=== PATIENT | male | born 2000 | race Caucasian/White ===

== ENCOUNTER 2021-07-29 21:45 | Emergency (ER) | payer OTHER, SELFPAY ==
[2021-07-29 21:47] VITALS: BP 158/79; PULSE 99; RESP 16; TEMP 36.4; O2SAT 100
--- NOTE | 2021-07-29 22:19 | ED.HEATRA ---
HPI - Head Injury General Chief complaint: Head Injury Stated complaint: head injury Time Seen by Provider: 07/29/21 21:58 Source: patient and RN notes reviewed Mode of arrival: ambulatory Limitations: no limitations History of Present Illness HPI Narrative: This is a 21 year old male who presents for evaluation of a closed head injury. Patient reports he saw a spider and he jumped up hitting his head on ceiling. He denies LOC, nausea, vomiting. He had brief episode of dizziness and his right eye felt weird . His dizziness has resolved and he denies blurred vision currently.. He reports mild headache. He denies neck pain or focal weakness. He does not take blood thinners Related Data Allergies Allergy/AdvReac Type Severity Reaction Status Date / Time No Known Allergies Allergy Verified 03/23/19 04:07 Review of Systems Review of Systems: All systems reviewed & are unremarkable except as noted in HPI and below PMFSH Past Medical History Medical History (Updated 07/30/21 @ 00:00 by Marcelo Pederson) Asthma Surgical History Surgical History (Updated 07/29/21 @ 22:27 by Angela Wallace MD) No pertinent past surgical history Social History Social History (Updated 07/29/21 @ 22:27 by Angela Wallace MD) Smoking status: Never smoker Exam Const: General: alert Orientation/consciousness: patient oriented x3 HENMT: Head: normocephalic and atraumatic Face and sinus: normal facial exam and face symmetric Mouth: Yes Normal oral and palatal mucosa present, Yes lip normal, Yes tongue normal, Yes oropharynx normal and Yes moist mucous membranes Eyes: Pupils: Equal, round and reactive pupils present EOM: EOMs intact bilaterally Neck: Neck: normal visual inspection Chest: Chest palpation & inspection: normal inspection of the chest Resp: Effort & Inspection: normal respiratory effort and no retractions Auscultation: clear to auscultation bilaterally Cardio: Rate: regular rate Rhythm: regular rhythm Heart sounds: no murmurs Back/Spine/Pelvis: Back: no CVA tenderness Skin: General skin exam: normal color Rashes: no rashes Neuro: General: patient oriented x3 and moves all extremities Cranial nerves: Yes CN's II-XII intact bilaterally Psych: Mental Status: mental status grossly normal Affect: normal affect Course Reevaluation(s) Reevaluation #1: I Discussed with patient he seems to have concussion. his symptoms have resolved. I offered CT brain. He wants to hold off. He was given return precautions. Date: 08/31/21 Time: 22:30 Vital Signs Vital signs: Vital Signs Temperature 97.6 F 07/29/21 21:47 Pulse Rate 99 07/29/21 21:47 Respiratory Rate 16 07/29/21 21:47 Blood Pressure 158/79 H 07/29/21 21:47 Pulse Oximetry 100 07/29/21 21:47 Temperature 97.6 F 07/29/21 21:47 Pulse Rate 99 07/29/21 21:47 Respiratory Rate 16 07/29/21 21:47 Blood Pressure 158/79 H 07/29/21 21:47 Pulse Oximetry 100 07/29/21 21:47 Discharge Plan Discharge Clinical Impression: Closed head injury, Concussion without loss of consciousness Patient Disposition: Home, Self-Care Condition: Stable Instructions: Concussion (ED), Head Injury (ED) Additional Instructions: Take tylenol for your headache. STay hydrated. IF you develop worsening headache, vomiting or worsening symptoms return to ER. Follow-up/Referrals: KATE,KEYONNA ROBLEDO [Primary Care Provider] - Stand Alone Forms: Work/School Release IP
== END 2021-07-29 22:39 | disposition home or self-care (01) ==
PROVIDERS: Emergency Provider General Practice; PCP Nurse Practitioner Family
DX: S06.0X0A Concussion without loss of consciousness, initial encounter (principal); J45.909 Unspecified asthma, uncomplicated; W22.8XXA Striking against or struck by other objects, initial encounter
CPT/HCPCS: 99282

== ENCOUNTER 2025-02-26 17:22 | Emergency (ER) | payer BC, SELFPAY ==
[2025-02-26 17:18] VITALS: BP 131/91; PULSE 86; RESP 15; TEMP 36.7; O2SAT 99
[2025-02-26 17:29] VITALS: PULSE 85; RESP 16; O2SAT 99
--- NOTE | 2025-02-26 17:29 | ECG_ITS ---
Test Date: 2025-02-26 17:32:16 Measurements Intervals [place] Rate: 78 P: 57 CT: 149 QRS: 66 QRSD: 105 T: 49 QT: 353 QTc: 403 Interpretive Statements SINUS RHYTHM NORMAL ECG No previous ECG available for comparison Electronically Signed On 02-26-2025 19:16:41 CDT by Elier Quevedo D.O.
--- NOTE | 2025-02-26 17:41 | ED_ITS ---
HPI - General Adult General Chief complaint: Unspecified Stated complaint: Allergic reaction Time Seen by Provider: 02/26/25 17:22 History of Present Illness HPI narrative: Patient is a 25 year old male who presents to the ER with concerns of an allergic reaction. He reports 15-30 minutes prior to arrival he took Dupixent for the 1st time. Patient reports his tonsils feel swollen and I feel like I'm having difficulty swallowing. He reports he has a history of EOE and last had a dilatation 3-4 weeks ago. Patient denies any wheezing, stridor, or sore throat. He does not feel as though he has food stuck in his throat. Pt denies any other pertinent medical history. 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 Related Data Allergies Allergy/AdvReac Type Severity Reaction Status Date / Time No Known Allergies Allergy Verified 02/26/25 17:35 Review of Systems Review of Systems: All systems reviewed & are unremarkable except as noted in HPI and below PMFSH Past Medical History Medical History Asthma Surgical History Surgical History No pertinent past surgical history Social History Social History Smoking status: Never smoker Exam Narrative: GENERAL: Well appearing, well-nourished, non-toxic, in no acute distress. HEAD: Normocephalic, atraumatic. NECK: Supple. No adenopathy, no masses. RESPIRATORY: Airway patent, respirations nonlabored. Clear to auscultation bilaterally, no rales, rhonchi, wheezing. No stridor CARDIOVASCULAR: Regular rate and rhythm without murmurs, rubs, or gallops. Peripheral pulses 2+ and equal bilaterally. ABDOMINAL: Soft, nontender, nondistended, no hepatosplenomegaly. Normoactive BS. MUSCULOSKELETAL: Moves all extremities. Strength/ROM intact without gross deformities. SKIN: Warm, dry, normal color. No rashes. NEURO: A&O X3. Speech clear. Cranial nerves II-XII intact. No ataxic movements. PSYCHIATRIC: Appropriate mood and affect. Normal interaction. Course Vital Signs Vital signs: Vital Signs Temperature 36.7 C 02/26/25 17:18 Pulse Rate 86 02/26/25 17:18 Respiratory Rate 15 02/26/25 17:18 Blood Pressure 131/91 H 02/26/25 17:18 Pulse Oximetry 99 02/26/25 17:18 Oxygen Delivery Room Air 02/26/25 17:18 Temperature 36.7 C 02/26/25 17:18 Pulse Rate 85 02/26/25 17:29 Respiratory Rate 16 02/26/25 17:29 Blood Pressure 131/91 H 02/26/25 17:18 Pulse Oximetry 99 02/26/25 17:29 Oxygen Delivery Room Air 02/26/25 17:18 Medical Decision Making MDM Narrative Medical decision making narrative: Patient is a 25 year old male who presents to the ER with concerns of an allergic reaction. He reports 15-30 minutes prior to arrival he took Dupixent for the 1st time. Patient reports his tonsils feel swollen and I feel like I'm having difficulty swallowing. He reports he has a history of EOE and last had a dilatation 3-4 weeks ago. Patient denies any wheezing, stridor, or sore throat. He does not feel as though he has food stuck in his throat. Pt denies any other pertinent medical history. 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 Labs Ordered: None necessary Imaging Ordered: None necessary Medications Ordered: Decadron 10 mg IV, Benadryl 25 mg IV, Pepcid 20 mg IV, 1 L normal saline IV bolus Diagnosis: possible allergic reaction Patient Education/Shared MDM: Pt endorses significant improvement of symptoms following medication administration. He was given a glass of ice water and was able to drink the entire glass. Patient strongly advised to maintain hydration status upon discharge and follow-up with his PCP and GI specialist as soon as possible. Patient reports he is unable to take oral medications because of his EOE, so he will not be discharged home with any new oral prescriptions. Patient WILL be prescribed an epinephrine pen IN CASE his airway begins to close off once he gets home. A large amount of education was provided to patient regarding when to use an EpiPen and when to refrain from use. Pt's Dupixent dose is dosed weekly, so if this is an allergic reaction then there is a possibility his symptoms may return. It was explained to pt that if he needs to use the EpiPen, then he needs to return to the ER immediately afterwards. He was advised to not take the Dupixent again until he speaks with his GI specialist. Strict return precautions provided. Patient verbalized understanding and is in agreement with plan. Vital signs stable at time of discharge. All questions answered. Vital Signs Vital Signs: Vital Signs Temperature 36.7 C 02/26/25 17:18 Pulse Rate 86 02/26/25 17:18 Respiratory Rate 15 02/26/25 17:18 Blood Pressure 131/91 H 02/26/25 17:18 Pulse Oximetry 99 02/26/25 17:18 Oxygen Delivery Room Air 02/26/25 17:18 Temperature 36.7 C 02/26/25 17:18 Pulse Rate 85 02/26/25 17:29 Respiratory Rate 16 02/26/25 17:29 Blood Pressure 131/91 H 02/26/25 17:18 Pulse Oximetry 99 02/26/25 17:29 Oxygen Delivery Room Air 02/26/25 17:18 Discharge Plan Discharge Clinical Impression: Allergic reaction caused by a drug, History of esophageal disorder, Eosinophilic esophagitis Patient Disposition: Home Condition: Stable Instructions: Antibiotic Form, General Allergic Reaction (ED) Additional Instructions: Please return to the ER with any worsening symptoms. Follow-up with primary care provider and your GI specialist as soon as possible. If you develop severe shortness of breath or difficulty breathing, you may use your EpiPen and then call 911. Patient Language: [place] Prescriptions: New epinephrine [EpiPen 2-Eliud] 0.3 mg/0.3 mL auto-injector 0.3 mg IM Q5-15M PRN (Reason: anaphylaxis) Qty: 2 0RF Rx Instructions: do not exceed 3 doses per episode Follow-up/Referrals: KATE,KEYONNA ROBLEDO [Primary Care Provider] - Stand Alone Forms: Work/School Release IP Time of Disposition: 19:11
[2025-02-26] MEDS: SODIUM CHLORIDE 0.9% IV 1,000 ML 999 ML IV CONT (17:42)
[2025-02-26] MEDS: diphenhydrAMINE HCl INJ 50 MG/ML VIAL 25 MG IV PUSH (17:44)
[2025-02-26] MEDS: FAMOTIDINE 20 MG/2 ML VIAL IV PUSH (17:46)
[2025-02-26] MEDS: dexAMETHasone SOD PHOS INJ 10 MG/ML 1 ML VIAL IV PUSH (17:48)
--- OUTSIDE RECORDS SUMMARY | 2025-02-26 18:10 | XMS_ITS | Referral Summary ---
Author Organization [facility] Address [address] [place] [address] Care Team Providers Care Supervisor Mold Yard Name Role Phone Karen Sequeira NP Primary Care Provider Encounters Date Type Department Care Team Description 02/18/20 Documentation [facility] [address] [facility] [address] [place] [address] Dawn Stanley [facility] 02/14/20 11:00 AM CDT Office Visit [facility] Gastroenterology at [address] [place] [phone] Petar Monteiro NP Eosinophilic esophagitis (Primary Dx) 01/28/20 Results Follow-Up [facility] Medical [facility] Gastroenterology at [address] [phone] Maged Arellano MD Surgical pathology 01/27/20 12:29 PM CDT Anesthesia Event [facility] Endoscopy [address] [place] [address] Dominic Vitale MD FlemmingAure Sanchez CRNA 01/27/20 25 11:45 AM CDT - 01/27/20 25 12:15 PM CDT Surgery [facility] Endoscopy [address] [place] [address] Maged Arellano MD ESOPHAGOGASTRODUODENOSCOPY BIOPSY 01/27/20 11:15 AM CDT - 01/27/20 1:59 PM CDT Hospital Encounter [facility] Endoscopy [address] [place] [address] Maged Arellano MD Eosinophilic esophagitis; Gastroesophageal reflux disease with esophagitis without hemorrhage Discharge Disposition: Discharge to home or self care from Last 3 Months Allergies No known active allergies Medications famotidine-Ca carb-mag hydrox (Pepcid Complete) 10-800-165 mg chewable tablet Take 1 tablet by mouth 2 (two) times a day as needed 4 Active lansoprazole (PREVACID SOLUTAB) 30 mg disintegrating tabletIndications:G ERD vs EoE Take 1 tablet (30 mg total) by mouth daily 90 tablet 1 5 04/26/20 25 Active dupilumab (DUPIXENT) 300 mg/2 mL pen injectorIndications :Eosinophilic Esophagitis Inject 2 mL (300 mg total) under the skin every 7 days 8 mL 12 5 02/14/20 26 Active Active Problems Problem Noted Date Diagnosed Date Gastroesophageal reflux disease 10/28/2024 Food bolus obstruction of intestine 09/07/2024 Eosinophilic esophagitis 09/07/2024 Assessment & Plan (02/13/2025 11:54 AM CDT): EGD 01/26/25 confirms diagnosis of EoE beyond any reasonable doubt. 36 cm esophageal biopsies showed reactive changes and increased intraepithelial eosionphils with up to 30 per HPF. Distal biopsies showed 16 per HPF and mid esophageal biopsies showed up to 35 per HPF. This is even after being on PPI. We discussed the nature of EoE as well as several different possible treatment methodologies including 2-4-6 empiric elimination diet, swallowed topical corticosteroids, and Dupixent. Of these options, we have chosen to start Dupixent 300 mg weekly indefinitely. Will see him back in the office in 3-4 months to recheck symptoms. In about 6 months will send for repeat EGD to prove histologic remission and resolution of esophageal eosinophilia. Assessment & Plan (10/28/2024 4:50 PM STAFF ANALYST): The endoscopic and biopsy findings are highly suggestive of EoE. When he presented with suspected food bolus in August 2024 he had endoscopic appearance highly suggestive of EoE, moreso than GERD. EREFS score was Edema - 1, Rings 2, Exudate 0 (although some exudate appears to be seen on the photos), Furrows 0 and stricture 0/Absent. Interestingly, the distal and mid-esophageal biopsies showed mild chronic esophagitis with rare eosinophils. Distal esophagus biopsy show squamous epithelium and mucosa with basal hyperplasia, slight intercellular edema, and occasional eosinophils (0-7 eosinophils per high-power field). Eosinophilic microabscesses are not seen nor is surface epithelial damage by eosinophils. Midesophagus biopsy show a strip of squamous mucosa with elongation of the vascular papillae, basal hyperplasia, and scattered eosinophils (0-10 per high-power field). Surface epithelial damage by eosinophils is not seen nor are eosinophilic microabscesses. There is no intercellular edema. In totality, these features along with the endoscopic findings are quite suggestive of EoE as opposed to GERD. However, it is curious that there were only 0-7 eosinophils per HPF in the distal esophagus and 0-10 eosinophils per HPF in the mid esophagus. During an acute episode of dysphagia, I would have expected these to be higher. I do not have his biopsy results from 2019, but he did have endoscopic appearance highly suggestive of EoE in 2019. Either way, I discussed the updated guidelines (Sep 2024) with the patient today as well as the diagnostic and treatment approach to EoE. Will start him back on lansoprazole 30 mg solutab (cannot swallow pills) once daily in the morning for three months and then repeat EGD to evaluate for healing/resolution. If features of EoE still present will consider additional treatment modalities including dietary restriction, swallowed topical steroids, Dupixent etc. Will see him back in the office 1-2 weeks after EGD for discussion of next steps. Social History Tobacco Use Types Packs/Day Years Used Date Smoking Tobacco: Never Tobacco Cessation:Counseling Given: Not Answered AUDIT-C Answer Date Recorded Q1: How often do you have a drink containing alcohol? Never 01/26/2025 Q2: How many drinks containi ng alcohol do you have on a typical day when you are drinking? Patient does not drink Q3: How often do you have si x or more drinks on one occasion? Never 01/26/2025 Personal Safety Answer Date Recorded Have you ever been in or are you currently in a harmful physical or emotional relationship or is someone making you feel afraid or unsafe? 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 Gender Identity Not on file Sexual Orientation Not on file Last Filed Vital Signs Vital Sign Reading Time Taken Comments Blood Pressure 140/88 02/13/2025 10:48 AM CDT Pulse 68 01/26/2025 1:20 PM CDT Temperature 35.9 C (96.7 F) 01/26/2025 1:23 PM CDT Respiratory Rate 15 01/26/2025 1:20 PM CDT Oxygen Saturation 99% 01/26/2025 1:20 PM CDT Inhaled Oxygen Concentration - - Weight 75.1 kg (165 lb 8 oz) 02/13/2025 10:48 AM CDT Height 182.9 cm (6' 0.01) 02/13/2025 10:48 AM C DT Body Mass Index 22.44 02/13/2025 10:48 AM CDT Plan of Treatment Not on file Procedures Procedure Name Priority Date/Time Associated Diagnosis Comments SURGICAL PATHOLOGY Routine 01/26/2025 12:53 PM CDT Eosinophilic esophagitis Gastroesophageal reflux disease with esophagitis without hemorrhage ESOPHAGOGASTRODUODENOSCOPY BIOPSY 01/26/2025 12:30 PM CDT Eosinophilic esophagitis Gastroesophageal reflux disease with esophagitis without hemorrhage EGD 01/26/2025 11:51 AM CDT from Last 3 Months Results * Surgical pathology (01/26/2025 12:53 PM CDT) Tissue (Esophageal biopsy) 01/26/2025 12:53 PM CDT Tissue specimen (specimen) (Esophageal biopsy) 01/26/2025 12:54 PM CDT Tissue specimen (specimen) (Esophageal biopsy) 01/26/2025 12:55 PM CDT Tissue specimen (specimen) (Esophageal biopsy) 01/26/2025 12:58 PM CDT Tissue specimen (specimen) (Esophageal biopsy) 01/26/2025 12:59 PM CDT Narrative PATHOLOGY [facility] - 01/27/2025 2:30 PM CDT [address] [address] Tele: Claudette Ramsey MD - Ocean Forwarder Note to Patients: This report may contain a detailed description of human tissue sent by a health care provider to the laboratory for pathologic evaluation. The content of this report is essential for diagnosis and may provide important critical findings. This information may be unfamiliar to patients to review without a medical professional present. It is advised that the patient review this report in the presence of a health care provider who can answer questions and explain the details. SURGICAL PATHOLOGY REPORT Patient Name: TREVOR LEUGN Address: [address] [place] [address] Gender: M : 2000 (Age: 25) Service: Surgery Location: [facility], [facility] #: [id number] Patient Type: BSP Observation Taken: 01/26/2025 Received 01/26/2025 Reported: 01/27/2025 Physician(s): MD Karen Klein FNP DIAGNOSIS: Submitted as suspected Payan's at 40 cm, biopsy: - Gastric mucosa with no significant histopathologic abnormality Submitted as suspected Payan's at 38 cm, biopsy: - Gastric mucosa with no significant histopathologic abnormality Submitted as suspected Payan's at 36 cm, biopsy: - Gastric mucosa with no significant histopathologic abnormality - Squamous mucosa with reactive changes and increased intraepithelial eosinophils (up to 30 per high-power field) Esophagus, distal, biopsy: - Squamocolumnar mucosa with reactive changes and increased intraepithelial eosinophils (up to 16 per high-power field) Esophagus, mid, biopsy: - Squamous mucosa with reactive changes and increased intraepithelial eosinophils (up to 35 per high-power field) rera/01/27/2025 14:30 Examining Pathologist: Tania Stinson M.D. Report Reviewed and Electronically Signed By Tania Stinson M.D. SPECIMEN TYPE: A: SUSPECTED BARRETTS AT 40CM B: SUSPECTED BARRETTS AT 38 CM C: SUSPECTED BARRETTS AT 36 CM D: DISTAL ESOPHAGUS BIOPSY E: MID ESOPHAGUS BIOPSY CLINICAL IMPRESSION AND HISTORY: Dysphagia, suspected eosinophilic esophagitis. On endoscopy, there salmon-colored mucosa present and mucosal changes include ringed esophagus and longitudinal furrows in the middle third and lower third of the esophagus. GROSS DESCRIPTION: The tissue is received in five containers of formalin all labeled with the patient's name TREVOR LEUNG. A. The first container is additionally labeled suspected Payan's at 40 cm and contains multiple tissue fragments measuring 0.7 x 0.1 x 0.1 cm in aggregate. Due to the color and size of the specimen, eosin is used. The specimen is filtered and submitted entirely in cassette A1. B. The second container is additionally labeled suspected Payan's at 38 cm and contains multiple tissue fragments measuring 0.8 x 0.1 x 0.1 cm in aggregate. Due to the color and size of the specimen, eosin is used. The specimen is filtered and submitted entirely in cassette B1. C. The third container is additionally labeled suspected Payan's at 36 cm and contains multiple tissue fragments measuring 0.8 x 0.1 x 0.1 cm in aggregate. Due to the color and size of the specimen, eosin is used. The specimen is filtered and submitted entirely in cassette C1. D. The fourth container is additionally labeled distal esophagus biopsy and contains two tissue fragments measuring 0.5 x 0.1 x 0.1 cm in aggregate. Due to the color and size of the specimen, eosin is used. The specimen is filtered and submitted entirely in cassette D1. E. The fifth container is additionally labeled mid esophagus biopsy and contains multiple tissue fragments measuring 0.7 x 0.2 x 0.1 cm in aggregate. Due to the color and size of the specimen, eosin is used. The specimen is filtered and submitted entirely in cassette E1. [facility]/01/26/2025 17:37 [place],[facility] MICROSCOPIC DESCRIPTION: Microscopic evaluation of parts A and B show fragments of gastric mucosa with no significant histopathologic abnormality. Negative for intestinal metaplasia and dysplasia. Microscopic evaluation of part C shows fragments of gastric mucosa with no significant histopathologic abnormality and fragments of squamous mucosa with reactive changes and increased intraepithelial eosinophils (up to 30 per high- power field). Some of the squamous fragments also show intraepithelial neutrophils. Negative for dysplasia. Microscopic evaluation of part D shows fragments of squamocolumnar mucosa with reactive changes and increased intraepithelial eosinophils (up to 16 per high- power field). Negative for dysplasia. Microscopic evaluation of part E shows fragments squamous mucosa with reactive changes and increased intraepithelial eosinophils (up to 35 per high-power field). Negative for dysplasia. Clerical Data Follows A; 22601 B; 21271 C; 54146 D; 31630 E; 98233 REPORT IMAGES AND/OR SCANNED DOCUMENTS ONLY VIEWABLE IN PDF FORMAT The immunohistochemical test(s) cited in this report, if any, was developed and its performance characteristics determined by [facility] Pathology Department. It has not been cleared or approved by the U.S. Food and Drug Administration. The FDA has determined that such clearance or approval is not necessary. This test is used for clinical purposes. It should not be regarded as investigational or for research. [facility] is certified under the Clinical Laboratory Improvement Amendments of 1988 (CLIA) as qualified to perform high complexity testing. Immunostains were performed on formalin-fixed paraffin embedded tissue using a polymer diaminobenzidine chromogen detection system. Antibodies used may include clone SP1 (rabbit monoclonal, estrogen receptor), clone 1E2 (rabbit monoclonal progesterone receptor), Ki-67 (rabbit monoclonal, 30-9), CD117 (rabbit polyclonal, c-kit), and anti-Her-2/genesis (4B5) (rabbit monoclonal primary antibody). In the event that immunohistochemistry or special stains have been performed, attending physician has confirmed appropriateness of controls. Frozen section, operating room consultation, gross examination and dissection, and case sign out may have been performed in part or completely in the following laboratories: [facility], [address] [place] [address], [address] [place] [id number]. us Maged Arellano MD LAB PATHOLOGY ORDERABLES Final Result PATHOLOGY [facility] Laboratory Receiving [address] [place] [address] * EGD (01/26/2025 11:51 AM CDT) Anatomical Region Laterality Modality Other Narrative Procedure Note Maged Arellano MD - 01/26/2025 11:51 AM CDT [facility] Endoscopy Lab Patient Name: Trevor Leung Procedure Date: 01/26/2025 11:51 AM Date of : 2000 Admit Type: Outpatient Age: 25 Gender: Male Attending MD: Maged Arellano M.D. Procedure: Upper GI endoscopy Indications: Dysphagia, Suspected eosinophilic esophagitis (EGD done on lansoprazole 30 mg daily, patient denies signficant dysphagia) Providers: Maged Arellano M.D. Referring MD: Geeta Mccormack Medicines: Monitored Anesthesia Care Complications: No immediate complications. Procedure: Pre-Anesthesia Assessment: - Prior to the procedure, a History and Physicalwas performed, and patient medications and allergieswere reviewed. The patient is competent. The risks and benefits of the procedure and the sedation optionsand risks were discussed with the patient. Allquestions were answered and informed consent was obtained. Patient identification and proposed procedure were verified by the physician, the nurse, the anesthesiologist, the compensator worker and thetechnician in the pre-procedure area in the procedure room inthe endoscopy suite. Mental Status Examination: normal. ASA Grade Assessment: per anesthesia. Afterreviewing the risks and benefits, the patient was deemed in satisfactory condition to undergo the procedure.The anesthesia plan was to use monitored anesthesiacare (MAC). Immediately prior to administration of medications, the patient was re-assessed foradequacy to receive sedatives. The heart rate, respiratory rate, oxygen saturations, blood pressure, adequacyof pulmonary ventilation, and response to care were monitored throughout the procedure. The physical status of the patient was re-assessed after the procedure. The benefits, risks, and alternatives to theprocedure and sedation were discussed and informed consentwas obtained. The scope was passed under direct vision. The Endoscope was introduced through the mouth, and advanced to the second part of duodenum. The upperGI endoscopy was accomplished without difficulty. The patient tolerated the procedure well. Findings: A small hiatal hernia was present. Antrim-colored mucosa was present. Mucosa was biopsied with a cold forceps for histology in 4 quadrants at intervals of 2 cm. A total of3 specimen bottles were sent to pathology. Mucosal changes including ringed esophagus and longitudinal furrowswere found in the middle third of the esophagus and in the lower third ofthe esophagus. Biopsies were obtained from the proximal and distalesophagus with cold forceps for histology of suspected eosinophilicesophagitis. The entire examined stomach was normal. The examined duodenum was normal. Impression: - Small hiatal hernia. - Antrim-colored mucosa suspicious for long-segment Payan's esophagus and classified as Payan'sstage C4-M4 per [place] criteria. Biopsied. - Esophageal mucosal changes suggestive of eosinophilic esophagitis. Biopsied. - Normal stomach. - Normal examined duodenum. Recommendation: - Resume previous diet. - Continue present medications. - Await pathology results. - Return to referring physician. Maged Arellano M.D. 01/26/2025 1:08:11 PM This report has been signed electronically. Number of Addenda: 0 Note Initiated On: 01/26/2025 11:51 AM Estimated Blood Loss: Estimated blood loss: none. Maged Arellano MD ENDOSCOPY PROCEDURES Edited Re sult - Final from Last 3 Months Insurance ANTHEM ACCESS CHOICE ANTHEM ACCESS CHOICE Advance Directives For more information, please contact: [phone] * Full Code (Latest Code Status on File) Date Activated Date Inactivated Comments 01/26/2025 11:42 AM 01/26/2025 6:06 PM Care Teams Supervisor [employer] Relationship Specialty Start Date End Date Karen Sequeira NP [address] [place] [phone] PCP - General Nurse Practitioner 09/07/24
--- OUTSIDE RECORDS SUMMARY | 2025-02-26 18:10 | XMS_ITS | Encounter Summary ---
Author Organization [facility] Healthcare Address [address] [place] [address] Care Team Providers Care Carpenter Ship Name Role Phone Karen Sequeira NP Primary Care Provider Encounter Details Date Type Department Care Team (Late st Contact Info) Description 01/27/2025 Results Follow-Up [facility] Medical Group Gastroenterology at [place] [address] [facility] [address] [place] [phone] Maged Arellano MD [address] [facility] [address] [place] [address] Surgical pathology Social History Tobacco Use Types Packs/Day Years Used Date Smoking Tobacco: Never AUDIT-C Answer Date Recorded Q1: How often [...] on file 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
--- OUTSIDE RECORDS SUMMARY | 2025-02-26 18:10 | XMS_ITS | Clinical Summary ---
Author Organization [facility] Address [address] [place] [address] Care Team Providers Care Nailhead Operator Name Role Phone Karen Sequeira NP Primary Care Provider + [phone] Allergies No known active allergies Medications famotidine-Ca [...] eosinophilia. Assessment & Plan (10/28/2024 4:50 PM TUBE DRAW HELPER): The endoscopic and biopsy findings are highly [...] after EGD for discussion of next steps. Encounters Date Type Department Care Team Description 02/18/20 Documentation [facility] [address] [facility] [address] [place] [address] Jaden Dawn Doan [facility] 02/14/20 11:00 AM CDT Office Visit [facility] Gastroenterology at [address] [place] [address] Petar Monteiro NP Eosinophilic esophagitis (Primary Dx) 01/28/20 Results Follow-Up [facility] Gastroenterology at [address] [address] Maged Arellano MD Surgical pathology 01/27/20 12:29 PM CDT Anesthesia Event [facility] [address] [place] [address] Dominic Vitale MD Flemming-Ko ttman, Sandra K., CRNA 01/27/20 11:45 AM CDT - 01/27/20 12:15 PM CDT Surgery [facility] [address] [place] [address] Maged Arellano MD ESOPHAGOGASTRODUODENOSCOPY BIOPSY 01/27/20 11:15 AM CDT - 01/27/20 1:59 PM CDT Hospital Encounter [facility] [address] [place] [address] Maged Arellano MD Eosinophilic esophagitis; Gastroesophageal reflux disease with esophagitis without hemorrhage Discharge Disposition: Discharge to home or self care from Last 3 Months Surgical History Surgery Date Site/Laterality Comments ESOPHAGOGASTRODUODENOSCOPY Medical History Medical History Date Comments GERD (gastroesophageal reflux disease) Anxiety Social History Tobacco Use Types Packs/Day Years [...] on file Legal Sex Male 1:28 AM TUBE DRAW HELPER Gender Identity Not on file Sexual Orientation Not on file Obstetrics History Last Filed Vital Signs Vital Sign Reading [...] 02/13/2025 10:48 AM CDT Plan of Treatment Health Maintenance Due Date Last Done Comments Depression Screening 2000 Hepatitis C Screening 2000 Varicella Vaccines (1 of 2 - 13+ 2-dose series) 01/17/2013 HPV Vaccines (1 - Male 3-dos e series) 01/17/2015 Hepatitis B Screening 01/17/2018 Regular Well Visit/Exam 18-64 01/17/2018 Covid-19 Vaccine ( - 2023-2 5 season) 2024 10/10/2021, 11/30/2020, 10/28/2020 Influenza Vaccine (Season Ended) 2025 DTaP/Tdap/Td Vaccine (2 - Td or Tdap) 03/07/2029 03/07/2019 Pneumococcal vaccine <65 Aged Out No longer eligible based on patient's age to complete this topic Procedures Procedure Name Priority Date/Time Associated Diagnosis [...] biopsy) 01/26/2025 12:59 PM CDT Narrative PATHOLOGY [facility] - 01/27/2025 2:30 PM CDT [address] [address] Tele: Claudette Ramsey MD - Hoe Runner Note to Patients: This report may contain [...] details. SURGICAL PATHOLOGY REPORT Patient Name: TREVOR LEUNG Address: [address] [place] [address] Gender: M : 2000 (Age: 25) Service: Surgery Location: [facility], [facility] #: [id number] Patient Type: BSP Observation Taken: 01/26/2025 Received [...] filtered and submitted entirely in cassette E1. [facility]/01/26/2025 17:37 AKIKO,MILO MICROSCOPIC DESCRIPTION: Microscopic evaluation of parts A [...] Negative for dysplasia. Clerical Data Follows A; 06597 B; 31018 C; 74600 D; 83809 E; 00406 REPORT IMAGES AND/OR SCANNED DOCUMENTS ONLY VIEWABLE IN PDF FORMAT The immunohistochemical test(s) cited in this report, if any, was developed and its performance characteristics determined by [facility] Pathology Department. It has not been cleared or approved by the U.S. Food and Drug Administration. The FDA has determined that such clearance or approval is not necessary. This test is used for clinical purposes. It should not be regarded as investigational or for research. [facility] Laboratory is certified under the Clinical Laboratory [...] part or completely in the following laboratories: [facility], [address] [facility], [place], [place] [address] [place] [address], [address], [place] [address]. Maged Arellano MD LAB PATHOLOGY ORDERABLES Final Result PATHOLOGY [facility] Laboratory Receiving [facility][note 2] [place] [address] * EGD (01/26/2025 11:51 AM CDT) Anatomical Region Laterality Modality Other Narrative Procedure Note Maged Arellaon MD - 01/26/2025 11:51 AM CDT [facility] Patient Name: Trevor Leung Procedure [...] the physician, the nurse, the anesthesiologist, the faculty head and thetechnician in the pre-procedure area in [...] Findings: A small hiatal hernia was present. [place]-colored mucosa was present. Mucosa was biopsied with [...] normal. Impression: - Small hiatal hernia. - [place]-colored mucosa suspicious for long-segment Payan's esophagus and classified as Payan'sstage C4-M4 per [place] criteria. Biopsied. - Esophageal mucosal changes suggestive [...] - Final from Last 3 Months Insurance [employer] CHO[employer] Member Subscriber Plan / Payer ( fective 2022-Present) Name:Trevor Leung Member ID:[id number] Relation to Subscriber:Self Name:Trevor Leung Subscriber ID:[id number] Payer ID:[id number] (NAIC) Type:BC ALLIANCE Address: [facility] [id number] [place] [id number] Advance Directives For more information, please contact: [phone] * Full Code (Latest Code Status on File) Date Activated Date Inactivated Comments 01/26/2025 11:42 AM 01/26/2025 6:06 PM Care Teams Nailhead Operator Relationship Specialty Start Date End Date Karen Sequeira NP [address] [place] [address] PCP - General Nurse Practitioner 09/07/24
[2025-02-26 19:19] VITALS: BP 121/94; PULSE 97; RESP 18; O2SAT 100
== END 2025-02-26 19:21 | disposition home or self-care (01) ==
PROVIDERS: Emergency Provider Registered Nurse; PCP Nurse Practitioner Family
DX: K20.0 Eosinophilic esophagitis (principal); J45.909 Unspecified asthma, uncomplicated; T45.1X5A Adverse effect of antineoplastic and immunosuppressive drugs, initial encounter
CPT/HCPCS: 93005; 96361; 96374; 96375; 99284; J1100; J1200; J7030

== ENCOUNTER 2025-02-26 23:55 | Emergency (ER) | payer BC, SELFPAY ==
[2025-02-27] VITALS (7 sets, daily range): BP systolic 137–151; BP diastolic 82–86; PULSE 70–101; RESP 16–19; TEMP 36.8; O2SAT 98–100
--- OUTSIDE RECORDS SUMMARY | 2025-02-27 00:24 | XMS_ITS | Clinical Summary ---
Author Organization [facility] Address [address] [place] [address] Care Team Providers Care Motor Adjuster Name Role Phone Karen Sequeira NP Primary Care Provider + [phone] Allergies No known active allergies Medications famotidine-Ca [...] eosinophilia. 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): The endoscopic and biopsy findings are highly [...] Department Care Team Description 02/18/20 Documentation [facility] [address] [facility] [address] [place] [address] Jaden Dawn Doan [facility] 02/14/20 11:00 AM CDT Office Visit [facility] Gastroenterology at [address] [place] [address] Petar Monteiro NP Eosinophilic esophagitis (Primary Dx) 01/28/20 Results Follow-Up [facility] Gastroenterology at [address] [address] Maged Arellano MD Surgical pathology 01/27/20 12:29 PM CDT Anesthesia Event [facility] [address] [place] [address] Dominic Vitale MD Flemming-Ko ttman, Sandra K., CRNA 01/27/20 11:45 AM CDT - 01/27/20 12:15 PM CDT Surgery [facility] [address] [place] [address] Maged Arellano MD ESOPHAGOGASTRODUODENOSCOPY BIOPSY 01/27/20 11:15 AM CDT - 01/27/20 1:59 PM CDT Hospital Encounter [facility] [address] [place] [address] Maged Arellano MD Eosinophilic esophagitis; Gastroesophageal reflux [...] on file 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, [facility] #: [id number] Patient Type: BSP Observation Taken: 01/26/2025 Received [...] filtered and submitted entirely in cassette E1. [facility]/01/26/2025 17:37 AKIKO,MILO MICROSCOPIC DESCRIPTION: Microscopic evaluation of [...] Negative for dysplasia. Clerical Data Follows A; 49798 B; 84105 C; 54554 D; 98908 E; 78806 REPORT IMAGES AND/OR SCANNED DOCUMENTS ONLY VIEWABLE IN PDF FORMAT The immunohistochemical test(s) cited in this report, if any, was developed and its performance characteristics determined by [facility] Pathology Department. It has not been cleared or approved by the U.S. Food and Drug Administration. The FDA has determined that such clearance or approval is not necessary. This test is used for clinical purposes. It should not be regarded as investigational or for research. [facility] Laboratory is certified under the Clinical Laboratory [...] part or completely in the following laboratories: [facility], [address] [facility], [place], [place] [address] [place] [address], [address], [place] [address]. Maged Arellano MD LAB PATHOLOGY ORDERABLES Final Result PATHOLOGY [facility] Laboratory Receiving [facility] [place] [address] * EGD (01/26/2025 11:51 AM CDT) Anatomical Region Laterality Modality Other Narrative Procedure Note Maged Arellano MD - 01/26/2025 11:51 AM CDT [facility] Lab Patient Name: Trevor Leung Procedure [...] the physician, the nurse, the anesthesiologist, the van driver helper and thetechnician in the pre-procedure area in [...] Findings: A small hiatal hernia was present. [place]-colored mucosa was present. Mucosa was biopsied with [...] normal. Impression: - Small hiatal hernia. - [place]-colored mucosa suspicious for long-segment Payan's esophagus and classified as Payan'sstage C4-M4 per [place] criteria. Biopsied. - Esophageal mucosal changes suggestive [...] - Final from Last 3 Months Insurance [employer] Member Subscriber Plan / Payer ( fective 2022-Present) Name:Trevor Leung Member ID:[id number] Relation to Subscriber:Self Name:Trevor Leung Subscriber ID:[id number] Payer ID:[id number] ([facility]) Type:[facility] Address: [facility] [id number] [place] [address] [email or web address] CHOICE Member Subscriber Plan / Payer ( fective 2022-Present) Name:Trevor Leung Member ID:[id number] Relation to Subscriber:Self Name:Trevor Leung Subscriber ID:[id number] Payer ID:[id number] (NAIC) Type:[employer] ALLIANCE Address: [facility] [address] [place] [id number] Advance Directives For more information, please contact: [phone] * Full Code (Latest Code Status on File) Date Activated Date Inactivated Comments 01/26/2025 11:42 AM 01/26/2025 6:06 PM Care Teams Motor Adjuster Relationship Specialty Start Date End Date Karen Sequeira NP [address] [place] [address] PCP - General Nurse Practitioner 09/07/24
--- OUTSIDE RECORDS SUMMARY | 2025-02-27 00:24 | XMS_ITS | Referral Summary ---
Author Organization [facility] Address [address] [place] [address] Care Team Providers Care Bath Mixer Name Role Phone Karen Sequeira NP Primary Care Provider [phone] Encounters Date Type Department Care Team Description 02/18/20 Documentation [facility] [address] [facility] [address] [place] [address] Dawn [facility] 02/14/20 11:00 AM CDT Office Visit [facility] Gastroenterology at [address] [place] [phone] Petar Monteiro NP Eosinophilic esophagitis (Primary Dx) 01/28/20 Results Follow-Up [facility] Medical [facility] Gastroenterology at [address] [phone] Maged Arellano MD Surgical pathology 01/27/20 12:29 PM CDT Anesthesia Event [facility] [address] [place] [address] Dominic Vitale MD FlemmingAure Sanchez CRNA 01/27/20 25 11:45 AM CDT - 01/27/20 25 12:15 PM CDT Surgery [facility] [address] [place] [address] Maged Arellano MD ESOPHAGOGASTRODUODENOSCOPY BIOPSY 01/27/20 11:15 AM CDT - 01/27/20 1:59 PM CDT Hospital Encounter [facility] [address] [place] [address] Maged Arellano MD Eosinophilic esophagitis; Gastroesophageal reflux [...] eosinophilia. 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 Gender Identity Not on file Sexual Orientation [...] biopsy) 01/26/2025 12:59 PM CDT Narrative PATHOLOGY [facility] - 01/27/2025 2:30 PM CDT [address] [address] Tele: Claudette Ramsey MD - Technology Applications Engineer Note to Patients: This report may contain [...] PATHOLOGY REPORT Patient Name: TREVOR LEUNG Address: [address] [place] [address] Gender: M : 2000 (Age: 25) Service: Surgery Location: [facility], [facility] #: [id number] Patient Type: BSP Observation Taken: 01/26/2025 Received [...] filtered and submitted entirely in cassette E1. [facility]/01/26/2025 17:37 Marisol,[facility] MICROSCOPIC DESCRIPTION: Microscopic evaluation of parts A [...] Negative for dysplasia. Clerical Data Follows A; 30394 B; 59831 C; 55548 D; 67377 E; 02252 REPORT IMAGES AND/OR SCANNED DOCUMENTS ONLY VIEWABLE IN PDF FORMAT The immunohistochemical test(s) cited in this report, if any, was developed and its performance characteristics determined by [facility] Pathology Department. It has not been cleared or approved by the U.S. Food and Drug Administration. The FDA has determined that such clearance or approval is not necessary. This test is used for clinical purposes. It should not be regarded as investigational or for research. [facility] Laboratory is certified under the Clinical [...] part or completely in the following laboratories: [facility], [address] [place] [address], [address] [place] [address]. [place] Maged Arellano MD LAB PATHOLOGY ORDERABLES Final Result PATHOLOGY [facility] Laboratory Receiving [address] [place] [address] * EGD (01/26/2025 11:51 AM CDT) Anatomical Region Laterality Modality Other Narrative Procedure Note Maged Arellano MD - 01/26/2025 11:51 AM CDT [facility] Patient Name: Trevor Leung [...] the physician, the nurse, the anesthesiologist, the sausage meat trimmer and thetechnician in the pre-procedure area in [...] Findings: A small hiatal hernia was present. [place]-colored mucosa was present. Mucosa was biopsied with [...] normal. Impression: - Small hiatal hernia. - [place]-colored mucosa suspicious for long-segment Payan's esophagus and classified as Payan'sstage C4-M4 per [place] criteria. Biopsied. - Esophageal mucosal changes suggestive [...] Advance Directives For more information, please contact: [phone] * Full Code (Latest Code Status on File) Date Activated Date Inactivated Comments 01/26/2025 11:42 AM 01/26/2025 6:06 PM Care Teams Bath Mixer Relationship Specialty Start Date End Date Karen Sequeira NP [address] [place] [address] PCP - General Nurse Practitioner 09/07/24
--- OUTSIDE RECORDS SUMMARY | 2025-02-27 00:24 | XMS_ITS | Encounter Summary ---
Author Organization [facility] Healthcare Address [address] [place] [address] Care Team Providers Care Wastewater Treatment Plant Attendant Name Role Phone Karen Sequeira NP Primary Care Provider [phone] Encounter Details Date Type Department Care Team (Late st Contact Info) Description 01/27/2025 Results Follow-Up 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
[2025-02-27] MEDS: prednisoLONE ORAL SOLN 30 MG/10 ML SOLUTION 60 MG PO (01:41)
--- NOTE | 2025-02-27 01:55 | ED.ALLEREA ---
HPI - Allergic Reaction General Chief complaint: Allergic Reaction Stated complaint: allergic reaction Time Seen by Provider: 02/27/25 00:09 History of Present Illness HPI narrative: 25-year-old male presenting to the emergency department for concerns of an allergic reaction. Patient had his 1st dose of a new immunosuppressant medication Dupixent earlier today and was seen in the emergency department around 5:00 p.m. for potential lytic reaction where he felt like he is tonsils were swollen he was having some trouble breathing. 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 Patient was treated for suspected allergic reaction with Decadron, Benadryl, Pepcid and fluids. He was observed in the emergency department and discharged home with an epinephrine autoinjector but he had no anaphylaxis during his visit or initial encounter. Patient presents as he is still having some throat swelling sensations but no difficulty in breathing, fever, chills, hives, diarrhea, abdominal pain. He did not use his epinephrine and took children's Benadryl home. Patient is also anxious and his grandmother at bedside states that she feels like this is all anxiety mediated rather than allergic reaction or any other acute process. Related Data Allergies Allergy/AdvReac Type Severity Reaction Status Date / Time dupilumab (From Dupixent Pen) Allergy Severe Difficulty Verified 02/26/25 23:57 Swallowing Review of Systems Review of Systems: As reviewed above in HPI PMFSH Past Medical History Medical History Asthma Surgical History Surgical History No pertinent past surgical history Social History Social History Smoking status: Never smoker Exam Narrative: GENERAL: [Well-appearing, well-nourished, and in no acute distress.] HEAD: [Normocephalic, atraumatic.] EYES: [PERRLA and EOMI.] ENT: Nares clear, no rhinorrhea or epistaxis. Mucous membranes moist. Tonsils are not enlarged, no posterior pharyngeal erythema or edema. No uvular edema. No base of tongue swelling. NECK: Supple. No stridor, no bruits on auscultation CHEST: [Clear to auscultation. No respiratory distress.] HEART: [Regular rate and rhythm]. No murmur heard. [Normal peripheral pulses.] ABDOMEN: [Soft, nondistended], [nontender], [No rigidity or guarding] EXTREMITIES: Normal range of motion. [No edema.] SKIN: Warm, dry, no rash. NEURO: [No focal deficits]. Alert and oriented [x3.] PSYCH: [Normal mood and affect.] Course Vital Signs Vital signs: Vital Signs Pulse Rate 101 H 02/27/25 00:02 Respiratory Rate 16 02/27/25 00:02 Blood Pressure 151/83 H 02/27/25 00:02 Pulse Oximetry 99 02/27/25 00:02 Temperature 36.8 C 02/27/25 00:03 Pulse Rate 76 02/27/25 04:33 Respiratory Rate 19 02/27/25 04:33 Blood Pressure 138/82 02/27/25 04:33 Pulse Oximetry 100 02/27/25 04:33 Oxygen Delivery Room Air 02/27/25 00:08 MDM - Allergic Reaction MDM Narrative Medical decision making narrative: 25-year-old male presenting to the emergency department for potential allergic reaction. Patient was treated earlier this afternoon with Decadron, Benadryl, Pepcid for potential allergic reaction to a new medication that he had injected for his eosinophilic esophagitis. Patient was exposed to Dupixent which is now on his allergy list from previous encounter. He states that he went home feeling better but still had some sensation that he was having throat swelling. On examination he is not any acute distress, conversing in full sentences without any dyspnea or stridor. No phonation changes. No evidence of anaphylaxis on examination or by history. He has normal vital signs he with any tachycardia, fever, hypoxia blood pressure concerns. His airway is patent, discussed with him that he does not have any signs of anaphylaxis and did not use an epinephrine autoinjector to mask were treat any of his symptoms which is reassuring. Discussed that he might still have some prolonged side effects from the allergic response with the medication that he was given previously. Plan of care at this time will be to observe from the emergency department for developing signs of symptoms of any severe allergic reaction and provide him oral steroids. He was given oral prednisone liquid as he cannot tolerate feels secondary to his esophagitis. Patient will be observed and discharged home on a short course of steroids and follow-up with his specialists and PCP. Patient observed in the emergency department for over 4 hours without any signs or symptoms of anaphylaxis or significant allergic reaction. He is ambulatory in the emergency department and walking without difficulty or dyspnea. He is conversing without difficulty and was re-evaluated. His posterior oropharynx is still without any inflammation or uvular edema. He has no drooling or trismus, no phonation changes. Normal external examination. Normal vital signs and reassessment. I discussed with him that the chances of him developing any severe allergic reaction or anaphylaxis is rare especially with his reassuring exam and historical features and lack of any reexposure to the offending agent. Patient does have an epinephrine autoinjector with him and can take this in case he does develop any severe symptoms. Will be prescribing him oral prednisolone for next few days and encouraged to follow-up with his regular doctors. Patient's questions were answered and he was discharged. Medical Records Attestation: I reviewed the patient's medical records. Discharge Plan Discharge Clinical Impression: Adverse reaction to drug, Allergic reaction Patient Disposition: Home Condition: Stable Instructions: Antibiotic Form, Anaphylaxis (ED) Additional Instructions: Return to the emergency department if you experience significant swelling or throat closing sensation to the point where you cannot breathe, lose your voice, developed diffuse body rashes, or any other emergent concerns. Use your epinephrine pen if you feel like you are having a significant allergic reaction and proceed to the nearest ER/call 911. Follow-up with your doctor. We will send you home with steroids for the next several days as well as symptom control medications. Patient Language: Comoran Prescriptions: New prednisolone 15 mg/5 mL solution 60 mg PO QAM 4 Days Qty: 80 0RF diphenhydramine HCl [Allergy Relief(diphenhydramin)] 12.5 mg/5 mL liquid 25 mg PO Q6H PRN (Reason: allergic reaction) Qty: 473 0RF Pepcid Complete 10-800-165 mg tablet,chewable 1 tablet PO BID PRN (Reason: allergic symptoms) Qty: 20 0RF No Action epinephrine [EpiPen 2-Eliud] 0.3 mg/0.3 mL auto-injector 0.3 mg IM Q5-15M PRN (Reason: anaphylaxis) Qty: 2 0RF Rx Instructions: do not exceed 3 doses per episode Follow-up/Referrals: KATE,KEYONNA ROBLEDO [Primary Care Provider] - Time of Disposition: 04:21
== END 2025-02-27 04:35 | disposition home or self-care (01) ==
PROVIDERS: Emergency Provider Student in an Organized Health Care Education/Training Program; PCP Nurse Practitioner Family
DX: R22.1 Localized swelling, mass and lump, neck (principal); K20.0 Eosinophilic esophagitis; J45.909 Unspecified asthma, uncomplicated; T45.1X5A Adverse effect of antineoplastic and immunosuppressive drugs, initial encounter
CPT/HCPCS: 99283; A9270

== ENCOUNTER 2025-02-28 23:02 | Emergency (ER) | payer BC, SELFPAY ==
--- OUTSIDE RECORDS SUMMARY | 2025-02-28 23:05 | XMS_ITS | Encounter Summary ---
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 He voiced understanding. * Telephone Encounter - Anahi Hewitt - 02/27/2025 11:00 AM CDT Patient was seen at [facility], I advised patient to have records sent for johnson's review, provided our fax number, pt voiced understanding. * Telephone Encounter - Anahi Hewitt - 02/27/2025 10:45 AM CDT Pt called stating he took 1st dose of dupixent and went into anaphylactic shock. He would like to speak with johnson about further recommendations. documented in this encounter Plan of Treatment Not on file documented as of this encounter Visit Diagnoses Not on filedocumented in this encounter Care Teams Show Jumping Instructor Relationship Specialty Start Date End Date Karen Sequeira NP [address] [place] [address] PCP - General Nurse Practitioner 09/07/24 documented as of this encounter
--- OUTSIDE RECORDS SUMMARY | 2025-02-28 23:05 | XMS_ITS | Encounter Summary ---
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
--- OUTSIDE RECORDS SUMMARY | 2025-02-28 23:05 | XMS_ITS | Referral Summary ---
Author Organization [facility] Address [address] [place] [address] Care Team Providers Care Propellant Charge Loader Name Role Phone Karen Sequeira NP Primary Care Provider Encounters Date Type Department Care Team Description 02/28/20 25 Telephone [facility] Gastroenterology at [address] [place] [phone] Anahi Hewitt 02/18/20 25 Documentation [facility] [address] [facility] [address] [place] [address] Dawn Stanley natasha 02/14/20 25 11:00 AM CDT Office Visit [facility] Gastroenterology at [address] [phone] Petar Monteiro NP Eosinophilic esophagitis (Primary Dx) 01/28/20 25 Results Follow-Up [facility] Medical [facility] Gastroenterology at [address] [address] Maged Arellano MD Surgical pathology 01/27/20 25 12:29 PM CDT Anesthesia Event [facility] Endoscopy [address] [place] [address] Dominic Vitale MD Flemming-Ko ttman, Sandra K., CRNA 01/27/20 25 11:45 AM CDT - 01/27/20 25 12:15 PM CDT Surgery [facility] Endoscopy [address] [place] [address] Maged Arellano MD ESOPHAGOGASTRODUODENOSCOPY BIOPSY 01/27/20 11:15 AM CDT - 01/27/20 1:59 PM CDT Hospital Encounter [facility] Endoscopy [address] [place] [address] Maged Arellano MD Eosinophilic esophagitis; Gastroesophageal reflux [...] eosinophilia. 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 Gender Identity Not on file Sexual Orientation [...] biopsy) 01/26/2025 12:59 PM CDT Narrative PATHOLOGY [facility] - 01/27/2025 2:[address] PM [address]T [address] [address] Tele: Claudette Ramsey MD - Aerial Hurricane Hunter Note to Patients: This report may contain [...] REPORT Patient Name: TREVOR LEUNG Address: [address] [place] [address] Gender: M : 2000 (Age: 25) Service: Surgery Location: [facility], [facility] #: [id number] Patient Type: BSP Observation Taken: 01/26/2025 Received [...] filtered and submitted entirely in cassette E1. [facility]/01/26/2025 17:37 [facility] MICROSCOPIC DESCRIPTION: Microscopic evaluation of [...] Negative for dysplasia. Clerical Data Follows A; 56292 B; 10456 C; 13111 D; 59257 E; 83825 REPORT IMAGES AND/OR SCANNED DOCUMENTS ONLY VIEWABLE IN PDF FORMAT The immunohistochemical test(s) cited in this report, if any, was developed and its performance characteristics determined by [facility] Pathology Department. It has not been cleared or approved by the U.S. Food and Drug Administration. The FDA has determined that such clearance or approval is not necessary. This test is used for clinical purposes. It should not be regarded as investigational or for research. [facility] Laboratory is certified under the Clinical Laboratory [...] part or completely in the following laboratories: [facility], [address] [place] [address], [address] [facility], [place] [address]. Maged Arellano MD LAB PATHOLOGY ORDERABLES Final Result PATHOLOGY [facility] Laboratory Receiving [address] [place] [address] * EGD (01/26/2025 11:51 AM CDT) Anatomical Region Laterality Modality Other Narrative Procedure Note Maged Arellano MD - 01/26/2025 11:51 AM CDT [facility] Endoscopy Lab Patient Name: Trevor Leung Procedure [...] the physician, the nurse, the anesthesiologist, the copy writer and thetechnician in the pre-procedure area in [...] Findings: A small hiatal hernia was present. [place]-colored mucosa was present. Mucosa was biopsied with [...] normal. Impression: - Small hiatal hernia. - [place]-colored mucosa suspicious for long-segment Payan's esophagus and classified as Payan'sstage C4-M4 per [place] criteria. Biopsied. - Esophageal mucosal changes suggestive [...] - Final from Last 3 Months Insurance [employer] ACCESS CHOICE [employer] ACCESS CHOICE Advance Directives For more information, please contact: [phone] * Full Code (Latest Code Status on File) Date Activated Date Inactivated Comments 01/26/2025 11:42 AM 01/26/2025 6:06 PM Care Teams Propellant Charge Loader Relationship Specialty Start Date End Date Karen Sequeira NP [address] [place] [address] PCP - General Nurse Practitioner 09/07/24
--- OUTSIDE RECORDS SUMMARY | 2025-02-28 23:05 | XMS_ITS | Clinical Summary ---
Author Organization [facility] Address [address] [place] [address] Care Team Providers Care Collet Making Machine Operator Name Role Phone Karen Sequeira NP Primary Care Provider + [phone] Allergies No known active allergies Medications famotidine-Ca [...] eosinophilia. Assessment & Plan (10/28/2024 4:50 PM RN LAB): The endoscopic and biopsy findings are highly [...] Date Type Department Care Team Description 02/28/20 Telephone [facility] Group Gastroenterology at [address] [place] [phone] Anahi HewittFlex 02/18/20 Documentation [facility] [address] [facility] [address] [place] [phone] Dawn Stanley [facility], located [facility] 02/14/20 11:00 AM CDT Office Visit [facility] Medical Group Gastroenterology at [address] [place] [phone] Petar Monteiro NP Eosinophilic esophagitis (Primary Dx) 01/28/20 Results Follow-Up [facility] Medical [facility] Gastroenterology at [address] [place] [phone] Maged Arellano MD Surgical pathology 01/27/20 12:29 PM CDT Anesthesia Event [facility] Endoscopy [address] [place] [address] Dominic Vitale MD Flemming-Ko ttman, Sandra K., CAR GROOMER 01/27/20 11:45 AM CDT - 01/27/20 12:15 PM CDT Surgery [facility] Endoscopy [address] [place] [address] Maged Arellano MD ESOPHAGOGASTRODUODENOSCOPY BIOPSY 01/27/20 11:15 AM CDT - 01/27/20 1:59 PM CDT Hospital Encounter [facility] Endoscopy [address] [place] [address] Maged Arellano MD Eosinophilic esophagitis; Gastroesophageal reflux [...] on file Legal Sex Male 1:28 AM RN LAB Gender Identity Not on file Sexual Orientation [...] Regular Well Visit/Exam 18-64 01/17/2018 Covid-19 Vaccine (4 - 2023-2 5 season) 2024 10/10/2021, 11/30/2020, [...] biopsy) 01/26/2025 12:59 PM CDT Narrative PATHOLOGY [facility] - 01/27/2025 2:30 PM [address]T [address] [address] Tele: Claudette Ramsey MD - Professional Volleyball Player Note to Patients: This report may contain [...] PATHOLOGY REPORT Patient Name: TREVOR LEUNG Address: [address] [place] [address] Gender: M : 2000 (Age: 25) Service: Surgery Location: [facility], [facility] #: [id number] Patient Type: BSP Observation Taken: 01/26/2025 Received [...] filtered and submitted entirely in cassette E1. [facility]/01/26/2025 17:37 [facility] MICROSCOPIC DESCRIPTION: Microscopic evaluation of parts A [...] Negative for dysplasia. Clerical Data Follows A; 51151 B; 38379 C; 72054 D; 39050 E; 41377 REPORT IMAGES AND/OR SCANNED DOCUMENTS ONLY VIEWABLE IN PDF FORMAT The immunohistochemical test(s) cited in this report, if any, was developed and its performance characteristics determined by [facility] Pathology Department. It has not been cleared or approved by the U.S. Food and Drug Administration. The FDA has determined that such clearance or approval is not necessary. This test is used for clinical purposes. It should not be regarded as investigational or for research. [facility] Laboratory is certified under the Clinical Laboratory [...] part or completely in the following laboratories: [facility], [address] [place] [address], [address] [place] [address]. [place] Maged Arellano MD LAB PATHOLOGY ORDERABLES Final Result PATHOLOGY [facility] Laboratory Receiving [address] [place] [address] * EGD (01/26/2025 11:51 AM CDT) Anatomical Region Laterality Modality Other Narrative Procedure Note Maged Arellano MD - 01/26/2025 11:51 AM CDT [facility] Endoscopy Lab Patient Name: [...] the physician, the nurse, the anesthesiologist, the wax pumper and thetechnician in the pre-procedure area in [...] Findings: A small hiatal hernia was present. [place]-colored mucosa was present. Mucosa was biopsied with [...] normal. Impression: - Small hiatal hernia. - [place]-colored mucosa suspicious for long-segment Payan's esophagus and classified as Payan'sstage C4-M4 per [place] criteria. Biopsied. - Esophageal mucosal changes suggestive [...] - Final from Last 3 Months Insurance [employer] ACCESS CHOICE [employer] ACCESS CHOICE Advance Directives For more information, please contact: [phone] * Full Code (Latest Code Status on File) Date Activated Date Inactivated Comments 01/26/2025 11:42 AM 01/26/2025 6:06 PM Care Teams Collet Making Machine Operator Relationship Specialty Start Date End Date Karen Sequeira NP [address] [place] [address] PCP - General Nurse Practitioner 09/07/24
[2025-02-28 23:08] VITALS: BP 157/87; PULSE 75; RESP 18; TEMP 36.7; O2SAT 99
[2025-02-28 23:09] VITALS: BP 157/87; PULSE 88; RESP 21; TEMP 36.6; O2SAT 100
--- NOTE | 2025-02-28 23:33 | PC.NURSE ---
Pt sitting on stretcher, respirations even and unlabored. Pt on cont. oxygen monitor with oxygen saturation at 97% RA.
--- OUTSIDE RECORDS SUMMARY | 2025-03-01 00:06 | XMS_ITS | Encounter Summary ---
Author Organization [facility] Healthcare Address [address] [place] [address] Care Team Providers Care Pipe Coremaker Name Role Phone Karen Sequeira NP Primary Care Provider Encounter Details Date Type Department Care Team (Late st Contact Info) Description 01/27/2025 Results Follow-Up [facility] Medical Group Gastroenterology at [place] [address] [facility] [address] [place] [address] Maged Arellano MD [address] [facility] [address], [address] [place] [address] Surgical pathology Social History Tobacco [...] on file Legal Sex Male 1:28 AM AUTOMATIC DRILL OPERATOR Gender Identity Not on file Sexual Orientation Not on file documented as of this encounter Plan of Treatment Not on file documented as of this encounter Visit Diagnoses Not on filedocumented in this encounter Care Teams Pipe Coremaker Relationship Specialty Start Date End Date Karen Sequeira NP [address] [place] [address] PCP - General Nurse Practitioner 09/07/24 documented as of this encounter
--- OUTSIDE RECORDS SUMMARY | 2025-03-01 00:06 | XMS_ITS | Referral Summary ---
Author Organization [facility] Address [address] [place] [address] Care Team Providers Care Change Management Director Name Role Phone Karen Sequeira NP Primary Care Provider Encounters Date Type Department Care Team Description 02/28/20 25 Telephone [facility] Gastroenterology at [address] [place] [phone] Anahi Hewitt 02/18/20 25 Documentation [facility] [address] [facility] [address] [place] [phone] Dawn Stanley natasha 02/14/20 25 11:00 AM CDT Office Visit [facility] Gastroenterology at [address] [phone] Petar Monteiro NP Eosinophilic esophagitis (Primary Dx) 01/28/20 25 Results Follow-Up [facility] Medical [facility] Gastroenterology at [address] [address] Maged Arellano MD Surgical pathology 01/27/20 25 12:29 PM CDT Anesthesia Event [facility] Endoscopy [address] [place] [address] Dominic Vitale MD Flemming-Ko ttman, Sandra K., CRNA 01/27/20 25 11:45 AM CDT - 01/27/20 25 12:15 PM CDT Surgery [facility] Endoscopy [address] [place] [address] Maged Arellano MD ESOPHAGOGASTRODUODENOSCOPY BIOPSY 01/27/20 11:15 AM CDT - 01/27/20 1:59 PM CDT Hospital Encounter [facility] Endoscopy [address] [place] [address] Maged Arellano MD Eosinophilic esophagitis; Gastroesophageal reflux [...] eosinophilia. Assessment & Plan (10/28/2024 4:50 PM CARBIDE TOOL DIE MAKER): The endoscopic and biopsy findings are highly [...] on file Legal Sex Male 1:28 AM CARBIDE TOOL DIE MAKER Gender Identity Not on file Sexual Orientation [...] biopsy) 01/26/2025 12:59 PM CDT Narrative PATHOLOGY [facility] - 01/27/2025 2:30 PM [address]T [address] [address] Tele: Claudette Ramsey MD - Field Services Director Note to Patients: This report may contain [...] PATHOLOGY REPORT Patient Name: TREVOR LEUNG Address: [address] [place] [address] Gender: M : 2000 (Age: 25) Service: Surgery Location: [facility], [facility] #: [id number] Patient Type: BSP Observation Taken: 01/26/2025 Received [...] filtered and submitted entirely in cassette E1. [facility]/01/26/2025 17:37 [facility] MICROSCOPIC DESCRIPTION: Microscopic evaluation of parts A [...] Negative for dysplasia. Clerical Data Follows A; 09178 B; 90400 C; 80519 D; 32852 E; 38135 REPORT IMAGES AND/OR SCANNED DOCUMENTS ONLY VIEWABLE IN PDF FORMAT The immunohistochemical test(s) cited in this report, if any, was developed and its performance characteristics determined by [facility] Pathology Department. It has not been cleared or approved by the U.S. Food and Drug Administration. The FDA has determined that such clearance or approval is not necessary. This test is used for clinical purposes. It should not be regarded as investigational or for research. [facility] Laboratory is certified under the Clinical [...] part or completely in the following laboratories: [facility], [address] [place] [address], [address] [facility], [place] [address]. Maged Arellano MD LAB PATHOLOGY ORDERABLES Final Result PATHOLOGY [facility] Laboratory Receiving [address] [place] [address] * EGD (01/26/2025 11:51 AM CDT) Anatomical Region Laterality Modality Other Narrative Procedure Note Maged Arellano MD - 01/26/2025 11:51 AM CDT [facility] Endoscopy Lab Patient Name: [...] the physician, the nurse, the anesthesiologist, the retail banker and thetechnician in the pre-procedure area in [...] Findings: A small hiatal hernia was present. [place]-colored mucosa was present. Mucosa was biopsied with [...] normal. Impression: - Small hiatal hernia. - [place]-colored mucosa suspicious for long-segment Payan's esophagus and classified as Payan'sstage C4-M4 per [place] criteria. Biopsied. - Esophageal mucosal changes suggestive [...] - Final from Last 3 Months Insurance [employer] ACCESS CHOICE [employer] ACCESS CHOICE Advance Directives For more information, please contact: [phone] * Full Code (Latest Code Status on File) Date Activated Date Inactivated Comments 01/26/2025 11:42 AM 01/26/2025 6:06 PM Care Teams Change Management Director Relationship Specialty Start Date End Date Karen Sequeira NP [address] [place] [address] PCP - General Nurse Practitioner 09/07/24
--- OUTSIDE RECORDS SUMMARY | 2025-03-01 00:06 | XMS_ITS | Clinical Summary ---
Author Organization [facility] Address [address] [place] [address] Care Team Providers Care Wallet Assembler Name Role Phone Karen Sequeira NP Primary Care Provider + [phone] Allergies No known active allergies Medications famotidine-Ca [...] eosinophilia. Assessment & Plan (10/28/2024 4:50 PM NAPPER FIXER): The endoscopic and biopsy findings are highly [...] Type Department Care Team Description 02/28/20 Telephone [facility] Gastroenterology at [address] [place] [phone] Anahi HewittFlex 02/18/20 Documentation [facility] [address] [facility] [address] [place] [phone] Dawn Stanley [facility] 02/14/20 11:00 AM CDT Office Visit [facility] Gastroenterology at [address] [place] [phone] Petar Monteiro NP Eosinophilic esophagitis (Primary Dx) 01/28/20 Results Follow-Up [facility] Medical [facility] Gastroenterology at [address] [place] [phone] Maged Arellano MD Surgical pathology 01/27/20 12:29 PM CDT Anesthesia Event [facility] Endoscopy [address] [place] [address] Dominic Vitale MD Flemming-Ko ttman, Sandra K., TIP TESTER 01/27/20 11:45 AM CDT - 01/27/20 12:15 PM CDT Surgery [facility] Endoscopy [address] [place] [address] Maged Arellano MD ESOPHAGOGASTRODUODENOSCOPY BIOPSY 01/27/20 11:15 AM CDT - 01/27/20 1:59 PM CDT Hospital Encounter [facility] Endoscopy [address] [place] [address] Maged Arellano MD Eosinophilic esophagitis; Gastroesophageal reflux [...] on file Legal Sex Male 1:28 AM NAPPER FIXER Gender Identity Not on file Sexual Orientation [...] biopsy) 01/26/2025 12:59 PM CDT Narrative PATHOLOGY [facility] - 01/27/2025 2:30 PM [address]T [address] [address] Tele: Claudette Ramsey MD - Contract Serviceman Note to Patients: This report may contain [...] PATHOLOGY REPORT Patient Name: TREVOR LEUNG Address: [address] [place] [address] Gender: M : 2000 (Age: 25) Service: Surgery Location: [facility], [facility] #: [id number] Patient Type: BSP Observation Taken: 01/26/2025 Received [...] and submitted entirely in cassette E1. [facility]/01/26/2025 17:37 [facility] MICROSCOPIC DESCRIPTION: Microscopic evaluation of parts A [...] Negative for dysplasia. Clerical Data Follows A; 05175 B; 38267 C; 51278 D; 83467 E; 38352 REPORT IMAGES AND/OR SCANNED DOCUMENTS ONLY VIEWABLE IN PDF FORMAT The immunohistochemical test(s) cited in this report, if any, was developed and its performance characteristics determined by [facility] Pathology Department. It has not been cleared or approved by the U.S. Food and Drug Administration. The FDA has determined that such clearance or approval is not necessary. This test is used for clinical purposes. It should not be regarded as investigational or for research. [facility] Laboratory is certified under the Clinical Laboratory [...] part or completely in the following laboratories: [facility], [address] [place] [address], [address] [place] [address]. [place] Maged Arellano MD LAB PATHOLOGY ORDERABLES Final Result PATHOLOGY [facility] Laboratory Receiving [address] [place] [address] * EGD (01/26/2025 11:51 AM CDT) Anatomical Region Laterality Modality Other Narrative Procedure Note Maged Arellano MD - 01/26/2025 11:51 AM CDT [facility] Endoscopy Lab Patient Name: Trevor [...] the physician, the nurse, the anesthesiologist, the sleep lab technologist and thetechnician in the pre-procedure area in [...] Findings: A small hiatal hernia was present. [place]-colored mucosa was present. Mucosa was biopsied with [...] normal. Impression: - Small hiatal hernia. - [place]-colored mucosa suspicious for long-segment Payan's esophagus and classified as Payan'sstage C4-M4 per [place] criteria. Biopsied. - Esophageal mucosal changes suggestive [...] - Final from Last 3 Months Insurance [employer] ACCESS CHOICE [employer] ACCESS CHOICE Advance Directives For more information, please contact: [phone] * Full Code (Latest Code Status on File) Date Activated Date Inactivated Comments 01/26/2025 11:42 AM 01/26/2025 6:06 PM Care Teams Wallet Assembler Relationship Specialty Start Date End Date Karen Sequeira NP [address] [place] [address] PCP - General Nurse Practitioner 09/07/24
[2025-03-01] MEDS: LORazepam INJ (*CRX) 2 MG/ML VIAL 0.5 MG IM (00:13)
--- NOTE | 2025-03-01 00:59 | ED.ALLEREA ---
HPI - Allergic Reaction General Chief complaint: Allergic Reaction <SANDRA Perez Last Filed: 03/01/25 17:52> Stated complaint: allergic reaction, difficulty breath <SANDRA Perez Last Filed: 03/01/25 17:52> Time Seen by Provider: 02/28/25 23:39 <Makenzie Dubose PA-C - Last Filed: 03/01/25 17:52> History of Present Illness HPI narrative: 25-year-old male with history of asthma and EOE presents to the emergency department with concerns for an allergic reaction. Patient was seen on 02/26/2025 after he injected himself Dupixent for the 1st time and developed the sensation of his throat swelling. He received Decadron, Benadryl, Pepcid and normal saline in the ED was monitored for several hours and discharged home with an EpiPen. He had no evidence of anaphylaxis during his ED observation. He presented a few hours later with the same presentation. His exam is reassuring at that time. He was started on prednisolone and monitored in the ED again for a few hours without evidence of anaphylaxis and discharged home. The patient states tonight around 10:15 p.m. he began having the sensation that his throat was closing up. He denies any reexposure to Dupixent. He did not use his EpiPen. States he did take his prednisolone, Benadryl and famotidine prior to arrival. He presented to the ED for evaluation. He denies rashes, lip or tongue edema, difficulty breathing or swallowing, vomiting. Patient states he has a history of severe anxiety is concerned his anxiety may be a component. <SANDRA Perez Last Filed: 03/01/25 17:52> Related Data Allergies/adverse reactions: Allergies Allergy/AdvReac Type Severity Reaction Status Date / Time dupilumab (From Dupixent Pen) Allergy Severe Difficulty Verified 02/26/25 23:57 Swallowing <SANDRA Perez Last Filed: 03/01/25 17:52> Review of Systems Review of Systems: All systems reviewed & are unremarkable except as noted in HPI and below <SANDRA Perez Last Filed: 03/01/25 17:52> [facility] Past Medical History Medical History: Medical History Asthma <Makenzie Dubose PA-C - Last Filed: 03/01/25 17:52> Surgical History Surgical History: Surgical History No pertinent past surgical history <Makenzie Dubose PA-C - Last Filed: 03/01/25 17:52> Social History Social History: Social History Smoking status: Never smoker <Makenzie Dubose PA-C - Last Filed: 03/01/25 17:52> Exam Narrative: GENERAL: Anxious appearing, well-nourished, and in no acute distress. HEAD: Normocephalic, atraumatic. EYES: EOMI. ENT: Nares clear, no rhinorrhea or epistaxis. Mucous membranes moist. Posterior pharynx without erythema or edema, no tonsillar hypertrophy, no uvular hydrops, no exudates, no posterior pharynx edema. Patient tolerating secretions. No lip or tongue swelling. He is speaking in full sentences and drinking water on exam without difficulty NECK: Supple. CHEST: Clear to auscultation. No respiratory distress. No wheezing, rales or rhonchi. No stridor HEART: Regular rate and rhythm. No murmur heard. Normal peripheral pulses. ABDOMEN: Soft, nontender, nondistended, normal active bowel sounds. No rebound, guarding or rigidity, no CVA tenderness EXTREMITIES: Normal range of motion. No edema. SKIN: Warm, dry, no rash. NEURO: No focal deficits. Alert and oriented x3 <Makenzie Dubose PA-C - Last Filed: 03/01/25 17:52> Course FEEDER LOADER/PA Physician Supervision This visit was performed by both a physician and an APC. I performed all aspects of the MDM as documented. <Daniel Hagan MD - Last Filed: 03/01/25 07:13> Vital Signs Vital signs: Vital Signs Temperature 98.1 F 02/28/25 23:08 Pulse Rate 75 02/28/25 23:08 Respiratory Rate 18 02/28/25 23:08 Blood Pressure 157/87 H 02/28/25 23:08 Pulse Oximetry 99 02/28/25 23:08 Oxygen Delivery Room Air 02/28/25 23:08 Temperature 98 F 02/28/25 23:09 Pulse Rate 78 03/01/25 02:45 Respiratory Rate 16 03/01/25 02:45 Blood Pressure 135/80 03/01/25 02:45 Pulse Oximetry 98 03/01/25 02:45 Oxygen Delivery Room Air 02/28/25 23:08 <Makenzie Dubose PA-C - Last Filed: 03/01/25 17:52> Vital Signs Temperature 98.1 F 02/28/25 23:08 Pulse Rate 75 02/28/25 23:08 Respiratory Rate 18 02/28/25 23:08 Blood Pressure 157/87 H 02/28/25 23:08 Pulse Oximetry 99 02/28/25 23:08 Oxygen Delivery Room Air 02/28/25 23:08 Temperature 98 F 02/28/25 23:09 Pulse Rate 78 03/01/25 02:45 Respiratory Rate 16 03/01/25 02:45 Blood Pressure 135/80 03/01/25 02:45 Pulse Oximetry 98 03/01/25 02:45 Oxygen Delivery Room Air 02/28/25 23:08 <Daniel Hagan MD - Last Filed: 03/01/25 07:13> MDM - Allergic Reaction MDM Narrative Medical decision making narrative: 25-year-old male with reported severe anxiety presents to emergency department for concerns for an allergic reaction. Patient was evaluated on 02/26/2025 with concerns for allergic reaction after injecting himself with his 1st dose of Dupixent. He was given Decadron, Benadryl and famotidine in the ED monitor for several hours and discharged home with an EpiPen. He reported back to the emergency department few hours later after developing a sensation that his throat was closing again. He was started on prednisolone monitored in the ED for several hours with no evidence of anaphylaxis. The patient presents tonight for the same complaint. He has had no reexposure to Dupixent. Vitals are stable. Patient is very anxious appearing on exam, otherwise exam is unremarkable. He has no evidence of anaphylaxis. Posterior pharynx is unremarkable no airway compromise. No wheezing or stridor. No lip or tongue swelling. He is speaking in full sentences and satting 99% on room air in no distress. Patient is concerned that his anxiety may be playing a role in his symptoms. Will provide Ativan and monitor. Patient re-evaluated after observed in the ED for an hour. He reports improvement after the Ativan, however still has mild sensation of throat swelling. His exam remains reassuring. I had a long discussion with the patient that his symptoms are most likely due to anxiety at this time. I discussed that he is on appropriate treatment with prednisolone to help prevent rebound anaphylaxis and has an EpiPen at home to use as needed if he develops signs or symptoms of anaphylaxis. The patient states he understands this, however is requesting to be monitored in the ED for a longer period of time. Patient monitored in the ED for total of 3-1/2 hours. On repeat evaluation his exam remains reassuring. He is requesting a prescription for anxiety, hydroxyzine provided. Discussed follow-up with PCP and strict ED return precautions, appropriate use of his epinephrine into immediately call 911 if he needs to use it. He is agreeable with the plan verbalized understanding. Discharged in stable condition. <SANDRA Perez Last Filed: 03/01/25 17:52> Discharge Plan Discharge Clinical Impression: Anxiety about health <SANDRA Perez Last Filed: 03/01/25 17:52> Patient Disposition: Home <SANDRA Perez Last Filed: 03/01/25 17:52> Condition: Stable <SANDRA Perez Last Filed: 03/01/25 17:52> Instructions: Antibiotic Form, Anxiety (ED) <SANDRA Perez Last Filed: 03/01/25 17:52> Additional Instructions: Please continue taking the prednisone. Do not re-expose yourself to Dupixent. Use the EpiPen that was provided if you develop any signs of anaphylaxis such as a diffuse rash, difficulty breathing or swallowing, lip or tongue swelling, or other concerning symptoms. Immediately call 911 if you use your EpiPen. Follow-up with your primary care doctor and GI specialist. Return to the emergency department if you develop any new or worsening symptoms. <Makenzie Dubose PA-C - Last Filed: 03/01/25 17:52> Patient Language: Turkmen <Makenzie Dubose PA-C - Last Filed: 03/01/25 17:52> Prescriptions: New hydroxyzine pamoate 50 mg capsule 50 mg PO TID PRN (Reason: anxiety) Qty: 20 0RF No Action epinephrine [EpiPen 2-Eliud] 0.3 mg/0.3 mL auto-injector 0.3 mg IM Q5-15M PRN (Reason: anaphylaxis) Qty: 2 0RF Rx Instructions: do not exceed 3 doses per episode prednisolone 15 mg/5 mL solution 60 mg PO QAM 4 Days Qty: 80 0RF diphenhydramine HCl [Allergy Relief(diphenhydramin)] 12.5 mg/5 mL liquid 25 mg PO Q6H PRN (Reason: allergic reaction) Qty: 473 0RF Pepcid Complete 10-800-165 mg tablet,chewable 1 tablet PO BID PRN (Reason: allergic symptoms) Qty: 20 0RF <Makenzie Dubose PA-C - Last Filed: 03/01/25 17:52> Follow-up/Referrals: KATE,KEYONNA ROBLEDO [Primary Care Provider] - <Makenzie Dubose PA-C - Last Filed: 03/01/25 17:52>
--- NOTE | 2025-03-01 01:06 | PC.NURSE ---
Pt provided with water, able to tolerate well.
[2025-03-01 02:45] VITALS: BP 135/80; PULSE 78; RESP 16; O2SAT 98
== END 2025-03-01 02:48 | disposition home or self-care (01) ==
PROVIDERS: Emergency Provider Physician Assistant; PCP Nurse Practitioner Family
DX: F41.9 Anxiety disorder, unspecified (principal)
CPT/HCPCS: 96372; 99283; J2060

== ENCOUNTER 2025-03-28 06:41 | Emergency (ER) | payer BC, SELFPAY ==
--- NOTE | ~2025-03-28 | XR_ITS ---
CHEST RADIOGRAPH, PA AND LATERAL CLINICAL HISTORY: sob . COMPARISON: None available TECHNIQUE: PA and lateral views of the chest. FINDINGS The cardiomediastinal silhouette is unremarkable. The lungs are clear. IMPRESSION: No focal infiltrate or effusion. Reviewed, dictated and finalized at location A.
--- OUTSIDE RECORDS SUMMARY | 2025-03-28 06:43 | XMS_ITS | Clinical Summary ---
Author Organization [facility] Address [address] [place] [address] Care Team Providers Care Bacon De Rinder Name Role Phone Karen Sequeira GLEN Primary Care Provider [phone] Allergies No known active allergies Medications famotidine-calci um carbonate-magnes ium hydroxide (PEPCID COMPLETE) 10-800-165 MG Chew TabIndications:G astroesophageal reflux disease, unspecified whether esophagitis present,Sensatio n, choking Chew 1 tablet by mouth 2 (two) times daily as needed. 60 tablet 1 07/26/2024 Active busPIRone (BUSPAR) 5 MG tabletIndication s:Generalized anxiety disorder with panic attacks Take 1 tablet (5 mg total) by mouth 3 (three) times daily as needed (anxiety). 90 tablet 1 07/26/2024 Active lansoprazole (PREVACID) 3 MG/MLIndications :Eosinophilic esophagitis,Narinder roesophageal reflux disease, unspecified whether esophagitis present Take 10 mLs (30 mg total) by mouth 2 (two) times a day. 600 mL 1 09/09/2024 Active Active Problems Problem Noted Date Diagnosed Date Gastroesophageal reflux dise ase, unspecified whether esophagitis present 07/26/2024 Generalized anxiety disorder with panic attacks 07/26/2024 Sensation, choking 07/26/2024 Encounters Date Type Department Care Team Description 02/28/2025 Scan [facility] Scanned, [facility] 02/26/2025 Scan [facility] Scanned, Doc [facility] 01/26/2025 Scan [facility] Scanned, Doc [facility] Endoscopy (SCAN) from Last 3 Months Immunizations Immunization Administration Dates Next Due Tdap (Boostrix) 03/07/2019 Family History Medical History Relation Comments Heart Disease Father Relation Status Comments Father Social History Tobacco Use Types Packs/Day Years Used Date Smoking Tobacco: Never Smokeless Tobacco: Never Tobacco Cessation:Counseling Given: Not Answered Alcohol Use Standard Drinks/Week Comments No 0 (1 standard drink = 0.6 oz pur e alcohol) AUDIT-C Answer Date Recorded Frequency of Alcohol Consumption Never 10/08/2018 Average Number of Drinks Not on file 019 Frequency of Binge Drinking Not on file 09/24 PHQ-2 Answer Date Recorded Patient Health Questionnaire-2 Score 0 08/26/2024 Education Answer Date Recorded What is the highest level of school you have completed or the highest degree you have received? High school graduate 10/08/2018 Sex and Gender Information Value Date Recorded Sex Assigned at Not on file Legal Sex Male 1:28 PM PSYCHIATRIC NURSING AIDE Gender Identity Not on file Sexual Orientation Straight 10/08/2018 6: 21 PM PSYCHIATRIC NURSING AIDE Last Filed Vital Signs Vital Sign Reading Time Taken Comments Blood Pressure 118/68 08/26/2024 9:54 AM PSYCHIATRIC NURSING AIDE Pulse 83 08/26/2024 9:54 AM PSYCHIATRIC NURSING AIDE Temperature 36.8 C (98.2 F) 08/26/2024 9:54 AM PSYCHIATRIC NURSING AIDE Respiratory Rate 14 08/26/2024 9:54 AM PSYCHIATRIC NURSING AIDE Oxygen Saturation 99% 08/26/2024 9:54 AM PSYCHIATRIC NURSING AIDE Inhaled Oxygen Concentration - - Weight 81.4 kg (179 lb 8 oz) 08/26/2024 9:54 AM PSYCHIATRIC NURSING AIDE Height 181.6 cm (5' 11.5) 08/26/2024 9:54 AM CS T Body Mass Index 24.69 08/26/2024 9:54 AM PSYCHIATRIC NURSING AIDE Plan of Treatment Health Maintenance Due Date Last Done Comments Annual Physical 01/17/2003 HPV Vaccines (1 - Male 3-dos e series) 01/17/2015 Hepatitis C 01/17/2018 Hepatitis B Vaccines (1 of 3 - 19+ 3-dose series) 01/17/2019 PHQ-2 (Physician [place]) 09/24/2024 08/26/2024 COVID-19 Vaccine (4 - 2023-2 5 season) 2025 10/10/2021, 11/30/2020, 10/28/2020 Postponed from 05/25/2024 (Future Appointment) DTaP, Tdap and Td Vaccines ( 2 - Td or Tdap) 03/07/2029 03/07/2019 Meningococcal B Vaccine Aged Out No l onger eligible based on patient's age to complete this topic Meningococcal Vaccine Aged Out No glenda ene eligible based on patient's age to complete this topic Pneumococcal Vaccine: Pediatrics (0 to 5 Years) and At-Risk Patients (6 to 49 Years) Aged Out No longer eligible b ased on patient's age to complete this topic RSV Immunizations Under 20 Months Aged Out No longer eligible b ased on patient's age to complete this topic Procedures Procedure Name Priority Date/Time Associated Diagnosis Comments ENDOSCOPY (SCAN ORDER) 01/26/2025 from Last 3 Months Results * ENDOSCOPY (SCAN ORDER) (01/26/2025) 01/26/2025 [facility] Scanned SCANNING Final Resu lt from Last 3 Months Insurance Care Teams Bacon De Rinder Relationship Specialty Start Date End Date Karen Sequeira FNP [address] [place] [id number] PCP - General Nurse Practitioner Family 10/08/18
--- OUTSIDE RECORDS SUMMARY | 2025-03-28 06:43 | XMS_ITS | Referral Summary ---
Author Organization [facility] Address [address] [place] [address] Care Team Providers Care Operator Command Support Systems Name Role Phone Karen Sequeira NP Primary Care Provider [phone] Encounters Date Type Department Care Team Description 03/09/20 1:30 PM CDT Office Visit [facility] Gastroenterology at [address] [phone] Petar Monteiro NP Eosinophilic esophagitis (Primary Dx); Adverse effect of drug, initial encounter; Gastroesophageal reflux disease with esophagitis without hemorrhage 02/28/20 25 Telephone [facility] Gastroenterology at [address] [phone] Anahi Hewitt 02/18/20 25 Documentation [facility] [address] [facility] [address] [place] [phone] Dawn Stanley [facility] 02/14/20 25 11:00 AM CDT Office Visit [facility] Gastroenterology at [address] [phone] Petar Monteiro NP Eosinophilic esophagitis (Primary Dx) 01/28/20 25 Results Follow-Up [facility] Gastroenterology at [address] [phone] Maged Arellano MD Surgical pathology 01/27/20 25 12:29 PM CDT Anesthesia Event [facility] Endoscopy [address] [place] [address] Dominic Vitale MD Flemming-Ko ttman, Sandra K., CRNA 01/27/20 11:45 AM CDT - 01/27/20 12:15 PM CDT Surgery [facility] Endoscopy [address] [place] [address] Maged Arellano MD ESOPHAGOGASTRODUODENOSCOPY BIOPSY 01/27/20 11:15 AM CDT - 01/27/20 1:59 PM CDT Hospital Encounter [facility] Endoscopy [address] [place] [address] Maged Arellano MD Eosinophilic esophagitis; Gastroesophageal reflux disease with esophagitis without hemorrhage Discharge Disposition: Discharge to home or self care from Last 3 Months Allergies Active Allergy Reactions Criticality Noted Date Comments Dupilumab Other (See comments) Medium 03/09/2025 Swollen tonsils Difficulty swallowing following first administration. Medications famotidine-Ca carb-mag hydrox (Pepcid Complete) 10-800-165 mg chewable tablet Take 1 tablet by mouth 2 (two) times a day as needed 07/26/20 24 Active EPINEPHrine 0.3 mg/0.3 mL auto-injection syringe 0.3 mL (0.3 mg total) 02/27/20 25 Active lansoprazole (PREVACID SOLUTAB) 30 mg disintegrating tabletIndications: GERD vs EoE Take 1 tablet (30 mg total) by mouth daily 90 tablet 1 03/09/20 25 025 Active budesonide (Eohilia) 2 mg/10 mL suspension in packetIndications: Eosinophilic Esophagitis Take 2 mg by mouth 2 (two) times a day 168 packet 03/09/20 25 025 Active lansoprazole (PREVACID SOLUTAB) 30 mg disintegrating tabletIndications: GERD vs EoE Take 1 tablet (30 mg total) by mouth daily 90 tablet 1 10/28/19 25 025 Discontinued(Re order) dupilumab (DUPIXENT) 300 mg/2 mL pen injectorIndication s:Eosinophilic Esophagitis Inject 2 mL (300 mg total) under the skin every 7 days 8 mL 12 02/14/20 25 025 Discontinued Active Problems Problem Noted Date Diagnosed Date Drug reaction 03/09/2025 Assessment & Plan (03/09/2025 2:12 PM CDT): He experienced a suspected allergic reaction to Dupixent following the first dose, characterized by throat swelling and dysphagia within 3-4 minutes post- injection. There was no anaphylaxis or severe symptoms.The reaction may be due to preservatives in the injection rather than Dupixent itself. Anxiety may have contributed to the symptoms. Dupixent will be avoided until wood repatcher evaluation, as it is highly effective for eosinophilic esophagitis, making it important to determine true allergy status for long-term management. The possibility of using a vial and needle injection was discussed, but it contains similar preservatives. Refer to an wood repatcher at [facility] for evaluation of the suspected allergic reaction to Dupixent. Avoid Dupixent until wood repatcher evaluation is complete. Gastroesophageal reflux disease 10/28/2024 Assessment & Plan (03/09/2025 2:12 PM CDT): Restart lansoprazole 30 mg disintegrating tablet once daily, will need indefinite use and after he finishes Eohilia, it is likely he may need to go back on BID lansoprazole pending allergy workup and response to Eohilia. Food bolus obstruction of intestine 09/07/2024 Eosinophilic esophagitis 09/07/2024 Assessment & Plan (03/09/2025 2:12 PM CDT): He has persistent eosinophilic esophagitis despite proton pump inhibitor therapy, with eosinophil counts of 30 and 16 per high-power field indicating ongoing inflammation. Topical corticosteroids are considered as an alternative to Dupixent due to a suspected allergic reaction to Dupixent. Eohelia, was discussed as a treatment option. It is FDA approved for 12-week courses to induce remission, with potential systemic side effects like elevated blood pressure and blood sugars, though systemic absorption is significantly less than oral steroids. Possible dietary triggers, specifically wheat and dairy, were discussed, along with the potential benefit of a two, four, six elimination diet. Eohelia aims to maintain remission and is given periodically. Prescribe Eohelia twice daily for 12 weeks. Restart Lansoprazole (Prevacid solutab) once daily. Discuss a two, four, six elimination diet focusing on wheat and dairy. Refer to a registered dietitian for dietary consultation. Will refer to an wood repatcher. If possible, I would like to know if he is truly allergic to dupilumab or to one of the preservatives or inert ingredients in the dupilumab. Given it was his very first time injecting dupilumab - I clinically doubt he is truly allergic to the medication. Nonetheless, in the short term whether he is allergic to dupilumab or some other ingredient in the Dupixent pen, we cannot continue Dupixent at this time. I would also like to know if he is allergic to any common medication/injection preservatives as well as any common foods that would be likely to trigger EoE (question of prior wheat allergy). Orders: Ambulatory referral to Allergy; Future Assessment & Plan (02/13/2025 11:54 AM CDT): [...] eosinophilia. Assessment & Plan (10/28/2024 4:50 PM CAGE TENDER): The endoscopic and biopsy findings are highly [...] on file Legal Sex Male 1:28 AM CAGE TENDER Gender Identity Not on file Sexual Orientation Not on file Last Filed Vital Signs Vital Sign Reading Time Taken Comments Blood Pressure 120/70 03/09/2025 1:20 PM CDT Pulse 76 03/09/2025 1:20 PM CDT Temperature 35.9 C (96.7 F) 01/26/2025 1:23 PM CDT Respiratory Rate 15 01/26/2025 1:20 PM CDT Oxygen Saturation 98% 03/09/2025 1:20 PM CDT Inhaled Oxygen Concentration - - Weight 72.6 kg (160 lb) 03/09/2025 1:20 PM CDT Height 182.9 cm (6') 03/09/2025 1:20 PM CDT Body Mass Index 21.7 03/09/2025 1:20 PM CDT Plan of Treatment Not on file [...] biopsy) 01/26/2025 12:59 PM CDT Narrative PATHOLOGY [facility] - 01/27/2025 2:30 PM CDT [address] [address] Tele: Claudette Ramsey MD - Head Boys Golf Coach Note to Patients: This report may contain [...] the details. SURGICAL PATHOLOGY REPORT Patient Name: GAYATRI LEUNG Address: [address] [place] [address] Gender: M : 2000 (Age: 25) Service: Surgery Location: [facility], Hospital #: [id number] Patient Type: BSP Observation Taken: 01/26/2025 Received [...] formalin all labeled with the patient's name GAYATRI LEUNG. A. The first container is additionally [...] in cassette E1. [facility]/01/26/2025 17:37 [facility] MI[facility]: Microscopic evaluation of parts [...] Negative for dysplasia. Clerical Data Follows A; 70541 B; 40692 C; 41542 D; 23697 E; 33870 REPORT IMAGES AND/OR SCANNED DOCUMENTS ONLY VIEWABLE IN PDF FORMAT The immunohistochemical test(s) cited in this report, if any, was developed and its performance characteristics determined by [facility] Pathology Department. It has not been cleared or approved by the U.S. Food and Drug Administration. The FDA has determined that such clearance or approval is not necessary. This test is used for clinical purposes. It should not be regarded as investigational or for research. [facility] is certified under the Clinical [...] part or completely in the following laboratories: [facility], [address] [place] [address], [address] [place] [address]. Maged Arellano MD LAB PATHOLOGY ORDERABLES Final Result PATHOLOGY [facility] Laboratory Receiving [address] [place] [address] * EGD (01/26/2025 11:51 AM CDT) Anatomical Region Laterality Modality Other Narrative Procedure Note Maged Arellano MD - 01/26/2025 11:51 AM CDT [facility] Endoscopy Lab Patient Name: Gayatri Leung Procedure Date: 01/26/2025 11:51 AM Date [...] the physician, the nurse, the anesthesiologist, the corporate claims examiner and thetechnician in the pre-procedure area in [...] Findings: A small hiatal hernia was present. [place]-colored mucosa was present. Mucosa was biopsied with [...] normal. Impression: - Small hiatal hernia. - [place]-colored mucosa suspicious for long-segment Payan's esophagus and classified as Payan'sstage C4-M4 per [place] criteria. Biopsied. - Esophageal mucosal changes suggestive [...] - Final from Last 3 Months Insurance [facility] ACCESS CHOICE ANTH ACCESS CHOICE Advance Directives For more information, please contact: [phone] * Full Code (Latest Code Status on File) Date Activated Date Inactivated Comments 01/26/2025 11:42 AM 01/26/2025 6:06 PM Care Teams Operator Command Support Systems Relationship Specialty Start Date End Date Karen Sequeira NP [address] [place] [id number] PCP - General Nurse Practitioner 09/07/24
--- OUTSIDE RECORDS SUMMARY | 2025-03-28 06:43 | XMS_ITS | Encounter Summary ---
Author Organization [facility] Healthcare Address [address] [place] [address] Care Team Providers Care Field Radio Technician Name Role Phone Karen Sequeira NP Primary Care Provider Encounter Details Date Type Department Care Team (Late st Contact Info) Description 01/27/2025 Results Follow-Up [facility] Medical Group Gastroenterology at [place] [address] [facility] [address] [place] [address] Maged Arellano MD [address] [facility] [address] [place] [address] Surgical pathology Social History Tobacco [...] on file Legal Sex Male 1:28 AM COW TESTER Gender Identity Not on file Sexual Orientation Not on file documented as of this encounter Plan of Treatment Not on file documented as of this encounter Visit Diagnoses Not on filedocumented in this encounter Care Teams Field Radio Technician Relationship Specialty Start Date End Date Karen Sequeira NP [address] [place] [address] PCP - General Nurse Practitioner 09/07/24 documented as of this encounter
--- OUTSIDE RECORDS SUMMARY | 2025-03-28 06:43 | XMS_ITS | Encounter Summary ---
Author Organization [facility] Address [address] [place] [address] Care Team Providers Care Charting Clerk Name Role Phone Karen Sequeira Primary Care Provider [phone] Encounter Details Date Type Department Care Team (Late st Contact Info) Description 10/11/2018 RX Orders Only [facility] Medical Group Family & Internal Medicine [place] [id number] [place] [phone] Karen Sequeira FNP [address] [place] [address] Social History Tobacco Use Types Packs/Day Years Used Date Smoking Tobacco: Never Smokeless Tobacco: Never Alcohol Use Standard Drinks/Week Comments No 0 (1 standard drink = 0.6 oz pur e alcohol) AUDIT-C Answer Date Recorded Frequency of Alcohol Consumption Never 10/08/2018 Average Number of Drinks Not on file 019 Frequency of Binge Drinking Not on file 09/24 Education Answer Date Recorded What is the highest level of school you have completed or the highest degree you have received? High school graduate 10/08/2018 Sex and Gender Information Value Date Recorded Sex Assigned at Not on file Legal Sex Male 1:28 PM STAFF THERAPIST Gender Identity Not on file Sexual Orientation Straight 10/08/2018 6: 21 PM STAFF THERAPIST documented as of this encounter Plan of Treatment Not on file documented as of this encounter Visit Diagnoses Not on filedocumented in this encounter Additional Health Concerns Infection Onset Date Last Indicated Resolved Time COVID-19 Rule Out 12/27/2021 12/27/2021 12/28/2021 1:24 PM CDT documented as of this encounter Care Teams Charting Clerk Relationship Specialty Start Date End Date Karen Sequeira FNP [address] [place] [address] PCP - General Nurse Practitioner Family 10/08/18 documented as of this encounter
--- OUTSIDE RECORDS SUMMARY | 2025-03-28 06:43 | XMS_ITS | Clinical Summary ---
Author Organization [facility] Address [address] [place] [address] Care Team Providers Care Online Tutor Name Role Phone Karen Sequeira NP Primary Care Provider [phone] Allergies Active Allergy Reactions Criticality Noted Date [...] the symptoms. Dupixent will be avoided until project management advisor evaluation, as it is highly effective for eosinophilic esophagitis, making it important to determine true allergy status for long-term management. The possibility of using a vial and needle injection was discussed, but it contains similar preservatives. Refer to an project management advisor at [facility] for evaluation of the suspected allergic reaction to Dupixent. Avoid Dupixent until project management advisor evaluation is complete. Gastroesophageal reflux disease 10/28/2024 [...] for dietary consultation. Will refer to an project management advisor. If possible, I would like to know [...] eosinophilia. Assessment & Plan (10/28/2024 4:50 PM GRILL ATTENDANT): The endoscopic and biopsy findings are highly [...] Description 03/09/20 1:30 PM CDT Office Visit [facility] Medical Group Gastroenterology at [address] [place] [phone] Petar Monteiro NP Eosinophilic esophagitis (Primary Dx); Adverse effect of drug, initial encounter; Gastroesophageal reflux disease with esophagitis without hemorrhage 02/28/20 Telephone [facility] Medical Group Gastroenterology at [address] [place] [phone] Anahi Hewitt 02/18/20 Documentation [facility] [address] [facility] [address] [place] [phone] Dawn Stanley, [facility] 02/14/20 11:00 AM CDT Office Visit [facility] Medical Group Gastroenterology at [address] [place] [phone] Petar Monteiro NP Eosinophilic esophagitis (Primary Dx) 01/28/20 Results Follow-Up [facility] Gastroenterology at [address] [place] [phone] Maged Arellano MD Surgical pathology 01/27/20 12:29 PM CDT Anesthesia Event [facility] Endoscopy [address] [place] [address] Dominic Vitale MD Flemming-Ko ttman, Sandra K., CRNA 01/27/20 11:45 AM CDT - 01/27/20 12:15 PM CDT Surgery [facility] [address] [place] [address] Maged Arellano MD ESOPHAGOGASTRODUODENOSCOPY BIOPSY 01/27/20 11:15 AM CDT - 01/27/20 1:59 PM CDT Hospital Encounter [facility] [address] [place] [address] Maged Arellano MD Eosinophilic esophagitis; Gastroesophageal reflux [...] on file Legal Sex Male 1:28 AM GRILL ATTENDANT Gender Identity Not on file Sexual Orientation [...] 03/09/2025 1:20 PM CDT Plan of Treatment Health Maintenance Due [...] biopsy) 01/26/2025 12:59 PM CDT Narrative PATHOLOGY [facility] - 01/27/2025 2:30 PM CDT [address] [address] Tele: Claudette Ramsey MD - Records Management Manager Note to Patients: This report may contain [...] PATHOLOGY REPORT Patient Name: TREVOR LEUNG Address: [address] [place] [address] Gender: M : 2000 (Age: 25) Service: Surgery Location: [facility] #: [id number] Patient Type: BSP Observation Taken: 01/26/2025 Received [...] filtered and submitted entirely in cassette E1. [facility]/01/26/2025 17:37 AKIKO,[facility] MICROSCOPIC DESCRIPTION: Microscopic [...] Negative for dysplasia. Clerical Data Follows A; 52633 B; 27058 C; 06181 D; 06118 E; 52945 REPORT IMAGES AND/OR SCANNED DOCUMENTS ONLY VIEWABLE IN PDF FORMAT The immunohistochemical test(s) cited in this report, if any, was developed and its performance characteristics determined by [facility] Pathology Department. It has not been cleared or approved by the U.S. Food and Drug Administration. The FDA has determined that such clearance or approval is not necessary. This test is used for clinical purposes. It should not be regarded as investigational or for research. [facility] Laboratory is certified under the [...] part or completely in the following laboratories: [facility], [facility], [place] [address] [address]. [place] Maged Arellano MD LAB PATHOLOGY ORDERABLES Final Result PATHOLOGY [facility] Laboratory Receiving [address] [place] [address] * EGD (01/26/2025 11:51 AM CDT) Anatomical Region Laterality Modality Other Narrative Procedure Note Maged Arellano MD - 01/26/2025 11:51 AM CDT [facility] Endoscopy Lab Patient Name: Trevor [...] the physician, the nurse, the anesthesiologist, the varying exceptionalities teacher and thetechnician in the pre-procedure area in [...] Findings: A small hiatal hernia was present. Waterloo-colored mucosa was present. Mucosa was biopsied with [...] normal. Impression: - Small hiatal hernia. - [place]loo-colored mucosa suspicious for long-segment Payan's esophagus and classified as Payan'sstage C4-M4 per [place] criteria. Biopsied. - Esophageal mucosal changes suggestive [...] - Final from Last 3 Months Insurance [employer] Advance Directives For more information, please contact: [phone] * Full Code (Latest Code Status on File) Date Activated Date Inactivated Comments 01/26/2025 11:42 AM 01/26/2025 6:06 PM Care Teams Online Tutor Relationship Specialty Start Date End Date Karen Sequeira NP [address] [place] [address] PCP - General Nurse Practitioner 09/07/24
[2025-03-28 06:45] VITALS: BP 149/97; PULSE 65; RESP 16; TEMP 37; O2SAT 100
[2025-03-28 06:48] VITALS: PULSE 68
--- NOTE | 2025-03-28 06:48 | ECG_ITS ---
Test Date: 2025-03-28 06:52:15 Measurements Intervals [place] Rate: 64 P: 50 AR: 135 QRS: 47 QRSD: 110 T: 34 QT: 411 QTc: 424 Interpretive Statements SINUS RHYTHM Compared to ECG 02/26/2025 17:32:16 No significant changes Electronically Signed On 03-28-2025 14:07:44 CDT by Alden Gagnon M.D.
[2025-03-28 06:57] LABS: Hematocrit 38.2 % (42.0-52.0); Hemoglobin 13.4 g/dL (14.0-18.0); Immature Granulocyte Percent A 0.0 % (0-0.5); Lymphocytes Absolute Auto 3.04 K/mm3 (0.9-3.2); Mean Corpuscular HGB Conc 35.1 g/dl (32-36); Mean Corpuscular Hemoglobin 29.0 pg (26-34); Mean Corpuscular Volume 82.7 fl (80-100); Nucleated Red Blood Cells Absolute Auto 0.000 K/mm3 (0.0-0.012); Nucleated Red Blood Cells Perc 0.0 % (0.0-0.2); Platelet Count Result 226 k/mm3 (150-375); Red Blood Count 4.62 M/mm3 (4.6-6.20); White Blood Count 6.2 K/mm3 (4.5-10.0)
[2025-03-28 07:09] LABS: Alanine Aminotransferase 15 U/L (6-50); Albumin Level 4.4 g/dL (3.5-5.1); Alkaline Phosphatase 52 U/L (38-126); Anion Gap 14 mmol/L (4-12); Aspartate Amino Transferase 23 U/L (17-59); Bilirubin,Total 0.9 mg/dL (0.2-1.3); Calcium 8.9 mg/dL (8.4-10.2); Carbon Dioxide 21 mmol/L (22-30); Chloride 96 mmol/L (98-107); Estimated CRCL calculation 138 ml/min; Estimated Glomerular Filt Rate > 60; Glucose 105 mg/dL (65-110); Potassium 2.5 mmol/L (3.4-5.0); Sodium 131 mmol/L (137-145); Total Protein 7.4 g/dL (6.3-8.2)
[2025-03-28 07:24] LABS: Blood Urea Nitrogen < 2 mg/dL (9-20)
[2025-03-28] MEDS: SODIUM CHLORIDE 0.9% IV 1,000 ML 999 ML IV CONT (07:27)
[2025-03-28 07:28] LABS: Magnesium 1.5 mg/dL (1.6-2.3)
[2025-03-28] MEDS: POTASSIUM CHLORIDE 20 MEQ PACKET (FOR LIQUID) 40 MEQ PO (07:28)
--- OUTSIDE RECORDS SUMMARY | 2025-03-28 07:29 | XMS_ITS | Referral Summary ---
Author Organization [facility] Address [address] [place] [address] Care Team Providers Care Architectural Engineering Teacher Name Role Phone Karen Sequeira NP Primary Care Provider Encounters Date Type Department Care Team Description 03/09/20 1:30 PM CDT Office Visit [facility] Medical Group Gastroenterology at [address] [phone] Petar Monteiro NP Eosinophilic esophagitis (Primary Dx); Adverse effect of drug, initial encounter; Gastroesophageal reflux disease with esophagitis without hemorrhage 02/28/20 25 Telephone [facility] Medical [facility] Gastroenterology at [address] [phone] Anahi Hewitt 02/18/20 25 Documentation [facility] [address] [facility] [address] [place] [address] Dawn Stanley [facility] 02/14/20 25 11:00 AM CDT Office Visit [facility] Medical [facility] Gastroenterology at [address] [phone] Petar Monteiro NP Eosinophilic esophagitis (Primary Dx) 01/28/20 25 Results Follow-Up [facility] Medical [facility] Gastroenterology at [address] [phone] Maged Arellano MD Surgical pathology 01/27/20 25 12:29 PM CDT Anesthesia Event [facility] Endoscopy [address] [place] [address] Dominic Vitale MD Flemming-Ko ttman, Sandra K., CRNA 01/27/20 11:45 AM CDT - 01/27/20 12:15 PM CDT Surgery [facility] Endoscopy [address] [place] [address] Maged Arellano MD ESOPHAGOGASTRODUODENOSCOPY BIOPSY 01/27/20 11:15 AM CDT - 01/27/20 1:59 PM CDT Hospital Encounter [facility] Endoscopy [address] [place] [address] Maged Arellano MD Eosinophilic esophagitis; Gastroesophageal reflux [...] the symptoms. Dupixent will be avoided until jewelry bench worker evaluation, as it is highly effective for eosinophilic esophagitis, making it important to determine true allergy status for long-term management. The possibility of using a vial and needle injection was discussed, but it contains similar preservatives. Refer to an jewelry bench worker at [facility] for evaluation of the suspected allergic reaction to Dupixent. Avoid Dupixent until jewelry bench worker evaluation is complete. Gastroesophageal reflux disease 10/28/2024 [...] for dietary consultation. Will refer to an jewelry bench worker. If possible, I would like to know [...] eosinophilia. Assessment & Plan (10/28/2024 4:50 PM INVESTMENT REPRESENTATIVE): The endoscopic and biopsy findings are highly [...] on file Legal Sex Male 1:28 AM INVESTMENT REPRESENTATIVE Gender Identity Not on file Sexual Orientation [...] biopsy) 01/26/2025 12:59 PM CDT Narrative PATHOLOGY [facility] - 01/27/2025 2:30 PM CDT [address] [address] Tele: Claudette Ramsey MD - Wine Consultant Note to Patients: This report may contain [...] PATHOLOGY REPORT Patient Name: GAYATRI LEUNG Address: [address] [place] [address] Gender: M : 2000 (Age: 25) Service: Surgery Location: [facility], Hospital #: [id number] Patient Type: BSP Observation Taken: 01/26/2025 Received [...] and submitted entirely in cassette E1. [facility]/01/26/2025 17:37 [facility] MICROSCOPIC DESCRIPTION: Microscopic evaluation of parts [...] Negative for dysplasia. Clerical Data Follows A; 59273 B; 15778 C; 17175 D; 87299 E; 79502 REPORT IMAGES AND/OR SCANNED DOCUMENTS ONLY VIEWABLE IN PDF FORMAT The immunohistochemical test(s) cited in this report, if any, was developed and its performance characteristics determined by [facility] Pathology Department. It has not been cleared or approved by the U.S. Food and Drug Administration. The FDA has determined that such clearance or approval is not necessary. This test is used for clinical purposes. It should not be regarded as investigational or for research. [facility] Laboratory is certified under the Clinical [...] part or completely in the following laboratories: [facility], [address] [place] [address], [address] [place] [address]. Maged Arellano MD LAB PATHOLOGY ORDERABLES Final Result PATHOLOGY [facility] Laboratory Receiving [address] [place] [address] * EGD (01/26/2025 11:51 AM CDT) Anatomical Region Laterality Modality Other Narrative Procedure Note Maged Arellano MD - 01/26/2025 11:51 AM CDT [facility] Lab Patient Name: Gayatri Leung Procedure [...] the physician, the nurse, the anesthesiologist, the brazing furnace operator and thetechnician in the pre-procedure area in [...] Findings: A small hiatal hernia was present. Helix-colored mucosa was present. Mucosa was biopsied with [...] normal. Impression: - Small hiatal hernia. - Helix-colored mucosa suspicious for long-segment Payan's esophagus and classified as Payan'sstage C4-M4 per [place] criteria. Biopsied. - Esophageal mucosal changes suggestive [...] - Final from Last 3 Months Insurance [facility] ANTH ACCESS CHOICE Advance Directives For more information, please contact: [phone] * Full Code (Latest Code Status on File) Date Activated Date Inactivated Comments 01/26/2025 11:42 AM 01/26/2025 6:06 PM Care Teams Architectural Engineering Teacher Relationship Specialty Start Date End Date Karen Sequeira NP [address] [place] [address] PCP - General Nurse Practitioner 09/07/24
--- OUTSIDE RECORDS SUMMARY | 2025-03-28 07:29 | XMS_ITS | Clinical Summary ---
Author Organization [facility] Address [address] [place] [address] Care Team Providers Care Operational Review Sergeant Name Role Phone Karen Sequeira GLEN Primary Care Provider [phone] Allergies No known active allergies Medications famotidine-calci [...] on file Legal Sex Male 1:28 PM CUPOLA OPERATOR Gender Identity Not on file Sexual Orientation Straight 10/08/2018 6: 21 PM CUPOLA OPERATOR Last Filed Vital Signs Vital Sign Reading Time Taken Comments Blood Pressure 118/68 08/26/2024 9:54 AM CUPOLA OPERATOR Pulse 83 08/26/2024 9:54 AM CUPOLA OPERATOR Temperature 36.8 C (98.2 F) 08/26/2024 9:54 AM CUPOLA OPERATOR Respiratory Rate 14 08/26/2024 9:54 AM CUPOLA OPERATOR Oxygen Saturation 99% 08/26/2024 9:54 AM CUPOLA OPERATOR Inhaled Oxygen Concentration - - Weight 81.4 kg (179 lb 8 oz) 08/26/2024 9:54 AM CUPOLA OPERATOR Height 181.6 cm (5' 11.5) 08/26/2024 9:54 AM CS T Body Mass Index 24.69 08/26/2024 9:54 AM CUPOLA OPERATOR Plan of Treatment Health Maintenance Due Date Last Done Comments Annual Physical 01/17/2003 HPV Vaccines (1 - Male 3-dos e series) 01/17/2015 Hepatitis C 01/17/2018 Hepatitis B Vaccines (1 of 3 - 19+ 3-dose series) 01/17/2019 PHQ-2 (Physician [place]) 09/24/2024 08/26/2024 COVID-19 Vaccine (4 - 2023-2 [...] from Last 3 Months Insurance Care Teams Operational Review Sergeant Relationship Specialty Start Date End Date Karen Sequeira FNP [address] [place] [address] PCP - General Nurse Practitioner Family 10/08/18
--- OUTSIDE RECORDS SUMMARY | 2025-03-28 07:29 | XMS_ITS | Encounter Summary ---
Author Organization [facility] Healthcare Address [address] [place] [address] Care Team Providers Care Nursing Program Coordinator Name Role Phone Karen Sequeira NP Primary Care Provider Encounter Details Date Type Department Care Team (Late st Contact Info) Description 01/27/2025 Results Follow-Up [facility] Medical Group Gastroenterology at [place] [address] [facility] [address] [place] [address] Maged Arellano MD [address] [facility] [address] [place] [address] Surgical pathology Social History Tobacco [...] on file Legal Sex Male 1:28 AM ELEMENTARY READING SPECIALIST Gender Identity Not on file Sexual Orientation Not on file documented as of this encounter Plan of Treatment Not on file documented as of this encounter Visit Diagnoses Not on filedocumented in this encounter Care Teams Nursing Program Coordinator Relationship Specialty Start Date End Date Karen Sequeira NP [address] [place] [address] PCP - General Nurse Practitioner 09/07/24 documented as of this encounter
--- OUTSIDE RECORDS SUMMARY | 2025-03-28 07:30 | XMS_ITS | Clinical Summary ---
Author Organization [facility] Address [address] [place] [address] Care Team Providers Care Ramp Flight Attendant Name Role Phone Karen Sequeira NP Primary Care Provider [phone] Allergies Active Allergy Reactions Criticality Noted Date [...] the symptoms. Dupixent will be avoided until utility inspector evaluation, as it is highly effective for eosinophilic esophagitis, making it important to determine true allergy status for long-term management. The possibility of using a vial and needle injection was discussed, but it contains similar preservatives. Refer to an utility inspector at [facility] for evaluation of the suspected allergic reaction to Dupixent. Avoid Dupixent until utility inspector evaluation is complete. Gastroesophageal reflux disease 10/28/2024 [...] for dietary consultation. Will refer to an utility inspector. If possible, I would like to know [...] eosinophilia. Assessment & Plan (10/28/2024 4:50 PM DIRECTOR CHEMISTRY): The endoscopic and biopsy findings are highly [...] Description 03/09/20 1:30 PM CDT Office Visit [facility] Medical Group Gastroenterology at [address] [place] [phone] Petar Monteiro NP Eosinophilic esophagitis (Primary Dx); Adverse effect of drug, initial encounter; Gastroesophageal reflux disease with esophagitis without hemorrhage 02/28/20 Telephone [facility] Group Gastroenterology at [address] [place] [phone] Anahi Hewitt 02/18/20 Documentation [facility] [address] [facility] [address] [place] [phone] Dawn Stanley, [facility] 02/14/20 11:00 AM CDT Office Visit [facility] Medical Group Gastroenterology at [address] [place] [phone] Petar Monteiro NP Eosinophilic esophagitis (Primary Dx) 01/28/20 Results Follow-Up [facility] Gastroenterology at [address] [place] [phone] Maged Arellano MD Surgical pathology 01/27/20 12:29 PM CDT Anesthesia Event [facility] Endoscopy [address] [place] [address] Dominic Vitale MD Flemming-Ko ttman, Sandra K., CRNA 01/27/20 11:45 AM CDT - 01/27/20 12:15 PM CDT Surgery [facility] Endoscopy [address] [place] [address] Maged Arellano MD ESOPHAGOGASTRODUODENOSCOPY BIOPSY 01/27/20 11:15 AM CDT - 01/27/20 1:59 PM CDT Hospital Encounter [facility] Endoscopy [address] [place] [address] Maged Arellano MD Eosinophilic esophagitis; Gastroesophageal reflux [...] on file Legal Sex Male 1:28 AM DIRECTOR CHEMISTRY Gender Identity Not on file Sexual Orientation [...] biopsy) 01/26/2025 12:59 PM CDT Narrative PATHOLOGY [facility] - 01/27/2025 2:30 PM CDT [address] [address] Tele: Claudette Ramsey MD - Fishing Vessel Operator Note to Patients: This report may contain [...] PATHOLOGY REPORT Patient Name: TREVOR LEUNG Address: [address] [place] [address] Gender: M : 2000 (Age: 25) Service: Surgery Location: [facility], [facility] #: [id number] Patient Type: BSP Observation Taken: 01/26/2025 Received [...] and submitted entirely in cassette E1. [facility]/01/26/2025 17:37 AKIKO,[facility] MICROSCOPIC DESCRIPTION: Microscopic evaluation of parts [...] Negative for dysplasia. Clerical Data Follows A; 75192 B; 06165 C; 41089 D; 19456 E; 78769 REPORT IMAGES AND/OR SCANNED DOCUMENTS ONLY VIEWABLE IN PDF FORMAT The immunohistochemical test(s) cited in this report, if any, was developed and its performance characteristics determined by [facility] Pathology Department. It has not been cleared or approved by the U.S. Food and Drug Administration. The FDA has determined that such clearance or approval is not necessary. This test is used for clinical purposes. It should not be regarded as investigational or for research. [facility] Laboratory is certified under the Clinical Laboratory [...] part or completely in the following laboratories: [facility], [facility]5 [facility], [place] [address] [address]. [place] Maged Arellano MD LAB PATHOLOGY ORDERABLES Final Result PATHOLOGY [facility] Laboratory Receiving [address] [place] [address] * EGD (01/26/2025 11:51 AM CDT) Anatomical Region Laterality Modality Other Narrative Procedure Note Maged Arellano MD - 01/26/2025 11:51 AM CDT [facility] Endoscopy Lab Patient Name: Trevor [...] the physician, the nurse, the anesthesiologist, the steamtable attendant railroad and thetechnician in the pre-procedure area in [...] Findings: A small hiatal hernia was present. Vance-colored mucosa was present. Mucosa was biopsied with [...] normal. Impression: - Small hiatal hernia. - Vance-colored mucosa suspicious for long-segment Payan's esophagus and classified as Payan'sstage C4-M4 per [place] criteria. Biopsied. - Esophageal mucosal changes suggestive [...] - Final from Last 3 Months Insurance [employer] Advance Directives For more information, please contact: [phone] * Full Code (Latest Code Status on File) Date Activated Date Inactivated Comments 01/26/2025 11:42 AM 01/26/2025 6:06 PM Care Teams Ramp Flight Attendant Relationship Specialty Start Date End Date Karen Sequeira NP [address] [place] [address] PCP - General Nurse Practitioner 09/07/24
--- OUTSIDE RECORDS SUMMARY | 2025-03-28 07:30 | XMS_ITS | Encounter Summary ---
Author Organization [facility] Address [address] [place] [address] Care Team Providers Care Alliance Director Name Role Phone Karen Sequeira Primary Care Provider [phone] Encounter Details Date Type Department Care Team (Late st Contact Info) Description 10/11/2018 RX Orders Only [facility] Family & Internal Medicine [id number] [place] [phone] Karen Sequeira FNP [address] [place] [address] Social History Tobacco Use Types [...] on file Legal Sex Male 1:28 PM [employer] Gender Identity Not on file Sexual Orientation Straight 10/08/2018 6: 21 PM [employer] documented as of this encounter Plan of Treatment Not on file documented as of this encounter Visit Diagnoses Not on filedocumented in this encounter Additional Health Concerns Infection Onset Date Last Indicated Resolved Time COVID-19 Rule Out 12/27/2021 12/27/2021 12/28/2021 1:24 PM CDT documented as of this encounter Care Teams Alliance Director Relationship Specialty Start Date End Date Karen Sequeira FNP [address] [place] [address] PCP - General Nurse Practitioner Family 10/08/18 documented as of this encounter
[2025-03-28] MEDS: KCL 20 MEQ/SW 100 ML 100 ML 50 MEQ IVPB (07:59)
[2025-03-28] MEDS: MAGNESIUM SULF 2 GM/WATER 50ML 2 GM/50 ML BAG IVPB (08:32)
[2025-03-28 08:48] VITALS: BP 142/93; PULSE 70; RESP 16; O2SAT 100
--- NOTE | 2025-03-28 09:03 | ED_ITS ---
HPI - General Adult General Chief complaint: Unspecified Stated complaint: sob and numbness Time Seen by Provider: 03/28/25 07:11 History of Present Illness HPI narrative: Patient 25-year-old gentleman presents emergency department chief complaint of shortness of breath. Patient reports that he had sudden onset of shortness of breath and as he was having this episode his hands went numb the patient does report that he has had panic attacks before in the past and reports that he had a reaction to medications in the past patient states that he is feeling better now patient reports no active chest pain reports no syncope does report that he has history eosinophilic esophagitis and reports that he does not in that much due to reflux Related Data Allergies Allergy/AdvReac Type Severity Reaction Status Date / Time dupilumab (From [email or web address]) Allergy Severe Difficulty Verified 02/26/25 23:57 Swallowing Review of Systems 2 Review of Systems: A 10 system review of systems was completed on the patient and is negative except for what is stated in the HPI. Nursing and ancillary documentation was reviewed. PMFSH Past Medical History Medical History Asthma Surgical History Surgical History No pertinent past surgical history Social History Social History Smoking status: Never smoker Exam 2 Narrative: GENERAL: Well-appearing, well-nourished, and in no acute distress. HEAD: Normocephalic, atraumatic. EYES: PERRLA and EOMI. ENT: Nares clear, no rhinorrhea or epistaxis. Mucous membranes moist. NECK: Supple. CHEST: Clear to auscultation. No respiratory distress. HEART: Regular rate and rhythm. No murmur heard. Normal peripheral pulses. ABDOMEN: Soft, nontender, nondistended, normal active bowel sounds. EXTREMITIES: Normal range of motion. No edema. SKIN: Warm, dry, no rash. NEURO: No focal deficits. Alert and oriented x3. PSYCH: Normal mood and affect. Course Vital Signs Vital signs: Vital Signs Temperature 37.0 C 03/28/25 06:45 Pulse Rate 65 03/28/25 06:45 Respiratory Rate 16 03/28/25 06:45 Blood Pressure 149/97 H 03/28/25 06:45 Pulse Oximetry 100 03/28/25 06:45 Oxygen Delivery Room Air 03/28/25 06:45 Temperature 37.0 C 03/28/25 06:45 Pulse Rate 70 03/28/25 08:48 Respiratory Rate 16 03/28/25 08:48 Blood Pressure 142/93 H 03/28/25 08:48 Pulse Oximetry 100 03/28/25 08:48 Oxygen Delivery Room Air 03/28/25 06:45 Medical Decision Making MDM Narrative Medical decision making narrative: Viral improves dysrhythmia , palpitations, electrolyte Abnormality, chest x-ray showed no focal infiltrate EKG showed no acute ischemic changes Laboratory studies were obtained showed a potassium was 2.5 magnesium was also low at 1.5 Patient was given IV magnesium and IV potassium as well as p.o. potassium. Vital Signs Vital Signs: Vital Signs Temperature 37.0 C 03/28/25 06:45 Pulse Rate 65 03/28/25 06:45 Respiratory Rate 16 03/28/25 06:45 Blood Pressure 149/97 H 03/28/25 06:45 Pulse Oximetry 100 03/28/25 06:45 Oxygen Delivery Room Air 03/28/25 06:45 Temperature 37.0 C 03/28/25 06:45 Pulse Rate 70 03/28/25 08:48 Respiratory Rate 16 03/28/25 08:48 Blood Pressure 142/93 H 03/28/25 08:48 Pulse Oximetry 100 03/28/25 08:48 Oxygen Delivery Room Air 03/28/25 06:45 Lab Data 03/28/25 06:50 03/28/25 06:50 Labs: Lab Results 03/28/25 Range/Units 06:50 WBC 6.2 (4.5-10.0) K/mm3 RBC 4.62 (4.6-6.20) M/mm3 Hgb 13.4 L (14.0-18.0) g/dL Hct 38.2 L (42.0-52.0) % MCV 82.7 (80-100) fl MCH 29.0 (26-34) pg MCHC 35.1 (32-36) g/dl RDW 11.7 (11.5-14.5) % Plt Count 226 (150-375) k/mm3 MPV 9.8 (7.4-10.4) fl Immature Gran % (Auto) 0.0 (0-0.5) % Neut % (Auto) 34.5 L (45.5-73.1) % Lymph % (Auto) 48.9 H (18.3-44.2) % Bollinger % (Auto) 11.1 H (2.6-8.5) % Eos % (Auto) 4.5 H (0-4.4) % Baso % (Auto) 1.0 (0.2-1.2) % Lymph # (Auto) 3.04 (0.9-3.2) K/mm3 Bollinger # (Auto) 0.7 H (0.1-0.6) K/mm3 Eos # (Auto) 0.3 (0-0.3) K/mm3 Baso # (Auto) 0.1 (0.0-0.1) K/mm3 Abs Immat Gran (auto) 0.00 (0.00-0.031) K/mm3 Absolute Neuts (auto) 2.2 (1.3-6.7) K/mm3 Absolute Nucleated RBC 0.000 (0.0-0.012) K/mm3 Nucleated RBC % 0.0 (0.0-0.2) % Sodium 131 L (137-145) mmol/L Potassium 2.5 L* (3.4-5.0) mmol/L Chloride 96 L (98-107) mmol/L Carbon Dioxide 21 L (22-30) mmol/L Anion Gap 14 H (4-12) mmol/L BUN < 2 L (9-20) mg/dL Creatinine 0.71 (0.7-1.3) mg/dL Estim Creat Clear Calc 138 ml/min Estimated GFR > 60 (59 - ) Glucose 105 (65-110) mg/dL Calcium 8.9 (8.4-10.2) mg/dL Magnesium 1.5 L (1.6-2.3) mg/dL Total Bilirubin 0.9 (0.2-1.3) mg/dL AST 23 (17-59) U/L ALT 15 (6-50) U/L Alkaline Phosphatase 52 (38-126) U/L Total Protein 7.4 (6.3-8.2) g/dL Albumin 4.4 (3.5-5.1) g/dL Discharge Plan Discharge Clinical Impression: Hypomagnesemia, Acute hypokalemia Patient Disposition: Home Condition: Stable Instructions: Antibiotic Form, Hypokalemia (ED), Hypomagnesemia (ED) Patient Language: Wallisian Prescriptions: New magnesium oxide 500 mg capsule 500 mg PO DAILY 7 Days Qty: 7 0RF potassium chloride 20 mEq/15 mL liquid 20 meq PO BID 7 Days Qty: 210 0RF aluminum-magnesium hydroxide 200-200 mg/5 mL suspension 30 ml PO DAILY 10 Days Qty: 300 0RF potassium chloride 20 mEq/15 mL liquid 20 meq PO BID 7 Days Qty: 210 0RF No Action epinephrine [EpiPen 2-Eliud] 0.3 mg/0.3 mL auto-injector 0.3 mg IM Q5-15M PRN (Reason: anaphylaxis) Qty: 2 0RF Rx Instructions: do not exceed 3 doses per episode prednisolone 15 mg/5 mL solution 60 mg PO QAM 4 Days Qty: 80 0RF diphenhydramine HCl [Allergy Relief(diphenhydramin)] 12.5 mg/5 mL liquid 25 mg PO Q6H PRN (Reason: allergic reaction) Qty: 473 0RF Pepcid Complete 10-800-165 mg tablet,chewable 1 tablet PO BID PRN (Reason: allergic symptoms) Qty: 20 0RF hydroxyzine pamoate 50 mg capsule 50 mg PO TID PRN (Reason: anxiety) Qty: 20 0RF Follow-up/Referrals: KATE,KEYONNA ROBLEDO [Primary Care Provider] - Time of Disposition: 09:55
[2025-03-28 11:06] VITALS: BP 133/77; PULSE 59; RESP 16; O2SAT 100
== END 2025-03-28 10:47 | disposition home or self-care (01) ==
PROVIDERS: Student in an Organized Health Care Education/Training Program; Emergency Provider Emergency Medicine; PCP Nurse Practitioner Family
DX: E87.6 Hypokalemia (principal); E83.42 Hypomagnesemia; J45.909 Unspecified asthma, uncomplicated
CPT/HCPCS: 36415; 71046; 80053; 83735; 85025; 93005; 96365; 96368; 99284; A9270; J3475; J3480; J7030

== ENCOUNTER 2025-05-17 05:38 | Emergency (ER) | payer BC, SELFPAY ==
[2025-05-17] VITALS (11 sets, daily range): BP systolic 119–155; BP diastolic 82–95; PULSE 55–82; RESP 11–20; TEMP 36.8; O2SAT 94–100
--- OUTSIDE RECORDS SUMMARY | 2025-05-17 05:41 | XMS_ITS | Encounter Summary ---
Author Organization [facility] Address [address] [place] [address] Care Team Providers Care Labeling Associate Name Role Phone Karen Sequeira Primary Care Provider [phone] Encounter Details Date Type Department Care Team (Late st Contact Info) Description 10/11/2018 RX Orders Only [facility] Family & Internal Medicine [id number] [place] [phone] Karen Sequeira FNP [address] [place] [address] Social History Tobacco Use Types [...] on file Legal Sex Male 1:28 PM [employer]ATE [employer] Gender Identity Not on file Sexual Orientation Straight 10/08/2018 6: 21 PM [employer]PORATE TRAVEL AGENT documented as of this encounter Plan of Treatment Not on file documented as of this encounter Visit Diagnoses Not on filedocumented in this encounter Additional Health Concerns Infection Onset Date Last Indicated Resolved Time COVID-19 Rule Out 12/27/2021 12/27/2021 12/28/2021 1:24 PM CDT documented as of this encounter Care Teams Labeling Associate Relationship Specialty Start Date End Date Karen Sequeira FNP [address] [place] [id number] PCP - General Nurse Practitioner Family 10/08/18 documented as of this encounter
--- OUTSIDE RECORDS SUMMARY | 2025-05-17 05:42 | XMS_ITS | Clinical Summary ---
Author Organization [facility] Address [address] [place] [address] Care Team Providers Care Brand Lead Name Role Phone Karen Sequeira NP Primary Care Provider + [phone] Allergies Active Allergy Reactions Criticality Noted Date [...] day 168 packet 03/09/20 25 025 Active Additional Information Patient not taking.Reported on 04/28/2025 fluticasone propionate (FLONASE) 50 mcg/actuation nasal spray Administer 2 sprays into each nostril daily 16 g 11 04/28/20 25 026 Active azelastine (ASTELIN) 137 mcg (0.1 %) nasal spray Administer 2 sprays into each nostril 2 (two) times a day Use in each nostril as directed 30 mL 11 05/06/20 25 026 Active Active Problems Problem Noted Date Diagnosed Date Drug reaction 03/09/2025 Assessment & Plan (05/08/2025 8:12 AM CDT): Assessment & Plan (03/09/2025 2:12 PM CDT): He experienced a suspected allergic reaction to Dupixent following the first dose, characterized by throat swelling and dysphagia within 3-4 minutes post- injection. There was no anaphylaxis or severe symptoms.The reaction may be due to preservatives in the injection rather than Dupixent itself. Anxiety may have contributed to the symptoms. Dupixent will be avoided until stock clerk evaluation, as it is highly effective for eosinophilic esophagitis, making it important to determine true allergy status for long-term management. The possibility of using a vial and needle injection was discussed, but it contains similar preservatives. Refer to an stock clerk at [facility] for evaluation of the suspected allergic reaction to Dupixent. Avoid Dupixent until stock clerk evaluation is complete. Gastroesophageal reflux disease 10/28/2024 Assessment & Plan (05/08/2025 8:12 AM CDT): Assessment & Plan (03/09/2025 2:12 PM CDT): Restart lansoprazole 30 mg disintegrating tablet once daily, will need indefinite use and after he finishes Eohilia, it is likely he may need to go back on BID lansoprazole pending allergy workup and response to Eohilia. Food bolus obstruction of intestine 09/07/2024 Eosinophilic esophagitis 09/07/2024 Assessment & Plan (05/08/2025 8:12 AM CDT): Assessment & Plan (03/09/2025 2:12 PM CDT): [...] for dietary consultation. Will refer to an stock clerk. If possible, I would like to know [...] eosinophilia. Assessment & Plan (10/28/2024 4:50 PM GROUP CONTROLLER): The endoscopic and biopsy findings are highly [...] Encounters Date Type Department Care Team Description 05/08/2025 8:00 AM CDT Office Visit [facility] at [address] [place] [address] Petar Monteiro NP Eosinophilic esophagitis (Primary Dx); Adverse effect of drug, subsequent encounter; Gastroesophageal reflux disease with esophagitis without hemorrhage 05/06/2025 2:00 PM CDT Lab [facility] [place] [address] [place] [address] Eosinophilic esophagitis; Seasonal allergic rhinitis, unspecified trigger 05/06/2025 1:00 PM CDT Office Visit [facility] [address] [facility] [address] [place] [address] Ann Marie Huber MD Eosinophilic esophagitis (Primary Dx); Adverse effect of drug, subsequent encounter 04/28/2025 8:00 AM CDT Office Visit [facility] [address] [facility] [address] [place] [address] Ann Marie Huber MD Seasonal allergic rhinitis, unspecified trigger (Primary Dx); Eosinophilic esophagitis; Adverse effect of drug, initial encounter 03/09/2025 1:30 PM CDT Office Visit [facility] at [address] [place] [address] Petar Monteiro NP Eosinophilic esophagitis (Primary Dx); Adverse effect of drug, initial encounter; Gastroesophageal reflux disease with esophagitis without hemorrhage 02/27/2025 Telephone [facility] at [address] [place] [address] Anahi Hewitt 02/17/2025 Documentation [facility] [address] [facility] [address] [place] [address] Dawn Stanley [facility] from Last 3 Months Surgical History Surgery Date Site/Laterality Comments ESOPHAGOGASTRODUODENOSCOPY Medical History Medical History Date Comments GERD (gastroesophageal reflux disease) Anxiety Social History Tobacco Use Types Packs/Day Years Used Date Smoking Tobacco: Never Passive Smoke Exposure: Past Smokeless Tobacco: Never AUDIT-C Answer Date Recorded Q1: [...] on file Legal Sex Male 1:28 AM GROUP CONTROLLER Gender Identity Not on file Sexual Orientation Not on file Obstetrics History Last Filed Vital Signs Vital Sign Reading Time Taken Comments Blood Pressure 142/89 04/28/2025 7:51 AM CDT Pulse 96 05/08/2025 8:07 AM CDT Temperature 37 C (98.6 F) 04/28/2025 7:51 AM CDT Respiratory Rate 15 01/26/2025 1:20 PM CDT Oxygen Saturation 98% 05/08/2025 8:07 AM CDT Inhaled Oxygen Concentration - - Weight 70.8 kg (156 lb) 05/08/2025 8:07 AM CDT Height 182.9 cm (6') 05/08/2025 8:07 AM CDT Body Mass Index 21.16 05/08/2025 8:07 AM CDT Plan of Treatment Health Maintenance Due Date Last Done Comments Depression Screening 2000 Hepatitis C Screening 2000 Varicella Vaccines (1 of 2 - 13+ 2-dose series) 01/17/2013 HPV Vaccines (1 - Male 3-dos e series) 01/17/2015 Hepatitis B Screening 01/17/2018 Regular Well Visit/Exam 18-64 01/17/2018 Covid-19 Vaccine ( - 2023-2 5 season) 2024 10/10/2021, 11/30/2020, 10/28/2020 Influenza Vaccine (#1) 2025 DTaP/Tdap/Td Vaccine (2 - Td or Tdap) 03/07/2029 03/07/2019 Pneumococcal vaccine <65 Aged Out No longer eligible based on patient's age to complete this topic Procedures Procedure Name Priority Date/Time Associated Diagnosis Comments DIFFERENTIAL AUTO Routine 05/06/2025 1:3 0 PM CDT Eosinophilic esophagitis Seasonal allergic rhinitis, unspecified trigger ALLERGEN BIRCH COMMON SILVER (TREE) IGE Routine 05/06/2025 1:30 PM CDT Seasonal allergic rhinitis, unspecified trigger ALLERGEN ELM (TREE) IGE Routine 05/06/20 1:30 PM CDT Seasonal allergic rhinitis, unspecified trigger ALLERGEN MAPLE/BOX ELDER (TREE) IGE Routine 05/06/2025 1:30 PM CDT Seasonal allergic rhinitis, unspecified trigger ALLERGEN MOUNTAIN JUNIPER (TREE) IGE Routine 05/06/2025 1:30 PM CDT Seasonal allergic rhinitis, unspecified trigger ALLERGEN MULBERRY (TREE) IGE Routine 05/06/2025 1:30 PM CDT Seasonal allergic rhinitis, unspecified trigger ALLERGEN OAK RED (TREE) IGE Routine 05/06/2025 1:30 PM CDT Seasonal allergic rhinitis, unspecified trigger ALLERGEN SYCAMORE SERBIAN (TREE) IGE Routine 05/06/2025 1:30 PM CDT Seasonal allergic rhinitis, unspecified trigger ALLERGEN WALNUT (TREE) IGE Routine 05/06/2025 1:30 PM CDT Seasonal allergic rhinitis, unspecified trigger ALLERGEN BERMUDA GRASS (GRASS) IGE Routine 05/06/2025 1:30 PM CDT Seasonal allergic rhinitis, unspecified trigger ALLERGEN ROGE GRASS (GRASS) IGE Routine 05/06/2025 1:30 PM CDT Seasonal allergic rhinitis, unspecified trigger ALLERGEN HOMERO GRASS (GRASS) IGE Routine 05/06/2025 1:30 PM CDT Seasonal allergic rhinitis, unspecified trigger ALLERGEN PLANTAIN MALAY (WEED) IGE Routine 05/06/2025 1:30 PM CDT Seasonal allergic rhinitis, unspecified trigger ALLERGEN LINCOLN'S QUARTER (WEED) IGE Routine 05/06/2025 1:30 PM CDT Seasonal allergic rhinitis, unspecified trigger ALLERGEN PIGWEED ROUGH (WEED) IGE Routine 05/06/2025 1:30 PM CDT Seasonal allergic rhinitis, unspecified trigger ALLERGEN RAGWEED SHORT/COMMON (WEED) IGE Routine 05/06/2025 1:30 PM CDT Seasonal allergic rhinitis, unspecified trigger ALLERGEN NETTLE (WEED) IGE Routine 05/06/2025 1:30 PM CDT Seasonal allergic rhinitis, unspecified trigger ALLERGEN ALTERNARIA TENUIS (MOLD) IGE Routine 05/06/2025 1:30 PM CDT Seasonal allergic rhinitis, unspecified trigger ALLERGEN ASPERGILLUS FUMIGATUS (MOLD) IGE Routine 05/06/2025 1:30 PM CDT Seasonal allergic rhinitis, unspecified trigger ALLERGEN CLADOSPORIUM HERBARUM (MOLD) IGE Routine 05/06/2025 1:30 PM CDT Seasonal allergic rhinitis, unspecified trigger ALLERGEN PENICILLIUM CHRYSOGENUM (MOLD) IGE Routine 05/06/2025 1:30 PM CDT Seasonal allergic rhinitis, unspecified trigger ALLERGEN EPITHELIA/DANDER CAT (ANIMAL) IGE Routine 05/06/2025 1:30 PM CDT Seasonal allergic rhinitis, unspecified trigger ALLERGEN COCKROACH SERBIAN (INSECT) IGE Routine 05/06/2025 1:30 PM CDT Seasonal allergic rhinitis, unspecified trigger ALLERGEN DERMATOPHAGOIDES FARINAE (INSECT) IGE Routine 05/06/2025 1:30 PM CDT Seasonal allergic rhinitis, unspecified trigger ALLERGEN DERMATOPHAGOIDES PTERONYSSINUS (INSECT) IGE Routine 05/06/2025 1:30 PM CDT Seasonal allergic rhinitis, unspecified trigger ALLERGEN EPITHELIA/DANDER DOG (ANIMAL) IGE Routine 05/06/2025 1:30 PM CDT Seasonal allergic rhinitis, unspecified trigger ALLERGEN MOUSE MIX (ANIMAL) IGE Routine 05/06/2025 1:30 PM CDT Seasonal allergic rhinitis, unspecified trigger ALLERGEN RAT MIX (ANIMAL) IGE Routine 05/06/2025 1:30 PM CDT Seasonal allergic rhinitis, unspecified trigger IGE Routine 05/06/2025 1:30 PM CDT Seasonal allergic rhinitis, unspecified trigger CBC WITH AUTO DIFFERENTIAL Routine 05/06/2025 1:30 PM CDT Eosinophilic esophagitis Seasonal allergic rhinitis, unspecified trigger ALLERGY SKIN TESTS ALLERGENS, EACH Routine 04/28/2025 7:48 AM CDT Eosinophilic esophagitis Seasonal allergic rhinitis, unspecified trigger from Last 3 Months Results * Allergen Rat mix (animal) IgE (05/06/2025 1:30 PM CDT) Rat mix IgE <0.10 0.00 - 0.34 kUnits/L Blood 05/06/2025 1:30 PM CDT 05/06/2025 4:51 PM CDT us Ann Marie Huber MD LAB BLOOD ORDERABLES Fin al Result Performing Organization Address City/State/[facility] de Phone Number [facility] [place] [address] * Allergen Mouse mix (animal) IgE (05/06/2025 1:30 PM CDT) Mouse mix IgE <0.10 0.00 - 0.34 kUnits/L Blood 05/06/2025 1:30 PM CDT 05/06/2025 4:51 PM CDT Ann Marie Huber MD LAB BLOOD ORDERABLES Fin al Result Performing Organization Address City/State/[facility] Co de Phone Number [facility] [place] [address] * Differential, auto (05/06/2025 1:30 PM CDT) Neutrophil abs 4.46 1.50 - 6.50 K/cumm Imm gran abs 0.01 0.00 - 0.10 K/cumm [facility] Lymphocyte abs 1.71 0.80 - 3.30 K/cumm [facility] Monocyte abs 0.44 0.20 - 0.80 K/cumm [facility] Eosinophil abs 0.18 0.00 - 0.50 K/cumm [facility] Basophil abs 0.06 0.00 - 0.10 K/cumm [facility] Neutrophil pct 65.1 % [facility] Comment: Interpretive Data Percent cell count reference ranges are not reported, since discordance with absolute values may lead to misinterpretation of CBC data. Current Interpretive Data was last revised on 2018. Imm gran pct 0.1 % [facility] Comment: Interpretive Data Percent cell count reference ranges are not reported, since discordance with absolute values may lead to misinterpretation of CBC data. Current Interpretive Data was last revised on 2018. Lymphocyte pct 24.9 % [facility] Comment: Interpretive Data Percent cell count reference ranges are not reported, since discordance with absolute values may lead to misinterpretation of CBC data. Current Interpretive Data was last revised on 2018. Monocyte pct 6.4 % [facility] Comment: Interpretive Data Percent cell count reference ranges are not reported, since discordance with absolute values may lead to misinterpretation of CBC data. Current Interpretive Data was last revised on 2018. Eosinophil pct 2.6 % [facility] Comment: Interpretive Data Percent cell count reference ranges are not reported, since discordance with absolute values may lead to misinterpretation of CBC data. Current Interpretive Data was last revised on 2018. Basophil pct 0.9 % [facility] Comment: Interpretive Data Percent cell count reference ranges are not reported, since discordance with absolute values may lead to misinterpretation of CBC data. Current Interpretive Data was last revised on 2018. Blood 05/06/2025 1:30 PM CDT 05/06/2025 4:51 PM CDT Ann Marie Huber MD LAB BLOOD ORDERABLES Fin al Result Performing Organization Address [facility] de Phone Number [facility] [place] [address] * Allergen Penicillium chrysogenum (mold) IgE (05/06/2025 1:30 PM CDT) Penicillium chrysogenum IgE <0.10 0.00 - 0.34 kUnits/L Blood 05/06/2025 1:30 PM CDT 05/06/2025 4:51 PM CDT Ann Marie Huber MD LAB BLOOD ORDERABLES Fin al Result Performing Organization Address [facility] de Phone Number [facility] [place] [address] * Allergen [place] (tree) IgE (05/06/2025 1:30 PM CDT) [place] IgE <0.10 0.00 - 0.34 kUnits/L Blood 05/06/2025 1:30 PM CDT 05/06/2025 4:51 PM CDT Ann Marie Huber MD LAB BLOOD ORDERABLES Fin al Result Performing Organization Address [facility] de Phone Number [facility] [place] [address] * Allergen Mountain juniper (tree) IgE (05/06/2025 1:30 PM CDT) Mountain juniper IgE <0.10 0.00 - 0.34 kUnits/L Blood 05/06/2025 1:30 PM CDT 05/06/2025 4:51 PM CDT Ann Marie Huber MD LAB BLOOD ORDERABLES Fin al Result Performing Organization Address [facility] Co de Phone Number [facility] [place] [address] * CBC with auto differential (05/06/2025 1:30 PM CDT) Pathologist [facility] WBC 6.86 3.80 - 9.90 K/cumm Hgb 14.0 13.0 - 17.5 g/dL [facility] Hct 42.3 38.9 - 50.3 % [facility] Plt 246 150 - 400 K/cumm [facility] MPV 10.8 9.1 - 12.3 fL [facility] RBC 4.95 4.30 - 5.80 M/cumm [facility] MCV 85.5 81.3 - 96.4 fL [facility] MCH 28.3 27.1 - 33.3 pg [facility] MCHC 33.1 32.3 - 35.7 g/dL [facility] RDW CV 12.0 11.1 - 14.9 % [facility] RDW SD 37.2 35.7 - 48.1 fL [facility] NRBC abs 0.00 0.00 - 0.01 K/cumm [facility] Blood 05/06/2025 1:30 PM CDT 05/06/2025 4:51 PM CDT us Ann Marie Huber MD LAB BLOOD ORDERABLES Fin al Result [facility] [place] [address] * Allergen Berm[place] grass (grass) IgE (05/06/2025 1:30 PM CDT) Pathologist [facility] [place] grass IgE <0.10 0.00 - 0.34 kUnits/L Blood 05/06/2025 1:30 PM CDT 05/06/2025 4:51 PM CDT Ann Marie Huber MD LAB BLOOD ORDERABLES Fin al Result Performing Organization Address [facility] Co de Phone Number [facility] [place] [address] * Allergen Plantain pakistani (weed) IgE (05/06/2025 1:30 PM CDT) Plantain pakistani IgE <0.10 0.00 - 0.34 kUnits/L Blood 05/06/2025 1:30 PM CDT 05/06/2025 4:51 PM CDT Result [facility] Ann Marie Huber MD LAB BLOOD ORDERABLES Fin al Result Performing Organization Address [facility] de Phone Number [facility] [place] [address] * Allergen Elm (tree) IgE (05/06/2025 1:30 PM CDT) Elm IgE <0.10 0.00 - 0.34 kUnits/L Blood 05/06/2025 1:30 PM CDT 05/06/2025 4:51 PM CDT Ann Marie Huber MD LAB BLOOD ORDERABLES Fin al Result Performing Organization Address [facility] [place] [address] * Allergen Cladosporium herbarum (mold) IgE (05/06/2025 1:30 PM CDT) Cladosporium herbarum IgE <0.10 0.00 - 0.34 kUnits/L Blood 05/06/2025 1:30 PM CDT 05/06/2025 4:51 PM CDT Ann Marie Huber MD LAB BLOOD ORDERABLES Fin al Result Performing Organization Address [facility] Co de Phone Number [facility] [place] [address] * Allergen Birch common silver (tree) IgE (05/06/2025 1:30 PM CDT) Birch common silver IgE <0.10 0.00 - 0.34 kUnits/L Blood 05/06/2025 1:30 PM CDT 05/06/2025 4:51 PM CDT Ann Marie Huber MD LAB BLOOD ORDERABLES Fin al Result Performing Organization Address [facility] de Phone Number [facility] [place] [address] * Allergen Alternaria tenuis (mold) IgE (05/06/2025 1:30 PM CDT) Alternaria tenius IgE <0.10 0.00 - 0.34 kUnits/L Blood 05/06/2025 1:30 PM CDT 05/06/2025 4:51 PM CDT Ann Marie Huber MD LAB BLOOD ORDERABLES Fin al Result Performing Organization Address [facility] de Phone Number [facility] [place] [address] * Allergen Aspergillus fumigatus (mold) IgE (05/06/2025 1:30 PM CDT) Aspergillus fumigatus IgE <0.10 0.00 - 0.34 kUnits/L Blood 05/06/2025 1:30 PM CDT 05/06/2025 4:51 PM CDT Ann Marie Huber MD LAB BLOOD ORDERABLES Fin al Result Performing Organization Address [facility] Co de Phone Number [facility] [place] [address] * Allergen Dermatophagoides pteronyssinus (insect) IgE (05/06/2025 1:30 PM CDT) Dermatophyton pteronyssinus IgE <0.10 0.00 - 0.34 kUnits/L Blood 05/06/2025 1:30 PM CDT 05/06/2025 4:51 PM CDT Ann Marie Huber MD LAB BLOOD ORDERABLES Fin al Result Performing Organization Address [facility] de Phone Number [facility] [place] [address] * Allergen Dermatophagoides farniae (insect) IgE (05/06/2025 1:30 PM CDT) Dermatophyton farinae IgE <0.10 0.00 - 0.34 kUnits/L Blood 05/06/2025 1:30 PM CDT 05/06/2025 4:51 PM CDT Ann Marie Huber MD LAB BLOOD ORDERABLES Fin al Result Performing Organization Address [facility] Co de Phone Number [facility] [place] [address] * Allergen Epithelia/dander dog (animal) IgE (05/06/2025 1:30 PM CDT) Dog dander IgE <0.10 0.00 - 0.34 kUnits/L Blood 05/06/2025 1:30 PM CDT 05/06/2025 4:51 PM CDT Ann Marie Huber MD LAB BLOOD ORDERABLES Fin al Result Performing Organization Address [facility] de Phone Number [facility] [place] [address] * Allergen Cockroach slovenian (insect) IgE (05/06/2025 1:30 PM CDT) Cockroach IgE <0.10 0.00 - 0.34 kUnits/L Blood 05/06/2025 1:30 PM CDT 05/06/2025 4:51 PM CDT Ann Marie Huber MD LAB BLOOD ORDERABLES Fin al Result Performing Organization Address [facility] Phone Number [facility] [place] [address] * Allergen Epithelia/dander cat (animal) IgE (05/06/2025 1:30 PM CDT) Cat dander IgE <0.10 0.00 - 0.34 kUnits/L Blood 05/06/2025 1:30 PM CDT 05/06/2025 4:51 PM CDT Ann Marie Huber MD LAB BLOOD ORDERABLES Fin al Result Performing Organization Address [facility] de Phone Number [facility] [place] [address] * Allergen Ragweed short/common (weed) IgE (05/06/2025 1:30 PM CDT) Ragweed common IgE <0.10 0.00 - 0.34 kUnits/L Blood 05/06/2025 1:30 PM CDT 05/06/2025 4:51 PM CDT Ann Marie Huber MD LAB BLOOD ORDERABLES Fin al Result Performing Organization Address [facility] Co de Phone Number [facility] [place] [address] * Allergen Pigweed, rough (weed) IgE (05/06/2025 1:30 PM CDT) Pigweed rough IgE <0.10 0.00 - 0.34 kUnits/L Blood 05/06/2025 1:30 PM CDT 05/06/2025 4:51 PM CDT Ann Marie Huber MD LAB BLOOD ORDERABLES Fin al Result Performing Organization Address [facility] Co de Phone Number [facility] [place] [address] * Allergen Nettle (weed) IgE (05/06/2025 1:30 PM CDT) Nettle IgE <0.10 0.00 - 0.34 kUnits/L Blood 05/06/2025 1:30 PM CDT 05/06/2025 4:51 PM CDT Result [facility] Ann Marie Huber MD LAB BLOOD ORDERABLES Fin al Result Performing Organization Address [facility] Co de Phone Number [facility] Department [place] [address] * Allergen Lincoln's quarter (weed) IgE (05/06/2025 1:30 PM CDT) Lincoln's quarters IgE <0.10 0.00 - 0.34 kUnits/L Blood 05/06/2025 1:30 PM CDT 05/06/2025 4:51 PM CDT Ann Marie Huber MD LAB BLOOD ORDERABLES Fin al Result Performing Organization Address [facility] Co de Phone Number [facility] [place] [address] * Allergen Homero grass (grass) IgE (05/06/2025 1:30 PM CDT) Homero grass IgE <0.10 0.00 - 0.34 kUnits/L Blood 05/06/2025 1:30 PM CDT 05/06/2025 4:51 PM CDT Ann Marie Huber MD LAB BLOOD ORDERABLES Fin al Result Performing Organization Address [facility] de Phone Number [facility] [place] [address] * Allergen Roge grass (grass) IgE (05/06/2025 1:30 PM CDT) Roge grass IgE <0.10 0.00 - 0.34 kUnits/L Blood 05/06/2025 1:30 PM CDT 05/06/2025 4:51 PM CDT Ann Marie Huber MD LAB BLOOD ORDERABLES Fin al Result Performing Organization Address [facility] Co de Phone Number [facility] [place] [address] * Allergen [place] (tree) IgE (05/06/2025 1:30 PM CDT) [place] (tree) IgE <0.10 0.00 - 0.34 kUnits/L Blood 05/06/2025 1:30 PM CDT 05/06/2025 4:51 PM CDT Ann Marie Huber MD LAB BLOOD ORDERABLES Fin al Result Performing Organization Address City/[facility] Co de Phone Number [facility] [place] [address] * Allergen Hugoton slovenian (tree) IgE (05/06/2025 1:30 PM CDT) [place] IgE <0.10 0.00 - 0.34 kUnits/L Blood 05/06/2025 1:30 PM CDT 05/06/2025 4:51 PM CDT Ann Mraie Huber MD LAB BLOOD ORDERABLES Fin al Result Performing Organization Address [facility] Co de Phone Number [facility] [place] [address] * Allergen Maple/Box elder (tree) IgE (05/06/2025 1:30 PM CDT) Maple/box elder IgE <0.10 0.00 - 0.34 kUnits/L Blood 05/06/2025 1:30 PM CDT 05/06/2025 4:51 PM CDT Ann Marie Huber MD LAB BLOOD ORDERABLES Fin al Result Performing Organization Address [facility] Co de Phone Number [facility] [place] [address] * Allergen Gem red (tree) IgE (05/06/2025 1:30 PM CDT) Gem IgE <0.10 0.00 - 0.34 kUnits/L Blood 05/06/2025 1:30 PM CDT 05/06/2025 4:51 PM CDT Ann Marie Huber MD LAB BLOOD ORDERABLES Fin al Result Performing Organization Address [facility] Co de Phone Number [facility] [place] [address] * IgE (05/06/2025 1:30 PM CDT) IgE 36 <=100 IUnits/mL Blood 05/06/2025 1:30 PM CDT 05/06/2025 4:51 PM CDT us Ann Marie Huber MD LAB BLOOD ORDERABLES Fin al Result [facility] [place] [address] * Allergy skin tests allergens, each (04/28/2025 7:48 AM CDT) us Ann Marie Huber MD IN CLINIC/BEDSIDE ORDERA BLES Edited Result - Final from Last 3 Months Insurance [employer] Member Subscriber Plan / Payer (Ef fective 2022-Present) Name:Trevor Pinto Member ID:[id number] Relation to Subscriber:Self Name:Trevor Pinto Subscriber ID:[id number] Payer ID:[id number] ([facility]) Type:[employer] Address: [facility] [id number] [place] [address] Member Subscriber Plan / Payer (Ef fective 2022-Present) Name:Trevor Pinto Member ID:[id number] Relation to Subscriber:Self Name:Trevor Pinto Subscriber ID:[id number] Payer ID:[id number] ([employer]) Type:[employer] Address: [facility] [address] [place] [id number] Advance Directives For more information, please contact: [phone] * Full Code (Latest Code Status on File) Date Activated Date Inactivated Comments 01/26/2025 11:42 AM 01/26/2025 6:06 PM Care Teams Brand Lead Relationship Specialty Start Date End Date Karen Sequeira NP [address] [place] [id number] PCP - General Nurse Practitioner 09/07/24
[2025-05-17] MEDS: FAMOTIDINE 20 MG/2 ML VIAL IV PUSH (05:55)
--- NOTE | 2025-05-17 06:17 | PC.NURSE ---
Patient requesting something for my anxiety, but I can only take chewables, liquid or IV. I can't swallow pills. ERP notified.
[2025-05-17] MEDS: LORazepam (*CRX) 2 MG/ML ORAL CONCENTRATE 1 ML SYRINGE 0.5 MG PO (06:21)
--- NOTE | 2025-05-17 06:23 | ED.GENADULT ---
HPI - General Adult General Chief complaint: Allergic Reaction Stated complaint: feels like my throat is swelling SOB Time Seen by Provider: 05/17/25 05:41 History of Present Illness HPI narrative: Patient is a 25-year-old male who presents to the emergency department this morning complaining of irritation in his esophagitis/dysphagia and concerns for a possible allergic reaction. Patient states that in the past he has developed an allergic reaction to a medication that he was prescribed which is supposed to treat ESR anaphylactic esophagitis which the patient has been struggling with for many years. He sees a GI doctor through [facility]. Patient states that he has not used that medication since and denies any new products or food. Patient states that initially he thought it could be an allergic reaction but now feels as though it is just his anxiety. He denies any difficulty breathing, is managing his secretions and able to swallow and drink fluids without any difficulty. Speaking in full sentences and satting 100% on room air. Related Data Home Medications ?Medication ?Instructions ?Recorded ?Confirmed ?Last Taken ?Type azelastine 137 mcg (0.1 %) nasal intranasal 05/17/25 Unknown History spray Allergies Allergy/AdvReac Type Severity Reaction Status Date / Time dupilumab (From Dupixent Pen) Allergy Severe Difficulty Verified 05/17/25 05:48 Swallowing Review of Systems Review of Systems: All systems are reviewed and are negative unless stated otherwise in the HPI. [facility] Past Medical History Medical History Asthma Surgical History Surgical History No pertinent past surgical history Social History Social History Smoking status: Never smoker Exam Narrative: General: Alert, awake, afebrile, in no acute distress. HEENT: PERRL, no rhinorrhea, no post nasal drip, oropharynx clear. Neck: Trachea midline, no JVD, no lymphadenopathy. Cardiovascular: Regular rate and rhythm, no murmurs, rubs or gallops, no peripheral edema. Respiratory: Clear to auscultation bilaterally, no tachypnea, no wheezing, no rhonchi, no rubs, no respiratory distress. Abdomen: Soft, nontender, nondistended, no rebound, no guarding, no peritoneal signs. Musculoskeletal: No joint swelling or deformity, normal muscle tone. Skin: No rashes or petechia, no signs of infection. Psychiatric: Alert and oriented, normal behavior and judgment for situation. Neurological: Alert and oriented to person, place, and time. Follows all commands. No focal deficits, speech is clear and fluent. Course Vital Signs Vital signs: Vital Signs Temperature 98.2 F 05/17/25 05:42 Pulse Rate 70 05/17/25 05:42 Respiratory Rate 19 05/17/25 05:42 Blood Pressure 155/95 H 05/17/25 05:42 Pulse Oximetry 100 05/17/25 05:42 Oxygen Delivery Room Air 05/17/25 05:42 Temperature 98.2 F 05/17/25 05:42 Pulse Rate 55 L 05/17/25 06:16 Respiratory Rate 11 L 05/17/25 06:16 Blood Pressure 155/95 H 05/17/25 05:47 Pulse Oximetry 100 05/17/25 06:16 Oxygen Delivery Room Air 05/17/25 05:49 Medical Decision Making MDM Narrative Medical decision making narrative: The patient was evaluated by myself in the emergency department. History is obtained from patient who is an independent historian and physical exam was performed. External medical records were reviewed at this time. IV was established and pertinent tests were ordered. Patient was administered 125 mg of IV Solu-Medrol, 50 mg of IV Benadryl and 20 mg of IV Pepcid. Differential diagnosis considerations include EOE, allergic reaction, anxiety/acute stress reaction. Comorbidities impacting this visit include history of EOE. I have evaluated and discussed social determinants of health with the patient that could potentially impact subsequent diagnosis and treatment plans. On repeat assessment of the patient, reevaluation revealed that the patient is doing well and is in no acute distress. Patient symptoms have improved since he arrived to our emergency department. Repeat vital signs were all reviewed and noted to be stable. Differential diagnosis and treatment plan were discussed with the patient at bedside. Patient agrees with discussion and after shared medical decision making agrees with discharge. All questions were answered to the patient's satisfaction. Patient will follow up with his senior it recruiter in 3-5 days. Patient was provided with strict return precautions and instructed to return to the emergency department if any new or worsening symptoms develop. The patient was discharged in stable condition. Vital Signs Vital Signs: Vital Signs Temperature 98.2 F 05/17/25 05:42 Pulse Rate 70 05/17/25 05:42 Respiratory Rate 19 05/17/25 05:42 Blood Pressure 155/95 H 05/17/25 05:42 Pulse Oximetry 100 05/17/25 05:42 Oxygen Delivery Room Air 05/17/25 05:42 Temperature 98.2 F 05/17/25 05:42 Pulse Rate 55 L 05/17/25 06:16 Respiratory Rate 11 L 05/17/25 06:16 Blood Pressure 155/95 H 05/17/25 05:47 Pulse Oximetry 100 05/17/25 06:16 Oxygen Delivery Room Air 05/17/25 05:49 Discharge Plan Discharge Clinical Impression: Anxiety Patient Disposition: Home Condition: Improved Instructions: Antibiotic Form, Anxiety (ED) Additional Instructions: Please follow-up with the family doctor within the next 3-5 days. Return to the emergency department if any new or worsening symptoms develop. Patient Language: British Prescriptions: No Action epinephrine [EpiPen 2-Eliud] 0.3 mg/0.3 mL auto-injector 0.3 mg IM Q5-15M PRN (Reason: anaphylaxis) Qty: 2 0RF Rx Instructions: do not exceed 3 doses per episode prednisolone 15 mg/5 mL solution 60 mg PO QAM 4 Days Qty: 80 0RF diphenhydramine HCl [Allergy Relief(diphenhydramin)] 12.5 mg/5 mL liquid 25 mg PO Q6H PRN (Reason: allergic reaction) Qty: 473 0RF Pepcid Complete 10-800-165 mg tablet,chewable 1 tablet PO BID PRN (Reason: allergic symptoms) Qty: 20 0RF azelastine 137 mcg (0.1 %) spray,non-aerosol INTRANASAL hydroxyzine pamoate 50 mg capsule 50 mg PO TID PRN (Reason: anxiety) Qty: 20 0RF magnesium oxide 500 mg capsule 500 mg PO DAILY 7 Days Qty: 7 0RF potassium chloride 20 mEq/15 mL liquid 20 meq PO BID 7 Days Qty: 210 0RF aluminum-magnesium hydroxide 200-200 mg/5 mL suspension 30 ml PO DAILY 10 Days Qty: 300 0RF potassium chloride 20 mEq/15 mL liquid 20 meq PO BID 7 Days Qty: 210 0RF Follow-up/Referrals: KATE,KEYONNA ROBLEDO [Primary Care Provider] - 3 Days Time of Disposition: 06:23
== END 2025-05-17 07:13 | disposition home or self-care (01) ==
PROVIDERS: Emergency Provider Emergency Medicine; PCP Nurse Practitioner Family
DX: F41.9 Anxiety disorder, unspecified (principal); K20.0 Eosinophilic esophagitis; J45.909 Unspecified asthma, uncomplicated
CPT/HCPCS: 96374; 96375; 99284; A9270; J1200; J2919

== ENCOUNTER 2025-05-19 04:14 | Emergency (ER) | payer BC, SELFPAY ==
--- OUTSIDE RECORDS SUMMARY | 2025-05-19 04:16 | XMS_ITS | Encounter Summary ---
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 Gender Identity Not on file Sexual Orientation Straight 10/08/2018 6: 21 PM BRIDGE INSTRUCTOR documented as of this encounter Plan of Treatment Not on file documented as of this encounter Visit Diagnoses Not on filedocumented in this encounter Additional Health Concerns Infection Onset Date Last Indicated Resolved Time COVID-19 Rule Out 12/27/2021 12/27/2021 12/28/2021 1:24 PM CDT documented as of this encounter Care Teams Foot And Ankle Surgeon Relationship Specialty Start Date End Date Karen Sequeira FNP [address] [place] [id number] PCP - General Nurse Practitioner Family 10/08/18 documented as of this encounter
--- OUTSIDE RECORDS SUMMARY | 2025-05-19 04:16 | XMS_ITS | Clinical Summary ---
Author Organization [facility] Address [address] [place] [address] Care Team Providers Care Reliability Technician Name Role Phone Karen Sequeira NP Primary Care Provider + [phone] Allergies Active Allergy Reactions Criticality Noted Date [...] the symptoms. Dupixent will be avoided until parker evaluation, as it is highly effective for eosinophilic esophagitis, making it important to determine true allergy status for long-term management. The possibility of using a vial and needle injection was discussed, but it contains similar preservatives. Refer to an parker at [facility] for evaluation of the suspected allergic reaction to Dupixent. Avoid Dupixent until parker evaluation is complete. Gastroesophageal reflux disease 10/28/2024 [...] for dietary consultation. Will refer to an parker. If possible, I would like to know [...] eosinophilia. 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): The endoscopic and biopsy findings are highly [...] Description 05/08/2025 8:00 AM CDT Office Visit [facility] at [address] [place] [address] Petar Monteiro NP Eosinophilic esophagitis (Primary Dx); Adverse effect of drug, subsequent encounter; Gastroesophageal reflux disease with esophagitis without hemorrhage 05/06/2025 2:00 PM CDT Lab [facility] [address] [place] [address] Eosinophilic esophagitis; Seasonal allergic rhinitis, unspecified trigger 05/06/2025 1:00 PM CDT Office Visit [facility] [address] [place] [address] Ann Marie Huber MD Eosinophilic esophagitis (Primary Dx); Adverse effect of drug, subsequent encounter 04/28/2025 8:00 AM CDT Office Visit [facility] [address] [place] [address] Ann Marie Huber MD Seasonal allergic rhinitis, unspecified trigger (Primary Dx); Eosinophilic esophagitis; Adverse effect of drug, initial encounter 03/09/2025 1:30 PM CDT Office Visit [facility] G[facility] at [address] [place] [address] Petar Monteiro NP Eosinophilic esophagitis (Primary Dx); Adverse effect of drug, initial encounter; Gastroesophageal reflux disease with esophagitis without hemorrhage 02/27/2025 Telephone [facility] at [address] [place] [address] Anahi Hewitt 02/17/2025 Documentation [facility] [address] [place] [address] [facility], located within 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 Gender Identity Not on file Sexual Orientation [...] Seasonal allergic rhinitis, unspecified trigger ALLERGEN SYCAMORE PALAUAN (TREE) IGE Routine 05/06/2025 1:30 PM CDT [...] Seasonal allergic rhinitis, unspecified trigger ALLERGEN PLANTAIN LITHUANIAN (WEED) IGE Routine 05/06/2025 1:30 PM CDT [...] Seasonal allergic rhinitis, unspecified trigger ALLERGEN COCKROACH PALAUAN (INSECT) IGE Routine 05/06/2025 1:30 PM CDT [...] ORDERABLES Fin al Result Performing Organization Address City/State/[facility] de Phone Number [facility] [place] [address] * Allergen Mouse mix (animal) IgE (05/06/2025 1:30 PM CDT) Mouse mix IgE <0.10 0.00 - 0.34 kUnits/L Blood 05/06/2025 1:30 PM CDT 05/06/2025 4:51 PM CDT AnnM arie Huber MD LAB BLOOD ORDERABLES Fin al Result Performing Organization Address City/State/[facility] Co de Phone Number [facility] D[facility] [place] [address] * Differential, auto (05/06/2025 1:30 PM CDT) Neutrophil abs 4.46 1.50 - 6.50 K/cumm Imm gran abs 0.01 0.00 - 0.10 K/cumm [facility] Lymphocyte abs 1.71 0.80 - 3.30 K/cumm [facility] Monocyte abs 0.44 0.20 - 0.80 K/cumm [facility] Eosinophil abs 0.18 0.00 - 0.50 K/cumm [facility] Basophil abs 0.06 0.00 - 0.10 K/cumm [facility] Neutrophil pct 65.1 % [facility] Comment: Interpretive Data Percent cell count reference ranges are not reported, since discordance with absolute values may lead to misinterpretation of CBC data. Current Interpretive Data was last revised on 2018. Imm gran pct 0.1 % [facility] Comment: Interpretive Data Percent cell count reference ranges are not reported, since discordance with absolute values may lead to misinterpretation of CBC data. Current Interpretive Data was last revised on 2018. Lymphocyte pct 24.9 % [facility] Comment: Interpretive Data Percent cell count reference ranges are not reported, since discordance with absolute values may lead to misinterpretation of CBC data. Current Interpretive Data was last revised on 2018. Monocyte pct 6.4 % [facility] Comment: Interpretive Data Percent cell count reference ranges are not reported, since discordance with absolute values may lead to misinterpretation of CBC data. Current Interpretive Data was last revised on 2018. Eosinophil pct 2.6 % [facility] Comment: Interpretive Data Percent cell count reference ranges are not reported, since discordance with absolute values may lead to misinterpretation of CBC data. Current Interpretive Data was last revised on 2018. Basophil pct 0.9 % [facility] Comment: Interpretive Data Percent cell count reference ranges are not reported, since discordance with absolute values may lead to misinterpretation of CBC data. Current Interpretive Data was last revised on 2018. Blood 05/06/2025 1:30 PM CDT 05/06/2025 4:51 PM CDT Ann Marie Huber MD LAB BLOOD ORDERABLES Fin al Result Performing Organization Address [place]/[facility] [address]/[facility] de Phone Number [facility] [place] [address] * Allergen Penicillium chrysogenum (mold) IgE (05/06/2025 1:30 PM CDT) Penicillium chrysogenum IgE <0.10 0.00 - 0.34 kUnits/L Blood 05/06/2025 1:30 PM CDT 05/06/2025 4:51 PM CDT Ann Marie Huber MD LAB BLOOD ORDERABLES Fin al Result Performing Organization Address [place]/[facility] [address]/[facility] de Phone Number [facility] [place] [address] * Allergen Canones (tree) IgE (05/06/2025 1:30 PM CDT) Canones IgE <0.10 0.00 - 0.34 kUnits/L Blood 05/06/2025 1:30 PM CDT 05/06/2025 4:51 PM CDT Ann Marie Huber MD LAB BLOOD ORDERABLES Fin al Result Performing Organization Address [place]/[facility] [address]/[facility] de Phone Number [facility] [place] [address] * Allergen Mountain juniper (tree) IgE (05/06/2025 1:30 PM CDT) Mountain juniper IgE <0.10 0.00 - 0.34 kUnits/L Blood 05/06/2025 1:30 PM CDT 05/06/2025 4:51 PM CDT Ann Marie Huber MD LAB BLOOD ORDERABLES Fin al Result Performing Organization Address [place]/[facility] [address]/[facility] Co de Phone Number [facility] Department [place] [address] * CBC with auto differential (05/06/2025 1:30 PM CDT) Pathologist [facility] WBC 6.86 3.80 - 9.90 K/cumm Hgb 14.0 13.0 - 17.5 g/dL [facility] Hct 42.3 38.9 - 50.3 % [facility] Plt 246 150 - 400 K/cumm [facility] MPV 10.8 9.1 - 12.3 fL [facility] RBC 4.95 4.30 - 5.80 M/cumm [facility] MCV 85.5 81.3 - 96.4 fL [facility] MCH 28.3 27.1 - 33.3 pg [facility] MCHC 33.1 32.3 - 35.7 g/dL [facility] RDW CV 12.0 11.1 - 14.9 % [facility] RDW SD 37.2 35.7 - 48.1 fL [facility] NRBC abs 0.00 0.00 - 0.01 K/cumm [facility] Blood 05/06/2025 1:30 PM CDT 05/06/2025 4:51 PM CDT us Ann Marie Huber MD LAB BLOOD ORDERABLES Fin al Result [facility] Department [place] [address] * Allergen Bermuda grass (grass) IgE (05/06/2025 1:30 PM CDT) Pathologist [facility] Bermuda grass IgE <0.10 0.00 - 0.34 kUnits/L Blood 05/06/2025 1:30 PM CDT 05/06/2025 4:51 PM CDT Ann Marie Huber MD LAB BLOOD ORDERABLES Fin al Result Performing Organization Address [place]/[facility] [address]/[facility] Co de Phone Number [facility] [place] [address] * Allergen Plantain italian (weed) IgE (05/06/2025 1:30 PM CDT) Plantain italian IgE <0.10 0.00 - 0.34 kUnits/L Blood 05/06/2025 1:30 PM CDT 05/06/2025 4:51 PM CDT Result [facility] Ann Marie Huber MD LAB BLOOD ORDERABLES Fin al Result Performing Organization Address [place]/[facility] [address]/[facility] de Phone Number [facility] [place] [address] * Allergen Elm (tree) IgE (05/06/2025 1:30 PM CDT) Elm IgE <0.10 0.00 - 0.34 kUnits/L Blood 05/06/2025 1:30 PM CDT 05/06/2025 4:51 PM CDT Ann Marie Huber MD LAB BLOOD ORDERABLES Fin al Result Performing Organization Address [place]/[facility] [address]/[facility] [place] [address] * Allergen Cladosporium herbarum (mold) IgE (05/06/2025 1:30 PM CDT) Cladosporium herbarum IgE <0.10 0.00 - 0.34 kUnits/L Blood 05/06/2025 1:30 PM CDT 05/06/2025 4:51 PM CDT Ann Marie Huber MD LAB BLOOD ORDERABLES Fin al Result Performing Organization Address [place]/[facility] [address]/[facility] Co de Phone Number [facility] [place] [address] * Allergen Birch common silver (tree) IgE (05/06/2025 1:30 PM CDT) Birch common silver IgE <0.10 0.00 - 0.34 kUnits/L Blood 05/06/2025 1:30 PM CDT 05/06/2025 4:51 PM CDT Ann Marie Huber MD LAB BLOOD ORDERABLES Fin al Result Performing Organization Address [facility] de Phone Number [facility] Department [place] [address] * Allergen Alternaria tenuis (mold) IgE (05/06/2025 1:30 PM CDT) Alternaria tenius IgE <0.10 0.00 - 0.34 kUnits/L Blood 05/06/2025 1:30 PM CDT 05/06/2025 4:51 PM CDT Ann Marie Huber MD LAB BLOOD ORDERABLES Fin al Result Performing Organization Address [place]/[facility] [address]/[facility] de Phone Number [facility] [place] [address] * Allergen Aspergillus fumigatus (mold) IgE (05/06/2025 1:30 PM CDT) Aspergillus fumigatus IgE <0.10 0.00 - 0.34 kUnits/L Blood 05/06/2025 1:30 PM CDT 05/06/2025 4:51 PM CDT Ann Marie Huber MD LAB BLOOD ORDERABLES Fin al Result Performing Organization Address [place]/[facility] [address]/[facility] Co de Phone Number [facility] [place] [address] * Allergen Dermatophagoides pteronyssinus (insect) IgE (05/06/2025 1:30 PM CDT) Dermatophyton pteronyssinus IgE <0.10 0.00 - 0.34 kUnits/L Blood 05/06/2025 1:30 PM CDT 05/06/2025 4:51 PM CDT Ann Marie Huber MD LAB BLOOD ORDERABLES Fin al Result Performing Organization Address [facility] de Phone Number [facility] [place] [address] * Allergen Dermatophagoides farniae (insect) IgE (05/06/2025 1:30 PM CDT) Dermatophyton farinae IgE <0.10 0.00 - 0.34 kUnits/L Blood 05/06/2025 1:30 PM CDT 05/06/2025 4:51 PM CDT Ann Marie Huber MD LAB BLOOD ORDERABLES Fin al Result Performing Organization Address [place]/[facility] [address]/[facility] Co de Phone Number [facility] [place] [address] * Allergen Epithelia/dander dog (animal) IgE (05/06/2025 1:30 PM CDT) Dog dander IgE <0.10 0.00 - 0.34 kUnits/L Blood 05/06/2025 1:30 PM CDT 05/06/2025 4:51 PM CDT Ann Marie Huber MD LAB BLOOD ORDERABLES Fin al Result Performing Organization Address [place]/[facility] [address]/[facility] de Phone Number [facility] [place] [address] * Allergen Cockroach vatican citizen (insect) IgE (05/06/2025 1:30 PM CDT) Cockroach IgE <0.10 0.00 - 0.34 kUnits/L Blood 05/06/2025 1:30 PM CDT 05/06/2025 4:51 PM CDT Ann Marie Huber MD LAB BLOOD ORDERABLES Fin al Result Performing Organization Address [facility] Phone Number [facility] [place] [address] * Allergen Epithelia/dander cat (animal) IgE (05/06/2025 1:30 PM CDT) Cat dander IgE <0.10 0.00 - 0.34 kUnits/L Blood 05/06/2025 1:30 PM CDT 05/06/2025 4:51 PM CDT Ann Marie Huber MD LAB BLOOD ORDERABLES Fin al Result Performing Organization Address [place]/[facility] [address]/[facility] de Phone Number [facility] [place] [address] * Allergen Ragweed short/common (weed) IgE (05/06/2025 1:30 PM CDT) Ragweed common IgE <0.10 0.00 - 0.34 kUnits/L Blood 05/06/2025 1:30 PM CDT 05/06/2025 4:51 PM CDT Ann Marie Huber MD LAB BLOOD ORDERABLES Fin al Result Performing Organization Address [place]/[facility] [address]/[facility] Co de Phone Number [facility] [place] [address] * Allergen Pigweed, rough (weed) IgE (05/06/2025 1:30 PM CDT) Pigweed rough IgE <0.10 0.00 - 0.34 kUnits/L Blood 05/06/2025 1:30 PM CDT 05/06/2025 4:51 PM CDT Ann Marie Huber MD LAB BLOOD ORDERABLES Fin al Result Performing Organization Address [place]/[facility] [address]/[facility] Co de Phone Number [facility] [place] [address] * Allergen Nettle (weed) IgE (05/06/2025 1:30 PM CDT) Nettle IgE <0.10 0.00 - 0.34 kUnits/L Blood 05/06/2025 1:30 PM CDT 05/06/2025 4:51 PM CDT Result [facility] Ann Marie Huber MD LAB BLOOD ORDERABLES Fin al Result Performing Organization Address [place]/[facility] [address]/[facility] Co de Phone Number [facility] Department [place] [address] * Allergen Lincoln's quarter (weed) IgE (05/06/2025 1:30 PM CDT) Lincoln's quarters IgE <0.10 0.00 - 0.34 kUnits/L Blood 05/06/2025 1:30 PM CDT 05/06/2025 4:51 PM CDT Ann Marie Huber MD LAB BLOOD ORDERABLES Fin al Result Performing Organization Address [place]/[facility] [address]/[facility] Co de Phone Number [facility] [place] [address] * Allergen Homero grass (grass) IgE (05/06/2025 1:30 PM CDT) Homero grass IgE <0.10 0.00 - 0.34 kUnits/L Blood 05/06/2025 1:30 PM CDT 05/06/2025 4:51 PM CDT Ann Marie Hubre MD LAB BLOOD ORDERABLES Fin al Result Performing Organization Address [facility] de Phone Number [facility] [place] [address] * Allergen Roge grass (grass) IgE (05/06/2025 1:30 PM CDT) Roge grass IgE <0.10 0.00 - 0.34 kUnits/L Blood 05/06/2025 1:30 PM CDT 05/06/2025 4:51 PM CDT Ann Marie Huber MD LAB BLOOD ORDERABLES Fin al Result Performing Organization Address [place]/[facility] [address]/[facility] Co de Phone Number [facility] [place] [address] * Allergen Pottersdale (tree) IgE (05/06/2025 1:30 PM CDT) Pottersdale (tree) IgE <0.10 0.00 - 0.34 kUnits/L Blood 05/06/2025 1:30 PM CDT 05/06/2025 4:51 PM CDT Ann Marie Huber MD LAB BLOOD ORDERABLES Fin al Result Performing Organization Address City/[facility] [address]/[facility] Co de Phone Number [facility] [place] [address] * Allergen Fitzgerald vatican citizen (tree) IgE (05/06/2025 1:30 PM CDT) Fitzgerald IgE <0.10 0.00 - 0.34 kUnits/L Blood 05/06/2025 1:30 PM CDT 05/06/2025 4:51 PM CDT Ann Marie Huber MD LAB BLOOD ORDERABLES Fin al Result Performing Organization Address [place]/[facility] [address]/[facility] Co de Phone Number [facility] Department [place] [address] * Allergen Maple/Box elder (tree) IgE (05/06/2025 1:30 PM CDT) Maple/box elder IgE <0.10 0.00 - 0.34 kUnits/L Blood 05/06/2025 1:30 PM CDT 05/06/2025 4:51 PM CDT Ann Marie Huber MD LAB BLOOD ORDERABLES Fin al Result Performing Organization Address [place]/[facility] [address]/[facility] Co de Phone Number [facility] [place] [address] * Allergen Woodgate red (tree) IgE (05/06/2025 1:30 PM CDT) [place] IgE <0.10 0.00 - 0.34 kUnits/L Blood 05/06/2025 1:30 PM CDT 05/06/2025 4:51 PM CDT Ann Marie Huber MD LAB BLOOD ORDERABLES Fin al Result Performing Organization Address [place]/[facility] [address]/[facility] Co de Phone Number [facility] [place] [address] * IgE (05/06/2025 1:30 PM CDT) IgE 36 <=100 IUnits/mL Blood 05/06/2025 1:30 PM CDT 05/06/2025 4:51 PM CDT us Ann Marie Huber MD LAB BLOOD ORDERABLES Fin al Result [facility] [place] [address] * Allergy skin tests allergens, each (04/28/2025 7:48 AM CDT) us Ann Marie Huber MD IN CLINIC/BEDSIDE ORDERA BLES Edited Result - Final from Last 3 Months Insurance [employer] Member Subscriber Plan / Payer (Ef fective 2022-Present) Name:Trevor Pinto Member ID:[id number] Relation to Subscriber:Self Name:Trevor Pinto Subscriber ID:[id number] Payer ID:[id number] ([facility]) Type:SensorCath Address: [facility] [id number] [place] [address] Member Subscriber Plan / Payer (Ef fective 2022-Present) Name:Trevor Pinto Member ID:[id number] Relation to Subscriber:Self Name:Trevor Pinto Subscriber ID:[id number] Payer ID:[id number] ([employer]) Type:BC ALLIANCE Address: [facility] [address] [place] [id number] Advance Directives For more information, please contact: [phone] * Full Code (Latest Code Status on File) Date Activated Date Inactivated Comments 01/26/2025 11:42 AM 01/26/2025 6:06 PM Care Teams Reliability Technician Relationship Specialty Start Date End Date Karen Sequeira NP [address] [place] [id number] PCP - General Nurse Practitioner 09/07/24
[2025-05-19 04:17] VITALS: BP 145/85; PULSE 75; RESP 18; TEMP 36.9; O2SAT 100
--- NOTE | 2025-05-19 04:27 | ED.GENADULT ---
HPI - General Adult General Chief complaint: Unspecified Stated complaint: THROAT FEELS TIGHT, DIFFICULTY SWALLOWING Time Seen by Provider: 05/19/25 04:19 History of Present Illness HPI narrative: Patient is a 25-year-old male who presents to the emergency department this evening complaining of throat irritation and anxiety. He was just seen at our facility within the last 48 hours for similar symptoms. At that time patient was concerned that he may have had an allergic reaction although his symptoms were very classic of anxiety. He was administered Ativan and steroids, Pepcid and Benadryl with improvement of his symptoms. Patient is requesting the same medication regimen as they helped his symptoms last time. Patient does have a history of EOE and follows up with a elementary vocal music teacher and was informed that he needs to follow up with his doctor for further evaluation. Related Data Home Medications ?Medication ?Instructions ?Recorded ?Confirmed ?Last Taken ?Type azelastine 137 mcg (0.1 %) nasal intranasal 05/17/25 Unknown History spray Allergies Allergy/AdvReac Type Severity Reaction Status Date / Time dupilumab (From [employer] Pen) Allergy Severe Difficulty Verified 05/19/25 04:15 Swallowing Review of Systems Review of Systems: All systems are reviewed and are negative unless stated otherwise in the HPI. [facility] Past Medical History Medical History Asthma Surgical History Surgical History No pertinent past surgical history Social History Social History Smoking status: Never smoker Exam Narrative: General: Alert, awake, afebrile, in no acute distress, very anxious. HEENT: PERRL, no rhinorrhea, no post nasal drip, oropharynx clear. Neck: Trachea midline, no JVD, no lymphadenopathy. Cardiovascular: Regular rate and rhythm, no murmurs, rubs or gallops, no peripheral edema. Respiratory: Clear to auscultation bilaterally, no tachypnea, no wheezing, no rhonchi, no rubs, no respiratory distress. Abdomen: Soft, nontender, nondistended, no rebound, no guarding, no peritoneal signs. Musculoskeletal: No joint swelling or deformity, normal muscle tone. Skin: No rashes or petechia, no signs of infection. Psychiatric: Alert and oriented, normal behavior and judgment for situation. Neurological: Alert and oriented to person, place, and time. Follows all commands. No focal deficits, speech is clear and fluent. Course Vital Signs Vital signs: Vital Signs Temperature 98.4 F 05/19/25 04:17 Pulse Rate 75 05/19/25 04:17 Respiratory Rate 18 05/19/25 04:17 Blood Pressure 145/85 H 05/19/25 04:17 Pulse Oximetry 100 05/19/25 04:17 Oxygen Delivery Room Air 05/19/25 04:17 Temperature 98.4 F 05/19/25 04:17 Pulse Rate 75 05/19/25 04:17 Respiratory Rate 18 05/19/25 04:17 Blood Pressure 145/85 H 05/19/25 04:17 Pulse Oximetry 100 05/19/25 04:17 Oxygen Delivery Room Air 05/19/25 04:17 Medical Decision Making MDM Narrative Medical decision making narrative: The patient was evaluated by myself in the emergency department. History is obtained from patient who is an independent historian and physical exam was performed. External medical records were reviewed at this time. IV was established and pertinent tests were ordered. Patient was administered 20 mg of IV Pepcid, 25 mg IV Benadryl, 125 mg of IV Solu-Medrol and 0.5 mg of oral Ativan. Differential diagnosis considerations include EOE, acute stress reaction, anxiety, GERD. Comorbidities impacting this visit include history of anxiety and EOE. I have evaluated and discussed social determinants of health with the patient that could potentially impact subsequent diagnosis and treatment plans. On repeat assessment of the patient, reevaluation revealed that the patient is doing well and is in no acute distress. Patient symptoms have improved since he arrived to our emergency department. Repeat vital signs were all reviewed and noted to be stable. Differential diagnosis and treatment plan were discussed with the patient at bedside. Patient agrees with discussion and after shared medical decision making agrees with discharge. All questions were answered to the patient's satisfaction. Patient will follow up with GI in 3-5 days. Patient was provided with strict return precautions and instructed to return to the emergency department if any new or worsening symptoms develop. The patient was discharged in stable condition. Vital Signs Vital Signs: Vital Signs Temperature 98.4 F 05/19/25 04:17 Pulse Rate 75 05/19/25 04:17 Respiratory Rate 18 05/19/25 04:17 Blood Pressure 145/85 H 05/19/25 04:17 Pulse Oximetry 100 05/19/25 04:17 Oxygen Delivery Room Air 05/19/25 04:17 Temperature 98.4 F 05/19/25 04:17 Pulse Rate 75 05/19/25 04:17 Respiratory Rate 18 05/19/25 04:17 Blood Pressure 145/85 H 05/19/25 04:17 Pulse Oximetry 100 05/19/25 04:17 Oxygen Delivery Room Air 05/19/25 04:17 Discharge Plan Discharge Clinical Impression: Chronic GERD, Anxiety Patient Disposition: Home Condition: Improved Instructions: Antibiotic Form, GERD (Gastroesophageal Reflux Disease) (DC), Anxiety (ED) Additional Instructions: Please follow-up with your elementary vocal music teacher as instructed within the next 3-5 days. Return to ED if any new or worsening symptoms develop. Patient Language: French Prescriptions: No Action epinephrine [EpiPen 2-Eliud] 0.3 mg/0.3 mL auto-injector 0.3 mg IM Q5-15M PRN (Reason: anaphylaxis) Qty: 2 0RF Rx Instructions: do not exceed 3 doses per episode prednisolone 15 mg/5 mL solution 60 mg PO QAM 4 Days Qty: 80 0RF diphenhydramine HCl [Allergy Relief(diphenhydramin)] 12.5 mg/5 mL liquid 25 mg PO Q6H PRN (Reason: allergic reaction) Qty: 473 0RF Pepcid Complete 10-800-165 mg tablet,chewable 1 tablet PO BID PRN (Reason: allergic symptoms) Qty: 20 0RF azelastine 137 mcg (0.1 %) spray,non-aerosol INTRANASAL hydroxyzine pamoate 50 mg capsule 50 mg PO TID PRN (Reason: anxiety) Qty: 20 0RF magnesium oxide 500 mg capsule 500 mg PO DAILY 7 Days Qty: 7 0RF potassium chloride 20 mEq/15 mL liquid 20 meq PO BID 7 Days Qty: 210 0RF aluminum-magnesium hydroxide 200-200 mg/5 mL suspension 30 ml PO DAILY 10 Days Qty: 300 0RF potassium chloride 20 mEq/15 mL liquid 20 meq PO BID 7 Days Qty: 210 0RF Follow-up/Referrals: KATE,KEYONNA ROBLEDO [Primary Care Provider] Time of Disposition: 04:30
[2025-05-19] MEDS: FAMOTIDINE 20 MG/2 ML VIAL IV PUSH (04:35)
--- OUTSIDE RECORDS SUMMARY | 2025-05-19 04:38 | XMS_ITS | Encounter Summary ---
Author Organization [facility] Address [address] [place] [id number] Care Team Providers Care Clinical Data Coordinator Name Role Phone Karen Sequeira Primary Care Provider [phone] Encounter Details Date Type Department Care Team (Late st Contact Info) Description 10/11/2018 RX Orders Only [facility] [id number] [place] [id number] Karen Sequeira FNP [address] [place] [address] Social History Tobacco Use Types [...] on file Legal Sex Male 1:28 PM [employer] Gender Identity Not on file Sexual Orientation Straight 10/08/2018 6: 21 PM M[employer]ENGER OFFICE documented as of this encounter Plan of Treatment Not on file documented as of this encounter Visit Diagnoses Not on filedocumented in this encounter Additional Health Concerns Infection Onset Date Last Indicated Resolved Time COVID-19 Rule Out 12/27/2021 12/27/2021 12/28/2021 1:24 PM CDT documented as of this encounter Care Teams Clinical Data Coordinator Relationship Specialty Start Date End Date Karen Sequeira FNP [address] [place] [id number] PCP - General Nurse Practitioner Family 10/08/18 documented as of this encounter
--- OUTSIDE RECORDS SUMMARY | 2025-05-19 04:38 | XMS_ITS | Clinical Summary ---
Author Organization [facility] Address [address] [place] [address] Care Team Providers Care Mold Finisher Name Role Phone Karen Sequeira NP Primary Care Provider + [phone] Allergies Active Allergy Reactions Criticality Noted Date [...] the symptoms. Dupixent will be avoided until truck driver evaluation, as it is highly effective for eosinophilic esophagitis, making it important to determine true allergy status for long-term management. The possibility of using a vial and needle injection was discussed, but it contains similar preservatives. Refer to an truck driver at [facility] for evaluation of the suspected allergic reaction to Dupixent. Avoid Dupixent until truck driver evaluation is complete. Gastroesophageal reflux disease 10/28/2024 [...] for dietary consultation. Will refer to an truck driver. If possible, I would like to know [...] eosinophilia. 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 [address] [place] [address] Eosinophilic esophagitis; Seasonal allergic rhinitis, unspecified trigger 05/06/2025 1:00 PM CDT Office Visit [facility] [address] [place] [address] Ann Marie Huber MD Eosinophilic esophagitis (Primary Dx); Adverse effect of drug, subsequent encounter 04/28/2025 8:00 AM CDT Office Visit [facility] All[facility] Immunology [address] [facility] [address] [place] [address] Ann Marie Huber MD Seasonal allergic rhinitis, unspecified trigger (Primary Dx); Eosinophilic esophagitis; Adverse effect of drug, initial encounter 03/09/2025 1:30 PM CDT Office Visit [facility] Gastroenterology at [address] [place] [address] Petar Monteiro NP Eosinophilic esophagitis (Primary Dx); Adverse effect of drug, initial encounter; Gastroesophageal reflux disease with esophagitis without hemorrhage 02/27/2025 Telephone [facility] Gastroenterology at [address] [place] [address] Anahi Hewitt 02/17/2025 Documentation [facility] [address] [facility] [address] [place] [address] Dawn Stanley [facility] from Last 3 Months Surgical History Surgery [...] on file Legal Sex Male 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 Gender Identity Not on file Sexual [...] Seasonal allergic rhinitis, unspecified trigger ALLERGEN SYCAMORE IRANIAN (TREE) IGE Routine 05/06/2025 1:30 PM CDT [...] Seasonal allergic rhinitis, unspecified trigger ALLERGEN PLANTAIN OCCITAN (WEED) IGE Routine 05/06/2025 1:30 PM CDT [...] Seasonal allergic rhinitis, unspecified trigger ALLERGEN COCKROACH IRANIAN (INSECT) IGE Routine 05/06/2025 1:30 PM CDT [...] ORDERABLES Fin al Result Performing Organization Address City/State/[facility] de Phone Number [facility] Department [place] [address] * Allergen Mouse mix (animal) IgE (05/06/2025 1:30 PM CDT) Mouse mix IgE <0.10 0.00 - 0.34 kUnits/L Blood 05/06/2025 1:30 PM CDT 05/06/2025 4:51 PM CDT Ann Marie Huber MD LAB BLOOD ORDERABLES Fin al Result Performing Organization Address City/State/[facility] Co de Phone Number [facility] [place] [address] * Differential, auto (05/06/2025 1:30 PM CDT) Neutrophil abs 4.46 1.50 - 6.50 K/cumm Imm gran abs 0.01 0.00 - 0.10 K/cumm [facility] Lymphocyte abs 1.71 0.80 - 3.30 K/cumm [facility] Monocyte abs 0.44 0.20 - 0.80 K/cumm [facility] Eosinophil abs 0.18 0.00 - 0.50 K/cumm [facility] Basophil abs 0.06 0.00 - 0.10 [facility] Neutrophil pct 65.1 % [facility] Comment: Interpretive Data Percent cell count reference ranges are not reported, since discordance with absolute values may lead to misinterpretation of CBC data. Current Interpretive Data was last revised on 2018. Imm gran pct 0.1 % [facility] Comment: Interpretive Data Percent cell count reference ranges are not reported, since discordance with absolute values may lead to misinterpretation of CBC data. Current Interpretive Data was last revised on 2018. Lymphocyte pct 24.9 % [facility] Comment: Interpretive Data Percent cell count reference ranges are not reported, since discordance with absolute values may lead to misinterpretation of CBC data. Current Interpretive Data was last revised on 2018. Monocyte pct 6.4 % [facility] Comment: Interpretive Data Percent cell count reference ranges are not reported, since discordance with absolute values may lead to misinterpretation of CBC data. Current Interpretive Data was last revised on 2018. Eosinophil pct 2.6 % [facility] Comment: Interpretive Data Percent cell count reference ranges are not reported, since discordance with absolute values may lead to misinterpretation of CBC data. Current Interpretive Data was last revised on 2018. Basophil pct 0.9 % [facility] Comment: Interpretive Data Percent cell count reference ranges are not reported, since discordance with absolute values may lead to misinterpretation of CBC data. Current Interpretive Data was last revised on 2018. Blood 05/06/2025 1:30 PM CDT 05/06/2025 4:51 PM CDT Ann Marie Huber MD LAB BLOOD ORDERABLES Fin al Result Performing Organization Address [facility] de Phone Number [facility] [place] [address] * Allergen Penicillium chrysogenum (mold) IgE (05/06/2025 1:30 PM CDT) Penicillium chrysogenum IgE <0.10 0.00 - 0.34 kUnits/L Blood 05/06/2025 1:30 PM CDT 05/06/2025 4:51 PM CDT Ann Marie Huber MD LAB BLOOD ORDERABLES Fin al Result Performing Organization Address [facility] de Phone Number [facility] [place] [address] * Allergen [place] (tree) IgE (05/06/2025 1:30 PM CDT) [place] IgE <0.10 0.00 - 0.34 kUnits/L Blood 05/06/2025 1:30 PM CDT 05/06/2025 4:51 PM CDT Ann Marie Huber MD LAB BLOOD ORDERABLES Fin al Result Performing Organization Address [facility] de Phone Number [facility] [place] [address] * Allergen Mountain juniper (tree) IgE (05/06/2025 1:30 PM CDT) Mountain juniper IgE <0.10 0.00 - 0.34 kUnits/L Blood 05/06/2025 1:30 PM CDT 05/06/2025 4:51 PM CDT Ann Marie Huber MD LAB BLOOD ORDERABLES Fin al Result Performing Organization Address [facility] Co de Phone Number [facility] Department [place] [address] * CBC with auto differential (05/06/2025 1:30 PM CDT) Pathologist [facility] WBC 6.86 3.80 - 9.90 K/cumm Hgb 14.0 13.0 - 17.5 g/dL [facility] Hct 42.3 38.9 - 50.3 % [facility] Plt 246 150 - 400 K/cumm [facility] MPV 10.8 9.1 - 12.3 fL [facility] RBC 4.95 4.30 - 5.80 M/cumm [facility] MCV 85.5 81.3 - 96.4 fL [facility] MCH 28.3 27.1 - 33.3 pg [facility] MCHC 33.1 32.3 - 35.7 g/dL [facility] RDW CV 12.0 11.1 - 14.9 % [facility] RDW SD 37.2 35.7 - 48.1 fL [facility] NRBC abs 0.00 0.00 - 0.01 K/cumm [facility] Blood 05/06/2025 1:30 PM CDT 05/06/2025 4:51 PM CDT us Ann Marie Huber MD LAB BLOOD ORDERABLES Fin al Result [facility] Department [place] [address] * Allergen Bermuda grass (grass) IgE (05/06/2025 1:30 PM CDT) Pathologist [facility] Bermuda grass IgE <0.10 0.00 - 0.34 kUnits/L Blood 05/06/2025 1:30 PM CDT 05/06/2025 4:51 PM CDT Ann Marie Huber MD LAB BLOOD ORDERABLES Fin al Result Performing Organization Address [facility] Co de Phone Number [facility] [place] [address] * Allergen Plantain mosotho (weed) IgE (05/06/2025 1:30 PM CDT) Plantain mosotho IgE <0.10 0.00 - 0.34 kUnits/L Blood 05/06/2025 1:30 PM CDT 05/06/2025 4:51 PM CDT Result [facility] Ann Marie Huber MD LAB BLOOD ORDERABLES Fin al Result Performing Organization Address [facility] de Phone Number [facility] [place] [address] * Allergen Elm (tree) IgE (05/06/2025 1:30 PM CDT) Elm IgE <0.10 0.00 - 0.34 kUnits/L Blood 05/06/2025 1:30 PM CDT 05/06/2025 4:51 PM CDT Ann Marie Huber MD LAB BLOOD ORDERABLES Fin al Result Performing Organization Address [facility] [place] [address] * Allergen Cladosporium herbarum (mold) IgE (05/06/2025 1:30 PM CDT) Cladosporium herbarum IgE <0.10 0.00 - 0.34 kUnits/L Blood 05/06/2025 1:30 PM CDT 05/06/2025 4:51 PM CDT Ann Marie Huber MD LAB BLOOD ORDERABLES Fin al Result Performing Organization Address [facility] Co de Phone Number [facility] [place] [address] * Allergen Birch common silver (tree) IgE (05/06/2025 1:30 PM CDT) Birch common silver IgE <0.10 0.00 - 0.34 kUnits/L Blood 05/06/2025 1:30 PM CDT 05/06/2025 4:51 PM CDT Ann Marie Huber MD LAB BLOOD ORDERABLES Fin al Result Performing Organization Address [facility] de Phone Number [facility] Department [place] [address] * Allergen Alternaria tenuis (mold) IgE (05/06/2025 1:30 PM CDT) Alternaria tenius IgE <0.10 0.00 - 0.34 kUnits/L Blood 05/06/2025 1:30 PM CDT 05/06/2025 4:51 PM CDT Ann Marie Huber MD LAB BLOOD ORDERABLES Fin al Result Performing Organization Address [facility] de Phone Number [facility] [place] [address] * Allergen Aspergillus fumigatus (mold) IgE (05/06/2025 1:30 PM CDT) Aspergillus fumigatus IgE <0.10 0.00 - 0.34 kUnits/L Blood 05/06/2025 1:30 PM CDT 05/06/2025 4:51 PM CDT Ann Marie Huber MD LAB BLOOD ORDERABLES Fin al Result Performing Organization Address [facility] Co de Phone Number [facility] [place] [address] * Allergen Dermatophagoides pteronyssinus (insect) IgE (05/06/2025 1:30 PM CDT) Dermatophyton pteronyssinus IgE <0.10 0.00 - 0.34 kUnits/L Blood 05/06/2025 1:30 PM CDT 05/06/2025 4:51 PM CDT Ann Marie Huber MD LAB BLOOD ORDERABLES Fin al Result Performing Organization Address [facility] de Phone Number [facility] [place] [address] * Allergen Dermatophagoides farniae (insect) IgE (05/06/2025 1:30 PM CDT) Dermatophyton farinae IgE <0.10 0.00 - 0.34 kUnits/L Blood 05/06/2025 1:30 PM CDT 05/06/2025 4:51 PM CDT Ann Marie Huber MD LAB BLOOD ORDERABLES Fin al Result Performing Organization Address [facility] Co de Phone Number [facility] [place] [address] * Allergen Epithelia/dander dog (animal) IgE (05/06/2025 1:30 PM CDT) Dog dander IgE <0.10 0.00 - 0.34 kUnits/L Blood 05/06/2025 1:30 PM CDT 05/06/2025 4:51 PM CDT Ann Marie Huber MD LAB BLOOD ORDERABLES Fin al Result Performing Organization Address [facility] de Phone Number [facility] [place] [address] * Allergen Cockroach equatorial guinean (insect) IgE (05/06/2025 1:30 PM CDT) Cockroach IgE <0.10 0.00 - 0.34 kUnits/L Blood 05/06/2025 1:30 PM CDT 05/06/2025 4:51 PM CDT Ann Marie Huber MD LAB BLOOD ORDERABLES Fin al Result Performing Organization Address [facility] Phone Number [facility] [place] [address] * Allergen Epithelia/dander cat (animal) IgE (05/06/2025 1:30 PM CDT) Cat dander IgE <0.10 0.00 - 0.34 kUnits/L Blood 05/06/2025 1:30 PM CDT 05/06/2025 4:51 PM CDT Ann Marie Huber MD LAB BLOOD ORDERABLES Fin al Result Performing Organization Address [facility] de Phone Number [facility] [place] [address] * Allergen Ragweed short/common (weed) IgE (05/06/2025 1:30 PM CDT) Ragweed common IgE <0.10 0.00 - 0.34 kUnits/L Blood 05/06/2025 1:30 PM CDT 05/06/2025 4:51 PM CDT Ann Marie Huber MD LAB BLOOD ORDERABLES Fin al Result Performing Organization Address [facility] Co de Phone Number [facility] [place] [address] * Allergen Pigweed, rough (weed) IgE (05/06/2025 1:30 PM CDT) Pigweed rough IgE <0.10 0.00 - 0.34 kUnits/L Blood 05/06/2025 1:30 PM CDT 05/06/2025 4:51 PM CDT Ann Marie Huber MD LAB BLOOD ORDERABLES Fin al Result Performing Organization Address [facility] Co de Phone Number [facility] [place] [address] * Allergen Nettle (weed) IgE (05/06/2025 1:30 PM CDT) Nettle IgE <0.10 0.00 - 0.34 kUnits/L Blood 05/06/2025 1:30 PM CDT 05/06/2025 4:51 PM CDT Result [facility] Ann Marie Huber MD LAB BLOOD ORDERABLES Fin al Result Performing Organization Address [facility] Co de Phone Number [facility] Department [place] [address] * Allergen Lincoln's quarter (weed) IgE (05/06/2025 1:30 PM CDT) Lincoln's quarters IgE <0.10 0.00 - 0.34 kUnits/L Blood 05/06/2025 1:30 PM CDT 05/06/2025 4:51 PM CDT Ann Marie Huber MD LAB BLOOD ORDERABLES Fin al Result Performing Organization Address [facility] Co de Phone Number [facility] [place] [address] * Allergen Homero grass (grass) IgE (05/06/2025 1:30 PM CDT) Homero grass IgE <0.10 0.00 - 0.34 kUnits/L Blood 05/06/2025 1:30 PM CDT 05/06/2025 4:51 PM CDT Ann Marie Huber MD LAB BLOOD ORDERABLES Fin al Result Performing Organization Address [facility] de Phone Number [facility] [place] [address] * Allergen Roge grass (grass) IgE (05/06/2025 1:30 PM CDT) Roge grass IgE <0.10 0.00 - 0.34 kUnits/L Blood 05/06/2025 1:30 PM CDT 05/06/2025 4:51 PM CDT Ann Marie Huber MD LAB BLOOD ORDERABLES Fin al Result Performing Organization Address [facility] Co de Phone Number [facility] [place] [address] * Allergen [place] (tree) IgE (05/06/2025 1:30 PM CDT) [place] (tree) IgE <0.10 0.00 - 0.34 kUnits/L Blood 05/06/2025 1:30 PM CDT 05/06/2025 4:51 PM CDT Ann Marie Huber MD LAB BLOOD ORDERABLES Fin al Result Performing Organization Address City/[facility] Co de Phone Number [facility] Department [place] [address] * Allergen Grampian equatorial guinean (tree) IgE (05/06/2025 1:30 PM CDT) Grampian IgE <0.10 0.00 - 0.34 kUnits/L Blood 05/06/2025 1:30 PM CDT 05/06/2025 4:51 PM CDT Ann Marie Huber MD LAB BLOOD ORDERABLES Fin al Result Performing Organization Address [facility] Co de Phone Number [facility] Department [place] [address] * Allergen Maple/Box elder (tree) IgE (05/06/2025 1:30 PM CDT) Maple/box elder IgE <0.10 0.00 - 0.34 kUnits/L Blood 05/06/2025 1:30 PM CDT 05/06/2025 4:51 PM CDT Ann Marie Huber MD LAB BLOOD ORDERABLES Fin al Result Performing Organization Address [facility] Co de Phone Number [facility] Department [place] [address] * Allergen Carnation red (tree) IgE (05/06/2025 1:30 PM CDT) Carnation IgE <0.10 0.00 - 0.34 kUnits/L Blood 05/06/2025 1:30 PM CDT 05/06/2025 4:51 PM CDT Ann Marie Huber MD LAB BLOOD ORDERABLES Fin al Result Performing Organization Address [facility] Co de Phone Number [facility] Department [place] [address] * IgE (05/06/2025 1:30 PM CDT) IgE 36 <=100 IUnits/mL Blood 05/06/2025 1:30 PM CDT 05/06/2025 4:51 PM CDT us Ann Marie Huber MD LAB BLOOD ORDERABLES Fin al Result [facility] Department [place] [address] * Allergy skin tests allergens, each (04/28/2025 7:48 AM CDT) us Ann Marie Huber MD IN CLINIC/BEDSIDE ORDERA BLES Edited Result - Final from Last 3 Months Insurance [employer] app Member Subscriber Plan / Payer (Ef fective 2022-Present) Name:Trevor Pinto Member ID:[id number] Relation to Subscriber:Self Name:Trevor Pinto Subscriber ID:[id number] Payer ID:[id number] (NAIC) Type:BC ALLIANCE Address: [facility] [address] [place] [id number] Advance Directives For more information, please contact: [phone] * Full Code (Latest Code Status on File) Date Activated Date Inactivated Comments 01/26/2025 11:42 AM 01/26/2025 6:06 PM Care Teams Mold Finisher Relationship Specialty Start Date End Date Karen Sequeira NP [address] [place] [id number] PCP - General Nurse Practitioner 09/07/24
[2025-05-19] MEDS: LORazepam (*CRX) 2 MG/ML ORAL CONCENTRATE 1 ML SYRINGE 0.5 MG PO (05:01)
== END 2025-05-19 05:11 | disposition home or self-care (01) ==
LOC: ANHED 04:36
PROVIDERS: Emergency Provider Emergency Medicine; PCP Nurse Practitioner Family
DX: K21.9 Gastro-esophageal reflux disease without esophagitis (principal); F41.9 Anxiety disorder, unspecified; J45.909 Unspecified asthma, uncomplicated
CPT/HCPCS: 96374; 96375; 99284; A9270; J1200; J2919

== ENCOUNTER 2025-05-21 01:22 | Emergency (ER) | payer BC, SELFPAY ==
--- NOTE | ~2025-05-21 | XR_ITS ---
EXAMINATION: XR chest 1V portable 05/21/2025 02:22 INDICATION: Shortness of breath PROCEDURE: AP portable chest COMPARISON: 03/28/2025 FINDINGS: The lungs are clear. The cardiomediastinal silhouette is within normal limits. There are no pleural effusions. There is no pneumothorax suspected. IMPRESSION: 1: NO ACUTE CARDIOPULMONARY DISEASE. Reviewed, dictated and finalized at location O.
--- OUTSIDE RECORDS SUMMARY | 2025-05-21 01:24 | XMS_ITS | Encounter Summary ---
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 Gender Identity Not on file Sexual Orientation Straight 10/08/2018 6: 21 PM EQUIPMENT OPERAT0R documented as of this encounter Plan of Treatment Not on file documented as of this encounter Visit Diagnoses Not on filedocumented in this encounter Additional Health Concerns Infection Onset Date Last Indicated Resolved Time COVID-19 Rule Out 12/27/2021 12/27/2021 12/28/2021 1:24 PM CDT documented as of this encounter Care Teams New Accounts Banking Representative Relationship Specialty Start Date End Date Karen Sequeira FNP [address] [place] [id number] PCP - General Nurse Practitioner Family 10/08/18 documented as of this encounter
--- OUTSIDE RECORDS SUMMARY | 2025-05-21 01:24 | XMS_ITS | Clinical Summary ---
Author Organization [facility] Address [address] [place] [address] Care Team Providers Care Group Managing Director Name Role Phone Karen Sequeira NP Primary Care Provider + [phone] Allergies Active Allergy Reactions Criticality Noted Date Comments Dupilumab Other (See comments) Medium 03/09/2025 Swollen tonsils Difficulty swallowing following first lifetime administration. Without hives, hypotension. Medications famotidine-Ca carb-mag hydrox (Pepcid Complete) [phone] [...] nostril as directed 30 mL 11 05/06/20 Active Active Problems Problem Noted Date Diagnosed [...] the symptoms. Dupixent will be avoided until environmental management specialist evaluation, as it is highly effective for eosinophilic esophagitis, making it important to determine true allergy status for long-term management. The possibility of using a vial and needle injection was discussed, but it contains similar preservatives. Refer to an environmental management specialist at [facility] for evaluation of the suspected allergic reaction to Dupixent. Avoid Dupixent until environmental management specialist evaluation is complete. Gastroesophageal reflux disease 10/28/2024 [...] for dietary consultation. Will refer to an environmental management specialist. If possible, I would like to know [...] eosinophilia. Assessment & Plan (10/28/2024 4:50 PM TECHNICAL SALES REPRESENTATIVES): The endoscopic and biopsy findings are highly [...] Encounters Date Type Department Care Team Description 05/19/2025 Results Follow-Up [facility] [address] [place] [address] Ann Marie Huber MD CBC with auto differential, IgE, Allergen Rat mix (animal) IgE, Additional followed-up results: 27 05/08/2025 8:00 AM CDT Office Visit [facility] Gastroenterology at [address] [phone] Petar Monteiro NP Eosinophilic esophagitis (Primary Dx); Adverse effect of drug, subsequent encounter; Gastroesophageal reflux disease with esophagitis without hemorrhage 05/06/2025 2:00 PM CDT Lab [facility] [address] [place] [phone] Eosinophilic esophagitis; Seasonal allergic rhinitis, unspecified trigger 05/06/2025 1:00 PM CDT Office Visit [facility] [address] [place] [address] Ann Marie Huber MD Eosinophilic esophagitis (Primary Dx); Adverse effect of drug, subsequent encounter 04/28/2025 8:00 AM CDT Office Visit [facility] Medicine Allergy and Immunology [address] [place] [address] Ann Marie Huber MD Seasonal allergic rhinitis, unspecified trigger (Primary Dx); Eosinophilic esophagitis; Adverse effect of drug, initial encounter 03/09/2025 1:30 PM CDT Office Visit [facility] Gastroenterology at [address] [place] [phone] Petar Monteiro NP Eosinophilic esophagitis (Primary Dx); Adverse effect of drug, initial encounter; Gastroesophageal reflux disease with esophagitis without hemorrhage 02/27/2025 Telephone [facility] Gastroenterology at [address] [phone] Anahi Hewitt from Last 3 Months Surgical History Surgery [...] on file Legal Sex Male 1:28 AM TECHNICAL SALES REPRESENTATIVES Gender Identity Not on file Sexual Orientation [...] Seasonal allergic rhinitis, unspecified trigger ALLERGEN SYCAMORE ETHIOPIAN (TREE) IGE Routine 05/06/2025 1:30 PM CDT [...] Seasonal allergic rhinitis, unspecified trigger ALLERGEN PLANTAIN POLISH (WEED) IGE Routine 05/06/2025 1:30 PM CDT [...] Seasonal allergic rhinitis, unspecified trigger ALLERGEN COCKROACH ETHIOPIAN (INSECT) IGE Routine 05/06/2025 1:30 PM CDT [...] Ann Marie Huber MD LAB BLOOD ORDERABLES [facility] al Result [facility] Department of Laboratories [place], [place] [id number] * Allergen Mouse mix (animal) IgE (05/06/2025 1:30 PM CDT) Mouse mix IgE <0.10 0.00 - 0.34 kUnits/L Blood 05/06/2025 1:30 PM CDT 05/06/2025 4:51 PM CDT us Ann Marie Huber MD LAB BLOOD ORDERABLES Fin al Result [facility] Department [place] [address] * Differential, auto (05/06/2025 1:30 PM CDT) Neutrophil abs 4.46 1.50 - 6.50 K/cumm Imm gran abs 0.01 0.00 - 0.10 K/cumm [facility] Lymphocyte abs 1.71 0.80 - 3.30 K/cumm [facility] Monocyte abs 0.44 0.20 - 0.80 K/cumm [facility] Eosinophil abs 0.18 0.00 - 0.50 K/cumm [facility] Basophil abs 0.06 0.00 - 0.10 K/cumm [facility] Neutrophil pct 65.1 % [facility] Comment: Interpretive Data Percent cell count reference ranges are not reported, since discordance with absolute values may lead to misinterpretation of CBC data. Current Interpretive Data was last revised on 2018. Imm gran pct 0.1 % [facility] Comment: Interpretive Data Percent cell count reference ranges are not reported, since discordance with absolute values may lead to misinterpretation of CBC data. Current Interpretive Data was last revised on 2018. Lymphocyte pct 24.9 % [facility] Comment: Interpretive Data Percent cell count reference ranges are not reported, since discordance with absolute values may lead to misinterpretation of CBC data. Current Interpretive Data was last revised on 2018. Monocyte pct 6.4 % [facility] Comment: Interpretive Data Percent cell count reference ranges are not reported, since discordance with absolute values may lead to misinterpretation of CBC data. Current Interpretive Data was last revised on 2018. Eosinophil pct 2.6 % [facility] Comment: Interpretive Data Percent cell count reference ranges are not reported, since discordance with absolute values may lead to misinterpretation of CBC data. Current Interpretive Data was last revised on 2018. Basophil pct 0.9 % [facility] Comment: Interpretive Data Percent cell count reference ranges are not reported, since discordance with absolute values may lead to misinterpretation of CBC data. Current Interpretive Data was last revised on 2018. Blood 05/06/2025 1:30 PM CDT 05/06/2025 4:51 PM CDT Ann Marie Huber MD LAB BLOOD ORDERABLES Fin al Result Performing Organization Address City/[facility] [[email or web address] Co de Phone Number [facility] [place] [address] * Allergen Penicillium chrysogenum (mold) IgE (05/06/2025 1:30 PM CDT) Penicillium chrysogenum IgE <0.10 0.00 - 0.34 kUnits/L Blood 05/06/2025 1:30 PM CDT 05/06/2025 4:51 PM CDT Ann Marie Huber MD LAB BLOOD ORDERABLES Fin al Result Performing Organization Address [facility] [place] [address] * Allergen [place] (tree) IgE (05/06/2025 1:30 PM CDT) [place] IgE <0.10 0.00 - 0.34 kUnits/L Blood 05/06/2025 1:30 PM CDT 05/06/2025 4:51 PM CDT Ann Marie Huber MD LAB BLOOD ORDERABLES Fin al Result Performing Organization Address [facility] [[email or web address]] Co de Phone Number [facility] [place] [address] * Allergen Mountain juniper (tree) IgE (05/06/2025 1:30 PM CDT) Mountain juniper IgE <0.10 0.00 - 0.34 kUnits/L Blood 05/06/2025 1:30 PM CDT 05/06/2025 4:51 PM CDT Ann Marie Huber MD LAB BLOOD ORDERABLES Fin al Result Performing Organization Address City/[facility]/ZIP Co de Phone Number [facility] Department [place] [address] * CBC with auto differential (05/06/2025 1:30 PM CDT) [facility] WBC 6.86 3.80 - 9.90 K/cumm Hgb 14.0 13.0 - 17.5 g/dL [facility] Hct 42.3 38.9 - 50.3 % [facility] Plt 246 150 - 400 K/cumm [facility] MPV 10.8 9.1 - 12.3 fL [facility] RBC 4.95 4.30 - 5.80 M/cumm [facility] MCV 85.5 81.3 - 96.4 fL [facility] MCH 28.3 27.1 - 33.3 pg [facility] MCHC 33.1 32.3 - 35.7 g/dL [facility] RDW CV 12.0 11.1 - 14.9 % [facility] RDW SD 37.2 35.7 - 48.1 fL [facility] NRBC abs 0.00 0.00 - 0.01 K/cumm [facility] Blood 05/06/2025 1:30 PM CDT 05/06/2025 4:51 PM CDT Ann Marie Huber MD LAB BLOOD ORDERABLES Fin al Result Performing Organization Address City/[facility]/ZIP Co de Phone Number [facility] Department [place] [address] * Allergen Bermuda grass (grass) IgE (05/06/2025 1:30 PM CDT) Bermuda grass IgE <0.10 0.00 - 0.34 kUnits/L Blood 05/06/2025 1:30 PM CDT 05/06/2025 4:51 PM CDT Ann Marie Huber MD LAB BLOOD ORDERABLES Fin al Result Performing Organization Address [facility] [[email or web address]] Co de Phone Number [facility] Department [place] [address] * Allergen Plantain ukrainian (weed) IgE (05/06/2025 1:30 PM CDT) Plantain ukrainian IgE <0.10 0.00 - 0.34 kUnits/L Blood 05/06/2025 1:30 PM CDT 05/06/2025 4:51 PM CDT Ann Marie Huber MD LAB BLOOD ORDERABLES Fin al Result Performing Organization Address [facility] de Phone Number [facility] [place] [address] * Allergen Elm (tree) IgE (05/06/2025 1:30 PM CDT) Pathologist [facility] Elm IgE <0.10 0.00 - 0.34 kUnits/L Blood 05/06/2025 1:30 PM CDT 05/06/2025 4:51 PM CDT Ann Marie Huber MD LAB BLOOD ORDERABLES Fin al Result Performing Organization Address [facility] [[email or web address]] Co de Phone Number [facility] [place] [address] * Allergen Cladosporium herbarum (mold) IgE (05/06/2025 1:30 PM CDT) Cladosporium herbarum IgE <0.10 0.00 - 0.34 kUnits/L Blood 05/06/2025 1:30 PM CDT 05/06/2025 4:51 PM CDT Ann Marie Huber MD LAB BLOOD ORDERABLES Fin al Result Performing Organization Address [facility] [[email or web address]] Co de Phone Number [facility] [place] [address] * Allergen Birch common silver (tree) IgE (05/06/2025 1:30 PM CDT) Birch common silver IgE <0.10 0.00 - 0.34 kUnits/L Blood 05/06/2025 1:30 PM CDT 05/06/2025 4:51 PM CDT Ann Marie Huber MD LAB BLOOD ORDERABLES Fin al Result Performing Organization Address [facility] [[email or web address]] Co de Phone Number [facility] [place] [address] * Allergen Alternaria tenuis (mold) IgE (05/06/2025 1:30 PM CDT) Alternaria tenius IgE <0.10 0.00 - 0.34 kUnits/L Blood 05/06/2025 1:30 PM CDT 05/06/2025 4:51 PM CDT Ann Marie Huber MD LAB BLOOD ORDERABLES Fin al Result Performing Organization Address [facility] [[email or web address]] Co de Phone Number [facility] [employer] [place], [place] [phone] * Allergen Aspergillus fumigatus (mold) IgE (05/06/2025 1:30 PM CDT) Aspergillus fumigatus IgE <0.10 0.00 - 0.34 kUnits/L Blood 05/06/2025 1:30 PM CDT 05/06/2025 4:51 PM CDT Ann Marie Huber MD LAB BLOOD ORDERABLES Fin al Result Performing Organization Address [facility] [[email or web address]] Co de Phone Number [facility] [place], [place] [phone] * Allergen Dermatophagoides pteronyssinus (insect) IgE (05/06/2025 1:30 PM CDT) Dermatophyton pteronyssinus IgE <0.10 0.00 - 0.34 kUnits/L Blood 05/06/2025 1:30 PM CDT 05/06/2025 4:51 PM CDT Ann Marie Huber MD LAB BLOOD ORDERABLES Fin al Result Performing Organization Address [facility] [[email or web address]] Co de Phone Number [facility] Department [place] [address] * Allergen Dermatophagoides farniae (insect) IgE (05/06/2025 1:30 PM CDT) Dermatophyton farinae IgE <0.10 0.00 - 0.34 kUnits/L Blood 05/06/2025 1:30 PM CDT 05/06/2025 4:51 PM CDT Ann Marie Huber MD LAB BLOOD ORDERABLES Fin al Result Performing Organization Address [facility] de Phone Number [facility] [place] [address] * Allergen Epithelia/dander dog (animal) IgE (05/06/2025 1:30 PM CDT) Dog dander IgE <0.10 0.00 - 0.34 kUnits/L Blood 05/06/2025 1:30 PM CDT 05/06/2025 4:51 PM CDT Ann Marie Huber MD LAB BLOOD ORDERABLES Fin al Result Performing Organization Address [facility] [[email or web address]] Co de Phone Number [facility] [place] [address] * Allergen Cockroach uzbek (insect) IgE (05/06/2025 1:30 PM CDT) Cockroach IgE <0.10 0.00 - 0.34 kUnits/L Blood 05/06/2025 1:30 PM CDT 05/06/2025 4:51 PM CDT Result [facility] Ann Marie Huber MD LAB BLOOD ORDERABLES Fin al Result Performing Organization Address [facility] [[email or web address]] Co de Phone Number [facility] [place] [address] * Allergen Epithelia/dander cat (animal) IgE (05/06/2025 1:30 PM CDT) Cat dander IgE <0.10 0.00 - 0.34 kUnits/L Blood 05/06/2025 1:30 PM CDT 05/06/2025 4:51 PM CDT Ann Marie Huber MD LAB BLOOD ORDERABLES Fin al Result Performing Organization Address [facility] [[email or web address]] [place] [address] * Allergen Ragweed short/common (weed) IgE (05/06/2025 1:30 PM CDT) Ragweed common IgE <0.10 0.00 - 0.34 kUnits/L Blood 05/06/2025 1:30 PM CDT 05/06/2025 4:51 PM CDT Ann Marie Huber MD LAB BLOOD ORDERABLES Fin al Result Performing Organization Address [facility] [[email or web address]] Co de Phone Number [facility] Department [place] [address] * Allergen Pigweed, rough (weed) IgE (05/06/2025 1:30 PM CDT) Pigweed rough IgE <0.10 0.00 - 0.34 kUnits/L Blood 05/06/2025 1:30 PM CDT 05/06/2025 4:51 PM CDT Ann Marie Huber MD LAB BLOOD ORDERABLES Fin al Result Performing Organization Address [facility] de Phone Number [facility] Department [place] [address] * Allergen Nettle (weed) IgE (05/06/2025 1:30 PM CDT) Nettle IgE <0.10 0.00 - 0.34 kUnits/L Blood 05/06/2025 1:30 PM CDT 05/06/2025 4:51 PM CDT Ann Marie Huber MD LAB BLOOD ORDERABLES Fin al Result Performing Organization Address [facility] [[email or web address]] Co de Phone Number [facility] [place], [place] [phone] * Allergen Lincoln's quarter (weed) IgE (05/06/2025 1:30 PM CDT) Lincoln's quarters IgE <0.10 0.00 - 0.34 kUnits/L Blood 05/06/2025 1:30 PM CDT 05/06/2025 4:51 PM CDT Ann Marie Huber MD LAB BLOOD ORDERABLES Fin al Result Performing Organization Address [facility] de Phone Number [facility] [place] [address] * Allergen Homero grass (grass) IgE (05/06/2025 1:30 PM CDT) Homero grass IgE <0.10 0.00 - 0.34 kUnits/L Blood 05/06/2025 1:30 PM CDT 05/06/2025 4:51 PM CDT Ann Marie Huber MD LAB BLOOD ORDERABLES Fin al Result Performing Organization Address [facility] de Phone Number [facility] [place] [address] * Allergen Roge grass (grass) IgE (05/06/2025 1:30 PM CDT) Roge grass IgE <0.10 0.00 - 0.34 kUnits/L Blood 05/06/2025 1:30 PM CDT 05/06/2025 4:51 PM CDT Ann Marie Huber MD LAB BLOOD ORDERABLES Fin al Result Performing Organization Address [facility] de Phone Number [facility] [place] [address] * Allergen Prospect (tree) IgE (05/06/2025 1:30 PM CDT) Prospect (tree) IgE <0.10 0.00 - 0.34 kUnits/L Blood 05/06/2025 1:30 PM CDT 05/06/2025 4:51 PM CDT Ann Marie Huber MD LAB BLOOD ORDERABLES Fin al Result Performing Organization Address [facility] [[email or web address]] Co de Phone Number [facility] [place] [address] * Allergen [place] uzbek (tree) IgE (05/06/2025 1:30 PM CDT) [place] IgE <0.10 0.00 - 0.34 kUnits/L Blood 05/06/2025 1:30 PM CDT 05/06/2025 4:51 PM CDT Ann Marie Huber MD LAB BLOOD ORDERABLES Fin al Result Performing Organization Address [facility] [[email or web address]] Co de Phone Number [facility] [place] [address] * Allergen Maple/Box elder (tree) IgE (05/06/2025 1:30 PM CDT) Maple/box elder IgE <0.10 0.00 - 0.34 kUnits/L Blood 05/06/2025 1:30 PM CDT 05/06/2025 4:51 PM CDT Ann Marie Huber MD LAB BLOOD ORDERABLES Fin al Result Performing Organization Address [facility] [[email or web address]] Co de Phone Number [facility] [place] [address] * Allergen [place] red (tree) IgE (05/06/2025 1:30 PM CDT) [place] IgE <0.10 0.00 - 0.34 kUnits/L Blood 05/06/2025 1:30 PM CDT 05/06/2025 4:51 PM CDT Ann Marie Huber MD LAB BLOOD ORDERABLES Fin al Result [facility] Department [place] [address] * IgE (05/06/2025 1:30 PM CDT) IgE 36 <=100 IUnits/mL Blood 05/06/2025 1:30 PM CDT 05/06/2025 4:51 PM CDT us Ann Marie Huber MD LAB BLOOD ORDERABLES Fin al Result Performing Organization Address [facility] [[email or web address]] Co de Phone Number [facility] Department [place] [address] * Allergy skin tests allergens, each (04/28/2025 7:48 AM CDT) us Ann Marie Huber MD IN CLINIC/BEDSIDE ORDERDaniela ARANGO Edited Result - Final from Last 3 Months Insurance [employer] ACCESS CHOICE [employer] CHO[employer] Advance Directives For more information, please contact: [phone] * Full Code (Latest Code Status on File) Date Activated Date Inactivated Comments 01/26/2025 11:42 AM 01/26/2025 6:06 PM Care Teams Group Managing Director Relationship Specialty Start Date End Date Karen Sequeira NP [address] [place] [id number] PCP - General Nurse Practitioner 09/07/24
--- OUTSIDE RECORDS SUMMARY | 2025-05-21 01:24 | XMS_ITS | Clinical Summary ---
Author Organization [facility] Address [address] [place] [address] Care Team Providers Care Tire Setter Name Role Phone Karen Sequeira GLEN Primary Care Provider [phone] Allergies No known active allergies Medications famotidine-calci [...] Encounters Date Type Department Care Team Description 03/28/2025 Scan [facility] [employer] INFO SRVCS Scanned, Doc [facility] Lab (SCAN); Image (SCAN) 02/28/2025 Scan [facility] INFO SRVCS Scanned, Doc Med Group 02/27/2025 Scan [facility] INFO SRVCS Scanned, Doc Med Group 02/26/2025 Scan [facility] INFO SRVCS Scanned, Doc Med Group from Last 3 Months Immunizations Immunization Administration [...] on file Legal Sex Male 1:28 PM [facility] Gender Identity Not on file Sexual Orientation Straight 10/08/2018 6: 21 PM [facility] Last Filed Vital Signs Vital Sign Reading Time Taken Comments Blood Pressure 118/68 08/26/2024 9:54 AM [facility] Pulse 83 08/26/2024 9:54 AM [facility] Temperature 36.8 C (98.2 F) 08/26/2024 9:54 AM [facility] Respiratory Rate 14 08/26/2024 9:54 AM [facility] Oxygen Saturation 99% 08/26/2024 9:54 AM [facility] Inhaled Oxygen Concentration - - Weight 81.4 kg (179 lb 8 oz) 08/26/2024 9:54 AM [facility] Height 181.6 cm (5' 11.5) 08/26/2024 9:54 AM CS T Body Mass Index 24.69 08/26/2024 9:54 AM [facility] Plan of Treatment Health Maintenance Due Date Last Done Comments Annual Physical 01/17/2003 HPV Vaccines (1 - Male 3-dos e series) 01/17/2015 Hepatitis C 01/17/2018 Hepatitis B Vaccines (1 of 3 - 19+ 3-dose series) 01/17/2019 PHQ-2 (Physician [place]) 09/24/2024 08/26/2024 COVID-19 Vaccine (2023-2 5 season) 2025 10/10/2021, 11/30/2020, 10/28/2020 Postponed [...] Procedure Name Priority Date/Time Associated Diagnosis Comments OUTSIDE LAB (SCAN ORDER) 03/28/2025 OUTSIDE LAB (SCAN ORDER) 03/28/2025 IMAGE GENERIC 03/28/2025 from Last 3 Months Results * OUTSIDE LAB (SCAN ORDER) (03/28/2025) Only the most recent of2 resultswithin the time period is included. 03/28/2025 [facility] Scanned SCANNING Final Resu lt * IMAGE GENERIC (03/28/2025) Anatomical Region Laterality Modality Other 03/28/2025 [facility] Scanned SCANNING Final Resu lt from Last 3 Months Insurance [facility] Care Teams Tire Setter Relationship Specialty Start Date End Date Karen Sequeira FNP [address] [place], [place] [id number] PCP - General Nurse Practitioner Family 10/08/18
--- OUTSIDE RECORDS SUMMARY | 2025-05-21 01:24 | XMS_ITS | Encounter Summary ---
Author Organization [facility] Address [address] [place] [address] Phone Care Team Providers Care Sanitarian Name Role Phone Karen Sequeira NP Primary Care Provider + [phone] Encounter Details Date Type Department Care Team (Late st Contact Info) Description 05/19/2025 Results Follow-Up [facility] Medicine Allergy and Immunology [address] [place] [address] Ann Marie Huber MD [address] [place] [address] CBC with auto differential, IgE, Allergen Rat mix (animal) IgE, Additional followed-up results: 27 Social History Tobacco Use Types Packs/Day Years [...] on file Legal Sex Male 1:28 AM [employer] Gender Identity Not on file Sexual Orientation Not on file documented as of this encounter Plan of Treatment Not on file documented as of this encounter Visit Diagnoses Not on filedocumented in this encounter Care Teams Sanitarian Relationship Specialty Start Date End Date Karen Sequeira NP [address] [place] [id number] PCP - General Nurse Practitioner 09/07/24 documented as of this encounter
[2025-05-21 01:35] VITALS: BP 132/91; PULSE 69; RESP 12; RESP 18; TEMP 36.7; O2SAT 99
--- NOTE | 2025-05-21 01:45 | ECG_ITS ---
Test Date: 2025-05-21 01:53:47 Measurements Intervals [place] Rate: 77 P: 76 OK: 143 QRS: 65 QRSD: 101 T: 42 QT: 374 QTc: 423 Interpretive Statements SINUS RHYTHM BASELINE ARTIFACT- I, II, AVR, AVL NORMAL ECG Compared to ECG 03/28/2025 06:52:15 No significant changes Electronically Signed On 05-21-2025 06:16:13 CDT by Elier Quevedo D.O.
--- NOTE | 2025-05-21 01:46 | ED_ITS ---
HPI - General Adult General Chief complaint: Unspecified Stated complaint: sob / elevated HR / dizzy Time Seen by Provider: 05/21/25 01:33 History of Present Illness HPI narrative: Patient is a 25-year-old male who presents emergency department this evening complaining of anxiety and palpitations. Patient has been seen at our facility 2 times this past week for anxiety related issues. Patient states that his symptoms today feel slightly different, he states that he feels as though his heart is skipping beats. Otherwise denies any additional symptoms or concerns. Related Data Home Medications ?Medication ?Instructions ?Recorded ?Confirmed ?Last Taken ?Type azelastine 137 mcg (0.1 %) nasal intranasal 05/17/25 Unknown History spray Allergies Allergy/AdvReac Type Severity Reaction Status Date / Time dupilumab (From Fitsistant Pen) Allergy Severe Difficulty Verified 05/21/25 01:23 Swallowing Review of Systems 2 Review of Systems: All systems are reviewed and are negative unless stated otherwise in the HPI. FOR[facility]LY [facility] Past Medical History Medical History Asthma Surgical History Surgical History No pertinent past surgical history Social History Social History Smoking status: Never smoker Exam 2 Narrative: General: Alert, awake, afebrile, in no acute distress, extremely anxious. HEENT: PERRL, no rhinorrhea, no post nasal drip, oropharynx clear. Neck: Trachea midline, no JVD, no lymphadenopathy. Cardiovascular: Regular rate and rhythm, no murmurs, rubs or gallops, no peripheral edema. Respiratory: Clear to auscultation bilaterally, no tachypnea, no wheezing, no rhonchi, no rubs, no respiratory distress. Abdomen: Soft, nontender, nondistended, no rebound, no guarding, no peritoneal signs. Musculoskeletal: No joint swelling or deformity, normal muscle tone. Skin: No rashes or petechia, no signs of infection. Psychiatric: Alert and oriented, normal behavior and judgment for situation. Neurological: Alert and oriented to person, place, and time. Follows all commands. No focal deficits, speech is clear and fluent. Course Vital Signs Vital signs: Vital Signs Temperature 98.0 F 05/21/25 01:35 Pulse Rate 69 05/21/25 01:35 Respiratory Rate 18 05/21/25 01:35 Blood Pressure 132/91 H 05/21/25 01:35 Pulse Oximetry 99 05/21/25 01:35 Oxygen Delivery Room Air 05/21/25 01:35 Temperature 98.0 F 05/21/25 01:35 Pulse Rate 62 05/21/25 02:25 Respiratory Rate 15 05/21/25 02:25 Blood Pressure 132/91 H 05/21/25 01:35 Pulse Oximetry 100 05/21/25 02:25 Oxygen Delivery Room Air 05/21/25 01:35 Medical Decision Making MDM Narrative Medical decision making narrative: The patient was evaluated by myself in the emergency department. History is obtained from patient who is an independent historian and physical exam was performed. External medical records were reviewed at this time. IV was established and pertinent tests were ordered. EKG was obtained which revealed sinus rhythm rate of 94 beats per minute. No ST changes, T wave inversions or evidence of acute ischemia. EKG was independently interpreted by me and is currently pending official cardiology read. Laboratory results obtained revealing a potassium of 2.7 otherwise unremarkable. Magnesium level normal. Per chart review, patient does have a history of hypokalemia secondary to his diet. 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 at this time, patient was administered 80 mg of oral potassium powder as that is only form of potassium patient can tolerate. Imaging studies obtained included CXR which was independently interpreted by me revealing no acute process, which is pending final radiology interpretation. Differential diagnosis considerations include anxiety, electrolyte derangements, arrhythmia, dehydration, acute viral syndrome. Comorbidities impacting this visit include history of anxiety. I have evaluated and discussed social determinants of health with the patient that could potentially impact subsequent diagnosis and treatment plans. On repeat assessment of the patient, reevaluation revealed that the patient is doing well and is in no acute distress. Patient symptoms have improved since he arrived to our emergency department. Repeat vital signs were all reviewed and noted to be stable. Differential diagnosis and treatment plan were discussed with the patient at bedside. Patient agrees with discussion and after shared medical decision making agrees with discharge. All questions were answered to the patient's satisfaction. Patient will follow up with his GI/PCP in 3-5 days. Patient was provided with strict return precautions and instructed to return to the emergency department if any new or worsening symptoms develop. The patient was discharged in stable condition. Vital Signs Vital Signs: Vital Signs Temperature 98.0 F 05/21/25 01:35 Pulse Rate 69 05/21/25 01:35 Respiratory Rate 18 05/21/25 01:35 Blood Pressure 132/91 H 05/21/25 01:35 Pulse Oximetry 99 05/21/25 01:35 Oxygen Delivery Room Air 05/21/25 01:35 Temperature 98.0 F 05/21/25 01:35 Pulse Rate 62 05/21/25 02:25 Respiratory Rate 15 05/21/25 02:25 Blood Pressure 132/91 H 05/21/25 01:35 Pulse Oximetry 100 05/21/25 02:25 Oxygen Delivery Room Air 05/21/25 01:35 Lab Data 05/21/25 02:12 05/21/25 02:12 Labs: Lab Results 05/21/25 Range/Units 02:12 WBC 7.3 (4.5-10.0) K/mm3 RBC 4.39 L (4.6-6.20) M/mm3 Hgb 12.6 L (14.0-18.0) g/dL Hct 36.0 L (42.0-52.0) % MCV 82.0 (80-100) fl MCH 28.7 (26-34) pg MCHC 35.0 (32-36) g/dl RDW 11.7 (11.5-14.5) % Plt Count 214 (150-375) k/mm3 MPV 9.5 (7.4-10.4) fl Immature Gran % (Auto) 0.1 (0-0.5) % Neut % (Auto) 58.4 (45.5-73.1) % Lymph % (Auto) 32.4 (18.3-44.2) % [place] % (Auto) 7.9 (2.6-8.5) % Eos % (Auto) 0.7 (0-4.4) % Baso % (Auto) 0.5 (0.2-1.2) % Lymph # (Auto) 2.38 (0.9-3.2) K/mm3 [place] # (Auto) 0.6 (0.1-0.6) K/mm3 Eos # (Auto) 0.1 (0-0.3) K/mm3 Baso # (Auto) 0.0 (0.0-0.1) K/mm3 Abs Immat Gran (auto) 0.01 (0.00-0.031) K/mm3 Absolute Neuts (auto) 4.3 (1.3-6.7) K/mm3 Absolute Nucleated RBC 0.000 (0.0-0.012) K/mm3 Nucleated RBC % 0.0 (0.0-0.2) % Sodium 132 L (137-145) mmol/L Potassium 2.7 L* (3.4-5.0) mmol/L Chloride 96 L (98-107) mmol/L Carbon Dioxide 25 (22-30) mmol/L Anion Gap 11 (4-12) mmol/L BUN 3 L (9-20) mg/dL Creatinine 0.71 (0.7-1.3) mg/dL Estim Creat Clear Calc 137 ml/min Estimated GFR > 60 (59 - ) Glucose 97 (65-110) mg/dL Calcium 8.5 (8.4-10.2) mg/dL Magnesium 1.7 (1.6-2.3) mg/dL Total Bilirubin 0.6 (0.2-1.3) mg/dL AST 20 (17-59) U/L ALT 12 (6-50) U/L Alkaline Phosphatase 54 (38-126) U/L Total Protein 7.3 (6.3-8.2) g/dL Albumin 4.3 (3.5-5.1) g/dL Discharge Plan Discharge Clinical Impression: Acute hypokalemia Patient Disposition: Home Condition: Improved Instructions: Antibiotic Form, Hypokalemia (ED) Additional Instructions: Please follow-up with your family doctor/inside sales territory manager within the next 3- 5 days. Maintain a well-balanced diet and return to the ED if any new or worsening symptoms develop. Patient Language: Filipino Prescriptions: No Action epinephrine [EpiPen 2-Eliud] 0.3 mg/0.3 mL auto-injector 0.3 mg IM Q5-15M PRN (Reason: anaphylaxis) Qty: 2 0RF Rx Instructions: do not exceed 3 doses per episode prednisolone 15 mg/5 mL solution 60 mg PO QAM 4 Days Qty: 80 0RF diphenhydramine HCl [Allergy Relief(diphenhydramin)] 12.5 mg/5 mL liquid 25 mg PO Q6H PRN (Reason: allergic reaction) Qty: 473 0RF Pepcid Complete 10-800-165 mg tablet,chewable 1 tablet PO BID PRN (Reason: allergic symptoms) Qty: 20 0RF azelastine 137 mcg (0.1 %) spray,non-aerosol INTRANASAL hydroxyzine pamoate 50 mg capsule 50 mg PO TID PRN (Reason: anxiety) Qty: 20 0RF magnesium oxide 500 mg capsule 500 mg PO DAILY 7 Days Qty: 7 0RF potassium chloride 20 mEq/15 mL liquid 20 meq PO BID 7 Days Qty: 210 0RF aluminum-magnesium hydroxide 200-200 mg/5 mL suspension 30 ml PO DAILY 10 Days Qty: 300 0RF potassium chloride 20 mEq/15 mL liquid 20 meq PO BID 7 Days Qty: 210 0RF Follow-up/Referrals: KATE,KEYONNA ROBLEDO [Primary Care Provider] - 3 Days Time of Disposition: 02:49
[2025-05-21 02:18] LABS: Hematocrit 36.0 % (42.0-52.0); Hemoglobin 12.6 g/dL (14.0-18.0); Immature Granulocyte Percent A 0.1 % (0-0.5); Lymphocytes Absolute Auto 2.38 K/mm3 (0.9-3.2); Mean Corpuscular HGB Conc 35.0 g/dl (32-36); Mean Corpuscular Hemoglobin 28.7 pg (26-34); Mean Corpuscular Volume 82.0 fl (80-100); Nucleated Red Blood Cells Absolute Auto 0.000 K/mm3 (0.0-0.012); Nucleated Red Blood Cells Perc 0.0 % (0.0-0.2); Platelet Count Result 214 k/mm3 (150-375); Red Blood Count 4.39 M/mm3 (4.6-6.20); White Blood Count 7.3 K/mm3 (4.5-10.0)
[2025-05-21 02:25] VITALS: BP 131/85; PULSE 62; RESP 15; O2SAT 100
[2025-05-21 02:34] LABS: Alanine Aminotransferase 12 U/L (6-50); Albumin Level 4.3 g/dL (3.5-5.1); Alkaline Phosphatase 54 U/L (38-126); Anion Gap 11 mmol/L (4-12); Aspartate Amino Transferase 20 U/L (17-59); Bilirubin,Total 0.6 mg/dL (0.2-1.3); Blood Urea Nitrogen 3 mg/dL (9-20); Calcium 8.5 mg/dL (8.4-10.2); Carbon Dioxide 25 mmol/L (22-30); Chloride 96 mmol/L (98-107); Estimated CRCL calculation 137 ml/min; Estimated Glomerular Filt Rate > 60; Glucose 97 mg/dL (65-110); Magnesium 1.7 mg/dL (1.6-2.3); Potassium 2.7 mmol/L (3.4-5.0); Sodium 132 mmol/L (137-145); Total Protein 7.3 g/dL (6.3-8.2)
[2025-05-21] MEDS: POTASSIUM CHLORIDE 20 MEQ PACKET (FOR LIQUID) 40 MEQ PO ×2 (03:06)
[2025-05-21 03:36] VITALS: BP 131/85; PULSE 62; RESP 15; O2SAT 100
== END 2025-05-21 03:37 | disposition home or self-care (01) ==
PROVIDERS: Emergency Provider Emergency Medicine; PCP Nurse Practitioner Family
DX: E87.6 Hypokalemia (principal); J45.909 Unspecified asthma, uncomplicated
CPT/HCPCS: 36415; 71045; 80053; 83735; 85025; 93005; 99283; A9270

== ENCOUNTER 2025-05-26 14:35 | Emergency (ER) | payer BC, SELFPAY ==
--- NOTE | ~2025-05-26 | XR_ITS ---
EXAMINATION: XR chest 2V 05/26/2025 16:58 INDICATION: Shortness of breath PROCEDURE: 2 view chest COMPARISON: 04/2025 FINDINGS: The lungs are clear. The lungs are mildly hyperinflated, which can be associated with reactive airway disease. The cardiomediastinal silhouette is within normal limits. There are no pleural effusions. There is no pneumothorax suspected. IMPRESSION: 1: NO ACUTE CARDIOPULMONARY DISEASE. Reviewed, dictated and finalized at location O.
--- OUTSIDE RECORDS SUMMARY | 2025-05-26 11:20 | XMS_ITS | Encounter Summary ---
Author Organization [facility] Address [address] [place] [address] Care Team Providers Care Truck And Transport Mechanic Name Role Phone Karen Sequeira Primary Care Provider [phone] Reason for Visit * Reason Comments ER F/U Navid Anxiety Weight Problem Encounter Details Date Type Department Care Team (Late st Contact Info) Description 05/26/2025 11:20 AM CDT Office Visit [facility] Family & Internal Medicine [address] [address] Karen Sequeira FNP [address] [place] [address] ER F/U (aNvid); Anxiety; Weight Problem Social History Tobacco Use Types Packs/Day Years [...] Information Value Date Recorded Sex Assigned at Male 05/26/2025 10:31 AM CDT Legal Sex Male 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 Gender Identity Male 05/26/2025 10:31 AM CDT Sexual Orientation Straight 10/08/2018 6: 21 PM SENIOR NET WEB DEVELOPER documented as of this encounter Last Filed Vital Signs Vital Sign Reading Time Taken Comments Blood Pressure 120/72 05/26/2025 10:32 AM CDT Pulse 96 05/26/2025 10:32 AM CDT Temperature 37.2 C (98.9 F) 05/26/2025 10:32 AM CDT Respiratory Rate 20 05/26/2025 10:32 AM CDT Oxygen Saturation 99% 05/26/2025 10:32 AM CDT Inhaled Oxygen Concentration - - Weight 68.5 kg (151 lb 1.6 oz) 05/26/2025 10:32 AM CDT Height 181.6 cm (5' 11.5) 05/26/2025 10:32 AM C DT Body Mass Index 20.78 05/26/2025 10:32 AM CDT documented in this encounter Patient Instructions * Patient Instructions* GLEN Barriga - 05/26/2025 11:20 AM CDT Is imperative that you take your medications as prescribed and maintain follow- up with your GI specialist as scheduled We will call you with your lab results once they come back Call for any questions or concerns Decrease your daily intake of GERD producing foods, as we discussed during your office visit Follow-up at least every 6 months or sooner if needed If you do start the medication for your anxiety, follow-up in 1 month * Attachments The following attachments cannot be sent through Care Everywhere. * Acid Reflux and GERD in Adults Discharge Instructions (British) documented in this encounter Progress Notes * GLEN Barriga - 05/26/2025 11:20 AM CDTSummary: Chronic condition follow- up increased anxiety Office Progress Note Reason for Visit: ER F/U (Navid), Anxiety, and Weight Problem History of Present Illness: History of Present Illness The patient presents for eosinophilic esophagitis, anxiety, GERD, and hypokalemia. He has not started oral budesonide due to concerns about side effects. He experienced throat swelling with Dupixent, possibly due to anxiety or an allergic reaction. He is on lansoprazole and Pepcid twice daily, and [facility]'s Allergy medication from [facility]. He has been advised to avoid wheat and dairy but is not strictly adhering. No chest pain or shortness of breath today. Has not had blood tests for food allergens. He has not had a colonoscopy but a biopsy via endoscopy revealed eosinophilia. He did not tolerate inhaled steroids well. He has a 15-year history of anxiety and is considering citalopram but is concerned about drowsiness. He has previously taken clonazepam and Ativan but cannot take this due to his job [place] the [employer].The clonazepam, prn worked well for him. He denies any SI or HI presently. No blood in stool, but experiences diarrhea, possibly due to low solid food intake. Continues to have acid reflux despite lansoprazole and famotidine but is not watching his diet and has been eating more GERD producing foods. Follow-up with GI doctor on 06/09/2025. Potassium level was 2.8 last week, likely due to diet and not eating. Consulting with a dietitian. Magnesium levels are normal. Increasing potassium intake through diet and supplements, including vegan protein vitamin drinks. Occasionally takes a multivitamin. Diet: Advised to avoid wheat and dairy; occasionally consumes foods that induce GERD. Tea: Consumes tea. ROS: Review of Systems Constitutional: Negative for chills, diaphoresis, fever, malaise/fatigue and weight loss. HENT: Negative for congestion, ear discharge, ear pain, hearing loss, nosebleeds, sinus pain, sore throat and tinnitus. Feeling like throat swelling, intermittently. Eyes: Negative for blurred vision, double vision, photophobia, pain, discharge and redness. Respiratory: Negative for cough, hemoptysis, sputum production, shortness of breath, wheezing and stridor. Cardiovascular: Negative for chest pain, palpitations, orthopnea, claudication, leg swelling and PND. Gastrointestinal: Positive for heartburn and nausea. Negative for abdominal pain, blood in stool, constipation, diarrhea, melena and vomiting. Genitourinary: Negative for dysuria, flank pain, frequency, hematuria and urgency. Musculoskeletal: Negative for back pain, falls, joint pain, myalgias and neck pain. Skin: Negative for itching and rash. Neurological: Negative for dizziness, tingling, tremors, sensory change, speech change, focal weakness, seizures, loss of consciousness, weakness and headaches. Endo/Heme/Allergies: Negative for environmental allergies and polydipsia. Does not bruise/bleed easily. Psychiatric/Behavioral: Negative for depression, hallucinations, memory loss, substance abuse and suicidal ideas. The patient is nervous/anxious. The patient does not have insomnia. Medications: Current Outpatient Medications on File Prior to Visit Medication Sig busPIRone (BUSPAR) 5 MG tablet Take 1 tablet (5 mg total) by mouth 3 (three) times daily as needed (anxiety). EPINEPHrine 0.3 MG/0.3ML injection 0.3 mLs (0.3 mg total). famotidine-calcium carbonate-magnesium hydroxide (PEPCID COMPLETE) [phone] MG Chew Tab Chew 1 tablet by mouth 2 (two) times daily as needed. lansoprazole (PREVACID) 3 MG/ML Take 10 mLs (30 mg total) by mouth 2 (two) times a day. citalopram (CELEXA) 10 MG tablet Take 1 tablet (10 mg total) by mouth daily. (Patient not taking: Reported on 05/26/2025) EOHILIA 2 MG/10ML Suspension TAKE 2MG (ONE PACKET [10ML]) BY MOUTH TWICE A DAY (Patient not taking:Reported on 05/26/2025) No current facility-administered medications on file prior to visit. Allergies: Review of patient's allergies indicates: Allergen Reactions Dupilumab Other (see comment) Swollen tonsils Difficulty swallowing following first lifetime administration. Without hives, hypotension. Medical History: Past Medical History[1] Surgical History: Past Surgical History[2] Social History: Social History[3] Family History: Family History[4] PE: Physical Exam Vitals and nursing note reviewed. Constitutional: General: He is not in acute distress. Appearance: Normal appearance. He is well-developed and well-groomed. He is not ill-appearing, toxic-appearing or diaphoretic. HENT: Head: Normocephalic and atraumatic. Right Ear: Hearing and external ear normal. Left Ear: Hearing and external ear normal. Nose: Nose normal. Mouth/Throat: Mouth: Mucous membranes are moist. Pharynx: Oropharynx is clear. Uvula midline. Eyes: General: Lids are normal. Vision grossly intact. Gaze aligned appropriately. Extraocular Movements: Extraocular movements intact. Conjunctiva/sclera: Conjunctivae normal. Pupils: Pupils are equal, round, and reactive to light. Neck: Thyroid: No thyroid mass, thyromegaly or thyroid tenderness. Vascular: Normal carotid pulses. No carotid bruit, hepatojugular reflux or JVD. Trachea: Trachea and phonation normal. No tracheal deviation. Cardiovascular: Rate and Rhythm: Normal rate and regular rhythm. Pulses: Normal pulses. Heart sounds: Normal heart sounds. No murmur heard. No friction rub. No gallop. Pulmonary: Effort: Pulmonary effort is normal. No tachypnea, bradypnea, accessory muscle usage, prolonged expiration, respiratory distress or retractions. Breath sounds: Normal breath sounds and air entry. No stridor, decreased air movement or transmitted upper airway sounds. No decreased breath sounds, wheezing, rhonchi or rales. Abdominal: General: Abdomen is flat. Bowel sounds are normal. There is no distension or abdominal bruit. Thereare no signs of injury. Palpations: Abdomen is soft. There is no mass or pulsatile mass. Tenderness: There is no abdominal tenderness. There is no guarding or rebound. Musculoskeletal: General: No tenderness or deformity. Normal range of motion. Cervical back: Full passive range of motion without pain, normal range of motion and neck supple. No edema, erythema, signs of trauma, rigidity, torticollis or crepitus. No pain with movement, spinous process tenderness or muscular tenderness. Normal range of motion. Right lower leg: No edema. Left lower leg: No edema. Lymphadenopathy: Cervical: No cervical adenopathy. Skin: General: Skin is warm and dry. Capillary Refill: Capillary refill takes less than 2 seconds. Findings: No erythema or rash. Neurological: General: No focal deficit present. Mental Status: He is alert and oriented to person, place, and time. Cranial Nerves: No cranial nerve deficit. Sensory: Sensation is intact. No sensory deficit. Motor: Motor function is intact. Coordination: Coordination is intact. Coordination normal. Gait: Gait is intact. Gait and tandem walk normal. Deep Tendon Reflexes: Reflexes are normal and symmetric. Psychiatric: Attention and Perception: Attention and perception normal. Mood and Affect: Affect normal. Mood is anxious. Speech: Speech normal. Behavior: Behavior normal. Behavior is cooperative. Thought Content: Thought content normal. Cognition and Memory: Cognition and memory normal. Judgment: Judgment normal. Filed Vitals: 05/26/25 1032 BP: 120/72 Pulse: 96 Resp: 20 Temp: 98.9 ??F (37.2 ??C) TempSrc: Skin SpO2: 99% Weight: 68.5 kg (151 lb 1.6 oz) Height: 1.816 m (5' 11.5) Physical Exam Respiratory: Clear to auscultation, no wheezing, rales, or rhonchi. Results Labs - Potassium: 2.8 in the ER - WBC: Normal Diagnoses/Impression: 1. Generalized anxiety disorder with panic attacks Chronic COMPREHENSIVE METABOLIC PANEL THYROID STIM HORMONE TSH THYROXINE, FREE (FT4) COLLECTION VENOUS BLOOD VENIPUNCTURE VITAMIN D 25 OH FOLIC ACID SERUM VITAMIN B-12 MAGNESIUM 2. Sensation, choking Chronic ALLERGENS FOOD 3. Gastroesophageal reflux disease, unspecified whether esophagitis present Chronic ALLERGENS FOOD 4. Eosinophilic esophagitis Chronic ALLERGENS FOOD 5. Adverse effect of drug, sequela Chronic Recommendations and Plan: 1. Generalized anxiety disorder with panic attacks - COMPREHENSIVE METABOLIC PANEL; Future - THYROID STIM HORMONE TSH; Future - THYROXINE, FREE (FT4); Future - COLLECTION VENOUS BLOOD VENIPUNCTURE - VITAMIN D 25 OH; Future - FOLIC ACID SERUM; Future - VITAMIN B-12; Future - MAGNESIUM; Future 2. Sensation, choking - ALLERGENS FOOD; Future 3. Gastroesophageal reflux disease, unspecified whether esophagitis present - ALLERGENS FOOD; Future 4. Eosinophilic esophagitis - ALLERGENS FOOD; Future 5. Adverse effect of drug, sequela Orders Placed This Encounter COLLECTION VENOUS BLOOD VENIPUNCTURE ALLERGENS FOOD COMPREHENSIVE METABOLIC PANEL THYROID STIM HORMONE TSH THYROXINE, FREE (FT4) VITAMIN D 25 OH FOLIC ACID SERUM VITAMIN B-12 MAGNESIUM EPINEPHrine 0.3 MG/0.3ML injection EOHILIA 2 MG/10ML Suspension Cannot display discharge medications since this is not an admission. Assessment & Plan 1. Eosinophilic esophagitis: - Advised to start budesonide as prescribed by his GI doctor - Order comprehensive panel for potassium levels and food allergy test. - Informed about risk of Payan's esophagus and throat cancer if his condition is left untreated. - Advised to avoid GERD-inducing foods; can consume Pedialyte and Gatorade. Declined steroid injection. 2. Anxiety: - Advised to start citalopram, can take at night to avoid drowsiness. Discussed potential side effects. - Reassured symptoms are not indicative of depression. - Check thyroid and vitamin levels. 3. GERD: - Continues acid reflux despite lansoprazole. He will continue this medication and continue famotidine as needed. - Advised to avoid GERD-inducing foods and eat regularly/avoid skipping meals. - Can continue Pedialyte and Gatorade, cautious with other fluids. - Advised to maintain follow-up with GI specialist as scheduled 4. Hypokalemia: - Potassium level 2.8 last week, likely due to diet. - Magnesium levels normal. - Consulting with dietitian, increasing potassium intake through diet and supplements. - Occasionally takes multivitamin. - We will recheck his levels today Follow-up: 06/09/[address] Advised to f/u with me in one month, sooner if needed. This document was created in part by using voice recognition software and was reviewed by the author. If errors are present, please bring them to your provider's attention. I personally spent a total of 55 minutes on the day of the encounter. This includes [id number] and zxi-lkfs-zb-face time I provided on the day of the encounter & excludes time spent performing separately reportable services. PCP: GLEN CARTER 05/26/2025 [1] Past Medical History: Diagnosis Date Anxiety GERD (gastroesophageal reflux disease) [2] Past Surgical History: Procedure Laterality Date APPENDECTOMY 2009 ESOPHAGOSCOPY / EGD 10/07/2018 esophagitis noted [3] Social History Socioeconomic History Marital status: Single Highest education level: High school graduate Tobacco Use Smoking status: Never Smokeless tobacco: Never Substance and Sexual Activity Alcohol use: No Drug use: No Sexual activity: Yes Partners: Female control/protection: Condom [4] Family History Problem Relation Name Age of Onset Heart Disease Father Fabio Pinto Cosigned by Maximiliano Steward MD at 05/26/2025 2:46 PM CDT documented in this encounter Plan of Treatment Upcoming Encounters Date Type Department Care Team (Late st Contact Info) Description 05/29/2025 2:20 PM CDT Allied Health/Nurse Visit [facility] Family & Internal Medicine [address] [address] Karen Sequeira FNP [address] [place] [address] Scheduled Orders Name Type Priority Associated Diagnoses Orde r Schedule ALLERGENS FOOD Lab Routine Sensation, choking Gastroesophageal reflux disease, unspecified whether esophagitis present Eosinophilic esophagitis Expected: 05/26/2025, Expires: 05/26/2026 COMPREHENSIVE METABOLIC PANEL Lab Routine Generalized anxiety disorder with panic attacks Expected: 05/26/2025, Expires: 05/26/2026 THYROID STIM HORMONE TSH Lab Routine Generalized anxiety disorder with panic attacks Expected: 05/26/2025, Expires: 05/26/2026 THYROXINE, FREE (FT4) Lab Routine Generalized anxiety disorder with panic attacks Expected: 05/26/2025, Expires: 05/26/2026 VITAMIN D 25 OH Lab Routine Generalized anxiety disorder with panic attacks Expected: 05/26/2025, Expires: 05/26/2026 FOLIC ACID SERUM Lab Routine Generalized anxiety disorder with panic attacks Expected: 05/26/2025, Expires: 05/26/2026 VITAMIN B-12 Lab Routine Generalized anxiety disorder with panic attacks Expected: 05/26/2025, Expires: 05/26/2026 MAGNESIUM Lab Routine Generalized anxiety disorder with panic attacks Expected: 05/26/2025, Expires: 05/26/2026 documented as of this encounter Procedures Procedure Name Priority Date/Time Associated Diagnosis Comments COLLECTION VENOUS BLOOD VENIPUNCTURE Routine 05/26/2025 11:17 AM CDT Generalized anxiety disorder with panic attacks documented in this encounter Visit Diagnoses Diagnosis Generalized anxiety disorder with panic attacks- Primary Sensation, choking Gastroesophageal reflux disease, unspecified whether esophagitis present Eosinophilic esophagitis Adverse effect of drug, sequela documented in this encounter Care Teams Truck And Transport Mechanic Relationship Specialty Start Date End Date Karen Sequeira FNP [address] [place] [address] PCP - General Nurse Practitioner Family 10/08/18 documented as of this encounter
--- OUTSIDE RECORDS SUMMARY | 2025-05-26 11:20 | XMS_ITS | Encounter Summary ---
Author Organization [facility] Address [address] [place] [address] Care Team Providers Care Restaurant Host/Hostess Name Role Phone Karen Sequeira Primary Care Provider [phone] Reason for Visit * Reason Comments ER F/U Navid Anxiety Weight Problem Encounter Details Date Type Department Care Team (Late st Contact Info) Description 05/26/2025 11:20 AM CDT Office Visit [facility] Family & Internal Medicine [address] [address] Karen Sequeira FNP [address] [place] [address] ER F/U (Navid); Anxiety; Weight Problem Social History Tobacco Use [...] AM CDT Legal Sex 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 He has been advised to avoid [...] the day of the encounter. This includes [id number] and cbr-cudl-nl-face time I provided on the day of [...] 05/29/2025 2:20 PM CDT Allied Health/Nurse Visit [facility] Family & Internal Medicine [address] [address] Karen Sequeira FNP [address] [place] [address] Scheduled Orders Name Type Priority Associated Diagnoses [...] sequela documented in this encounter Care Teams Restaurant Host/Hostess Relationship Specialty Start Date End Date Karen Sequeira FNP [address] [place] [address] PCP - General Nurse Practitioner Family 10/08/18 documented as of this encounter
[2025-05-26 14:37] VITALS: BP 142/88; PULSE 92; RESP 16; TEMP 36.6; O2SAT 100
--- OUTSIDE RECORDS SUMMARY | 2025-05-26 14:46 | XMS_ITS | Encounter Summary ---
Author Organization [facility] Address [address] [place] [address] Phone Care Team Providers Care Linen Room Attendant Name Role Phone Karen Sequeira NP Primary Care Provider [phone] Encounter Details Date Type Department Care Team (Late st Contact Info) Description 05/19/2025 Results Follow-Up [facility] Medicine Allergy and Immunology [address] [facility] [address] [place] [address] Ann Marie Huber MD [address] [place] [address] CBC with auto differential, IgE, Allergen Rat [...] on file 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
--- OUTSIDE RECORDS SUMMARY | 2025-05-26 14:46 | XMS_ITS | Encounter Summary ---
Author Organization 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 Gender Identity Male 05/26/2025 10:31 AM CDT Sexual Orientation Straight 10/08/2018 6: 21 PM TIRE MECHANIC documented as of this encounter Plan of Treatment Upcoming Encounters Date Type Department Care Team (Late st Contact Info) Description 05/29/2025 2:20 PM CDT Allied Health/Nurse Visit [facility] Group Family & Internal Medicine - [address] [place] [address] Karen Sequeira FNP [facility] [place] [address] documented as of this encounter Visit Diagnoses Diagnosis Generalized anxiety disorder with panic attacks- Primary documented in this encounter Care Teams Museum Guide Relationship Specialty Start Date End Date Karen Sequeira FNP [address] [place] [address] PCP - General Nurse Practitioner Family 10/08/18 documented as of this encounter
--- OUTSIDE RECORDS SUMMARY | 2025-05-26 14:46 | XMS_ITS | Encounter Summary ---
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 Gender Identity Male 05/26/2025 10:31 AM CDT Sexual Orientation Straight 10/08/2018 6: 21 PM COW RIDER documented as of this encounter Plan of Treatment Upcoming Encounters Date Type Department Care Team (Late st Contact Info) Description 05/29/2025 2:20 PM CDT Allied Health/Nurse Visit [facility] Medical Group Family & Internal Medicine [address] [address] Karen Sequeira FNP [address] [place] [address] documented as of this encounter Visit Diagnoses Not on filedocumented in this encounter Care Teams Analysis Internship Relationship Specialty Start Date End Date Karen Sequeira FNP [facility] [place], [place] [id number] PCP - General Nurse Practitioner Family 10/08/18 documented as of this encounter
--- OUTSIDE RECORDS SUMMARY | 2025-05-26 14:46 | XMS_ITS | Encounter Summary ---
Author Organization [facility] Address [address] [place] [address] Care Team Providers Care Licensed Loan Officer Name Role Phone Karen Sequeira Primary Care Provider [phone] Encounter Details Date Type Department Care Team (Late st Contact Info) Description 05/23/2025 [facility] [place] [facility] Medical Group Family & Internal Medicine [address] [place] [address] [address] 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 [place] [address] documented as of this encounter Visit Diagnoses Not on filedocumented in this encounter Care Teams Licensed Loan Officer Relationship Specialty Start Date End Date Karen Sequeiar FNP [address] [place] [address] PCP - General Nurse Practitioner Family 10/08/18 documented as of this encounter
--- OUTSIDE RECORDS SUMMARY | 2025-05-26 14:46 | XMS_ITS | Encounter Summary ---
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 Gender Identity Male 05/26/2025 10:31 AM CDT Sexual Orientation Straight 10/08/2018 6: 21 PM BURNISHING MACHINE OPERATOR documented as of this encounter Plan of Treatment Upcoming Encounters Date Type Department Care Team (Late st Contact Info) Description 05/29/2025 2:20 PM CDT Allied Health/Nurse Visit [facility] Family & Internal Medicine [address] [address] Karen Sequeira FNP [address] [place] [address] documented as of this encounter Visit Diagnoses Not on filedocumented in this encounter Care Teams Cleat Maker Relationship Specialty Start Date End Date Karen Sequeira FNP [address] [place] [address] PCP - General Nurse Practitioner Family 10/08/18 documented as of this encounter
--- OUTSIDE RECORDS SUMMARY | 2025-05-26 14:46 | XMS_ITS | Encounter Summary ---
Author Organization [facility] Address [address] [place] [address] Care Team Providers Care Technical Program Manager Name Role Phone Karen Sequeira GLEN Primary Care Provider [phone] Encounter Details Date Type Department Care Team (Latest Contact Info) Description 05/19/2025 Scan HEALTH INFO SRVCS Scanned, Doc Med [...] AM CDT Legal Sex Male 1:28 PM CIRCULATION MAN Gender Identity Male 05/26/2025 10:31 AM CDT Sexual Orientation Straight 10/08/2018 6: 21 PM CIRCULATION MAN documented as of this encounter Plan of Treatment Upcoming Encounters Date Type Department Care Team (Late st Contact Info) Description 05/29/2025 2:20 PM CDT Allied Health/Nurse Visit [facility] Medical [facility] Family & Internal Medicine [address] [address] Karen Sequeira FNP [address] [place] [address] documented as of this encounter Visit Diagnoses Not on filedocumented in this encounter Care Teams Technical Program Manager Relationship Specialty Start Date End Date Karen Sequeira FNP [facility] [place], [place] [id number] PCP - General Nurse Practitioner Family 10/08/18 documented as of this encounter
--- OUTSIDE RECORDS SUMMARY | 2025-05-26 14:46 | XMS_ITS | Clinical Summary ---
Author Organization [facility] Address [address] [place] [address] Care Team Providers Care Planning Consultant Name Role Phone Karen Sequeira NP Primary Care Provider [phone] Allergies Active Allergy Reactions Criticality Noted Date [...] in each nostril as directed 30 mL 05/06/20 Active Active Problems Problem Noted Date Diagnosed Date Drug reaction 03/09/2025 Assessment & Plan (05/26/2025 2:17 AM CDT): He experienced a suspected allergic reaction to Dupixent following the first dose, characterized by throat swelling and dysphagia within 3-4 minutes post- injection. There was no anaphylaxis or severe symptoms.The reaction may be due to preservatives in the injection rather than Dupixent itself. Anxiety may have contributed to the symptoms. Dupixent will be avoided until wheel cutter evaluation, as it is highly effective for eosinophilic esophagitis, making it important to determine true allergy status for long-term management. The possibility of using a vial and needle injection was discussed, but it contains similar preservatives. Refer to an wheel cutter at [facility] for evaluation of the suspected allergic reaction to Dupixent. Avoid Dupixent until wheel cutter evaluation is complete. Assessment & Plan (03/09/2025 2:12 PM CDT): He experienced a suspected allergic reaction to Dupixent following the first dose, characterized by throat swelling and dysphagia within 3-4 minutes post- injection. There was no anaphylaxis or severe symptoms.The reaction may be due to preservatives in the injection rather than Dupixent itself. Anxiety may have contributed to the symptoms. Dupixent will be avoided until wheel cutter evaluation, as it is highly effective for eosinophilic esophagitis, making it important to determine true allergy status for long-term management. The possibility of using a vial and needle injection was discussed, but it contains similar preservatives. Refer to an wheel cutter at [facility] for evaluation of the suspected allergic reaction to Dupixent. Avoid Dupixent until wheel cutter evaluation is complete. Gastroesophageal reflux disease 10/28/2024 Assessment & Plan (05/26/2025 2:17 AM CDT): GERD with esophagitis is contributing to chest pain and decreased oral intake. Symptoms are managed with the current medication regimen. Assessment & Plan (03/09/2025 2:12 PM CDT): Restart lansoprazole 30 mg disintegrating tablet once daily, will need indefinite use and after he finishes Eohilia, it is likely he may need to go back on BID lansoprazole pending allergy workup and response to Eohilia. Food bolus obstruction of intestine 09/07/2024 Eosinophilic esophagitis 09/07/2024 Assessment & Plan (05/26/2025 2:17 AM CDT): Eosinophilic esophagitis is causing esophageal swelling, dysphagia, and discomfort. He is experiencing insurance issues for Budesonide (Eohilia) due to work-related complications, with no evidence of spontaneous resolution. Assist with insurance issues for Budesonide (Eohilia). Continue no wheat, no dairy diet. Complete and submit necessary paperwork for work accommodations. Refer to a seismic prospecting supervisor for dietary management. Assessment & Plan (03/09/2025 2:12 PM CDT): [...] for dietary consultation. Will refer to an wheel cutter. If possible, I would like to know [...] eosinophilia. Assessment & Plan (10/28/2024 4:50 PM TOE FORMER STITCHDOWNS): The endoscopic and biopsy findings are highly [...] Department Care Team Description 05/19/2025 Results Follow-Up [facility] Medicine Allergy and Immunology [address] [facility] [address] [place] [address] Ann Marie Huber MD CBC with auto differential, IgE, Allergen Rat mix (animal) IgE, Additional followed-up results: 27 05/08/2025 8:00 AM CDT Office Visit [facility] Gastroenterology at [address] [place] [address] Petar Monteiro NP Eosinophilic esophagitis (Primary Dx); Adverse effect of drug, subsequent encounter; Gastroesophageal reflux disease with esophagitis without hemorrhage 05/06/2025 2:00 PM CDT Lab [facility] at the [address] [phone] Eosinophilic esophagitis; Seasonal allergic rhinitis, unspecified trigger 05/06/2025 1:00 PM CDT Office Visit [facility] Allergy and Immunology [address] [facility] [address] [place] [address] Ann Marie Huber MD Eosinophilic esophagitis (Primary Dx); Adverse effect of drug, subsequent encounter 04/28/2025 8:00 AM CDT Office Visit [facility] Medicine Allergy and Immunology [address] [facility] [address] [place] [address] Ann Marie Huber MD Seasonal allergic rhinitis, unspecified trigger (Primary Dx); Eosinophilic esophagitis; Adverse effect of drug, initial encounter 03/09/2025 1:30 PM CDT Office Visit [facility] Medical [facility] Gastroenterology at [address] [place] [phone] Petar Monteiro NP Eosinophilic esophagitis (Primary Dx); Adverse effect of drug, initial encounter; Gastroesophageal reflux disease with esophagitis without hemorrhage 02/27/2025 Telephone [facility] Gastroenterology at [address] [place] [phone] Anahi Hewitt from Last 3 Months Surgical [...] on file Legal Sex Male 1:28 AM TOE FORMER STITCHDOWNS Gender Identity Not on file Sexual Orientation [...] Visit/Exam 18-64 01/17/2018 Covid-19 Vaccine (4 - 2024-2 6 season) 2025 10/10/2021, 11/30/2020, 10/28/2020 Influenza Vaccine (#1) 2025 [...] trigger ALLERGEN ELM (TREE) IGE Routine 05/06/20 25 1:30 PM CDT Seasonal allergic rhinitis, unspecified [...] Seasonal allergic rhinitis, unspecified trigger ALLERGEN SYCAMORE ISRAELI (TREE) IGE Routine 05/06/2025 1:30 PM CDT [...] Seasonal allergic rhinitis, unspecified trigger ALLERGEN PLANTAIN FAROESE (WEED) IGE Routine 05/06/2025 1:30 PM CDT [...] Seasonal allergic rhinitis, unspecified trigger ALLERGEN COCKROACH ISRAELI (INSECT) IGE Routine 05/06/2025 1:30 PM CDT [...] mix (animal) IgE (05/06/2025 1:30 PM CDT) [facility] Rat mix IgE <0.10 0.00 - 0.34 kUnits/L Blood 05/06/2025 1:30 PM CDT 05/06/2025 4:51 PM CDT Ann Marie Huber MD LAB BLOOD ORDERABLES Fin al Result Performing Organization Address [facility] Co de Phone Number [facility] Department [place] [address] * Allergen Mouse mix (animal) IgE (05/06/2025 1:30 PM CDT) [facility] Mouse mix IgE <0.10 0.00 - 0.34 kUnits/L Blood 05/06/2025 1:30 PM CDT 05/06/2025 4:51 PM CDT Ann Marie Huber MD LAB BLOOD ORDERABLES Fin al Result Performing Organization Address [facility] de Phone Number [facility] [place] [address] * Differential, auto (05/06/2025 1:30 PM CDT) [facility] Neutrophil abs 4.46 1.50 - 6.50 K/cumm Imm gran abs 0.01 0.00 - 0.10 K/cumm [facility] Lymphocyte abs 1.71 0.80 - 3.30 K/cumm [facility] Monocyte abs 0.44 0.20 - 0.80 K/cumm [facility] Eosinophil abs 0.18 0.00 - 0.50 K/cumm [facility] Basophil abs 0.06 0.00 - 0.10 K/cumm [facility] Neutrophil pct 65.1 % [facility] Comment: Interpretive Data Percent cell count reference ranges are not reported, since discordance with absolute values may lead to misinterpretation of CBC data. Current Interpretive Data was last revised on 2018. Imm gran pct 0.1 % [facility] Comment: Interpretive Data Percent cell count reference ranges are not reported, since discordance with absolute values may lead to misinterpretation of CBC data. Current Interpretive Data was last revised on 2018. Lymphocyte pct 24.9 % [facility] Comment: Interpretive Data Percent cell count reference ranges are not reported, since discordance with absolute values may lead to misinterpretation of CBC data. Current Interpretive Data was last revised on 2018. Monocyte pct 6.4 % [facility] Comment: Interpretive Data Percent cell count reference ranges are not reported, since discordance with absolute values may lead to misinterpretation of CBC data. Current Interpretive Data was last revised on 2018. Eosinophil pct 2.6 % [facility] Comment: Interpretive Data Percent cell count reference ranges are not reported, since discordance with absolute values may lead to misinterpretation of CBC data. Current Interpretive Data was last revised on 2018. Basophil pct 0.9 % [facility] Comment: Interpretive Data Percent cell count reference ranges are not reported, since discordance with absolute values may lead to misinterpretation of CBC data. Current Interpretive Data was last revised on 2018. Blood 05/06/2025 1:30 PM CDT 05/06/2025 4:51 PM CDT Ann Marie Huber MD LAB BLOOD ORDERABLES Fin al Result [facility] Department [place] [address] * Allergen Penicillium chrysogenum (mold) IgE (05/06/2025 1:30 PM CDT) Penicillium chrysogenum IgE <0.10 0.00 - 0.34 kUnits/L Blood 05/06/2025 1:30 PM CDT 05/06/2025 4:51 PM CDT Ann Marie Huber MD LAB BLOOD ORDERABLES Fin al Result Performing Organization Address [facility] de Phone Number [facility] [place] [address] * Allergen Sour Lake (tree) IgE (05/06/2025 1:30 PM CDT) Pathologist [facility] S[place] IgE <0.10 0.00 - 0.34 kUnits/L Blood 05/06/2025 1:30 PM CDT 05/06/2025 4:51 PM CDT Ann Marie Huber MD LAB BLOOD ORDERABLES Fin al Result Performing Organization Address [facility] de Phone Number [facility] [place] [address] * Allergen Mountain juniper (tree) IgE (05/06/2025 1:30 PM CDT) Pathologist [facility] Mountain juniper IgE <0.10 0.00 - 0.34 kUnits/L Blood 05/06/2025 1:30 PM CDT 05/06/2025 4:51 PM CDT Ann Marie Huber MD LAB BLOOD ORDERABLES Fin al Result Performing Organization Address [facility] Co de Phone Number [facility] [place] [address] * CBC with auto differential (05/06/2025 1:30 PM CDT) [facility] WBC 6.86 3.80 - 9.90 K/cumm [...] ORDERABLES Fin al Result Performing Organization Address [facility] de Phone Number [facility] Department [place] [address] * Allergen Bermuda grass (grass) IgE (05/06/2025 1:30 PM CDT) Bermuda grass IgE <0.10 0.00 - 0.34 kUnits/L Blood 05/06/2025 1:30 PM CDT 05/06/2025 4:51 PM CDT Ann Marie Huber MD LAB BLOOD ORDERABLES Fin al Result Performing Organization Address City/[facility]/ZIP Co de Phone Number [facility] Department [place] [address] * Allergen Plantain romanian (weed) IgE (05/06/2025 1:30 PM CDT) Plantain romanian IgE <0.10 0.00 - 0.34 kUnits/L Blood 05/06/2025 1:30 PM CDT 05/06/2025 4:51 PM CDT Ann Marie Huber MD LAB BLOOD ORDERABLES Fin al Result Performing Organization Address [facility] de Phone Number [facility] [place] [address] * Allergen Elm (tree) IgE (05/06/2025 1:30 PM CDT) Elm IgE <0.10 0.00 - 0.34 kUnits/L Blood 05/06/2025 1:30 PM CDT 05/06/2025 4:51 PM CDT Ann Marie Huber MD LAB BLOOD ORDERABLES Fin al Result Performing Organization Address [facility] de Phone Number [facility] Department [place] [address] * Allergen Cladosporium herbarum (mold) IgE (05/06/2025 1:30 PM CDT) Cladosporium herbarum IgE <0.10 0.00 - 0.34 kUnits/L Blood 05/06/2025 1:30 PM CDT 05/06/2025 4:51 PM CDT Ann Marie Huber MD LAB BLOOD ORDERABLES Fin al Result Performing Organization Address [facility] de Phone Number [facility] Department [place] [address] * Allergen Birch common silver (tree) IgE (05/06/2025 1:30 PM CDT) Birch common silver IgE <0.10 0.00 - 0.34 kUnits/L Blood 05/06/2025 1:30 PM CDT 05/06/2025 4:51 PM CDT Ann Marie Huber MD LAB BLOOD ORDERABLES Fin al Result Performing Organization Address [facility] de Phone Number [facility] [place] [address] * Allergen Alternaria tenuis (mold) IgE (05/06/2025 1:30 PM CDT) Alternaria tenius IgE <0.10 0.00 - 0.34 kUnits/L Blood 05/06/2025 1:30 PM CDT 05/06/2025 4:51 PM CDT Ann Marie Huber MD LAB BLOOD ORDERABLES Fin al Result Performing Organization Address [facility] Phone Number [facility] [place] [address] * Allergen Aspergillus fumigatus (mold) IgE (05/06/2025 1:30 PM CDT) Aspergillus fumigatus IgE <0.10 0.00 - 0.34 kUnits/L Blood 05/06/2025 1:30 PM CDT 05/06/2025 4:51 PM CDT Ann Marie Huber MD LAB BLOOD ORDERABLES Fin al Result Performing Organization Address [facility] Phone Number [facility] [place] [address] * Allergen Dermatophagoides pteronyssinus (insect) IgE (05/06/2025 1:30 PM CDT) Dermatophyton pteronyssinus IgE <0.10 0.00 - 0.34 kUnits/L Blood 05/06/2025 1:30 PM CDT 05/06/2025 4:51 PM CDT Ann Marie Huber MD LAB BLOOD ORDERABLES Fin al Result Performing Organization Address [facility]/ZIP Co de Phone Number [facility] [place] [address] * Allergen Dermatophagoides farniae (insect) IgE (05/06/2025 1:30 PM CDT) Dermatophyton farinae IgE <0.10 0.00 - 0.34 kUnits/L Blood 05/06/2025 1:30 PM CDT 05/06/2025 4:51 PM CDT Ann Marie Huber MD LAB BLOOD ORDERABLES Fin al Result Performing Organization Address [facility] de Phone Number [facility] [place] [address] * Allergen Epithelia/dander dog (animal) IgE (05/06/2025 1:30 PM CDT) Dog dander IgE <0.10 0.00 - 0.34 kUnits/L Blood 05/06/2025 1:30 PM CDT 05/06/2025 4:51 PM CDT Ann Marie Huber MD LAB BLOOD ORDERABLES Fin al Result Performing Organization Address [facility] de Phone Number [facility] Department [place] [address] * Allergen Cockroach tristanian (insect) IgE (05/06/2025 1:30 PM CDT) Cockroach IgE <0.10 0.00 - 0.34 kUnits/L Blood 05/06/2025 1:30 PM CDT 05/06/2025 4:51 PM CDT Ann Marie Huber MD LAB BLOOD ORDERABLES Fin al Result Performing Organization Address [facility] Co de Phone Number [facility] Department [place] [address] * Allergen Epithelia/dander cat (animal) IgE (05/06/2025 1:30 PM CDT) Cat dander IgE <0.10 0.00 - 0.34 kUnits/L Blood 05/06/2025 1:30 PM CDT 05/06/2025 4:51 PM CDT Ann Marie Huber MD LAB BLOOD ORDERABLES Fin al Result Performing Organization Address [facility] [place] [address] * Allergen Ragweed short/common (weed) IgE (05/06/2025 1:30 PM CDT) Ragweed common IgE <0.10 0.00 - 0.34 kUnits/L Blood 05/06/2025 1:30 PM CDT 05/06/2025 4:51 PM CDT Ann Marie Huber MD LAB BLOOD ORDERABLES Fin al Result Performing Organization Address [facility] Co de Phone Number [facility] Department [place] [address] * Allergen Pigweed, rough (weed) IgE (05/06/2025 1:30 PM CDT) Pigweed rough IgE <0.10 0.00 - 0.34 kUnits/L Blood 05/06/2025 1:30 PM CDT 05/06/2025 4:51 PM CDT Ann Marie Huber MD LAB BLOOD ORDERABLES Fin al Result Performing Organization Address City/[facility] Co de Phone Number [facility] Department [place] [address] * Allergen Nettle (weed) IgE (05/06/2025 1:30 PM CDT) Nettle IgE <0.10 0.00 - 0.34 kUnits/L Blood 05/06/2025 1:30 PM CDT 05/06/2025 4:51 PM CDT Ann Marie Huber MD LAB BLOOD ORDERABLES Fin al Result Performing Organization Address [facility] [place] [place] [address] * Allergen Lincoln's quarter (weed) IgE (05/06/2025 1:30 PM CDT) Lincoln's quarters IgE <0.10 0.00 - 0.34 kUnits/L Blood 05/06/2025 1:30 PM CDT 05/06/2025 4:51 PM CDT Ann Marie Huber MD LAB BLOOD ORDERABLES Fin al Result Performing Organization Address [facility] Co de Phone Number [facility] [place] [address] * Allergen Homero grass (grass) IgE (05/06/2025 1:30 PM CDT) Homero grass IgE <0.10 0.00 - 0.34 kUnits/L Blood 05/06/2025 1:30 PM CDT 05/06/2025 4:51 PM CDT Ann Marie Huber MD LAB BLOOD ORDERABLES Fin al Result Performing Organization Address [facility] Co de Phone Number [facility] [place] [address] * Allergen Roge grass (grass) IgE (05/06/2025 1:30 PM CDT) Roge grass IgE <0.10 0.00 - 0.34 kUnits/L Blood 05/06/2025 1:30 PM CDT 05/06/2025 4:51 PM CDT Ann Marie Huber MD LAB BLOOD ORDERABLES Fin al Result Performing Organization Address [facility] Co de Phone Number [facility] Department [place] [address] * Allergen [place] (tree) IgE (05/06/2025 1:30 PM CDT) [place] (tree) IgE <0.10 0.00 - 0.34 kUnits/L Blood 05/06/2025 1:30 PM CDT 05/06/2025 4:51 PM CDT Ann Marie Huber MD LAB BLOOD ORDERABLES Fin al Result Performing Organization Address [facility] Co de Phone Number [facility] Department [place] [address] * Allergen [place] tristanian (tree) IgE (05/06/2025 1:30 PM CDT) [place] IgE <0.10 0.00 - 0.34 kUnits/L Blood 05/06/2025 1:30 PM CDT 05/06/2025 4:51 PM CDT Ann Marie Huber MD LAB BLOOD ORDERABLES Fin al Result Performing Organization Address City[facility] Co de Phone Number [facility] Department [place] [address] * Allergen Maple/Box elder (tree) IgE (05/06/2025 1:30 PM CDT) Maple/box elder IgE <0.10 0.00 - 0.34 kUnits/L Blood 05/06/2025 1:30 PM CDT 05/06/2025 4:51 PM CDT Ann Marie Huber MD LAB BLOOD ORDERABLES Fin al Result Performing Organization Address [facility] Co de Phone Number [facility] Department [place] [address] * Allergen Rubicon red (tree) IgE (05/06/2025 1:30 PM CDT) Rubicon IgE <0.10 0.00 - 0.34 kUnits/L Blood 05/06/2025 1:30 PM CDT 05/06/2025 4:51 PM CDT us Ann Marie Huber MD LAB BLOOD ORDERABLES Fin al Result Performing Organization Address [facility] de Phone Number [facility] [place] [address] * IgE (05/06/2025 1:30 PM CDT) IgE 36 <=100 IUnits/mL Blood 05/06/2025 1:30 PM CDT 05/06/2025 4:51 PM CDT Ann Marie Huber MD LAB BLOOD ORDERABLES Fin al Result Performing Organization Address [facility] de Phone Number [facility] [place] [address] * Allergy skin tests allergens, each (04/28/2025 7:48 AM CDT) us Ann Marie Huber MD IN CLINIC/BEDSIDE ZULEIKADaniela DEL ROSARIOCrystal Edited Result - Final from Last 3 Months Insurance ANTHEM ACCESS CHOICE ANTHEM ACCESS CHOICE Member Subscriber Plan / Payer (Ef fective 2022-Present) Name:Trevor Pinto Member ID:[id number] Relation to Subscriber:Self Name:Trevor Pinto Subscriber ID:[id number] Payer ID:[id number] (NAIC) Type:[employer] Address: [place] [address] Advance Directives For more information, please contact: [phone] * Full Code (Latest Code Status on File) Date Activated Date Inactivated Comments 01/26/2025 11:42 AM 01/26/2025 6:06 PM Care Teams Planning Consultant Relationship Specialty Start Date End Date Karen Sequeira NP [address] [place] [id number] PCP - General Nurse Practitioner 09/07/24
--- OUTSIDE RECORDS SUMMARY | 2025-05-26 14:46 | XMS_ITS | Clinical Summary ---
Author Organization [facility] Address [address] [place] [address] Care Team Providers Care Car Shagger Name Role Phone Karen Sequeira GLEN Primary Care Provider [phone] Allergies Active Allergy Reactions Criticality Noted Date Comments Dupilumab Other (see comment) Medium 03/09/2025 Swollen tonsils Difficulty swallowing following first lifetime administration. Without hives, hypotension. Medications famotidine-calci um carbonate-magnes ium hydroxide (PEPCID COMPLETE) [phone] MG Chew TabIndications:G astroesophageal reflux disease, unspecified whether esophagitis present,Sensatio n, choking Chew 1 tablet by mouth 2 (two) times daily as needed. 60 tablet 1 4 Active busPIRone (BUSPAR) 5 MG tabletIndication s:Generalized anxiety disorder with panic attacks Take 1 tablet (5 mg total) by mouth 3 (three) times daily as needed (anxiety). 90 tablet 1 4 Active lansoprazole (PREVACID) 3 MG/MLIndications :Eosinophilic esophagitis,Narinder roesophageal reflux disease, unspecified whether esophagitis present Take 10 mLs (30 mg total) by mouth 2 (two) times a day. 600 mL 1 4 Active citalopram (CELEXA) 10 MG tabletIndication s:Generalized anxiety disorder with panic attacks Take 1 tablet (10 mg total) by mouth daily. 90 tablet 1 5 Active Additional Information Patient not taking.Reason: Other (related to his job), Reported on 05/26/2025 EPINEPHrine 0.3 MG/0.3ML injection 0.3 mLs (0.3 mg total). Active EOHILIA 2 MG/10ML Suspension TAKE 2MG (ONE PACKET [10ML]) BY MOUTH TWICE A DAY Active Active Problems Problem Noted Date Diagnosed Date Adverse reaction to drug 03/09/2025 Eosinophilic esophagitis 09/07/2024 Food bolus obstruction of intestine ([facility]) 09/07/2024 Gastroesophageal reflux dise ase, unspecified whether esophagitis present 07/26/2024 Generalized anxiety disorder with panic attacks 07/26/2024 Sensation, choking 07/26/2024 Encounters Date Type Department Care Team Description 05/26/2025 11:20 AM CDT Office Visit [facility] Family & Internal [address] [address] Karen Sequeira FNP ER F/U (Navid); Anxiety; Weight Problem 05/26/2025 Travel 05/23/2025 Misc Documentation [address] [address] Karen Sequeira FNP 05/22/2025 Misc Documentation [facility] Internal [address] [address] Karen Sequeira FNP 05/19/2025 Scan [facility] Scanned, [facility] 05/17/2025 [facility] Scanned, [facility] 03/28/2025 Scan [facility] Scanned, [facility] Lab [...] AM CDT Legal 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 Gender Identity Male 05/26/2025 10:31 AM CDT Sexual Orientation Straight 10/08/2018 6: 21 PM OFFSET 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 Last Filed Vital Signs Vital Sign Reading [...] Mass Index 20.78 05/26/2025 10:32 AM CDT Plan of Treatment Upcoming Encounters Date Type Department Care Team (Late st Contact Info) Description 05/29/2025 2:20 PM CDT Allied Health/Nurse Visit [facility] Family & Internal Medicine - [address] [address] Karen Sequeira FNP [facility] [place] [address] Health Maintenance Due Date Last Done Comments Annual Physical 01/17/2003 HPV Vaccines (1 - Male 3-dos e series) 01/17/2015 Hepatitis C 01/17/2018 Hepatitis B Vaccines (1 of 3 - 19+ 3-dose series) 01/17/2019 PHQ-2 (Physician [place]) 09/24/2024 08/26/2024 COVID-19 Vaccine (4 - 2024-2 6 season) 2025 10/10/2021, 11/30/2020, 10/28/2020 DTaP, Tdap and Td Vaccines ( 2 [...] CDT Generalized anxiety disorder with panic attacks OUTSIDE LAB (SCAN ORDER) 03/28/2025 OUTSIDE LAB (SCAN ORDER) 03/28/2025 IMAGE GENERIC 03/28/2025 from Last 3 Months Results * OUTSIDE LAB (SCAN ORDER) (03/28/2025) Only the most recent of2 resultswithin the time period is included. 03/28/2025 [facility] Scanned SCANNING Final Resu lt * IMAGE GENERIC (03/28/2025) Anatomical Region Laterality Modality Other 03/28/2025 [employer] [facility] Scanned SCANNING Final Resu lt from Last 3 Months Insurance [facility] Care Teams Car Shagger Relationship Specialty Start Date End Date Karen Sequeira FNP [address] [place] [address] PCP - General Nurse Practitioner Family 10/08/18
--- OUTSIDE RECORDS SUMMARY | 2025-05-26 14:46 | XMS_ITS | Encounter Summary ---
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 Gender Identity Male 05/26/2025 10:31 AM CDT Sexual Orientation Straight 10/08/2018 6: 21 PM WEAVING MACHINE OPERATOR documented as of this encounter Plan of Treatment Upcoming Encounters Date Type Department Care Team (Late st Contact Info) Description 05/29/2025 2:20 PM CDT Allied Health/Nurse Visit [facility] Family & Internal Medicine - [place] [address] [place] [address] Karen Sequeira FNP [address] [place] [address] documented as of this encounter Visit Diagnoses Not on filedocumented in this encounter Additional Health Concerns Infection Onset Date Last Indicated Resolved Time COVID-19 Rule Out 12/27/2021 12/27/2021 12/28/2021 1:24 PM CDT documented as of this encounter Care Teams Forensic Investigator Relationship Specialty Start Date End Date Karen Seuqeira FNP [facility] [place] [address] PCP - General Nurse Practitioner Family 10/08/18 documented as of this encounter
--- NOTE | 2025-05-26 16:39 | ED.GENADULT ---
HPI - General Adult General Chief complaint: Unspecified <Mignon Lee PA-C - Last Filed: 05/26/25 16:46> Stated complaint: multiple complaints <Mignon Lee PA-C - Last Filed: 05/26/25 16:46> Time Seen by Provider: 05/26/25 16:39 <Mignon Lee PA-C - Last Filed: 05/26/25 16:46> Focused HPI: Patient is a 25 y/o male, with PMH of EoE, anxiety, who presents to the ED with multiple complaints. Patient reports having nausea since around 10 am this morning. Reports 2-3 episodes of emesis today. He saw his primary care doctor today as a follow up for his EoE and had outpatient labs performed, but does not have the results of this yet. States he went home after the appointment but then began feeling somewhat short of breath, fatigued, and states his legs feel sluggish. He is concerned his potassium is low. States he has been seen in our facility for low K before. Denies abdominal pain, diarrhea, constipation, fevers, cough. GENERAL: Well-appearing, well-nourished, and in no acute distress. HEAD: Normocephalic, atraumatic. CHEST: Clear to auscultation. ?No respiratory distress. HEART: Regular rate and rhythm.? NEURO: ?Alert and oriented x3. Patient screened in triage and initial orders placed.? ?Additional care and disposition to be based upon?diagnostic testing and treatment. <Mignon Lee PA-C - Last Filed: 05/26/25 16:46> Source: patient <Mignon Lee PA-C - Last Filed: 05/26/25 16:46> Mode of arrival: ambulatory <SANDRA Greene Last Filed: 05/26/25 16:46> Limitations: no limitations <SANDRA Greene Last Filed: 05/26/25 16:46> History of Present Illness HPI narrative: Agree with HPI <Rolf Loredo MD - Last Filed: 05/26/25 19:50> Related Data Home medications: Home Medications ?Medication ?Instructions ?Recorded ?Confirmed ?Last Taken ?Type azelastine 137 mcg (0.1 %) nasal intranasal 05/17/25 Unknown History spray <Mignon Lee PA-C - Last Filed: 05/26/25 16:46> Allergies/adverse reactions: Allergies Allergy/AdvReac Type Severity Reaction Status Date / Time dupilumab (From Dupixent Pen) Allergy Severe Difficulty Verified 05/21/25 01:23 Swallowing <Mignon Lee PA-C - Last Filed: 05/26/25 16:46> Review of Systems Review of Systems: Gen.: Denies fevers or chills Eyes: Denies eye pain or visual change ENT: Denies congestion Respiratory: Denies shortness of breath or cough CV: Denies chest pain or palpitations GI: As per HPI denies burning, urgency, frequency or hematuria Musculoskeletal: Denies back pain or muscle pain Neuro: Denies numbness, tingling, weakness or focal weakness Skin: Denies rash Except as documented, all other systems reviewed and negative <Rolf Loredo MD - Last Filed: 05/26/25 19:50> PMFSH Past Medical History Medical History: Medical History Asthma <Mignon Lee PA-C - Last Filed: 05/26/25 16:46> Surgical History Surgical History: Surgical History No pertinent past surgical history <Mignon Lee PA-C - Last Filed: 05/26/25 16:46> Social History Social History: Social History Smoking status: Never smoker <Mignon Lee PA-C - Last Filed: 05/26/25 16:46> Exam Narrative: APPEARANCE: No acute distress, nontoxic, resting in bed EYES: EOMI HEENT: Normocephalic, atraumatic, OMM RESPIRATORY: No respiratory distress Clear to auscultation bilaterally with no rhonchi wheezing or rales. CARDIOVASCULAR: Regular rate and rhythm without murmurs rubs or gallops. ABDOMINAL: Soft, nontender, nondistended, no rebound or guarding MUSCULOSKELETAl: Moves all extremities. No clubbing, cyanosis or edema. NEURO: Awake and alert. Following commands, speech normal, no focal deficits SKIN:: Warm, dry. No rashes lesions or abrasions PSYCHIATRIC: Normal affect/mood, <Rolf Loredo MD - Last Filed: 05/26/25 19:50> Course Vital Signs Vital signs: Vital Signs Temperature 97.9 F 05/26/25 14:37 Pulse Rate 92 05/26/25 14:37 Respiratory Rate 16 05/26/25 14:37 Blood Pressure 142/88 H 05/26/25 14:37 Pulse Oximetry 100 05/26/25 14:37 Oxygen Delivery Room Air 05/26/25 14:37 Temperature 98.4 F 05/26/25 18:57 Pulse Rate 78 05/26/25 18:57 Respiratory Rate 16 05/26/25 18:57 Blood Pressure 116/72 05/26/25 18:57 Pulse Oximetry 99 05/26/25 18:57 Oxygen Delivery Room Air 05/26/25 14:37 <Mignon Lee PA-C - Last Filed: 05/26/25 16:46> Vital Signs Temperature 97.9 F 05/26/25 14:37 Pulse Rate 92 05/26/25 14:37 Respiratory Rate 16 05/26/25 14:37 Blood Pressure 142/88 H 05/26/25 14:37 Pulse Oximetry 100 05/26/25 14:37 Oxygen Delivery Room Air 05/26/25 14:37 Temperature 98.4 F 05/26/25 18:57 Pulse Rate 78 05/26/25 18:57 Respiratory Rate 16 05/26/25 18:57 Blood Pressure 116/72 05/26/25 18:57 Pulse Oximetry 99 05/26/25 18:57 Oxygen Delivery Room Air 05/26/25 14:37 <Rolf Loredo MD - Last Filed: 05/26/25 19:50> Medical Decision Making MDM Narrative Medical decision making narrative: MSE by JOSÉ in triage. <Mignon Lee PA-C - Last Filed: 05/26/25 16:46> MSE by JOSÉ in triage. 25-year-old male who presented to the ED for fatigue, nausea, vomiting. On initial evaluation, patient is no acute distress to me from Community stable. Patient has large concern was potential hypokalemia which he had been treated for multiple times. Labs were significant for mild hyponatremia and normal potassium. He reported that his nausea was better. He is followed extensively by GI, his PCP, and dietitian for his eosinophilic esophagitis. Patient deeper ear discharges this time. He was advised to continue follow-up with these specialists. Patient and grandmother were agreeable to this plan. Given strict return precautions. <Rolf Loredo MD - Last Filed: 05/26/25 19:50> Differential Diagnosis Differential Diagnosis: eosinophilic esophagitis, electrolyte abnormality, gastritis, anxiety <Rolf Loredo MD - Last Filed: 05/26/25 19:50> Medical Records Medical records reviewed: Yes I reviewed the external patient's medical records. <Rolf Loredo MD - Last Filed: 05/26/25 19:50> Vital Signs Vital Signs: Vital Signs Temperature 97.9 F 05/26/25 14:37 Pulse Rate 92 05/26/25 14:37 Respiratory Rate 16 05/26/25 14:37 Blood Pressure 142/88 H 05/26/25 14:37 Pulse Oximetry 100 05/26/25 14:37 Oxygen Delivery Room Air 05/26/25 14:37 Temperature 98.4 F 05/26/25 18:57 Pulse Rate 78 05/26/25 18:57 Respiratory Rate 16 05/26/25 18:57 Blood Pressure 116/72 05/26/25 18:57 Pulse Oximetry 99 05/26/25 18:57 Oxygen Delivery Room Air 05/26/25 14:37 <Mignon Lee PA-C - Last Filed: 05/26/25 16:46> Vital Signs Temperature 97.9 F 05/26/25 14:37 Pulse Rate 92 05/26/25 14:37 Respiratory Rate 16 05/26/25 14:37 Blood Pressure 142/88 H 05/26/25 14:37 Pulse Oximetry 100 05/26/25 14:37 Oxygen Delivery Room Air 05/26/25 14:37 Temperature 98.4 F 05/26/25 18:57 Pulse Rate 78 05/26/25 18:57 Respiratory Rate 16 05/26/25 18:57 Blood Pressure 116/72 05/26/25 18:57 Pulse Oximetry 99 05/26/25 18:57 Oxygen Delivery Room Air 05/26/25 14:37 <Rolf Loredo MD - Last Filed: 05/26/25 19:50> Lab Data Lab results reviewed: Yes I reviewed the patient's lab results. <Rolf Loredo MD - Last Filed: 05/26/25 19:50> Result diagrams: 05/26/25 18:37 05/26/25 18:37 <Mignon Lee PA-C - Last Filed: 05/26/25 16:46> Labs: Lab Results 05/26/25 Range/Units 18:37 WBC 5.8 (4.5-10.0) K/mm3 RBC 4.73 (4.6-6.20) M/mm3 Hgb 13.5 L (14.0-18.0) g/dL Hct 38.5 L (42.0-52.0) % MCV 81.4 (80-100) fl MCH 28.5 (26-34) pg MCHC 35.1 (32-36) g/dl RDW 11.6 (11.5-14.5) % Plt Count 245 (150-375) k/mm3 MPV 9.3 (7.4-10.4) fl Immature Gran % (Auto) 0.2 (0-0.5) % Neut % (Auto) 59.6 (45.5-73.1) % Lymph % (Auto) 30.3 (18.3-44.2) % Merrick % (Auto) 8.0 (2.6-8.5) % Eos % (Auto) 1.2 (0-4.4) % Baso % (Auto) 0.7 (0.2-1.2) % Lymph # (Auto) 1.75 (0.9-3.2) K/mm3 Merrick # (Auto) 0.5 (0.1-0.6) K/mm3 Eos # (Auto) 0.1 (0-0.3) K/mm3 Baso # (Auto) 0.0 (0.0-0.1) K/mm3 Abs Immat Gran (auto) 0.01 (0.00-0.031) K/mm3 Absolute Neuts (auto) 3.5 (1.3-6.7) K/mm3 Absolute Nucleated RBC 0.000 (0.0-0.012) K/mm3 Nucleated RBC % 0.0 (0.0-0.2) % Sodium 130 L (137-145) mmol/L Potassium 4.0 (3.4-5.0) mmol/L Chloride 94 L (98-107) mmol/L Carbon Dioxide 27 (22-30) mmol/L Anion Gap 9 (4-12) mmol/L BUN 3 L (9-20) mg/dL Creatinine 0.68 L (0.7-1.3) mg/dL Estim Creat Clear Calc Not Reportable Estimated GFR > 60 (59 - ) Glucose 95 (65-110) mg/dL Calcium 9.5 (8.4-10.2) mg/dL Magnesium 1.9 (1.6-2.3) mg/dL Total Bilirubin 0.9 (0.2-1.3) mg/dL AST 21 (17-59) U/L ALT 16 (6-50) U/L Alkaline Phosphatase 50 (38-126) U/L Total Protein 7.8 (6.3-8.2) g/dL Albumin 4.5 (3.5-5.1) g/dL <Mignon Lee PA-C - Last Filed: 05/26/25 16:46> Lab Results 05/26/25 Range/Units 18:37 WBC 5.8 (4.5-10.0) K/mm3 RBC 4.73 (4.6-6.20) M/mm3 Hgb 13.5 L (14.0-18.0) g/dL Hct 38.5 L (42.0-52.0) % MCV 81.4 (80-100) fl MCH 28.5 (26-34) pg MCHC 35.1 (32-36) g/dl RDW 11.6 (11.5-14.5) % Plt Count 245 (150-375) k/mm3 MPV 9.3 (7.4-10.4) fl Immature Gran % (Auto) 0.2 (0-0.5) % Neut % (Auto) 59.6 (45.5-73.1) % Lymph % (Auto) 30.3 (18.3-44.2) % Merrick % (Auto) 8.0 (2.6-8.5) % Eos % (Auto) 1.2 (0-4.4) % Baso % (Auto) 0.7 (0.2-1.2) % Lymph # (Auto) 1.75 (0.9-3.2) K/mm3 Merrick # (Auto) 0.5 (0.1-0.6) K/mm3 Eos # (Auto) 0.1 (0-0.3) K/mm3 Baso # (Auto) 0.0 (0.0-0.1) K/mm3 Abs Immat Gran (auto) 0.01 (0.00-0.031) K/mm3 Absolute Neuts (auto) 3.5 (1.3-6.7) K/mm3 Absolute Nucleated RBC 0.000 (0.0-0.012) K/mm3 Nucleated RBC % 0.0 (0.0-0.2) % Sodium 130 L (137-145) mmol/L Potassium 4.0 (3.4-5.0) mmol/L Chloride 94 L (98-107) mmol/L Carbon Dioxide 27 (22-30) mmol/L Anion Gap 9 (4-12) mmol/L BUN 3 L (9-20) mg/dL Creatinine 0.68 L (0.7-1.3) mg/dL Estim Creat Clear Calc Not Reportable Estimated GFR > 60 (59 - ) Glucose 95 (65-110) mg/dL Calcium 9.5 (8.4-10.2) mg/dL Magnesium 1.9 (1.6-2.3) mg/dL Total Bilirubin 0.9 (0.2-1.3) mg/dL AST 21 (17-59) U/L ALT 16 (6-50) U/L Alkaline Phosphatase 50 (38-126) U/L Total Protein 7.8 (6.3-8.2) g/dL Albumin 4.5 (3.5-5.1) g/dL <Rolf Loredo MD - Last Filed: 05/26/25 19:50> Imaging Data Radiologist's impression: Impressions Chest X-Ray 05/26/25 17:08 IMPRESSION: 1: NO ACUTE CARDIOPULMONARY DISEASE. <Rolf Loredo MD - Last Filed: 05/26/25 19:50> Discharge Plan Discharge Clinical Impression: EE (eosinophilic esophagitis), Acute hyponatremia Gastritis Qualifiers: Gastritis type: other gastritis Chronicity: acute Gastritis bleeding: without bleeding Qualified Code(s): K29.00 - Acute gastritis without bleeding <Mignon Lee PA-C - Last Filed: 05/26/25 16:46> Patient Disposition: Home <SANDRA Greene Last Filed: 05/26/25 16:46> Condition: Stable <SANDRA Greene Last Filed: 05/26/25 16:46> Instructions: Antibiotic Form, Gastritis (ED) <SANDRA Greene Last Filed: 05/26/25 16:46> Additional Instructions: continue to follow with your primary care doctor and your photocopier technician as scheduled. Return to ED for any new or worsening symptoms. <Mignon eLe PA-C - Last Filed: 05/26/25 16:46> Patient Language: Kenyan <SANDRA Greene Last Filed: 05/26/25 16:46> Prescriptions: No Action epinephrine [EpiPen 2-Eliud] 0.3 mg/0.3 mL auto-injector 0.3 mg IM Q5-15M PRN (Reason: anaphylaxis) Qty: 2 0RF Rx Instructions: do not exceed 3 doses per episode prednisolone 15 mg/5 mL solution 60 mg PO QAM 4 Days Qty: 80 0RF diphenhydramine HCl [Allergy Relief(diphenhydramin)] 12.5 mg/5 mL liquid 25 mg PO Q6H PRN (Reason: allergic reaction) Qty: 473 0RF Pepcid Complete 10-800-165 mg tablet,chewable 1 tablet PO BID PRN (Reason: allergic symptoms) Qty: 20 0RF azelastine 137 mcg (0.1 %) spray,non-aerosol INTRANASAL hydroxyzine pamoate 50 mg capsule 50 mg PO TID PRN (Reason: anxiety) Qty: 20 0RF magnesium oxide 500 mg capsule 500 mg PO DAILY 7 Days Qty: 7 0RF potassium chloride 20 mEq/15 mL liquid 20 meq PO BID 7 Days Qty: 210 0RF aluminum-magnesium hydroxide 200-200 mg/5 mL suspension 30 ml PO DAILY 10 Days Qty: 300 0RF potassium chloride 20 mEq/15 mL liquid 20 meq PO BID 7 Days Qty: 210 0RF <Mignon Lee PA-C - Last Filed: 05/26/25 16:46> Follow-up/Referrals: KATE,KEYONNA ROBLEDO [Primary Care Provider] <Mignon Lee PA-C - Last Filed: 05/26/25 16:46>
[2025-05-26 18:42] LABS: Hematocrit 38.5 % (42.0-52.0); Hemoglobin 13.5 g/dL (14.0-18.0); Immature Granulocyte Percent A 0.2 % (0-0.5); Lymphocytes Absolute Auto 1.75 K/mm3 (0.9-3.2); Mean Corpuscular HGB Conc 35.1 g/dl (32-36); Mean Corpuscular Hemoglobin 28.5 pg (26-34); Mean Corpuscular Volume 81.4 fl (80-100); Nucleated Red Blood Cells Absolute Auto 0.000 K/mm3 (0.0-0.012); Nucleated Red Blood Cells Perc 0.0 % (0.0-0.2); Platelet Count Result 245 k/mm3 (150-375); Red Blood Count 4.73 M/mm3 (4.6-6.20); White Blood Count 5.8 K/mm3 (4.5-10.0)
[2025-05-26 18:57] VITALS: BP 116/72; PULSE 78; RESP 16; TEMP 36.9; O2SAT 99
[2025-05-26 19:06] LABS: Alanine Aminotransferase 16 U/L (6-50); Albumin Level 4.5 g/dL (3.5-5.1); Alkaline Phosphatase 50 U/L (38-126); Anion Gap 9 mmol/L (4-12); Aspartate Amino Transferase 21 U/L (17-59); Bilirubin,Total 0.9 mg/dL (0.2-1.3); Blood Urea Nitrogen 3 mg/dL (9-20); Calcium 9.5 mg/dL (8.4-10.2); Carbon Dioxide 27 mmol/L (22-30); Chloride 94 mmol/L (98-107); Estimated Glomerular Filt Rate > 60; Glucose 95 mg/dL (65-110); Magnesium 1.9 mg/dL (1.6-2.3); Potassium 4.0 mmol/L (3.4-5.0); Sodium 130 mmol/L (137-145); Total Protein 7.8 g/dL (6.3-8.2)
--- OUTSIDE RECORDS SUMMARY | 2025-05-26 19:20 | XMS_ITS | Encounter Summary ---
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 Gender Identity Male 05/26/2025 10:31 AM CDT Sexual Orientation Straight 10/08/2018 6: 21 PM CUTTER AND PASTER PRESS CLIPPINGS documented as of this encounter Plan of Treatment Upcoming Encounters Date Type Department Care Team (Late st Contact Info) Description 05/29/2025 2:20 PM CDT Allied Health/Nurse Visit [facility] Family & Internal Medicine [address] [address] Karen Sequeira FNP [address] [place] [address] documented as of this encounter Visit Diagnoses Not on filedocumented in this encounter Care Teams Stock Taker Relationship Specialty Start Date End Date Karen Sequeira FNP [facility] [place], [place] [id number] PCP - General Nurse Practitioner Family 10/08/18 documented as of this encounter
--- OUTSIDE RECORDS SUMMARY | 2025-05-26 19:20 | XMS_ITS | Encounter Summary ---
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 Gender Identity Male 05/26/2025 10:31 AM CDT Sexual Orientation Straight 10/08/2018 6: 21 PM VERTICA ARCHITECT documented as of this encounter Plan of Treatment Upcoming Encounters Date Type Department Care Team (Late st Contact Info) Description 05/29/2025 2:20 PM CDT Allied Health/Nurse Visit [facility] Group Family & Internal Medicine - [phone] [place] [address] Karen Sequeira FNP [facility] [place] [address] documented as of this encounter Visit Diagnoses Diagnosis Generalized anxiety disorder with panic attacks- Primary documented in this encounter Care Teams Vegetable Tester Relationship Specialty Start Date End Date Karen Sequeira FNP [address] [place] [address] PCP - General Nurse Practitioner Family 10/08/18 documented as of this encounter
--- OUTSIDE RECORDS SUMMARY | 2025-05-26 19:20 | XMS_ITS | Clinical Summary ---
Author Organization [facility] Address [address] [place] [address] Care Team Providers Care Processing Associate Name Role Phone Karen Sequeira GLEN Primary Care Provider [phone] Allergies Active Allergy Reactions Criticality Noted Date [...] esophagitis 09/07/2024 Food bolus obstruction of intestine ([facility]) 09/07/2024 Gastroesophageal reflux dise ase, unspecified whether esophagitis present 07/26/2024 Generalized anxiety disorder with panic attacks 07/26/2024 Sensation, choking 07/26/2024 Encounters Date Type Department Care Team Description 05/26/2025 11:20 AM CDT Office Visit [facility] Family & Internal [address] [address] Karen Sequeira FNP ER F/U (Navid); Anxiety; Weight Problem 05/26/2025 Travel 05/23/2025 Misc Documentation [address] [address] Karen Sequeira FNP 05/22/2025 Misc Documentation [facility] Internal [address] [address] Karen Sequeira FNP 05/19/2025 Scan [facility] [...] AM CDT 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 Gender Identity Male 05/26/2025 10:31 AM CDT Sexual Orientation Straight 10/08/2018 6: 21 PM AMUSEMENT RIDE INSPECTOR Last Filed Vital Signs Vital Sign Reading [...] 05/29/2025 2:20 PM CDT Allied Health/Nurse Visit [facility] Family & Internal Medicine - [address] [address] Karen Sequeira FNP [facility] [place] [address] Health Maintenance Due Date Last Done Comments Annual Physical 01/17/2003 HPV Vaccines (1 - Male 3-dos e series) 01/17/2015 Hepatitis C 01/17/2018 Hepatitis B Vaccines (1 of 3 - 19+ 3-dose series) 01/17/2019 PHQ-2 (Physician [place]) 09/24/2024 08/26/2024 COVID-19 Vaccine (4 - 2024-2 [...] resultswithin the time period is included. 03/28/2025 [facility] Scanned SCANNING Final Resu lt * IMAGE GENERIC (03/28/2025) Anatomical Region Laterality Modality Other 03/28/2025 [facility] Scanned SCANNING Final Resu lt from Last 3 Months Insurance [facility] Care Teams Processing Associate Relationship Specialty Start Date End Date Karen Sequeira FNP [address] [place] [address] PCP - General Nurse Practitioner Family 10/08/18
--- OUTSIDE RECORDS SUMMARY | 2025-05-26 19:20 | XMS_ITS | Encounter Summary ---
Author Organization [facility] Address [address] [place] [address] Care Team Providers Care Assistant Clinical Director Name Role Phone Karen Sequeira Primary Care Provider Encounter Details Date Type Department Care Team (Late st Contact Info) Description 05/23/2025 [facility] Documentation [facility] Family & Internal Medicine [address] [place] [address] Karen Sequeira FNP [facility] [place], [place] [id number] Social History Tobacco Use Types Packs/Day Years [...] AM CDT 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 Gender Identity Male 05/26/2025 10:31 AM CDT Sexual Orientation Straight 10/08/2018 6: 21 PM CLAIMS SUPERVISOR documented as of this encounter Plan of Treatment Upcoming Encounters Date Type Department Care Team (Late st Contact Info) Description 05/29/2025 2:20 PM CDT Allied Health/Nurse Visit [facility] Family & Internal Medicine - [place] [address] [place] [address] Karen Sequeira FNP [facility] [place] [address] documented as of this encounter Visit Diagnoses Not on filedocumented in this encounter Care Teams Assistant Clinical Director Relationship Specialty Start Date End Date Karen Sequeira FNP [address] [place] [address] PCP - General Nurse Practitioner Family 10/08/18 documented as of this encounter
--- OUTSIDE RECORDS SUMMARY | 2025-05-26 19:20 | XMS_ITS | Encounter Summary ---
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 Gender Identity Male 05/26/2025 10:31 AM CDT Sexual Orientation Straight 10/08/2018 6: 21 PM FERRIS WHEEL OPERATOR documented as of this encounter Plan of Treatment Upcoming Encounters Date Type Department Care Team (Late st Contact Info) Description 05/29/2025 2:20 PM CDT Allied Health/Nurse Visit [facility] Medical [facility] Family & Internal Medicine - [place] [address] [place] [address] Karen Sequeira FNP [address] [place] [address] documented as of this encounter Visit Diagnoses Not on filedocumented in this encounter Additional Health Concerns Infection Onset Date Last Indicated Resolved Time COVID-19 Rule Out 12/27/2021 12/27/2021 12/28/2021 1:24 PM CDT documented as of this encounter Care Teams Transactional Attorney Relationship Specialty Start Date End Date Karen Sequeira FNP [facility] [place] [address] PCP - General Nurse Practitioner Family 10/08/18 documented as of this encounter
--- OUTSIDE RECORDS SUMMARY | 2025-05-26 19:20 | XMS_ITS | Clinical Summary ---
Author Organization [facility] Address [address] [place] [address] Care Team Providers Care Auto Job Estimator Name Role Phone Karen Sequeira NP Primary Care Provider [phone] Allergies Active Allergy Reactions Criticality Noted Date [...] the symptoms. Dupixent will be avoided until supervisor policy change clerks evaluation, as it is highly effective for eosinophilic esophagitis, making it important to determine true allergy status for long-term management. The possibility of using a vial and needle injection was discussed, but it contains similar preservatives. Refer to an supervisor policy change clerks at [facility] for evaluation of the suspected allergic reaction to Dupixent. Avoid Dupixent until supervisor policy change clerks evaluation is complete. Assessment & Plan (03/09/2025 [...] the symptoms. Dupixent will be avoided until supervisor policy change clerks evaluation, as it is highly effective for eosinophilic esophagitis, making it important to determine true allergy status for long-term management. The possibility of using a vial and needle injection was discussed, but it contains similar preservatives. Refer to an supervisor policy change clerks at [facility] for evaluation of the suspected allergic reaction to Dupixent. Avoid Dupixent until supervisor policy change clerks evaluation is complete. Gastroesophageal reflux disease 10/28/2024 [...] paperwork for work accommodations. Refer to a preformer impregnated fabrics for dietary management. Assessment & Plan (03/09/2025 [...] for dietary consultation. Will refer to an supervisor policy change clerks. If possible, I would like to know [...] eosinophilia. Assessment & Plan (10/28/2024 4:50 PM GENERAL INTERNAL MEDICINE DOCTOR): The endoscopic and biopsy findings are highly [...] Department Care Team Description 05/19/2025 Results Follow-Up [facility] Medicine Allergy and Immunology [address] [facility] [address] [place] [address] Ann Marie Huber MD CBC with auto differential, IgE, Allergen Rat mix (animal) IgE, Additional followed-up results: 27 05/08/2025 8:00 AM CDT Office Visit [facility] Medical Group Gastroenterology at [address] [place] [address] Petar Monteiro NP Eosinophilic esophagitis (Primary Dx); Adverse effect of drug, subsequent encounter; Gastroesophageal reflux disease with esophagitis without hemorrhage 05/06/2025 2:00 PM CDT Lab [facility] at the [address] [phone] Eosinophilic esophagitis; Seasonal allergic rhinitis, unspecified trigger 05/06/2025 1:00 PM CDT Office Visit [facility] Allergy and Immunology [address] [facility] [address] [place] [address] Ann Marie Huber MD Eosinophilic esophagitis (Primary Dx); Adverse effect of drug, subsequent encounter 04/28/2025 8:00 AM CDT Office Visit [facility] Medicine Allergy and Immunology [address] [facility] [address] [place] [address] Ann Marie Huber MD Seasonal allergic rhinitis, unspecified trigger (Primary Dx); Eosinophilic esophagitis; Adverse effect of drug, initial encounter 03/09/2025 1:30 PM CDT Office Visit [facility] Medical Group Gastroenterology at [address] [place] [phone] Petar Monteiro NP Eosinophilic esophagitis (Primary Dx); Adverse effect of drug, initial encounter; Gastroesophageal reflux disease with esophagitis without hemorrhage 02/27/2025 Telephone [facility] Gastroenterology at [address] [place] [phone] Anahi Hewitt from Last 3 Months Surgical [...] on file Legal Sex Male 1:28 AM GENERAL INTERNAL MEDICINE DOCTOR Gender Identity Not on file Sexual Orientation [...] Seasonal allergic rhinitis, unspecified trigger ALLERGEN SYCAMORE MALAYSIAN (TREE) IGE Routine 05/06/2025 1:30 PM CDT [...] Seasonal allergic rhinitis, unspecified trigger ALLERGEN PLANTAIN MOHAWK (WEED) IGE Routine 05/06/2025 1:30 PM CDT [...] Seasonal allergic rhinitis, unspecified trigger ALLERGEN COCKROACH MALAYSIAN (INSECT) IGE Routine 05/06/2025 1:30 PM CDT [...] mix (animal) IgE (05/06/2025 1:30 PM CDT) [facility] Rat mix IgE <0.10 0.00 - 0.34 kUnits/L Blood 05/06/2025 1:30 PM CDT 05/06/2025 4:51 PM CDT Ann Marie Huber MD LAB BLOOD ORDERABLES Fin al Result Performing Organization Address [facility] Co de Phone Number [facility] [place] [address] * Allergen Mouse mix (animal) IgE (05/06/2025 1:30 PM CDT) [facility] Mouse mix IgE <0.10 0.00 - 0.34 kUnits/L Blood 05/06/2025 1:30 PM CDT 05/06/2025 4:51 PM CDT Ann Marie Huber MD LAB BLOOD ORDERABLES Fin al Result Performing Organization Address [facility] de Phone Number [facility] [place] [employer] [place] [address] * Differential, auto (05/06/2025 1:30 PM CDT) [facility] Neutrophil abs 4.46 1.50 - 6.50 K/cumm Imm gran abs 0.01 0.00 - 0.10 K/cumm [facility] Lymphocyte abs 1.71 0.80 - 3.30 K/cumm [facility] Monocyte abs 0.44 0.20 - 0.80 K/cumm [facility] Eosinophil abs 0.18 0.00 - 0.50 K/cumm [facility] Basophil abs 0.06 0.00 - 0.10 K/cumm [facility] Neutrophil pct 65.1 % [facility] Comment: Interpretive Data Percent cell count reference ranges are not reported, since discordance with absolute values may lead to misinterpretation of CBC data. Current Interpretive Data was last revised on 2018. Imm gran pct 0.1 % [facility] Comment: Interpretive Data Percent cell count reference ranges are not reported, since discordance with absolute values may lead to misinterpretation of CBC data. Current Interpretive Data was last revised on 2018. Lymphocyte pct 24.9 % [facility] Comment: Interpretive Data Percent cell count reference ranges are not reported, since discordance with absolute values may lead to misinterpretation of CBC data. Current Interpretive Data was last revised on 2018. Monocyte pct 6.4 % [facility] Comment: Interpretive Data Percent cell count reference ranges are not reported, since discordance with absolute values may lead to misinterpretation of CBC data. Current Interpretive Data was last revised on 2018. Eosinophil pct 2.6 % [facility] Comment: Interpretive Data Percent cell count reference ranges are not reported, since discordance with absolute values may lead to misinterpretation of CBC data. Current Interpretive Data was last revised on 2018. Basophil pct 0.9 % [facility] Comment: Interpretive Data Percent cell count reference ranges are not reported, since discordance with absolute values may lead to misinterpretation of CBC data. Current Interpretive Data was last revised on 2018. Blood 05/06/2025 1:30 PM CDT 05/06/2025 4:51 PM CDT Ann Marie Huber MD LAB BLOOD ORDERABLES Fin al Result [facility] [place] [address] * Allergen Penicillium chrysogenum (mold) IgE (05/06/2025 1:30 PM CDT) Penicillium chrysogenum IgE <0.10 0.00 - 0.34 kUnits/L Blood 05/06/2025 1:30 PM CDT 05/06/2025 4:51 PM CDT Ann Marie Huber MD LAB BLOOD ORDERABLES Fin al Result Performing Organization Address [facility] de Phone Number [facility] [place] [address] * Allergen [place] (tree) IgE (05/06/2025 1:30 PM CDT) Pathologist [facility] [place] IgE <0.10 0.00 - 0.34 kUnits/L Blood 05/06/2025 1:30 PM CDT 05/06/2025 4:51 PM CDT Ann Marie Huber MD LAB BLOOD ORDERABLES Fin al Result Performing Organization Address [facility] de Phone Number [facility] [place] [address] * Allergen Mountain juniper (tree) IgE (05/06/2025 1:30 PM CDT) Pathologist [facility] Mountain juniper IgE <0.10 0.00 - 0.34 kUnits/L Blood 05/06/2025 1:30 PM CDT 05/06/2025 4:51 PM CDT Ann Marie Huber MD LAB BLOOD ORDERABLES Fin al Result Performing Organization Address [facility] Co de Phone Number [facility] [place] [address] * CBC with auto differential (05/06/2025 1:30 PM CDT) [facility] WBC 6.86 3.80 - 9.90 K/cumm Hgb 14.0 13.0 - 17.5 g/dL [facility] Hct 42.3 38.9 - 50.3 % [facility] Plt 246 150 - 400 K/cumm [facility] MPV 10.8 9.1 - 12.3 fL [facility] RBC 4.95 4.30 - 5.80 M/cumm [facility] MCV 85.5 81.3 - 96.4 fL [facility] MCH 28.3 27.1 - 33.3 pg [facility] MCHC 33.1 32.3 - 35.7 g/dL [facility] RDW CV 12.0 11.1 - 14.9 % [facility] RDW SD 37.2 35.7 - 48.1 fL [facility] NRBC abs 0.00 0.00 - 0.01 K/cumm [facility] Blood 05/06/2025 1:30 PM CDT 05/06/2025 4:51 PM CDT Ann Marie Huber MD LAB BLOOD ORDERABLES Fin al Result Performing Organization Address [facility] de Phone Number [facility] Department [place] [address] * Allergen Bermuda grass (grass) IgE (05/06/2025 1:30 PM CDT) Bermuda grass IgE <0.10 0.00 - 0.34 kUnits/L Blood 05/06/2025 1:30 PM CDT 05/06/2025 4:51 PM CDT Ann Marie Huber MD LAB BLOOD ORDERABLES Fin al Result Performing Organization Address [facility]/ZIP Co de Phone Number [facility] Department [place] [employer] [place] [address] * Allergen Plantain hungarian (weed) IgE (05/06/2025 1:30 PM CDT) Plantain hungarian IgE <0.10 0.00 - 0.34 kUnits/L Blood 05/06/2025 1:30 PM CDT 05/06/2025 4:51 PM CDT Ann Marie Huber MD LAB BLOOD ORDERABLES Fin al Result Performing Organization Address [facility] de Phone Number [facility] [place] [address] * Allergen Elm (tree) IgE (05/06/2025 1:30 PM CDT) Elm IgE <0.10 0.00 - 0.34 kUnits/L Blood 05/06/2025 1:30 PM CDT 05/06/2025 4:51 PM CDT Ann Marie Huber MD LAB BLOOD ORDERABLES Fin al Result Performing Organization Address [facility] de Phone Number [facility] Department [place] [address] * Allergen Cladosporium herbarum (mold) IgE (05/06/2025 1:30 PM CDT) Cladosporium herbarum IgE <0.10 0.00 - 0.34 kUnits/L Blood 05/06/2025 1:30 PM CDT 05/06/2025 4:51 PM CDT Ann Marie Huber MD LAB BLOOD ORDERABLES Fin al Result Performing Organization Address [facility] de Phone Number [facility] Department [place] [address] * Allergen Birch common silver (tree) IgE (05/06/2025 1:30 PM CDT) Birch common silver IgE <0.10 0.00 - 0.34 kUnits/L Blood 05/06/2025 1:30 PM CDT 05/06/2025 4:51 PM CDT Ann Marie Huber MD LAB BLOOD ORDERABLES Fin al Result Performing Organization Address [facility] de Phone Number [facility] [place] [address] * Allergen Alternaria tenuis (mold) IgE (05/06/2025 1:30 PM CDT) Alternaria tenius IgE <0.10 0.00 - 0.34 kUnits/L Blood 05/06/2025 1:30 PM CDT 05/06/2025 4:51 PM CDT Ann Marie Huber MD LAB BLOOD ORDERABLES Fin al Result Performing Organization Address [facility] Phone Number [facility] [place] [address] * Allergen Aspergillus fumigatus (mold) IgE (05/06/2025 1:30 PM CDT) Aspergillus fumigatus IgE <0.10 0.00 - 0.34 kUnits/L Blood 05/06/2025 1:30 PM CDT 05/06/2025 4:51 PM CDT Ann Marie Huber MD LAB BLOOD ORDERABLES Fin al Result Performing Organization Address [facility] Phone Number [facility] [place] [address] * Allergen Dermatophagoides pteronyssinus (insect) IgE (05/06/2025 1:30 PM CDT) Dermatophyton pteronyssinus IgE <0.10 0.00 - 0.34 kUnits/L Blood 05/06/2025 1:30 PM CDT 05/06/2025 4:51 PM CDT Ann Marie Huber MD LAB BLOOD ORDERABLES Fin al Result Performing Organization Address [facility]/ZIP Co de Phone Number [facility] [place] [address] * Allergen Dermatophagoides farniae (insect) IgE (05/06/2025 1:30 PM CDT) Dermatophyton farinae IgE <0.10 0.00 - 0.34 kUnits/L Blood 05/06/2025 1:30 PM CDT 05/06/2025 4:51 PM CDT Ann Marie Huber MD LAB BLOOD ORDERABLES Fin al Result Performing Organization Address [facility] de Phone Number [facility] [place] [address] * Allergen Epithelia/dander dog (animal) IgE (05/06/2025 1:30 PM CDT) Dog dander IgE <0.10 0.00 - 0.34 kUnits/L Blood 05/06/2025 1:30 PM CDT 05/06/2025 4:51 PM CDT Ann Marie Huber MD LAB BLOOD ORDERABLES Fin al Result Performing Organization Address [facility] de Phone Number [facility] Department [place] [address] * Allergen Cockroach citizen of the dominican republic (insect) IgE (05/06/2025 1:30 PM CDT) Cockroach IgE <0.10 0.00 - 0.34 kUnits/L Blood 05/06/2025 1:30 PM CDT 05/06/2025 4:51 PM CDT Ann Marie Huber MD LAB BLOOD ORDERABLES Fin al Result Performing Organization Address [facility] Co de Phone Number [facility] Department [place] [address] * Allergen Epithelia/dander cat (animal) IgE (05/06/2025 1:30 PM CDT) Cat dander IgE <0.10 0.00 - 0.34 kUnits/L Blood 05/06/2025 1:30 PM CDT 05/06/2025 4:51 PM CDT Ann Marie Huber MD LAB BLOOD ORDERABLES Fin al Result Performing Organization Address [facility] [place] [address] * Allergen Ragweed short/common (weed) IgE (05/06/2025 1:30 PM CDT) Ragweed common IgE <0.10 0.00 - 0.34 kUnits/L Blood 05/06/2025 1:30 PM CDT 05/06/2025 4:51 PM CDT Ann Marie Huber MD LAB BLOOD ORDERABLES Fin al Result Performing Organization Address [facility] Co de Phone Number [facility] Department [place] [address] * Allergen Pigweed, rough (weed) IgE (05/06/2025 1:30 PM CDT) Pigweed rough IgE <0.10 0.00 - 0.34 kUnits/L Blood 05/06/2025 1:30 PM CDT 05/06/2025 4:51 PM CDT Ann Marie Huber MD LAB BLOOD ORDERABLES Fin al Result Performing Organization Address [facility] Co de Phone Number [facility] Department [place] [address] * Allergen Nettle (weed) IgE (05/06/2025 1:30 PM CDT) Nettle IgE <0.10 0.00 - 0.34 kUnits/L Blood 05/06/2025 1:30 PM CDT 05/06/2025 4:51 PM CDT Ann Marie Huber MD LAB BLOOD ORDERABLES Fin al Result Performing Organization Address [facility] [place] [address] * Allergen Lincoln's quarter (weed) IgE (05/06/2025 1:30 PM CDT) Lincoln's quarters IgE <0.10 0.00 - 0.34 kUnits/L Blood 05/06/2025 1:30 PM CDT 05/06/2025 4:51 PM CDT Ann Marie Huber MD LAB BLOOD ORDERABLES Fin al Result Performing Organization Address [facility] Co de Phone Number [facility] [employer] [place] [address] * Allergen Homero grass (grass) IgE (05/06/2025 1:30 PM CDT) Homero grass IgE <0.10 0.00 - 0.34 kUnits/L Blood 05/06/2025 1:30 PM CDT 05/06/2025 4:51 PM CDT Ann Marie Huber MD LAB BLOOD ORDERABLES Fin al Result Performing Organization Address [facility] Co de Phone Number [facility] [place] [address] * Allergen Roge grass (grass) IgE (05/06/2025 1:30 PM CDT) Roge grass IgE <0.10 0.00 - 0.34 kUnits/L Blood 05/06/2025 1:30 PM CDT 05/06/2025 4:51 PM CDT Ann Marie Huber MD LAB BLOOD ORDERABLES Fin al Result Performing Organization Address [facility] Co de Phone Number [facility] Department [place] [address] * Allergen [place] (tree) IgE (05/06/2025 1:30 PM CDT) [place] (tree) IgE <0.10 0.00 - 0.34 kUnits/L Blood 05/06/2025 1:30 PM CDT 05/06/2025 4:51 PM CDT Ann Marie Huber MD LAB BLOOD ORDERABLES Fin al Result Performing Organization Address [facility] Co de Phone Number [facility] Department [place] [employer] [place] [address] * Allergen [place] citizen of [place] dominican [place] (tree) IgE (05/06/2025 1:30 PM CDT) [place] IgE <0.10 0.00 - 0.34 kUnits/L Blood 05/06/2025 1:30 PM CDT 05/06/2025 4:51 PM CDT Ann Marie Huber MD LAB BLOOD ORDERABLES Fin al Result Performing Organization Address [facility] Co de Phone Number [facility] Department [place] [address] * Allergen Maple/Box elder (tree) IgE (05/06/2025 1:30 PM CDT) Maple/box elder IgE <0.10 0.00 - 0.34 kUnits/L Blood 05/06/2025 1:30 PM CDT 05/06/2025 4:51 PM CDT Ann Marie Huber MD LAB BLOOD ORDERABLES Fin al Result Performing Organization Address [facility] Co de Phone Number [facility] Department [place] [address] * Allergen Mora red (tree) IgE (05/06/2025 1:30 PM CDT) Mora IgE <0.10 0.00 - 0.34 kUnits/L Blood 05/06/2025 1:30 PM CDT 05/06/2025 4:51 PM CDT us Ann Marie Huber MD LAB BLOOD ORDERABLES Fin al Result Performing Organization Address [facility] de Phone Number [facility] [place] [employer] [place] [address] * IgE (05/06/2025 1:30 PM CDT) IgE 36 <=100 IUnits/mL Blood 05/06/2025 1:30 PM CDT 05/06/2025 4:51 PM CDT Ann Marie Huber MD LAB BLOOD ORDERABLES Fin al Result Performing Organization Address [facility] de Phone Number [facility] [employer] [place] [address] * Allergy skin tests allergens, each (04/28/2025 7:48 AM CDT) us Ann Marie Huber MD IN CLINIC/BEDSIDE ZULEIKADaniela DEL ROSARIOCrystal Edited Result - Final from Last 3 Months Insurance ANTHEM ACCESS CHOICE ANTHEM ACCESS CHOICE Advance Directives For more information, please contact: [phone] * Full Code (Latest Code Status on File) Date Activated Date Inactivated Comments 01/26/2025 11:42 AM 01/26/2025 6:06 PM Care Teams Auto Job Estimator Relationship Specialty Start Date End Date Karen Sequeira NP [address] [place] [address] PCP - General Nurse Practitioner 09/07/24
--- OUTSIDE RECORDS SUMMARY | 2025-05-26 19:20 | XMS_ITS | Encounter Summary ---
Author Organization [facility] Address [address] [place] [address] Care Team Providers Care Lawn Service Manager Name Role Phone Karen Sequeira GLEN Primary Care Provider [phone] Encounter Details Date Type Department Care Team [...] AM CDT Legal Sex Male 1:28 PM CLINIC SPECIALIST Gender Identity Male 05/26/2025 10:31 AM CDT Sexual Orientation Straight 10/08/2018 6: 21 PM CLINIC SPECIALIST documented as of this encounter Plan of Treatment Upcoming Encounters Date Type Department Care Team (Late st Contact Info) Description 05/29/2025 2:20 PM CDT Allied Health/Nurse Visit [facility] Medical Group Family & Internal Medicine [address] [address] Karen Sequeira FNP [address] [place] [address] documented as of this encounter Visit Diagnoses Not on filedocumented in this encounter Care Teams Lawn Service Manager Relationship Specialty Start Date End Date Karen Sequeira FNP [facility] [place], [place] [id number] PCP - General Nurse Practitioner Family 10/08/18 documented as of this encounter
--- OUTSIDE RECORDS SUMMARY | 2025-05-26 19:20 | XMS_ITS | Encounter Summary ---
Author Organization [facility] Address [address] [place] [address] Phone Care Team Providers Care Post Tronic Machine Operator Name Role Phone Karen Sequeira NP Primary Care Provider + [phone] Encounter Details Date Type Department Care Team (Late st Contact Info) Description 05/19/2025 Results Follow-Up [facility] Medicine Allergy and Immunology [address] [facility] [address] [place] [address] Ann Marie Huber MD [address] [place] [address] CBC with auto differential, IgE, Allergen Rat [...] on file Legal Sex Male 1:28 AM GEOLOGY SCIENTIST Gender Identity Not on file Sexual Orientation Not on file documented as of this encounter Plan of Treatment Not on file documented as of this encounter Visit Diagnoses Not on filedocumented in this encounter Care Teams Post Tronic Machine Operator Relationship Specialty Start Date End Date Karen Sequeira NP [address] [place] [address] PCP - General Nurse Practitioner 09/07/24 documented as of this encounter
--- OUTSIDE RECORDS SUMMARY | 2025-05-26 19:20 | XMS_ITS | Encounter Summary ---
Author Organization [facility] Address [address] [place] [address] Care Team Providers Care Check Processor Name Role Phone Karen Sequeira Primary Care [...] AM CDT Legal Sex Male 1:28 PM NEWS VIDEOGRAPHER Gender Identity Male 05/26/2025 10:31 AM CDT Sexual Orientation Straight 10/08/2018 6: 21 PM NEWS VIDEOGRAPHER documented as of this encounter Plan of Treatment Upcoming Encounters Date Type Department Care Team (Late st Contact Info) Description 05/29/2025 2:20 PM CDT Allied Health/Nurse Visit [facility] Family & Internal Medicine [address] [address] Karen Sequeira FNP [address] [place] [address] documented as of this encounter Visit Diagnoses Not on filedocumented in this encounter Care Teams Check Processor Relationship Specialty Start Date End Date Karen Sequeira FNP [address] [place] [address] PCP - General Nurse Practitioner Family 10/08/18 documented as of this encounter
== END 2025-05-26 19:53 | disposition home or self-care (01) ==
PROVIDERS: Physician Assistant; Emergency Provider Student in an Organized Health Care Education/Training Program; PCP Nurse Practitioner Family
DX: K20.0 Eosinophilic esophagitis (principal); E87.1 Hypo-osmolality and hyponatremia; K29.00 Acute gastritis without bleeding; J45.909 Unspecified asthma, uncomplicated
CPT/HCPCS: 36415; 71046; 80053; 83735; 85025; 99283

== ENCOUNTER 2025-05-31 08:10 | Emergency (ER) | payer BC, SELFPAY ==
--- OUTSIDE RECORDS SUMMARY | 2025-05-31 08:13 | XMS_ITS | Clinical Summary ---
Author Organization [facility] Address [address] [place] [address] Care Team Providers Care Hook And Eye Attacher Name Role Phone Karen Sequeira NP Primary Care Provider + [phone] Allergies Active Allergy Reactions Criticality Noted Date [...] the symptoms. Dupixent will be avoided until insulation applicator evaluation, as it is highly effective for eosinophilic esophagitis, making it important to determine true allergy status for long-term management. The possibility of using a vial and needle injection was discussed, but it contains similar preservatives. Refer to an insulation applicator at [facility] for evaluation of the suspected allergic reaction to Dupixent. Avoid Dupixent until insulation applicator evaluation is complete. Assessment & Plan (03/09/2025 [...] the symptoms. Dupixent will be avoided until insulation applicator evaluation, as it is highly effective for eosinophilic esophagitis, making it important to determine true allergy status for long-term management. The possibility of using a vial and needle injection was discussed, but it contains similar preservatives. Refer to an insulation applicator at [facility] for evaluation of the suspected allergic reaction to Dupixent. Avoid Dupixent until insulation applicator evaluation is complete. Gastroesophageal reflux disease 10/28/2024 [...] paperwork for work accommodations. Refer to a district director for dietary management. Assessment & Plan (03/09/2025 [...] for dietary consultation. Will refer to an insulation applicator. If possible, I would like to know [...] eosinophilia. Assessment & Plan (10/28/2024 4:50 PM FUEL QUALITY TECH): The endoscopic and biopsy findings are highly [...] Department Care Team Description 05/19/2025 Results Follow-Up [facility] Medicine Allergy and Immunology [address] [facility] [address] [place] [address] Ann Marie Huber MD CBC with auto differential, IgE, Allergen Rat mix (animal) IgE, Additional followed-up results: 27 05/08/2025 8:00 AM CDT Office Visit [facility] Gastroenterology at [address] [place] [address] Petar Monteiro NP Eosinophilic esophagitis (Primary Dx); Adverse effect of drug, subsequent encounter; Gastroesophageal reflux disease with esophagitis without hemorrhage 05/06/2025 2:00 PM CDT Lab [facility] at the [address] [phone] Eosinophilic esophagitis; Seasonal allergic rhinitis, unspecified trigger 05/06/2025 1:00 PM CDT Office Visit [facility] Allergy and Immunology [address] [facility] [address] [place] [address] Ann Marie Huber MD Eosinophilic esophagitis (Primary Dx); Adverse effect of drug, subsequent encounter 04/28/2025 8:00 AM CDT Office Visit [facility] Medicine Allergy and Immunology [address] [facility] [address] [place] [address] Ann Marie Huber MD Seasonal allergic rhinitis, unspecified trigger (Primary Dx); Eosinophilic esophagitis; Adverse effect of drug, initial encounter 03/09/2025 1:30 PM CDT Office Visit [facility] Gastroenterology at [address] [place] [phone] Petar Monteiro NP Eosinophilic esophagitis (Primary Dx); Adverse effect of drug, initial encounter; Gastroesophageal reflux disease with esophagitis without hemorrhage from Last 3 Months Surgical History Surgery [...] on file Legal Sex Male 1:28 AM FUEL QUALITY TECH Gender Identity Not on file Sexual Orientation [...] Seasonal allergic rhinitis, unspecified trigger ALLERGEN SYCAMORE CONGOLESE (TREE) IGE Routine 05/06/2025 1:30 PM CDT [...] Seasonal allergic rhinitis, unspecified trigger ALLERGEN PLANTAIN YAKUT (WEED) IGE Routine 05/06/2025 1:30 PM CDT [...] Seasonal allergic rhinitis, unspecified trigger ALLERGEN COCKROACH CONGOLESE (INSECT) IGE Routine 05/06/2025 1:30 PM CDT [...] ORDERABLES Fin al Result Performing Organization Address [facility] Co de Phone Number [facility] [place] [address] * Allergen Mouse mix (animal) IgE (05/06/2025 1:30 PM CDT) Pathologist [facility] Mouse mix IgE <0.10 0.00 - 0.34 kUnits/L Blood 05/06/2025 1:30 PM CDT 05/06/2025 4:51 PM CDT Result [facility] Ann Marie Huber MD LAB BLOOD ORDERABLES Fin al Result Performing Organization Address [facility] de Phone Number [facility] [place] [address] * Differential, auto (05/06/2025 1:30 PM CDT) Pathologist [facility] Neutrophil abs 4.46 1.50 - 6.50 K/cumm Imm gran abs 0.01 0.00 - 0.10 K/cumm [facility] Lymphocyte abs 1.71 0.80 - 3.30 K/cumm [facility] Monocyte abs 0.44 0.20 - 0.80 K/cumm [facility] Eosinophil abs 0.18 0.00 - 0.50 K/cumm [facility] Basophil abs 0.06 0.00 - 0.10 K/cumm [facility] Neutrophil pct 65.1 % [facility] Comment: Interpretive Data Percent cell count reference ranges are not reported, since discordance with absolute values may lead to misinterpretation of CBC data. Current Interpretive Data was last revised on 2018. Imm gran pct 0.1 % [facility] Comment: Interpretive Data Percent cell count reference ranges are not reported, since discordance with absolute values may lead to misinterpretation of CBC data. Current Interpretive Data was last revised on 2018. Lymphocyte pct 24.9 % [facility] Comment: Interpretive Data Percent cell count reference ranges are not reported, since discordance with absolute values may lead to misinterpretation of CBC data. Current Interpretive Data was last revised on 2018. Monocyte pct 6.4 % [facility] Comment: Interpretive Data Percent cell count reference ranges are not reported, since discordance with absolute values may lead to misinterpretation of CBC data. Current Interpretive Data was last revised on 2018. Eosinophil pct 2.6 % [facility] Comment: Interpretive Data Percent cell count reference ranges are not reported, since discordance with absolute values may lead to misinterpretation of CBC data. Current Interpretive Data was last revised on 2018. Basophil pct 0.9 % [facility] Comment: Interpretive Data Percent cell count reference ranges are not reported, since discordance with absolute values may lead to misinterpretation of CBC data. Current Interpretive Data was last revised on 2018. Blood 05/06/2025 1:30 PM CDT 05/06/2025 4:51 PM CDT Ann Marie Huber MD LAB BLOOD ORDERABLES Fin al Result Performing Organization Address [facility] Co de Phone Number [facility] [place] [address] * Allergen Penicillium chrysogenum (mold) IgE (05/06/2025 1:30 PM CDT) Penicillium chrysogenum IgE <0.10 0.00 - 0.34 kUnits/L Blood 05/06/2025 1:30 PM CDT 05/06/2025 4:51 PM CDT Ann Marie Huber MD LAB BLOOD ORDERABLES Fin al Result Performing Organization Address [facility] Co de Phone Number [facility] [place] [address] * Allergen Pierz (tree) IgE (05/06/2025 1:30 PM CDT) [facility] Pierz IgE <0.10 0.00 - 0.34 kUnits/L Blood 05/06/2025 1:30 PM CDT 05/06/2025 4:51 PM CDT Ann Marie Huber MD LAB BLOOD ORDERABLES Fin al Result [facility] [place] [address] * Allergen Mountain juniper (tree) IgE (05/06/2025 1:30 PM CDT) [facility] Mountain juniper IgE <0.10 0.00 - 0.34 kUnits/L Blood 05/06/2025 1:30 PM CDT 05/06/2025 4:51 PM CDT Ann Marie Huber MD LAB BLOOD ORDERABLES Fin al Result [facility] [place] [address] * CBC with auto differential (05/06/2025 1:30 PM CDT) [facility] WBC 6.86 3.80 - 9.90 K/cumm Hgb 14.0 13.0 - 17.5 g/dL [facility] Hct 42.3 38.9 - 50.3 % [facility] Plt 246 150 - 400 K/cumm [facility] MPV 10.8 9.1 - 12.3 fL [facility] RBC 4.95 4.30 - 5.80 M/cumm [facility] MCV 85.5 81.3 - 96.4 fL [facility] MCH 28.3 27.1 - 33.3 pg [facility] MCHC 33.1 32.3 - 35.7 g/dL [facility] RDW CV 12.0 11.1 - 14.9 % [facility] RDW SD 37.2 35.7 - 48.1 fL [facility] NRBC abs 0.00 0.00 - 0.01 K/cumm [facility] Blood 05/06/2025 1:30 PM CDT 05/06/2025 4:51 PM CDT Ann Marie Huber MD LAB BLOOD ORDERABLES Fin al Result Performing Organization Address [facility] Co de Phone Number [facility] [place] [address] * Allergen Bermuda grass (grass) IgE (05/06/2025 1:30 PM CDT) [place]ermuda grass IgE <0.10 0.00 - 0.34 kUnits/L Blood 05/06/2025 1:30 PM CDT 05/06/2025 4:51 PM CDT Ann Marie Huber MD LAB BLOOD ORDERABLES Fin al Result Performing Organization Address [facility] Co de Phone Number [facility] [place] [address] * Allergen Plantain slovenian (weed) IgE (05/06/2025 1:30 PM CDT) Plantain slovenian IgE <0.10 0.00 - 0.34 kUnits/L Blood 05/06/2025 1:30 PM CDT 05/06/2025 4:51 PM CDT Ann Marie Huber MD LAB BLOOD ORDERABLES Fin al Result Performing Organization Address [facility]/ZIP Co de Phone Number [facility] [place] [address] * Allergen Elm (tree) IgE (05/06/2025 1:30 PM CDT) Elm IgE <0.10 0.00 - 0.34 kUnits/L Blood 05/06/2025 1:30 PM CDT 05/06/2025 4:51 PM CDT Ann Marie Huber MD LAB BLOOD ORDERABLES Fin al Result Performing Organization Address [facility] Co de [place] [address] * Allergen Cladosporium herbarum (mold) IgE (05/06/2025 1:30 PM CDT) Cladosporium herbarum IgE <0.10 0.00 - 0.34 kUnits/L Blood 05/06/2025 1:30 PM CDT 05/06/2025 4:51 PM CDT Ann Marie Huber MD LAB BLOOD ORDERABLES Fin al Result Performing Organization Address [facility] de Phone Number [facility] [place] [address] * Allergen Birch common silver (tree) IgE (05/06/2025 1:30 PM CDT) Birch common silver IgE <0.10 0.00 - 0.34 kUnits/L Blood 05/06/2025 1:30 PM CDT 05/06/2025 4:51 PM CDT Ann Marie Huber MD LAB BLOOD ORDERABLES Fin al Result Performing Organization Address [facility] Co de Phone Number [facility] [place] [address] * Allergen Alternaria tenuis (mold) IgE (05/06/2025 1:30 PM CDT) Alternaria tenius IgE <0.10 0.00 - 0.34 kUnits/L Blood 05/06/2025 1:30 PM CDT 05/06/2025 4:51 PM CDT Ann Marie Huber MD LAB BLOOD ORDERABLES Fin al Result Performing Organization Address [facility] Co de Phone Number [facility] [place] [address] * Allergen Aspergillus fumigatus (mold) IgE (05/06/2025 1:30 PM CDT) Aspergillus fumigatus IgE <0.10 0.00 - 0.34 kUnits/L Blood 05/06/2025 1:30 PM CDT 05/06/2025 4:51 PM CDT Ann Marie Huber MD LAB BLOOD ORDERABLES Fin al Result Performing Organization Address [facility] Co de Phone Number [facility] [place] [address] * Allergen Dermatophagoides pteronyssinus (insect) IgE (05/06/2025 1:30 PM CDT) Dermatophyton pteronyssinus IgE <0.10 0.00 - 0.34 kUnits/L Blood 05/06/2025 1:30 PM CDT 05/06/2025 4:51 PM CDT Ann Marie Huber MD LAB BLOOD ORDERABLES Fin al Result Performing Organization Address [facility] Co de Phone Number [facility] [place] [address] * Allergen Dermatophagoides farniae (insect) IgE (05/06/2025 1:30 PM CDT) Dermatophyton farinae IgE <0.10 0.00 - 0.34 kUnits/L Blood 05/06/2025 1:30 PM CDT 05/06/2025 4:51 PM CDT Ann Marie Huber MD LAB BLOOD ORDERABLES Fin al Result Performing Organization Address [facility] Co de Phone Number [facility] [place] [address] * Allergen Epithelia/dander dog (animal) IgE (05/06/2025 1:30 PM CDT) Dog dander IgE <0.10 0.00 - 0.34 kUnits/L Blood 05/06/2025 1:30 PM CDT 05/06/2025 4:51 PM CDT Ann Marie Huber MD LAB BLOOD ORDERABLES Fin al Result Performing Organization Address [facility] de Phone Number [facility] [place] [address] * Allergen Cockroach greenlandic (insect) IgE (05/06/2025 1:30 PM CDT) Cockroach IgE <0.10 0.00 - 0.34 kUnits/L Blood 05/06/2025 1:30 PM CDT 05/06/2025 4:51 PM CDT Ann Marie Huber MD LAB BLOOD ORDERABLES Fin al Result Performing Organization Address [facility] Co de Phone Number [facility] [place] [address] * Allergen Epithelia/dander cat (animal) IgE (05/06/2025 1:30 PM CDT) Cat dander IgE <0.10 0.00 - 0.34 kUnits/L Blood 05/06/2025 1:30 PM CDT 05/06/2025 4:51 PM CDT Ann Marie Huber MD LAB BLOOD ORDERABLES Fin al Result Performing Organization Address [facility] Co de Phone Number [facility] [place] [address] * Allergen Ragweed short/common (weed) IgE (05/06/2025 1:30 PM CDT) Pathologist [facility] Ragweed common IgE <0.10 0.00 - 0.34 kUnits/L Blood 05/06/2025 1:30 PM CDT 05/06/2025 4:51 PM CDT Result [facility] Ann Marie Huber MD LAB BLOOD ORDERABLES Fin al Result Performing Organization Address [facility] de Phone Number [facility] [place] [address] * Allergen Pigweed, rough (weed) IgE (05/06/2025 1:30 PM CDT) Pigweed rough IgE <0.10 0.00 - 0.34 kUnits/L Blood 05/06/2025 1:30 PM CDT 05/06/2025 4:51 PM CDT Ann Marie Huber MD LAB BLOOD ORDERABLES Fin al Result Performing Organization Address [facility] Co de Phone Number [facility] [place] [address] * Allergen Nettle (weed) IgE (05/06/2025 1:30 PM CDT) Nettle IgE <0.10 0.00 - 0.34 kUnits/L Blood 05/06/2025 1:30 PM CDT 05/06/2025 4:51 PM CDT Ann Marie Huber MD LAB BLOOD ORDERABLES Fin al Result Performing Organization Address [facility] Co de Phone Number [facility] [place] [address] * Allergen Lincoln's quarter (weed) IgE (05/06/2025 1:30 PM CDT) Pathologist [facility] Lincoln's quarters IgE <0.10 0.00 - 0.34 kUnits/L Blood 05/06/2025 1:30 PM CDT 05/06/2025 4:51 PM CDT Ann Marie Huber MD LAB BLOOD ORDERABLES Fin al Result Performing Organization Address [facility] de Phone Number [facility] [place] [address] * Allergen Homero grass (grass) IgE (05/06/2025 1:30 PM CDT) Pathologist [facility] Homero grass IgE <0.10 0.00 - 0.34 kUnits/L Blood 05/06/2025 1:30 PM CDT 05/06/2025 4:51 PM CDT Ann Marie Huber MD LAB BLOOD ORDERABLES Fin al Result Performing Organization Address [facility] Co de Phone Number [facility] [employer] [place], [place] [id number] * Allergen Roge grass (grass) IgE (05/06/2025 1:30 PM CDT) Roge grass IgE <0.10 0.00 - 0.34 kUnits/L Blood 05/06/2025 1:30 PM CDT 05/06/2025 4:51 PM CDT Ann Marie Huber MD LAB BLOOD ORDERABLES Fin al Result Performing Organization Address [facility] Co de Phone Number [facility] [place] [address] * Allergen Oak Hill (tree) IgE (05/06/2025 1:30 PM CDT) [place] (tree) IgE <0.10 0.00 - 0.34 kUnits/L Blood 05/06/2025 1:30 PM CDT 05/06/2025 4:51 PM CDT Ann Marie Huber MD LAB BLOOD ORDERABLES Fin al Result Performing Organization Address [facility] Co de Phone Number [facility] [place] [address] * Allergen [place] greenlandic (tree) IgE (05/06/2025 1:30 PM CDT) [place] IgE <0.10 0.00 - 0.34 kUnits/L Blood 05/06/2025 1:30 PM CDT 05/06/2025 4:51 PM CDT Ann Marie Huber MD LAB BLOOD ORDERABLES Fin al Result Performing Organization Address [facility] Co de Phone Number [facility] [place] [address] * Allergen Maple/Box elder (tree) IgE (05/06/2025 1:30 PM CDT) Maple/box elder IgE <0.10 0.00 - 0.34 kUnits/L Blood 05/06/2025 1:30 PM CDT 05/06/2025 4:51 PM CDT Result [facility] Ann Marie Huber MD LAB BLOOD ORDERABLES Fin al Result Performing Organization Address [facility] de Phone Number [facility] [place] [address] * Allergen [place] red (tree) IgE (05/06/2025 1:30 PM CDT) [place] IgE <0.10 0.00 - 0.34 kUnits/L Blood 05/06/2025 1:30 PM CDT 05/06/2025 4:51 PM CDT Result [facility] Ann Marie Huber MD LAB BLOOD ORDERABLES Fin al Result Performing Organization Address [facility] Phone Number [facility] [place] [address] * IgE (05/06/2025 1:30 PM CDT) IgE 36 <=100 IUnits/mL Blood 05/06/2025 1:30 PM CDT 05/06/2025 4:51 PM CDT Result [facility] Ann Marie Huber MD LAB BLOOD ORDERABLES Fin al Result Performing Organization Address [facility] Phone Number [facility] [place] [address] * Allergy skin tests allergens, each (04/28/2025 7:48 AM CDT) Result [facility] Ann Marie Huber MD IN CLINIC/BEDSIDE ORDERA BLES Edited Result - Final from Last 3 Months Insurance ANTHEM ACCESS CHOICE ANTHEM ACCESS CHOICE Advance Directives For more information, please contact: [phone] * Full Code (Latest Code Status on File) Date Activated Date Inactivated Comments 01/26/2025 11:42 AM 01/26/2025 6:06 PM Care Teams Hook And Eye Attacher Relationship Specialty Start Date End Date Karen Sequeira NP [address] [place] [address] PCP - General Nurse Practitioner 09/07/24
--- OUTSIDE RECORDS SUMMARY | 2025-05-31 08:13 | XMS_ITS | Encounter Summary ---
Author Organization [facility] Address [address] [place] [address] Care Team Providers Care Blade Filer Name Role Phone Karen Sequeira Primary Care Provider [phone] Encounter Details Date Type Department Care Team (Late st Contact Info) Description 05/22/2025 [facility] Documentation [facility] Medical Group Family & Internal Medicine [address] [place] [address] Karen Sequeira FNP [facility] [place], [place] [id number] Social History Tobacco Use Types Packs/Day Years [...] AM CDT 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 Gender Identity Male 05/26/2025 10:31 AM CDT Sexual Orientation Straight 10/08/2018 6: 21 PM GOLF COURSE STARTER documented as of this encounter Plan of Treatment Upcoming Encounters Date Type Department Care Team (Late st Contact Info) Description 06/12/2025 9:40 AM CDT Allied Health/Nurse Visit [facility] Family & Internal Medicine - [id number] [place] [address] Karen Sequeira FNP [facility] [place] [address] documented as of this encounter Visit Diagnoses Diagnosis Generalized anxiety disorder with panic attacks- Primary documented in this encounter Care Teams Blade Filer Relationship Specialty Start Date End Date Karen Sequeira FNP [address] [place] [address] PCP - General Nurse Practitioner Family 10/08/18 documented as of this encounter
--- OUTSIDE RECORDS SUMMARY | 2025-05-31 08:13 | XMS_ITS | Encounter Summary ---
Author Organization [facility] Address [address] [place] [address] Phone Care Team Providers Care Handkerchief Folder Name Role Phone Karen Sequeira NP Primary Care Provider [phone] Encounter Details Date Type Department Care Team (Late st Contact Info) Description 05/19/2025 Results Follow-Up [facility] Medicine Allergy and Immunology [address] [facility] [address] [place] [address] Ann Marie Huber MD [address] [place] [address] CBC with auto differential, IgE, Allergen Rat [...] on file 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
--- OUTSIDE RECORDS SUMMARY | 2025-05-31 08:13 | XMS_ITS | Encounter Summary ---
Author Organization 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 Gender Identity Male 05/26/2025 10:31 AM CDT Sexual Orientation Straight 10/08/2018 6: 21 PM TENNIS DESK TEAM MEMBER documented as of this encounter Plan of Treatment Upcoming Encounters Date Type Department Care Team (Late st Contact Info) Description 06/12/2025 9:40 AM CDT Allied Health/Nurse Visit [facility] Medical [facility] Family & Internal Medicine - [place] [address] [place] [address] Karen Sequeira FNP [address] [place] [address] documented as of this encounter Visit Diagnoses Not on filedocumented in this encounter Additional Health Concerns Infection Onset Date Last Indicated Resolved Time COVID-19 Rule Out 12/27/2021 12/27/2021 12/28/2021 1:24 PM CDT documented as of this encounter Care Teams Biztalk Architect Relationship Specialty Start Date End Date Karen Sequeira FNP [facility] [place] [address] PCP - General Nurse Practitioner Family 10/08/18 documented as of this encounter
--- OUTSIDE RECORDS SUMMARY | 2025-05-31 08:13 | XMS_ITS | Encounter Summary ---
Author Organization [facility] Address [address] [place] [address] Care Team Providers Care Animal Nutritionist Name Role Phone Karen Sequeira Primary Care Provider [phone] Encounter Details Date Type Department Care Team (Late st Contact Info) Description 05/23/2025 [employer] [facility] [employer] Documentation [facility] Medical [facility] Family & Internal Medicine [address] [place] [address] Karen Sequeira FNP [facility] [place], [place] [id number] Social History Tobacco Use Types Packs/Day Years [...] AM CDT Legal 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 Male 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 Gender Identity Male 05/26/2025 10:31 AM CDT Sexual Orientation Straight 10/08/2018 6: 21 PM MILLER FIRST documented as of this encounter Plan of Treatment Upcoming Encounters Date Type Department Care Team (Late st Contact Info) Description 06/12/2025 9:40 AM CDT Allied Health/Nurse Visit [facility] Medical [facility] Family & Internal Medicine - [place] [address] [place] [address] Karen Sequeira FNP [facility] [place] [address] documented as of this encounter Visit Diagnoses Not on filedocumented in this encounter Care Teams Animal Nutritionist Relationship Specialty Start Date End Date Karen Sequeira FNP [address] [place] [address] PCP - General Nurse Practitioner Family 10/08/18 documented as of this encounter
--- OUTSIDE RECORDS SUMMARY | 2025-05-31 08:13 | XMS_ITS | Clinical Summary ---
Author Organization [facility] Address [address] [place] [address] Care Team Providers Care Hand Tire Trimmer Name Role Phone Karen Sequeira GLEN Primary Care Provider [phone] Allergies Active Allergy Reactions Criticality Noted Date [...] esophagitis 09/07/2024 Food bolus obstruction of intestine ([facility]) 09/07/2024 Gastroesophageal reflux dise ase, unspecified whether esophagitis present 07/26/2024 Generalized anxiety disorder with panic attacks 07/26/2024 Sensation, choking 07/26/2024 Encounters Date Type Department Care Team Description 05/29/2025 Travel 05/27/2025 Results Follow-Up [facility] Family & Internal [address] [address] Karen Sequeira FNP MAGNESIUM, VITAMIN B-12, FOLIC ACID SERUM, Additional followed-up results: 4 05/26/2025 11:20 AM CDT Office Visit [facility] Family Internal [address] [address] Karen Sequeira FNP ER F/U (Nav[place]); Anxiety; Weight Problem 05/26/2025 Scan [facility] SR[facility] Scanned, [facility] Image (SCAN); Lab (SCAN) 05/26/2025 - 05/26/2025 11:59 PM CDT Hospital Encounter [facility] [address] [place] [address] Karen Sequeira FNP Discharge Disposition: Home or Self Care (Routine Discharge) 05/26/2025 Travel 05/23/2025 Misc Documentation [facility] Internal [address] [address] Karen Sequeira FNP 05/22/2025 Misc Documentation [facility] Internal [address] [address] Karen Sequeira FNP 05/21/2025 Scan [facility] Scanned, [facility] 05/19/2025 Scan [facility] Scanned, [...] AM CDT 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 Gender Identity Male 05/26/2025 10:31 AM CDT Sexual Orientation Straight 10/08/2018 6: 21 PM MIXER CRANE OPERATOR Last Filed Vital Signs Vital Sign [...] 06/12/2025 9:40 AM CDT Allied Health/Nurse Visit [facility] Family & Internal Medicine - [place] [address] [place] [address] Karen Sequeira, DIFFUSER OPERATOR [address] [place] [address] Health Maintenance Due Date Last Done Comments Annual Physical 01/17/2003 HPV Vaccines (1 - Male 3-dos e series) 01/17/2015 Hepatitis C 01/17/2018 Hepatitis B Vaccines (1 of 3 - 19+ 3-dose series) 01/17/2019 PHQ-2 (Physician [place]) 09/24/2024 08/26/2024 COVID-19 Vaccine (4 - 2024-2 [...] Procedure Name Priority Date/Time Associated Diagnosis Comments ALLERGENS FOOD Routine 05/26/2025 1:22 PM CDT Sensation, choking Gastroesophageal reflux disease, unspecified whether esophagitis present Eosinophilic esophagitis COMPREHENSIVE METABOLIC PANEL Routine 05/26/2025 1:22 PM CDT Generalized anxiety disorder with panic attacks THYROID STIM HORMONE TSH Routine 05/26/2025 1:22 PM CDT Generalized anxiety disorder with panic attacks THYROXINE, FREE (FT4) Routine 05/26/2025 1:22 PM CDT Generalized anxiety disorder with panic attacks VITAMIN D, 25 OH Routine 05/26/2025 1:22 PM CDT Generalized anxiety disorder with panic attacks VITAMIN B-12 Routine 05/26/2025 1:22 PM CDT Generalized anxiety disorder with panic attacks MAGNESIUM Routine 05/26/2025 1:22 PM CDT Generalized anxiety disorder with panic attacks FOLIC ACID SERUM Routine 05/26/2025 11:5 0 AM CDT Generalized anxiety disorder with panic attacks COLLECTION VENOUS BLOOD VENIPUNCTURE Routine 05/26/2025 11:17 AM CDT Generalized anxiety disorder with panic attacks OUTSIDE LAB (SCAN ORDER) 05/26/2025 IMAGE GENERIC 05/26/2025 OUTSIDE LAB (SCAN ORDER) 03/28/2025 OUTSIDE LAB (SCAN ORDER) 03/28/2025 IMAGE GENERIC 03/28/2025 from Last 3 Months Results * (ABNORMAL) ALLERGENS FOOD (05/26/2025 1:22 PM CDT) ALLERGEN EGG WHITE <0.35 <0.35 kU/L 05/28/2025 3:29 PM CDT [facility] Comment:<0.35 IS CLASS 0 (NE GATIVE) ALLERGEN SESAME SEED <0.35 <0.35 kU/L 05/28/2025 3:29 PM CDT [facility] Comment:<0.35 IS CLASS 0 (NE GATIVE) ALLERGEN PEANUT <0.35 <0.35 kU/L 05/28/2025 3:29 PM CDT [facility] Comment:<0.35 IS CLASS 0 (NE GATIVE) ALLERGEN SOYBEAN <0.35 <0.35 kU/L 05/28/2025 3:29 PM CDT [facility] Comment:<0.35 IS CLASS 0 (NE GATIVE) ALLERGEN MILK 2.15(H) <0.35 kU/L 05/28/2025 3:29 PM CDT [facility] Comment:0.71 - 3.50 IS CLASS 2 (POSITIVE) ALLERGEN CLAM <0.35 <0.35 kU/L 05/28/2025 3:29 PM CDT [facility] Comment:<0.35 IS CLASS 0 (NE GATIVE) ALLERGEN SHRIMP <0.35 <0.35 kU/L 05/28/2025 3:29 PM CDT [facility] Comment:<0.35 IS CLASS 0 (NE GATIVE) ALLERGEN WALNUT <0.35 <0.35 kU/L 05/28/2025 3:29 PM CDT [facility] Comment:<0.35 IS CLASS 0 (NE GATIVE) ALLERGEN COD <0.35 <0.35 kU/L 05/28/2025 3:29 PM CDT [facility] Comment:<0.35 IS CLASS 0 (NE GATIVE) ALLERGEN SCALLOP <0.35 <0.35 kU/L 05/28/2025 3:29 PM CDT [facility] Comment:<0.35 IS CLASS 0 (NE GATIVE) ALLERGEN WHEAT <0.35 <0.35 kU/L 05/28/2025 3:29 PM CDT [facility] Comment:<0.35 IS CLASS 0 (NE GATIVE) ALLERGEN MAIZE CORN <0.35 <0.35 kU/L 05/28/2025 3:29 PM CDT [facility] Comment:<0.35 IS CLASS 0 (NE GATIVE) 05/26/2025 1:22 PM CDT [facility] Final Result [facility] [address] [place] [address], [id number] * VITAMIN B-12 (05/26/2025 1:22 PM CDT) VITAMIN B12 S/P/B 319 193 - 986 PG/ML 05/27/2025 10:46 AM CDT [facility] 05/26/2025 1:22 PM CDT Karen Sequeira [facility] Final Result [facility] [address] [place] [address], * (ABNORMAL) COMPREHENSIVE METABOLIC PANEL (05/26/2025 1:22 PM CDT) SODIUM S/P/B 129(L) 136 - 145 MMOL/L 05/27/2025 10:55 AM CDT [facility] Comment:RESULT CHECKED POTASSIUM S/P/B 3.7 3.5 - 5.1 MMOL/L 05/27/2025 10:55 AM CDT [facility] CHLORIDE S/P/B 92(L) 98 - 107 MMOL/L 05/27/2025 10:55 AM CDT [facility] Comment:RESULT CHECKED CO2 30.3 21 - 32 MMOL/L 05/27/2025 10:46 AM T [facility] GLUCOSE 90 70 - 99 MG/DL 05/27/2025 10:46 AM CDT [facility] BUN 5(L) 7 - 18 MG/DL 05/27/2025 10:55 AM CDT [facility] Comment:RESULT CHECKED CREATININE S/P/B 0.68(L) 0.70 - 1.30 MG/DL 05/27/2025 10:46 AM CDT [facility] CALCIUM S/P/B 9.2 8.4 - 10.5 MG/DL 05/27/2025 10:46 AM CDT [facility] BILIRUBIN TOTAL S/P/B 0.7 0.2 - 1.0 MG/DL 05/27/2025 10:46 AM CDT [facility] ALKALINE PHOSPHATASE S/P/B 53 45 - 115 U/L 05/27/2025 10:46 AM CDT [facility] AST 12(L) 15 - 37 U/L 05/27/2025 10:46 AM CDT [facility] ALT 19 16 - 63 U/L 05/27/2025 10:46 AM CDT [facility] TOTAL PROTEIN S/P/B 7.3 6.4 - 8.2 G/DL 05/27/2025 10:46 AM CDT [facility] ALBUMIN S/P/B 4.4 3.4 - 5.0 G/DL 05/27/2025 10:46 AM CDT [facility] ANION GAP 6.7 5 - 15 MMOL/L 05/27/2025 10:55 AM CDT [facility] Comment:REFERENCE RANGE NOT ESTABLISHED OSMOLALITY (CALC) 265 MOSM/KG 025 10:55 AM CDT [facility] Comment:REFERENCE RANGE NOT ESTABLISHED GFR ESTIMATE >90 >90 ML/MIN/1. 73 M2 05/27/2025 10:46 AM T [facility] GFR REFERENCE S: 05/27/2025 10:46 AM T [facility] Comment: THE ESTIMATED GFR IS CALCULATED USING THE 2020 CKD-EPI EQUATION. THE FOLLOWING CATEGORIES FOR GRADING RENAL FUNCTION ARE RECOMMENDED BY THE INTERNATIONAL SOCIETY OF NEPHROLOGY (KDIGO 2012 CLINICAL PRACTICE GUIDELINE). G1,NORMAL OR HIGH: >89 ml/min/1.73 m2 G2,MILDLY DECREASED: 60-89 ml/min/1.73 m2 G3A,MILDLY TO MODERATELY DECREASED: 45-59 ml/min/1.73 m2 G3B,MODERATELY TO SEVERELY DECREASED: 30-44 ml/min/1.73 m2 G4,SEVERELY DECREASED: 15-29 ml/min/1.73 m2 G5,KIDNEY FAILURE: <15 ml/min/1.73 m2 05/26/2025 1:22 PM CDT us Karen Kilzer [facility] Final Result Performing Organization Address City/[facility]/ZIP Co de Phone Number [address] [address], [place] [phone] * THYROXINE, FREE (FT4) (05/26/2025 1:22 PM CDT) FREE T4 1.45 0.76 - 1.46 NG/DL 05/27/2025 10:46 AM CDT [facility] 05/26/2025 1:22 PM CDT us Karen Sequeira [facility] Final Result Performing Organization Address [facility] Co de Phone Number [address] [phone], * THYROID STIM HORMONE TSH (05/26/2025 1:22 PM CDT) TSH 2.007 0.358 - 3.740 uIU/ML 05/27/2025 10:46 AM CDT [facility] 05/26/2025 1:22 PM CDT us Karen Sequeira [facility] Final Result Performing Organization Address City/[facility] Co de Phone Number [address] [address], [place] [phone] * (ABNORMAL) VITAMIN D 25 OH (05/26/2025 1:22 PM CDT) VITAMIN D 25 HYDROXY TOTAL S/P/B 12.2(L) 30 - 100 NG/ML 05/27/2025 10:46 AM CDT [facility] Comment: DEFICIENT <20 INSUFFICIENT 20-30 SUFFICIENT 30-100 05/26/2025 1:2 2 PM CDT us Karen Sequeira [facility] Final Result Performing Organization Address [facility] de Phone Number [facility] [address] [place] [phone], [place] [phone] * MAGNESIUM (05/26/2025 1:22 PM CDT) MAGNESIUM 1.8 1.8 - 2.4 MG/DL 05/27/2025 10:46 AM CDT [facility] 05/26/2025 1:22 PM CDT Karen Sequeira [facility] Final Result Performing Organization Address [facility] de Phone Number [address] [address], * (ABNORMAL) FOLIC ACID SERUM (05/26/2025 11:50 AM CDT) FOLATE 7.6(L) 8.6 - 58.9 NG/ML 05/26/2025 8:28 PM CDT [facility] 05/26/2025 11:5 0 AM CDT us Karen Sequeira [facility] Final Result Performing Organization Address [facility] de Phone Number [address] [address], * OUTSIDE LAB (SCAN ORDER) (05/26/2025) Only the most recent of3 resultswithin the time period is included. 05/26/2025 us [facility] Scanned SCANNING Final Resu lt * IMAGE GENERIC (05/26/2025) Only the most recent of2 resultswithin the time period is included. Anatomical Region Laterality Modality Other 05/26/2025 us [facility] Scanned SCANNING Final Resu lt from Last 3 Months Insurance [facility] Care Teams Hand Tire Trimmer Relationship Specialty Start Date End Date Karen Sequeira FNP [address] [place] [address] PCP - General Nurse Practitioner Family 10/08/18
--- OUTSIDE RECORDS SUMMARY | 2025-05-31 08:13 | XMS_ITS | Encounter Summary ---
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 Gender Identity Male 05/26/2025 10:31 AM CDT Sexual Orientation Straight 10/08/2018 6: 21 PM VP STRATEGIC PARTNERSHIPS documented as of this encounter Plan of Treatment Upcoming Encounters Date Type Department Care Team (Late Contact Info) Description 06/12/2025 9:40 AM CDT Allied Health/Nurse Visit [facility] Family & Internal Medicine - [place] [address] [place] [address] Karen Sequeira FNP [facility] [place] [address] documented as of this encounter Procedures Procedure Name Priority Date/Time Associated Diagnosis Comments OUTSIDE LAB (SCAN ORDER) 05/26/2025 IMAGE GENERIC 05/26/2025 documented in this encounter Results * OUTSIDE LAB (SCAN ORDER) (05/26/2025) 05/26/2025 us [facility] Scanned SCANNING Final Resu lt * IMAGE GENERIC (05/26/2025) Anatomical Region Laterality Modality Other 05/26/2025 us [facility] Scanned SCANNING Final Resu lt documented in this encounter Visit Diagnoses Not on filedocumented in this encounter Care Teams Butter Fat Tester Relationship Specialty Start Date End Date Karen Sequeira FNP [address] [place] [address] PCP - General Nurse Practitioner Family 10/08/18 documented as of this encounter
--- OUTSIDE RECORDS SUMMARY | 2025-05-31 08:13 | XMS_ITS | Encounter Summary ---
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 Gender Identity Male 05/26/2025 10:31 AM CDT Sexual Orientation Straight 10/08/2018 6: 21 PM ANIMAL SHELTER CLERK documented as of this encounter Plan of Treatment Upcoming Encounters Date Type Department Care Team (Late st Contact Info) Description 06/12/2025 9:40 AM CDT Allied Health/Nurse Visit [facility] Family & Internal Medicine [address] [address] Karen Sequeira FNP [address] [place] [address] documented as of this encounter Visit Diagnoses Not on filedocumented in this encounter Care Teams Parts Counter Associate Relationship Specialty Start Date End Date Karen Sequeira FNP [facility] [place], [place] [id number] PCP - General Nurse Practitioner Family 10/08/18 documented as of this encounter
[2025-05-31 08:17] VITALS: BP 142/94; PULSE 92; RESP 18; TEMP 36.9; O2SAT 100
--- NOTE | 2025-05-31 09:09 | ED_ITS ---
HPI - General Adult General Chief complaint: Anxiety Stated complaint: throat issues Time Seen by Provider: 05/31/25 08:16 History of Present Illness HPI narrative: 25-year-old male with prior history of anxiety and current EOE presents to the emergency department for evaluation for concern of Throat swelling. States he has had decreased p.o. intake. Patient does have follow-up with GI at [facility] and has had recent follow-up with them. Patient states he was recently started on citalopram for anxiety. Patient declined any benzos for acute anxiety control. Patient is in no distress at time of in initial evaluation. Related Data Home Medications ?Medication ?Instructions ?Recorded ?Confirmed ?Last Taken ?Type azelastine 137 mcg (0.1 %) nasal intranasal 05/17/25 Unknown History spray Allergies Allergy/AdvReac Type Severity Reaction Status Date / Time dupilumab (From Dupixent Pen) Allergy Severe Difficulty Verified 05/31/25 08:19 Swallowing Review of Systems 2 Review of Systems: All systems reviewed & are unremarkable except as noted in HPI and below PMFSH Past Medical History Medical History Asthma Surgical History Surgical History No pertinent past surgical history Social History Social History Smoking status: Never smoker Substance use type: does not use Exam 2 Narrative: APPEARANCE: Well appearing, no pain, no distress, well-nourished. HEAD: normocephalic, atraumatic. EYES: PERRLA/EOMI, conjunctivae clear. NOSE: Normal no drainage EARS:TMS clear with good light reflex. THROAT: Pharynx clear, no exudate. NECK: Supple. No adenopathy, no masses. RESPIRATORY: Airway patent, respirations nonlabored. Clear to auscultation bilaterally, no rales, rhonchi, wheezing. CARDIOVASCULAR: Regular rate and rhythm without murmurs rubs or gallops. ABDOMINAL: Soft, nontender, nondistended, normal bowel sounds MUSCULOSKELETAL: Moves all extremities. Strength/ROM intact, No edema, No calf tenderness. NEURO: Alert. Cranial nerves II through XII intact. Good gait. Good coordination SKIN: Warm, dry. Normal Color Course Vital Signs Vital signs: Vital Signs Temperature 98.4 F 05/31/25 08:17 Pulse Rate 92 05/31/25 08:17 Respiratory Rate 18 05/31/25 08:17 Blood Pressure 142/94 H 05/31/25 08:17 Pulse Oximetry 100 05/31/25 08:17 Oxygen Delivery Room Air 05/31/25 08:17 Temperature 98.4 F 05/31/25 08:17 Pulse Rate 92 05/31/25 08:17 Respiratory Rate 18 05/31/25 08:17 Blood Pressure 142/94 H 05/31/25 08:17 Pulse Oximetry 100 05/31/25 08:17 Oxygen Delivery Room Air 05/31/25 08:17 Medical Decision Making MDM Narrative Medical decision making narrative: 25-year-old male presents to the emergency department for evaluation for throat swelling. Patient does have recent history of anaphylaxis and whenever he has eoe symptoms he is worried that he is having another anaphylactic reaction. Patient declined the medications for anxiety control. Patient is currently afebrile with no leukocytosis hemoglobin of 13.4. CMP has no acute abnormalities. Patient was encouraged to continue to take his home medications as directed. Patient was recently started on Cymbalta. 0 multiple reexaminations patient getting used to have no stridor and no appreciable throat swelling and patient is handling his secretions. Patient most likely does have some esophagitis but patient has no threatened impending airway and patient is handling his secretions. Patient was updated results of his workup patient was comfortable with discharge and close follow-up. Differential Diagnosis Differential Diagnosis: Stridor, esophagitis, EOE, anxiety, allergic reaction Vital Signs Vital Signs: Vital Signs Temperature 98.4 F 05/31/25 08:17 Pulse Rate 92 05/31/25 08:17 Respiratory Rate 18 05/31/25 08:17 Blood Pressure 142/94 H 05/31/25 08:17 Pulse Oximetry 100 05/31/25 08:17 Oxygen Delivery Room Air 05/31/25 08:17 Temperature 98.4 F 05/31/25 08:17 Pulse Rate 92 05/31/25 08:17 Respiratory Rate 18 05/31/25 08:17 Blood Pressure 142/94 H 05/31/25 08:17 Pulse Oximetry 100 05/31/25 08:17 Oxygen Delivery Room Air 05/31/25 08:17 Lab Data Lab results reviewed: Yes I reviewed the patient's lab results. 05/31/25 09:20 05/31/25 09:20 Labs: Lab Results 05/31/25 Range/Units 09:20 WBC 6.8 (4.5-10.0) K/mm3 RBC 4.67 (4.6-6.20) M/mm3 Hgb 13.4 L (14.0-18.0) g/dL Hct 39.1 L (42.0-52.0) % MCV 83.7 (80-100) fl MCH 28.7 (26-34) pg MCHC 34.3 (32-36) g/dl RDW 11.9 (11.5-14.5) % Plt Count 245 (150-375) k/mm3 MPV 9.6 (7.4-10.4) fl Immature Gran % (Auto) 0.1 (0-0.5) % Neut % (Auto) 60.3 (45.5-73.1) % Lymph % (Auto) 26.5 (18.3-44.2) % [place] % (Auto) 11.3 H (2.6-8.5) % Eos % (Auto) 1.2 (0-4.4) % Baso % (Auto) 0.6 (0.2-1.2) % Lymph # (Auto) 1.79 (0.9-3.2) K/mm3 [place] # (Auto) 0.8 H (0.1-0.6) K/mm3 Eos # (Auto) 0.1 (0-0.3) K/mm3 Baso # (Auto) 0.0 (0.0-0.1) K/mm3 Abs Immat Gran (auto) 0.01 (0.00-0.031) K/mm3 Absolute Neuts (auto) 4.1 (1.3-6.7) K/mm3 Absolute Nucleated RBC 0.000 (0.0-0.012) K/mm3 Nucleated RBC % 0.0 (0.0-0.2) % PT 14.7 (11.1-14.7) Seconds INR 1.2 APTT 30.6 (22.3-36.8) Seconds Sodium 136 L (137-145) mmol/L Potassium 3.6 (3.4-5.0) mmol/L Chloride 100 (98-107) mmol/L Carbon Dioxide 28 (22-30) mmol/L Anion Gap 8 (4-12) mmol/L BUN 3 L (9-20) mg/dL Creatinine 0.67 L (0.7-1.3) mg/dL Estim Creat Clear Calc 135 ml/min Estimated GFR > 60 (59 - ) Glucose 92 (65-110) mg/dL Calcium 9.1 (8.4-10.2) mg/dL Total Bilirubin 0.5 (0.2-1.3) mg/dL AST 21 (17-59) U/L ALT 12 (6-50) U/L Alkaline Phosphatase 43 (38-126) U/L Total Protein 7.4 (6.3-8.2) g/dL Albumin 4.4 (3.5-5.1) g/dL Discharge Plan Discharge Clinical Impression: Swallowing difficulty Patient Disposition: Home Condition: Stable Instructions: Antibiotic Form Additional Instructions: Continue have close follow-up with [facility]. Continue your home medications as directed. Patient Language: Swiss Prescriptions: New epinephrine [EpiPen 2-Eliud] 0.3 mg/0.3 mL auto-injector 0.3 ml IM ONCE Qty: 2 0RF Rx Instructions: as a single dose; may repeat once No Action epinephrine [EpiPen 2-Eliud] 0.3 mg/0.3 mL auto-injector 0.3 mg IM Q5-15M PRN (Reason: anaphylaxis) Qty: 2 0RF Rx Instructions: do not exceed 3 doses per episode prednisolone 15 mg/5 mL solution 60 mg PO QAM 4 Days Qty: 80 0RF diphenhydramine HCl [Allergy Relief(diphenhydramin)] 12.5 mg/5 mL liquid 25 mg PO Q6H PRN (Reason: allergic reaction) Qty: 473 0RF Pepcid Complete 10-800-165 mg tablet,chewable 1 tablet PO BID PRN (Reason: allergic symptoms) Qty: 20 0RF azelastine 137 mcg (0.1 %) spray,non-aerosol INTRANASAL hydroxyzine pamoate 50 mg capsule 50 mg PO TID PRN (Reason: anxiety) Qty: 20 0RF magnesium oxide 500 mg capsule 500 mg PO DAILY 7 Days Qty: 7 0RF potassium chloride 20 mEq/15 mL liquid 20 meq PO BID 7 Days Qty: 210 0RF aluminum-magnesium hydroxide 200-200 mg/5 mL suspension 30 ml PO DAILY 10 Days Qty: 300 0RF potassium chloride 20 mEq/15 mL liquid 20 meq PO BID 7 Days Qty: 210 0RF Follow-up/Referrals: KATE,KEYONNA ROBLEDO [Primary Care Provider]
[2025-05-31 09:25] LABS: Hematocrit 39.1 % (42.0-52.0); Hemoglobin 13.4 g/dL (14.0-18.0); Immature Granulocyte Percent A 0.1 % (0-0.5); Lymphocytes Absolute Auto 1.79 K/mm3 (0.9-3.2); Mean Corpuscular HGB Conc 34.3 g/dl (32-36); Mean Corpuscular Hemoglobin 28.7 pg (26-34); Mean Corpuscular Volume 83.7 fl (80-100); Nucleated Red Blood Cells Absolute Auto 0.000 K/mm3 (0.0-0.012); Nucleated Red Blood Cells Perc 0.0 % (0.0-0.2); Platelet Count Result 245 k/mm3 (150-375); Red Blood Count 4.67 M/mm3 (4.6-6.20); White Blood Count 6.8 K/mm3 (4.5-10.0)
[2025-05-31] MEDS: PANTOPRAZOLE SODIUM IV 40 MG VIAL IV PUSH (09:27)
[2025-05-31] MEDS: BELLADONNA ALK/PHENOB ELIX 10 ML, MAG HYDROX/ALUMINUM HYD/SIMETH 30 ML, LIDOCAINE 2% VI... PO (09:27)
[2025-05-31 09:37] LABS: INR 1.2; Partial Thromboplastin Time 30.6 Seconds (22.3-36.8); Prothrombin Time 14.7 Seconds (11.1-14.7)
[2025-05-31 09:44] LABS: Alanine Aminotransferase 12 U/L (6-50); Albumin Level 4.4 g/dL (3.5-5.1); Alkaline Phosphatase 43 U/L (38-126); Anion Gap 8 mmol/L (4-12); Aspartate Amino Transferase 21 U/L (17-59); Bilirubin,Total 0.5 mg/dL (0.2-1.3); Blood Urea Nitrogen 3 mg/dL (9-20); Calcium 9.1 mg/dL (8.4-10.2); Carbon Dioxide 28 mmol/L (22-30); Chloride 100 mmol/L (98-107); Estimated CRCL calculation 135 ml/min; Estimated Glomerular Filt Rate > 60; Glucose 92 mg/dL (65-110); Potassium 3.6 mmol/L (3.4-5.0); Sodium 136 mmol/L (137-145); Total Protein 7.4 g/dL (6.3-8.2)
== END 2025-05-31 10:34 | disposition home or self-care (01) ==
PROVIDERS: Emergency Provider Emergency Medicine; PCP Nurse Practitioner Family
DX: R13.10 Dysphagia, unspecified (principal); J45.909 Unspecified asthma, uncomplicated
CPT/HCPCS: 36415; 80053; 85025; 85610; 85730; 96374; 99284; A9270; J2470

== ENCOUNTER 2025-06-03 21:47 | Emergency (ER) | payer BC, SELFPAY ==
--- NOTE | ~2025-06-03 | XR_ITS ---
Examination: XR chest 1V portable Clinical History: LIght headedness Comparison: 05/26/2025 Technique: Portable AP Findings: Heart size normal. Lungs clear. No acute bony abnormality. IMPRESSION: 1. No acute cardiopulmonary findings given portable technique. Reviewed, dictated and finalized at location R.
[2025-06-03 21:48] VITALS: BP 114/76; PULSE 79; RESP 16; TEMP 37.3; O2SAT 100
--- OUTSIDE RECORDS SUMMARY | 2025-06-03 21:49 | XMS_ITS | Encounter Summary ---
Author Organization [facility] Address [address] [place] [address] Phone Care Team Providers Care Belt And Link Shop Supervisor Name Role Phone Karen Sequeira NP Primary Care Provider [phone] Encounter Details Date Type Department Care Team (Late st Contact Info) Description 06/02/2025 Telephone [facility] Medicine Allergy and Immunology [address] [facility] [address] [place] [address] Mell Herman NP [address] [place] [address] [address] [place] [address] Social History Tobacco Use Types Packs/Day Years [...] on file 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 He did not answer. His voice mailbox was full so I was not able to leave a message. Mell Herman NP documented in this encounter Plan of Treatment Not on file documented as of this encounter Visit Diagnoses Not on filedocumented in this encounter Care Teams Belt And Link Shop Supervisor Relationship Specialty Start Date End Date Karen Sequeira NP [address] [place] [address] PCP - General Nurse Practitioner 09/07/24 documented as of this encounter
--- OUTSIDE RECORDS SUMMARY | 2025-06-03 21:49 | XMS_ITS | Encounter Summary ---
Author Organization [facility] Address [address] [place] [address] Care Team Providers Care Cupola Tapper Helper Name Role Phone Karen Sequeira Primary Care Provider [phone] Encounter Details Date Type Department Care Team (Late st Contact Info) Description 05/22/2025 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 Gender Identity Male 05/26/2025 10:31 AM CDT Sexual Orientation Straight 10/08/2018 6: 21 PM MOLDED GOODS OPERATOR documented as of this encounter Plan of Treatment Upcoming Encounters Date Type Department Care Team (Late st Contact Info) Description 06/12/2025 9:40 AM CDT Allied Health/Nurse Visit [facility] Medical Group Family & Internal Medicine - [address] [place] [address] Karen Sequeira FNP [facility] [place] [address] documented as of this encounter Visit Diagnoses Diagnosis Generalized anxiety disorder with panic attacks- Primary documented in this encounter Care Teams Cupola Tapper Helper Relationship Specialty Start Date End Date Karen Sequeira FNP [address] [place] [address] PCP - General Nurse Practitioner Family 10/08/18 documented as of this encounter
--- OUTSIDE RECORDS SUMMARY | 2025-06-03 21:49 | XMS_ITS | Encounter Summary ---
Author Organization 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 Gender Identity Male 05/26/2025 10:31 AM CDT Sexual Orientation Straight 10/08/2018 6: 21 PM COBBLER SOLE documented as of this encounter Plan of Treatment Upcoming Encounters Date Type Department Care Team (Late st Contact Info) Description 06/12/2025 9:40 AM CDT Allied Health/Nurse Visit [facility] Medical Group Family & Internal Medicine - [place] [address] [place] [address] Karen Sequeira FNP [address] [place] [address] documented as of this encounter Visit Diagnoses Not on filedocumented in this encounter Additional Health Concerns Infection Onset Date Last Indicated Resolved Time COVID-19 Rule Out 12/27/2021 12/27/2021 12/28/2021 1:24 PM CDT documented as of this encounter Care Teams Preschool Assistant Teacher Relationship Specialty Start Date End Date Karen Sequeira FNP [facility][note 3][address] [place] [address] PCP - General Nurse Practitioner Family 10/08/18 documented as of this encounter
--- OUTSIDE RECORDS SUMMARY | 2025-06-03 21:49 | XMS_ITS | Encounter Summary ---
Author Organization [facility] Address [address] [place] [address] Phone Care Team Providers Care Supervisor Wet Pour Name Role Phone Karen Sequeira NP Primary Care Provider [phone] Encounter Details Date Type Department Care Team (Late st Contact Info) Description 05/19/2025 Results Follow-Up [facility] Medicine Allergy and Immunology [address] [facility] [address] [place] [address] Ann Marie Huber MD [address] [place] [address] CBC with auto differential, IgE, Allergen Rat [...] on file 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
--- OUTSIDE RECORDS SUMMARY | 2025-06-03 21:49 | XMS_ITS | Clinical Summary ---
Author Organization [facility] Address [address] [place] [address] Care Team Providers Care Kieselguhr Regenerator Operator Name Role Phone Karen Sequeira GLEN Primary Care Provider [phone] Allergies Active Allergy Reactions Criticality Noted Date [...] esophagitis 09/07/2024 Food bolus obstruction of intestine ([facility]) 09/07/2024 Gastroesophageal reflux dise ase, unspecified whether esophagitis present 07/26/2024 Generalized anxiety disorder with panic attacks 07/26/2024 Sensation, choking 07/26/2024 Encounters Date Type Department Care Team Description 05/29/2025 Travel 05/27/2025 Results Follow-Up [facility] Family & Internal [address] [address] Karen Sequeira FNP MAGNESIUM, VITAMIN B-12, FOLIC ACID SERUM, Additional followed-up results: 5 05/26/2025 11:20 AM CDT Office Visit [facility] Family Internal [address] [address] Karen Sequeira FNP ER F/U ([facility]); Anxiety; Weight Problem 05/26/2025 Scan [facility] Scanned, [facility] Image (SCAN); Lab (SCAN) 05/26/2025 - 05/26/2025 11:59 PM CDT Hospital Encounter [facility] [address] [place] [address] Karen Sequeira FNP Discharge Disposition: Home or Self Care (Routine Discharge) 05/26/2025 Travel 05/23/2025 Misc Documentation [facility] Internal [address] [address] Karen Sequeira FNP 05/22/2025 Misc Documentation 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 Last Filed Vital Signs Vital Sign Reading [...] Medical Group Family & Internal Medicine - [address] [phone] Karen Sequeira, [employer] [address] [place] [address] Health Maintenance Due Date Last Done Comments Annual Physical 01/17/2003 HPV Vaccines (1 - Male 3-dos e series) 01/17/2015 Hepatitis C 01/17/2018 Hepatitis B Vaccines (1 of 3 - 19+ 3-dose series) 01/17/2019 PHQ-2 (Physician [facility]) 09/24/2024 08/26/2024 COVID-19 Vaccine (4 - 2024-2 [...] kU/L 05/28/2025 3:29 PM CDT [facility] Comment:<0.35 IS CLASS 0 (NE GATIVE) ALLERGEN SESAME SEED <0.35 <0.35 kU/L 05/28/2025 3:29 PM CDT [facility] Comment:<0.35 IS CLASS 0 (NE GATIVE) ALLERGEN PEANUT <0.35 <0.35 kU/L 05/28/2025 3:29 PM CDT [facility] Comment:<0.35 IS CLASS 0 (NE GATIVE) ALLERGEN SOYBEAN <0.35 <0.35 kU/L 05/28/2025 3:29 PM CDT [facility] Comment:<0.35 IS CLASS 0 (NE GATIVE) ALLERGEN MILK 2.15(H) <0.35 kU/L 05/28/2025 3:29 PM CDT [facility] Comment:0.71 - 3.50 IS CLASS 2 (POSITIVE) ALLERGEN CLAM <0.35 <0.35 kU/L 05/28/2025 3:29 PM CDT [facility] Comment:<0.35 IS CLASS 0 (NE GATIVE) ALLERGEN SHRIMP <0.35 <0.35 kU/L 05/28/2025 3:29 PM CDT [facility] Comment:<0.35 IS CLASS 0 (NE GATIVE) ALLERGEN WALNUT <0.35 <0.35 kU/L 05/28/2025 3:29 PM CDT [facility] Comment:<0.35 IS CLASS 0 (NE GATIVE) ALLERGEN COD <0.35 <0.35 kU/L 05/28/2025 3:29 PM CDT [facility] Comment:<0.35 IS CLASS 0 (NE GATIVE) ALLERGEN SCALLOP <0.35 <0.35 kU/L 05/28/2025 3:29 PM CDT [facility] Comment:<0.35 IS CLASS 0 (NE GATIVE) ALLERGEN WHEAT <0.35 <0.35 kU/L 05/28/2025 3:29 PM CDT [facility] Comment:<0.35 IS CLASS 0 (NE GATIVE) ALLERGEN MAIZE CORN <0.35 <0.35 kU/L 05/28/2025 3:29 PM CDT [facility] Comment:<0.35 IS CLASS 0 (NE GATIVE) 05/26/2025 1:22 PM CDT us [facility] Final Result [facility] [address] [place] [address], [phone] * VITAMIN B-12 (05/26/2025 1:22 PM CDT) VITAMIN B12 S/P/B 319 193 - 986 PG/ML 05/27/2025 10:46 AM CDT [facility] 05/26/2025 1:22 PM CDT Karen Sequeira [facility] Final Result ZAKIYA MORRIS [facility] [address] [place] [address], * (ABNORMAL) COMPREHENSIVE METABOLIC PANEL (05/26/2025 1:22 PM CDT) [facility] SODIUM S/P/B 129(L) 136 - 145 MMOL/L 05/27/2025 10:55 AM CDT [facility] Comment:RESULT CHECKED POTASSIUM S/P/B 3.7 3.5 - 5.1 MMOL/L 05/27/2025 10:55 AM T [facility] CHLORIDE S/P/B 92(L) 98 - 107 MMOL/L 05/27/2025 10:55 AM CDT [facility] Comment:RESULT CHECKED CO2 30.3 21 - 32 MMOL/L 05/27/2025 10:46 AM T [facility] GLUCOSE 90 70 - 99 MG/DL 05/27/2025 10:46 AM CDT [facility] BUN 5(L) 7 - 18 MG/DL 05/27/2025 10:55 AM CDT [facility] Comment:RESULT CHECKED CREATININE S/P/B 0.68(L) 0.70 - 1.30 MG/DL 05/27/2025 10:46 AM T [facility] CALCIUM S/P/B 9.2 8.4 - 10.5 MG/DL 05/27/2025 10:46 AM CDT [facility] BILIRUBIN TOTAL S/P/B 0.7 0.2 - 1.0 MG/DL 05/27/2025 10:46 AM T [facility] ALKALINE PHOSPHATASE S/P/B 53 45 - 115 U/L 05/27/2025 10:46 AM CDT [facility] AST 12(L) 15 - 37 U/L 05/27/2025 10:46 AM CDT [facility] ALT 19 16 - 63 U/L 05/27/2025 10:46 AM CDT [facility] [place] TOTAL PROTEIN S/P/B 7.3 6.4 - 8.2 G/DL 05/27/2025 10:46 AM CDT [facility] ALBUMIN S/P/B 4.4 3.4 - 5.0 G/DL 05/27/2025 10:46 AM CDT [facility] ANION GAP 6.7 5 - 15 MMOL/L 05/27/2025 10:55 AM CDT [facility] Comment:REFERENCE RANGE NOT ESTABLISHED OSMOLALITY (CALC) 265 MOSM/KG 025 10:55 AM T [facility] Comment:REFERENCE RANGE NOT ESTABLISHED GFR ESTIMATE >90 >90 ML/MIN/1. 73 M2 05/27/2025 10:46 AM T [facility] GFR NOTES GFR REFERENCE S: 05/27/2025 10:46 AM [facility] [place] Comment: THE ESTIMATED GFR IS CALCULATED USING [...] <15 ml/min/1.73 m2 05/26/2025 1:22 PM CDT Karen [facility] Final Result [facility] [address] [place] [address], * THYROXINE, FREE (FT4) (05/26/2025 1:22 PM CDT) FREE T4 1.45 0.76 - 1.46 NG/DL 05/27/2025 10:46 AM CDT [facility] 05/26/2025 1:22 PM CDT Karen Sequeira [facility] Final Result Performing Organization Address [facility] Co de Phone Number [address] [address], * THYROID STIM HORMONE TSH (05/26/2025 1:22 PM CDT) TSH 2.007 0.358 - 3.740 uIU/ML 05/27/2025 10:46 AM CDT [facility] 05/26/2025 1:22 PM CDT us Karen Sequeira [facility] Final Result Performing Organization Address [facility] Co de Phone Number [address] [address], * (ABNORMAL) VITAMIN D 25 OH (05/26/2025 1:22 PM CDT) VITAMIN D 25 HYDROXY TOTAL S/P/B 12.2(L) 30 - 100 NG/ML 05/27/2025 10:46 AM CDT [facility] Comment: DEFICIENT <20 INSUFFICIENT 20-30 SUFFICIENT 30-100 05/26/2025 1:22 PM CDT us Karen Sequeira [facility] Final Result Performing Organization Address [facility] de Phone Number [address] [address], * MAGNESIUM (05/26/2025 1:22 PM CDT) MAGNESIUM 1.8 1.8 - 2.4 MG/DL 05/27/2025 10:46 AM CDT [facility] 05/26/2025 1:22 PM CDT us Karen Sequeira [facility] Final Result Performing Organization Address [facility] de Phone Number [address] [address], * (ABNORMAL) FOLIC ACID SERUM (05/26/2025 11:50 AM CDT) FOLATE 7.6(L) 8.6 - 58.9 NG/ML 05/26/2025 8:28 PM CDT [facility] 05/26/2025 11:5 0 AM CDT us Karen Sequeira [facility] Final Result Performing Organization Address [facility] de Phone Number [address] [address], [place] [phone] * OUTSIDE LAB (SCAN ORDER) (05/26/2025) Only the most recent of3 resultswithin the time period is included. 05/26/2025 us [facility] Scanned SCANNING Final Resu lt * IMAGE GENERIC (05/26/2025) Only the most recent of2 resultswithin the time period is included. Anatomical Region Laterality Modality Other 05/26/2025 us [facility] Scanned SCANNING Final Resu lt from Last 3 Months Insurance [facility] Care Teams Kieselguhr Regenerator Operator Relationship Specialty Start Date End Date Karen Sequeira FNP [address] [place] [address] PCP - General Nurse Practitioner Family 10/08/18
--- OUTSIDE RECORDS SUMMARY | 2025-06-03 21:49 | XMS_ITS | Clinical Summary ---
Author Organization [facility] Address [address] [place] [address] Care Team Providers Care Plow And Boring Machine Tender Name Role Phone Karen Sequeira NP Primary Care Provider + [phone] Allergies Active Allergy Reactions Criticality Noted Date [...] 90 tablet 1 03/09/20 25 025 Active fluticasone propionate (FLONASE) 50 mcg/actuation nasal spray Administer 2 sprays into each nostril daily 16 g 04/28/20 25 026 Active azelastine (ASTELIN) 137 mcg (0.1 %) nasal spray Administer 2 sprays into each nostril 2 (two) times a day Use in each nostril as directed 30 mL 05/06/20 25 026 Active budesonide (Eohilia) 2 mg/10 mL suspension in packetIndications: Eosinophilic Esophagitis Take 2 mg by mouth 2 (two) times a day 168 packet 03/09/20 25 025 Additional Information Patient not taking.Reported on 04/28/2025 Active Problems Problem Noted Date Diagnosed Date [...] the symptoms. Dupixent will be avoided until network pricing consultant evaluation, as it is highly effective for eosinophilic esophagitis, making it important to determine true allergy status for long-term management. The possibility of using a vial and needle injection was discussed, but it contains similar preservatives. Refer to an network pricing consultant at [facility] for evaluation of the suspected allergic reaction to Dupixent. Avoid Dupixent until network pricing consultant evaluation is complete. Assessment & Plan (03/09/2025 [...] the symptoms. Dupixent will be avoided until network pricing consultant evaluation, as it is highly effective for eosinophilic esophagitis, making it important to determine true allergy status for long-term management. The possibility of using a vial and needle injection was discussed, but it contains similar preservatives. Refer to an network pricing consultant at [facility] for evaluation of the suspected allergic reaction to Dupixent. Avoid Dupixent until network pricing consultant evaluation is complete. Gastroesophageal reflux disease 10/28/2024 [...] paperwork for work accommodations. Refer to a cigarette filter inspector for dietary management. Assessment & Plan (03/09/2025 [...] for dietary consultation. Will refer to an network pricing consultant. If possible, I would like to know [...] eosinophilia. 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): The endoscopic and biopsy findings are highly [...] Encounters Date Type Department Care Team Description 06/02/2025 Telephone [facility] Medicine Allergy and Immunology [address] [employer] [facility] [employer] [facility] Office Building [address] [place] [address] Mell Herman NP 05/19/2025 Results Follow-Up [facility] [address] [facility] [address] [place] [address] Ann Marie Huber MD CBC with auto differential, IgE, Allergen Rat mix (animal) IgE, Additional followed-up results: 27 05/08/2025 8:00 AM CDT Office Visit [facility] G[facility] at [address] [place] [address] Petar Monteiro NP Eosinophilic esophagitis (Primary Dx); Adverse effect of drug, subsequent encounter; Gastroesophageal reflux disease with esophagitis without hemorrhage 05/06/2025 2:00 PM CDT Lab [facility] at the [address] [id number] Eosinophilic esophagitis; Seasonal allergic rhinitis, unspecified trigger 05/06/2025 1:00 PM CDT Office Visit [facility] [address] [facility] [address] [place] [address] Ann Marie Huber MD Eosinophilic esophagitis (Primary Dx); Adverse effect of drug, subsequent encounter 04/28/2025 8:00 AM CDT Office Visit [facility] Medicine Allergy and Immunology [address] [facility] [address] [place] [address] Ann Marie Huber MD Seasonal allergic rhinitis, unspecified trigger (Primary Dx); Eosinophilic esophagitis; Adverse effect of drug, initial encounter 03/09/2025 1:30 PM CDT Office Visit [facility] G[facility] at [address] [place] [address] Petar Monteiro NP Eosinophilic esophagitis (Primary Dx); [...] on file Legal 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 Gender Identity Not on file Sexual [...] Seasonal allergic rhinitis, unspecified trigger ALLERGEN SYCAMORE GERMAN (TREE) IGE Routine 05/06/2025 1:30 PM CDT [...] Seasonal allergic rhinitis, unspecified trigger ALLERGEN PLANTAIN VIETNAMESE (WEED) IGE Routine 05/06/2025 1:30 PM CDT [...] Seasonal allergic rhinitis, unspecified trigger ALLERGEN COCKROACH GERMAN (INSECT) IGE Routine 05/06/2025 1:30 PM CDT [...] mix (animal) IgE (05/06/2025 1:30 PM CDT) [facility] Rat mix IgE <0.10 0.00 - 0.34 kUnits/L Blood 05/06/2025 1:30 PM CDT 05/06/2025 4:51 PM CDT Ann Marie Huber MD LAB BLOOD ORDERABLES Fin al Result Performing Organization Address [facility] Co de Phone Number [facility] Department [place] [address] * Allergen Mouse mix (animal) IgE (05/06/2025 1:30 PM CDT) [facility] Mouse mix IgE <0.10 0.00 - 0.34 kUnits/L Blood 05/06/2025 1:30 PM CDT 05/06/2025 4:51 PM CDT Ann Marie Huber MD LAB BLOOD ORDERABLES Fin al Result Performing Organization Address [facility] de Phone Number [facility] [place] [address] * Differential, auto (05/06/2025 1:30 PM CDT) [facility] Neutrophil abs 4.46 1.50 - 6.50 K/cumm Imm gran abs 0.01 0.00 - 0.10 K/cumm [facility] Lymphocyte abs 1.71 0.80 - 3.30 K/cumm [facility] Monocyte abs 0.44 0.20 - 0.80 K/cumm [facility] Eosinophil abs 0.18 0.00 - 0.50 K/cumm [facility] Basophil abs 0.06 0.00 - 0.10 K/cumm [facility] Neutrophil pct 65.1 % [facility] Comment: Interpretive Data Percent cell count reference ranges are not reported, since discordance with absolute values may lead to misinterpretation of CBC data. Current Interpretive Data was last revised on 2018. Imm gran pct 0.1 % [facility] Comment: Interpretive Data Percent cell count reference ranges are not reported, since discordance with absolute values may lead to misinterpretation of CBC data. Current Interpretive Data was last revised on 2018. Lymphocyte pct 24.9 % [facility] Comment: Interpretive Data Percent cell count reference ranges are not reported, since discordance with absolute values may lead to misinterpretation of CBC data. Current Interpretive Data was last revised on 2018. Monocyte pct 6.4 % [facility] Comment: Interpretive Data Percent cell count reference ranges are not reported, since discordance with absolute values may lead to misinterpretation of CBC data. Current Interpretive Data was last revised on 2018. Eosinophil pct 2.6 % [facility] Comment: Interpretive Data Percent cell count reference ranges are not reported, since discordance with absolute values may lead to misinterpretation of CBC data. Current Interpretive Data was last revised on 2018. Basophil pct 0.9 % [facility] Comment: Interpretive Data Percent cell count reference ranges are not reported, since discordance with absolute values may lead to misinterpretation of CBC data. Current Interpretive Data was last revised on 2018. Blood 05/06/2025 1:30 PM CDT 05/06/2025 4:51 PM CDT Ann Marie Huber MD LAB BLOOD ORDERABLES Fin al Result [facility] [place] [address] * Allergen Penicillium chrysogenum (mold) IgE (05/06/2025 1:30 PM CDT) Penicillium chrysogenum IgE <0.10 0.00 - 0.34 kUnits/L Blood 05/06/2025 1:30 PM CDT 05/06/2025 4:51 PM CDT Ann Marie Huber MD LAB BLOOD ORDERABLES Fin al Result Performing Organization Address [facility] de Phone Number [facility] [place] [address] * Allergen [place] (tree) IgE (05/06/2025 1:30 PM CDT) Pathologist [facility] [place] IgE <0.10 0.00 - 0.34 kUnits/L Blood 05/06/2025 1:30 PM CDT 05/06/2025 4:51 PM CDT Ann Marie Huber MD LAB BLOOD ORDERABLES Fin al Result Performing Organization Address [facility] de Phone Number [facility] [place] [address] * Allergen Mountain juniper (tree) IgE (05/06/2025 1:30 PM CDT) [facility] Mountain juniper IgE <0.10 0.00 - 0.34 kUnits/L Blood 05/06/2025 1:30 PM CDT 05/06/2025 4:51 PM CDT Ann Marie Huber MD LAB BLOOD ORDERABLES Fin al Result Performing Organization Address [facility] [place] [address] * CBC with auto differential (05/06/2025 1:30 PM CDT) [facility] WBC 6.86 3.80 - 9.90 K/cumm Hgb 14.0 13.0 - 17.5 g/dL [facility] Hct 42.3 38.9 - 50.3 % [facility] Plt 246 150 - 400 K/cumm [facility] MPV 10.8 9.1 - 12.3 fL [facility] RBC 4.95 4.30 - 5.80 M/cumm [facility] MCV 85.5 81.3 - 96.4 fL [facility] MCH 28.3 27.1 - 33.3 pg [facility] MCHC 33.1 32.3 - 35.7 g/dL [facility] RDW CV 12.0 11.1 - 14.9 % [facility] RDW SD 37.2 35.7 - 48.1 fL [facility] NRBC abs 0.00 0.00 - 0.01 K/cumm [facility] Blood 05/06/2025 1:30 PM CDT 05/06/2025 4:51 PM CDT Ann Marie Huber MD LAB BLOOD ORDERABLES Fin al Result Performing Organization Address [facility] de Phone Number [facility] Department [place] [address] * Allergen Bermuda grass (grass) IgE (05/06/2025 1:30 PM CDT) Bermuda grass IgE <0.10 0.00 - 0.34 kUnits/L Blood 05/06/2025 1:30 PM CDT 05/06/2025 4:51 PM CDT Ann Marie Huber MD LAB BLOOD ORDERABLES Fin al Result Performing Organization Address [facility] de Phone Number [facility] [place] [address] * Allergen Plantain paraguayan (weed) IgE (05/06/2025 1:30 PM CDT) Plantain paraguayan IgE <0.10 0.00 - 0.34 kUnits/L Blood 05/06/2025 1:30 PM CDT 05/06/2025 4:51 PM CDT Ann Marie Huber MD LAB BLOOD ORDERABLES Fin al Result Performing Organization Address [facility] Co de Phone Number [facility] [place] [place] [address] * Allergen Elm (tree) IgE (05/06/2025 1:30 PM CDT) Elm IgE <0.10 0.00 - 0.34 kUnits/L Blood 05/06/2025 1:30 PM CDT 05/06/2025 4:51 PM CDT Ann Marie Huber MD LAB BLOOD ORDERABLES Fin al Result Performing Organization Address [facility] de Phone Number [facility] [place] [address] * Allergen Cladosporium herbarum (mold) IgE (05/06/2025 1:30 PM CDT) Cladosporium herbarum IgE <0.10 0.00 - 0.34 kUnits/L Blood 05/06/2025 1:30 PM CDT 05/06/2025 4:51 PM CDT Ann Marie Huber MD LAB BLOOD ORDERABLES Fin al Result Performing Organization Address [facility] Co de Phone Number [facility] Department [place] [address] * Allergen Birch common silver (tree) IgE (05/06/2025 1:30 PM CDT) Birch common silver IgE <0.10 0.00 - 0.34 kUnits/L Blood 05/06/2025 1:30 PM CDT 05/06/2025 4:51 PM CDT Ann Marie Huber MD LAB BLOOD ORDERABLES Fin al Result Performing Organization Address [facility] de Phone Number [facility] [place] [address] * Allergen Alternaria tenuis (mold) IgE (05/06/2025 1:30 PM CDT) Alternaria tenius IgE <0.10 0.00 - 0.34 kUnits/L Blood 05/06/2025 1:30 PM CDT 05/06/2025 4:51 PM CDT Ann Marie Huber MD LAB BLOOD ORDERABLES Fin al Result Performing Organization Address [facility] de Phone Number [facility] [place] [address] * Allergen Aspergillus fumigatus (mold) IgE (05/06/2025 1:30 PM CDT) Aspergillus fumigatus IgE <0.10 0.00 - 0.34 kUnits/L Blood 05/06/2025 1:30 PM CDT 05/06/2025 4:51 PM CDT Ann Marie Huber MD LAB BLOOD ORDERABLES Fin al Result Performing Organization Address [facility] de Phone Number [facility] Department [place] [address] * Allergen Dermatophagoides pteronyssinus (insect) IgE (05/06/2025 1:30 PM CDT) Dermatophyton pteronyssinus IgE <0.10 0.00 - 0.34 kUnits/L Blood 05/06/2025 1:30 PM CDT 05/06/2025 4:51 PM CDT Ann Marie Huber MD LAB BLOOD ORDERABLES Fin al Result Performing Organization Address [facility] de Phone Number [facility] [place] [address] * Allergen Dermatophagoides farniae (insect) IgE (05/06/2025 1:30 PM CDT) Dermatophyton farinae IgE <0.10 0.00 - 0.34 kUnits/L Blood 05/06/2025 1:30 PM CDT 05/06/2025 4:51 PM CDT Ann Marie Huber MD LAB BLOOD ORDERABLES Fin al Result Performing Organization Address [facility] de Phone Number [facility] [place] [address] * Allergen Epithelia/dander dog (animal) IgE (05/06/2025 1:30 PM CDT) Dog dander IgE <0.10 0.00 - 0.34 kUnits/L Blood 05/06/2025 1:30 PM CDT 05/06/2025 4:51 PM CDT Ann Marie Huber MD LAB BLOOD ORDERABLES Fin al Result Performing Organization Address [facility] de Phone Number [facility] Department [place] [address] * Allergen Cockroach saudi arabian (insect) IgE (05/06/2025 1:30 PM CDT) Cockroach IgE <0.10 0.00 - 0.34 kUnits/L Blood 05/06/2025 1:30 PM CDT 05/06/2025 4:51 PM CDT Ann Marie Huber MD LAB BLOOD ORDERABLES Fin al Result Performing Organization Address [facility] Co de Phone Number [facility] Department [place] [address] * Allergen Epithelia/dander cat (animal) IgE (05/06/2025 1:30 PM CDT) Cat dander IgE <0.10 0.00 - 0.34 kUnits/L Blood 05/06/2025 1:30 PM CDT 05/06/2025 4:51 PM CDT Ann Marie Huber MD LAB BLOOD ORDERABLES Fin al Result Performing Organization Address [facility] Co de Phone Number [facility] [place] [address] * Allergen Ragweed short/common (weed) IgE (05/06/2025 1:30 PM CDT) Ragweed common IgE <0.10 0.00 - 0.34 kUnits/L Blood 05/06/2025 1:30 PM CDT 05/06/2025 4:51 PM CDT Ann Marie Huber MD LAB BLOOD ORDERABLES Fin al Result Performing Organization Address [facility] Co de Phone Number [facility] [place] [address] * Allergen Pigweed, rough (weed) IgE (05/06/2025 1:30 PM CDT) Pigweed rough IgE <0.10 0.00 - 0.34 kUnits/L Blood 05/06/2025 1:30 PM CDT 05/06/2025 4:51 PM CDT Ann Marie Huber MD LAB BLOOD ORDERABLES Fin al Result Performing Organization Address [facility] Co de [place] [address] * Allergen Nettle (weed) IgE (05/06/2025 1:30 PM CDT) Nettle IgE <0.10 0.00 - 0.34 kUnits/L Blood 05/06/2025 1:30 PM CDT 05/06/2025 4:51 PM CDT Ann Marie Huber MD LAB BLOOD [place] [address] * Allergen Lincoln's quarter (weed) IgE (05/06/2025 1:30 PM CDT) Lincoln's quarters IgE <0.10 0.00 - 0.34 kUnits/L Blood 05/06/2025 1:30 PM CDT 05/06/2025 4:51 PM CDT Ann Marie Huber MD LAB BLOOD ORDERABLES Fin al Result Performing Organization Address [facility] [place] [address] * Allergen Homero grass (grass) IgE (05/06/2025 1:30 PM CDT) Homero grass IgE <0.10 0.00 - 0.34 kUnits/L Blood 05/06/2025 1:30 PM CDT 05/06/2025 4:51 PM CDT Ann Marie Huber MD LAB BLOOD ORDERABLES Fin al Result [facility] [place] [address] * Allergen Roge grass (grass) IgE (05/06/2025 1:30 PM CDT) Roge grass IgE <0.10 0.00 - 0.34 kUnits/L Blood 05/06/2025 1:30 PM CDT 05/06/2025 4:51 PM CDT Ann Marie Huber MD LAB BLOOD ORDERABLES Fin al Result Performing Organization Address City/State/[facility] Co de Phone Number [facility] [place] [address] * Allergen Florence (tree) IgE (05/06/2025 1:30 PM CDT) Florence (tree) IgE <0.10 0.00 - 0.34 kUnits/L Blood 05/06/2025 1:30 PM CDT 05/06/2025 4:51 PM CDT Ann Marie Huber MD LAB BLOOD ORDERABLES Fin al Result Performing Organization Address [facility] Co de Phone Number [facility] [place] [address] * Allergen [place] saudi arabian (tree) IgE (05/06/2025 1:30 PM CDT) [place] IgE <0.10 0.00 - 0.34 kUnits/L Blood 05/06/2025 1:30 PM CDT 05/06/2025 4:51 PM CDT Ann Marie Huber MD LAB BLOOD ORDERABLES Fin al Result Performing Organization Address City/[facility] Co de Phone Number [facility] [place] [address] * Allergen Maple/Box elder (tree) IgE (05/06/2025 1:30 PM CDT) Maple/box elder IgE <0.10 0.00 - 0.34 kUnits/L Blood 05/06/2025 1:30 PM CDT 05/06/2025 4:51 PM CDT Ann Marie Huber MD LAB BLOOD ORDERABLES Fin al Result Performing Organization Address [facility] Co de Phone Number [facility] [place] [address] * Allergen [place] red (tree) IgE (05/06/2025 1:30 PM CDT) Pathologist [facility] [place] IgE <0.10 0.00 - 0.34 kUnits/L Blood 05/06/2025 1:30 PM CDT 05/06/2025 4:51 PM CDT Ann Marie Huber MD LAB BLOOD ORDERABLES Fin al Result Performing Organization Address [facility] de Phone Number [facility] [place] [address] * IgE (05/06/2025 1:30 PM CDT) Pathologist [facility] IgE 36 <=100 IUnits/mL Blood 05/06/2025 1:30 PM CDT 05/06/2025 4:51 PM CDT Ann Marie Huber MD LAB BLOOD ORDERABLES Fin al Result Performing Organization Address [facility] Co de Phone Number [facility] [place] [address] * Allergy skin tests allergens, each (04/28/2025 7:48 AM CDT) Ann Marie Huber MD IN CLINIC/BEDSIDE ORDERDaniela ARANGO Edited Result - Final from Last 3 Months Insurance ANTHEM ACCESS CHOICE ANTHEM ACCESS CHOICE Advance Directives For more information, please contact: [phone] * Full Code (Latest Code Status on File) Date Activated Date Inactivated Comments 01/26/2025 11:42 AM 01/26/2025 6:06 PM Care Teams Plow And Boring Machine Tender Relationship Specialty Start Date End Date Karen Sequeira NP [address] [place] [id number] PCP - General Nurse Practitioner 09/07/24
--- OUTSIDE RECORDS SUMMARY | 2025-06-03 21:49 | XMS_ITS | Encounter Summary ---
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 Gender Identity Male 05/26/2025 10:31 AM CDT Sexual Orientation Straight 10/08/2018 6: 21 PM ELECTRIC METER SETTER documented as of this encounter Plan of Treatment Upcoming Encounters Date Type Department Care Team (Late Contact Info) Description 06/12/2025 9:40 AM CDT Allied Health/Nurse Visit [facility] Family & Internal Medicine - [place] [address] [place] [address] Karen Sequeira FNP [facility] [place] [address] documented as of this encounter Procedures Procedure Name Priority Date/Time Associated Diagnosis Comments OUTSIDE LAB (SCAN ORDER) 05/26/2025 IMAGE GENERIC 05/26/2025 documented in this encounter Results * OUTSIDE LAB (SCAN ORDER) (05/26/2025) 05/26/2025 [facility] Scanned SCANNING Final Resu lt * IMAGE GENERIC (05/26/2025) Anatomical Region Laterality Modality Other 05/26/2025 [facility] Scanned SCANNING Final Resu lt documented in this encounter Visit Diagnoses Not on filedocumented in this encounter Care Teams Glass Wool Blanket Machine Feeder Relationship Specialty Start Date End Date Karen Sequeira FNP [address] [place] [id number] PCP - General Nurse Practitioner Family 10/08/18 documented as of this encounter
--- NOTE | 2025-06-03 22:03 | ECG_ITS ---
Test Date: 2025-06-03 22:43:51 Measurements Intervals [place] Rate: 95 P: 72 [place]: 135 QRS: 60 QRSD: 100 T: 40 QT: 336 QTc: 423 Interpretive Statements SINUS RHYTHM POSSIBLE LEFT ATRIAL ENLARGEMENT [-0.1mV P WAVE IN V1/V2] Compared to ECG 05/21/2025 01:53:47 No significant changes Electronically Signed On 06-04-2025 11:05:33 CDT by Darian Trevino M.D.
--- NOTE | 2025-06-03 22:08 | ED_ITS ---
HPI - General Adult General Chief complaint: Anxiety Stated complaint: fever, flu symptoms Time Seen by Provider: 06/03/25 21:57 History of Present Illness HPI narrative: This is a 25-year-old male with history of EOE presenting for lightheadedness. Patient says he has not been eating or drinking normally since his diagnosis of EOE today. He is only in part of a hamburger and some potato today. He became dizzy which is worse when he stands up. Made him concerned he came to the ED. He does not have any fevers chills URI symptoms chest pain difficulty breathing abdominal pain nausea vomiting or diarrhea. Related Data Home Medications ?Medication ?Instructions ?Recorded ?Confirmed ?Last Taken ?Type azelastine 137 mcg (0.1 %) nasal intranasal 05/17/25 Unknown History spray Allergies Allergy/AdvReac Type Severity Reaction Status Date / Time dupilumab (From [employer] Pen) Allergy Severe Difficulty Verified 06/03/25 21:54 Swallowing PMFSH Past Medical History Medical History Asthma Surgical History Surgical History No pertinent past surgical history Social History Social History Smoking status: Never smoker Substance use type: does not use Exam 2 Narrative: APPEARANCE: No apparent distress. Head: atraumatic. EYES: EOMI, NOSE: Atraumatic NECK: Trachea midline RESPIRATORY: No increased rate of breathing CTAB CARDIOVASCULAR: RRR, no peripheral edema, dizziness is reproducible with standing ABDOMINAL: Non-distended soft nontender MUSCULOSKELETAl: No obvious deformities NEURO: Alert. Cranial nerves 2-12 grossly intact. Sensation light touch, motor function cerebellar function intact for 4 extremities. Gait exam was normal. SKIN:: Warm, dry. Normal color PSYCHIATRIC: Normal affect Course Vital Signs Vital signs: Vital Signs Temperature 99.1 F 06/03/25 21:48 Pulse Rate 79 06/03/25 21:48 Respiratory Rate 16 06/03/25 21:48 Blood Pressure 114/76 06/03/25 21:48 Pulse Oximetry 100 06/03/25 21:48 Oxygen Delivery Room Air 06/03/25 21:48 Temperature 99.1 F 06/03/25 21:48 Pulse Rate 79 06/03/25 21:48 Respiratory Rate 16 06/03/25 21:48 Blood Pressure 114/76 06/03/25 21:48 Pulse Oximetry 100 06/03/25 21:48 Oxygen Delivery Room Air 06/03/25 21:48 Medical Decision Making MDM Narrative Medical decision making narrative: -Course: 25-year-old male presenting with dizziness on standing. This is in the setting of decreased oral intake due to severe anxiety about developing allergies to foods and medications. Dizziness is likely due to dehydration. Patient has been seen in our emergency department 5 times since 05/19/2025 for multiple complaints including anxiety and difficulty swallowing due to EOE. He has been prescribed anxiety medication by his primary care physician unfortunately he has anxiety about taking anxiety medications and is not compliant. Patient received fluids here and is feeling better. I spoke with him and his mother at length in regards to his symptoms. Patient will be discharged follow-up with his primary care physician. Given return precautions. -DDX includes but is not limited to: Dehydration, anxiety,EOE -Co-morbidities complicating care: Anxiety, EOE, dehydration -External Chart Review: Review of 5 previous ER visits n the last several weeks. Vital Signs Vital Signs: Vital Signs Temperature 99.1 F 06/03/25 21:48 Pulse Rate 79 06/03/25 21:48 Respiratory Rate 16 06/03/25 21:48 Blood Pressure 114/76 06/03/25 21:48 Pulse Oximetry 100 06/03/25 21:48 Oxygen Delivery Room Air 06/03/25 21:48 Temperature 99.1 F 06/03/25 21:48 Pulse Rate 79 06/03/25 21:48 Respiratory Rate 16 06/03/25 21:48 Blood Pressure 114/76 06/03/25 21:48 Pulse Oximetry 100 06/03/25 21:48 Oxygen Delivery Room Air 06/03/25 21:48 Lab Data 06/03/25 22:29 06/03/25 22:29 Labs: Lab Results 06/03/25 06/03/25 Range/Units 22:29 23:11 WBC 4.6 (4.5-10.0) K/mm3 RBC 4.81 (4.6-6.20) M/mm3 Hgb 13.7 L (14.0-18.0) g/dL Hct 39.6 L (42.0-52.0) % MCV 82.3 (80-100) fl MCH 28.5 (26-34) pg MCHC 34.6 (32-36) g/dl RDW 11.8 (11.5-14.5) % Plt Count 255 (150-375) k/mm3 MPV 9.2 (7.4-10.4) fl Immature Gran % (Auto) 0.2 (0-0.5) % Neut % (Auto) 58.6 (45.5-73.1) % Lymph % (Auto) 29.4 (18.3-44.2) % [place] % (Auto) 8.4 (2.6-8.5) % Eos % (Auto) 2.8 (0-4.4) % Baso % (Auto) 0.6 (0.2-1.2) % Lymph # (Auto) 1.36 (0.9-3.2) K/mm3 [place] # (Auto) 0.4 (0.1-0.6) K/mm3 Eos # (Auto) 0.1 (0-0.3) K/mm3 Baso # (Auto) 0.0 (0.0-0.1) K/mm3 Abs Immat Gran (auto) 0.01 (0.00-0.031) K/mm3 Absolute Neuts (auto) 2.7 (1.3-6.7) K/mm3 Absolute Nucleated RBC 0.000 (0.0-0.012) K/mm3 Nucleated RBC % 0.0 (0.0-0.2) % Sodium 134 L (137-145) mmol/L Potassium 3.7 (3.4-5.0) mmol/L Chloride 100 (98-107) mmol/L Carbon Dioxide 25 (22-30) mmol/L Anion Gap 9 (4-12) mmol/L BUN 4 L (9-20) mg/dL Creatinine 0.70 (0.7-1.3) mg/dL Estim Creat Clear Calc 127 ml/min Estimated GFR > 60 (59 - ) Glucose 89 (65-110) mg/dL Calcium 9.0 (8.4-10.2) mg/dL Total Bilirubin 0.7 (0.2-1.3) mg/dL AST 18 (17-59) U/L ALT 11 (6-50) U/L Alkaline Phosphatase 54 (38-126) U/L Total Protein 7.7 (6.3-8.2) g/dL Albumin 4.5 (3.5-5.1) g/dL Urine Color Yellow (Yellow) Urine Appearance Clear (Clear) Urine pH 6.5 (5.0-9.0) Ur Specific [place] 1.004 (1.001-1.035) Urine Protein Negative (Negative) mg/dL Urine Glucose (UA) Negative (Negative) mg/dL Urine Ketones 1+ H (Negative) mg/dL Ur Blood (Man) Negative (Negative) Urine Nitrate Negative (Negative) Urine Bilirubin Negative (Negative) Urine Urobilinogen 1.0 (<2.0) mg/dL Leukocyte Esterase Rfl Negative (Negative) BOBBY/UL Influenza A (RT-PCR) Negative (Negative) Influenza B (RT-PCR) Negative (Negative) RSV (RT-PCR) Negative (Negative) SARS-CoV-2 RNA (RT-PCR) Negative (Negative) Discharge Plan Discharge Clinical Impression: Acute dehydration, Anxiety Patient Disposition: Home Condition: Stable Instructions: Antibiotic Form, Dehydration (DC) Additional Instructions: Please follow-up with your primary care physician for further management. Patient Language: Telugu Prescriptions: No Action epinephrine [EpiPen 2-Eliud] 0.3 mg/0.3 mL auto-injector 0.3 mg IM Q5-15M PRN (Reason: anaphylaxis) Qty: 2 0RF Rx Instructions: do not exceed 3 doses per episode prednisolone 15 mg/5 mL solution 60 mg PO QAM 4 Days Qty: 80 0RF diphenhydramine HCl [Allergy Relief(diphenhydramin)] 12.5 mg/5 mL liquid 25 mg PO Q6H PRN (Reason: allergic reaction) Qty: 473 0RF Pepcid Complete 10-800-165 mg tablet,chewable 1 tablet PO BID PRN (Reason: allergic symptoms) Qty: 20 0RF azelastine 137 mcg (0.1 %) spray,non-aerosol INTRANASAL epinephrine [EpiPen 2-Eliud] 0.3 mg/0.3 mL auto-injector 0.3 ml IM ONCE Qty: 2 0RF Rx Instructions: as a single dose; may repeat once hydroxyzine pamoate 50 mg capsule 50 mg PO TID PRN (Reason: anxiety) Qty: 20 0RF magnesium oxide 500 mg capsule 500 mg PO DAILY 7 Days Qty: 7 0RF potassium chloride 20 mEq/15 mL liquid 20 meq PO BID 7 Days Qty: 210 0RF aluminum-magnesium hydroxide 200-200 mg/5 mL suspension 30 ml PO DAILY 10 Days Qty: 300 0RF potassium chloride 20 mEq/15 mL liquid 20 meq PO BID 7 Days Qty: 210 0RF Follow-up/Referrals: KATE,KEYONNA ROBLEDO [Primary Care Provider]
--- OUTSIDE RECORDS SUMMARY | 2025-06-03 22:13 | XMS_ITS | Clinical Summary ---
Author Organization [facility] Address [address] [place] [address] Care Team Providers Care Pattern Fitter Name Role Phone Karen Sequeira NP Primary Care Provider + [phone] Allergies Active Allergy Reactions Criticality Noted Date [...] the symptoms. Dupixent will be avoided until merchandise planning manager evaluation, as it is highly effective for eosinophilic esophagitis, making it important to determine true allergy status for long-term management. The possibility of using a vial and needle injection was discussed, but it contains similar preservatives. Refer to an merchandise planning manager at [facility] for evaluation of the suspected allergic reaction to Dupixent. Avoid Dupixent until merchandise planning manager evaluation is complete. Assessment & Plan (03/09/2025 [...] the symptoms. Dupixent will be avoided until merchandise planning manager evaluation, as it is highly effective for eosinophilic esophagitis, making it important to determine true allergy status for long-term management. The possibility of using a vial and needle injection was discussed, but it contains similar preservatives. Refer to an merchandise planning manager at [facility] for evaluation of the suspected allergic reaction to Dupixent. Avoid Dupixent until merchandise planning manager evaluation is complete. Gastroesophageal reflux disease 10/28/2024 [...] paperwork for work accommodations. Refer to a humanities professor for dietary management. Assessment & Plan (03/09/2025 [...] for dietary consultation. Will refer to an merchandise planning manager. If possible, I would like to know [...] eosinophilia. Assessment & Plan (10/28/2024 4:50 PM SERVICE PORTER): The endoscopic and biopsy findings are highly [...] [facility] Medicine All[facility] Immunology [address] [facility] [address] [place] [address] Mell Herman NP 05/19/2025 Results Follow-Up [facility] Allergy and Immunology [address] [facility] [address] [place] [address] Ann Marie Huber MD CBC with auto differential, IgE, Allergen Rat mix (animal) IgE, Additional followed-up results: 27 05/08/2025 8:00 AM CDT Office Visit [facility] Gastroenterology at [address] [place] [address] Petar Monteiro NP Eosinophilic esophagitis (Primary Dx); Adverse effect of drug, subsequent encounter; Gastroesophageal reflux disease with esophagitis without hemorrhage 05/06/2025 2:00 PM CDT Lab [facility] at the [address] [phone] Eosinophilic esophagitis; Seasonal allergic rhinitis, unspecified trigger 05/06/2025 1:00 PM CDT Office Visit [facility] Allergy and Immunology [address] [facility] [address] [place] [address] Ann Marie Huber MD Eosinophilic esophagitis (Primary Dx); Adverse effect of drug, subsequent encounter 04/28/2025 8:00 AM CDT Office Visit [facility] Medicine Allergy and Immunology [address] [facility] [address] [place] [address] Ann Marie Huber MD Seasonal allergic rhinitis, unspecified trigger (Primary Dx); Eosinophilic esophagitis; Adverse effect of drug, initial encounter 03/09/2025 1:30 PM CDT Office Visit [facility] Gastroenterology at [address] [place] [address] Petar Monteiro NP Eosinophilic esophagitis (Primary Dx); [...] on file 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 Gender Identity Not on file Sexual Orientation [...] Seasonal allergic rhinitis, unspecified trigger ALLERGEN SYCAMORE BURUNDIAN (TREE) IGE Routine 05/06/2025 1:30 PM CDT [...] Seasonal allergic rhinitis, unspecified trigger ALLERGEN PLANTAIN CZECH (WEED) IGE Routine 05/06/2025 1:30 PM CDT [...] Seasonal allergic rhinitis, unspecified trigger ALLERGEN COCKROACH BURUNDIAN (INSECT) IGE Routine 05/06/2025 1:30 PM CDT [...] mix (animal) IgE (05/06/2025 1:30 PM CDT) [facility] Rat mix IgE <0.10 0.00 - 0.34 kUnits/L Blood 05/06/2025 1:30 PM CDT 05/06/2025 4:51 PM CDT Ann Marie Huber MD LAB BLOOD ORDERABLES Fin al Result Performing Organization Address [facility] Co de Phone Number [facility] Department [place] [address] * Allergen Mouse mix (animal) IgE (05/06/2025 1:30 PM CDT) [facility] Mouse mix IgE <0.10 0.00 - 0.34 kUnits/L Blood 05/06/2025 1:30 PM CDT 05/06/2025 4:51 PM CDT Ann Marie Huber MD LAB BLOOD ORDERABLES Fin al Result Performing Organization Address [facility] de Phone Number [facility] [place] [address] * Differential, auto (05/06/2025 1:30 PM CDT) [facility] Neutrophil abs 4.46 1.50 - 6.50 K/cumm Imm gran abs 0.01 0.00 - 0.10 K/cumm [facility] Lymphocyte abs 1.71 0.80 - 3.30 K/cumm [facility] Monocyte abs 0.44 0.20 - 0.80 K/cumm [facility] Eosinophil abs 0.18 0.00 - 0.50 K/cumm [facility] Basophil abs 0.06 0.00 - 0.10 K/cumm [facility] Neutrophil pct 65.1 % [facility] Comment: Interpretive Data Percent cell count reference ranges are not reported, since discordance with absolute values may lead to misinterpretation of CBC data. Current Interpretive Data was last revised on 2018. Imm gran pct 0.1 % [facility] Comment: Interpretive Data Percent cell count reference ranges are not reported, since discordance with absolute values may lead to misinterpretation of CBC data. Current Interpretive Data was last revised on 2018. Lymphocyte pct 24.9 % [facility] Comment: Interpretive Data Percent cell count reference ranges are not reported, since discordance with absolute values may lead to misinterpretation of CBC data. Current Interpretive Data was last revised on 2018. Monocyte pct 6.4 % [facility] Comment: Interpretive Data Percent cell count reference ranges are not reported, since discordance with absolute values may lead to misinterpretation of CBC data. Current Interpretive Data was last revised on 2018. Eosinophil pct 2.6 % [facility] Comment: Interpretive Data Percent cell count reference ranges are not reported, since discordance with absolute values may lead to misinterpretation of CBC data. Current Interpretive Data was last revised on 2018. Basophil pct 0.9 % [facility] Comment: Interpretive Data Percent cell count reference ranges are not reported, since discordance with absolute values may lead to misinterpretation of CBC data. Current Interpretive Data was last revised on 2018. Blood 05/06/2025 1:30 PM CDT 05/06/2025 4:51 PM CDT Ann Marie Huber MD LAB BLOOD ORDERABLES Fin al Result [facility] [address] [facility] Department [place] [address] * Allergen Penicillium chrysogenum (mold) IgE (05/06/2025 1:30 PM CDT) Penicillium chrysogenum IgE <0.10 0.00 - 0.34 kUnits/L Blood 05/06/2025 1:30 PM CDT 05/06/2025 4:51 PM CDT Ann Marie Huber MD LAB BLOOD ORDERABLES Fin al Result Performing Organization Address [facility] de Phone Number [facility] [place] [address] * Allergen [place] (tree) IgE (05/06/2025 1:30 PM CDT) Pathologist [facility] [place] IgE <0.10 0.00 - 0.34 kUnits/L Blood 05/06/2025 1:30 PM CDT 05/06/2025 4:51 PM CDT Ann Marie Huber MD LAB BLOOD ORDERABLES Fin al Result Performing Organization Address [facility] de Phone Number [facility] [place] [address] * Allergen Mountain juniper (tree) IgE (05/06/2025 1:30 PM CDT) [facility] Mountain juniper IgE <0.10 0.00 - 0.34 kUnits/L Blood 05/06/2025 1:30 PM CDT 05/06/2025 4:51 PM CDT Ann Marie Huber MD LAB BLOOD ORDERABLES Fin al Result Performing Organization Address [facility] [place] [address] * CBC with auto differential (05/06/2025 1:30 PM CDT) [facility] WBC 6.86 3.80 - 9.90 K/cumm Hgb 14.0 13.0 - 17.5 g/dL [facility] Hct 42.3 38.9 - 50.3 % [facility] Plt 246 150 - 400 K/cumm [facility] MPV 10.8 9.1 - 12.3 fL [facility] RBC 4.95 4.30 - 5.80 M/cumm [facility] MCV 85.5 81.3 - 96.4 fL [facility] MCH 28.3 27.1 - 33.3 pg [facility] MCHC 33.1 32.3 - 35.7 g/dL [facility] RDW CV 12.0 11.1 - 14.9 % [facility] RDW SD 37.2 35.7 - 48.1 fL [facility] NRBC abs 0.00 0.00 - 0.01 K/cumm [facility] Blood 05/06/2025 1:30 PM CDT 05/06/2025 4:51 PM CDT Ann Marie Huber MD LAB BLOOD ORDERABLES Fin al Result Performing Organization Address [facility] de Phone Number [facility] Department [place] [address] * Allergen Bermuda grass (grass) IgE (05/06/2025 1:30 PM CDT) Bermuda grass IgE <0.10 0.00 - 0.34 kUnits/L Blood 05/06/2025 1:30 PM CDT 05/06/2025 4:51 PM CDT Ann Marie Huber MD LAB BLOOD ORDERABLES Fin al Result Performing Organization Address [facility] de Phone Number [facility] [place] [address] * Allergen Plantain belgian (weed) IgE (05/06/2025 1:30 PM CDT) Plantain belgian IgE <0.10 0.00 - 0.34 kUnits/L Blood 05/06/2025 1:30 PM CDT 05/06/2025 4:51 PM CDT Ann Marie Huber MD LAB BLOOD ORDERABLES Fin al Result Performing Organization Address [facility] Co de Phone Number [facility] [place] [address] * Allergen Elm (tree) IgE (05/06/2025 1:30 PM CDT) Elm IgE <0.10 0.00 - 0.34 kUnits/L Blood 05/06/2025 1:30 PM CDT 05/06/2025 4:51 PM CDT Ann Marie Huber MD LAB BLOOD ORDERABLES Fin al Result Performing Organization Address [facility] de Phone Number [facility] [place] [address] * Allergen Cladosporium herbarum (mold) IgE (05/06/2025 1:30 PM CDT) Cladosporium herbarum IgE <0.10 0.00 - 0.34 kUnits/L Blood 05/06/2025 1:30 PM CDT 05/06/2025 4:51 PM CDT Ann Marie Huber MD LAB BLOOD ORDERABLES Fin al Result Performing Organization Address [facility] Co de Phone Number [facility] Department [place] [address] * Allergen Birch common silver (tree) IgE (05/06/2025 1:30 PM CDT) Birch common silver IgE <0.10 0.00 - 0.34 kUnits/L Blood 05/06/2025 1:30 PM CDT 05/06/2025 4:51 PM CDT Ann Marie Huber MD LAB BLOOD ORDERABLES Fin al Result Performing Organization Address [facility] de Phone Number [facility] [place] [address] * Allergen Alternaria tenuis (mold) IgE (05/06/2025 1:30 PM CDT) Alternaria tenius IgE <0.10 0.00 - 0.34 kUnits/L Blood 05/06/2025 1:30 PM CDT 05/06/2025 4:51 PM CDT Ann Marie Huber MD LAB BLOOD ORDERABLES Fin al Result Performing Organization Address [facility] de Phone Number [facility] [place] [address] * Allergen Aspergillus fumigatus (mold) IgE (05/06/2025 1:30 PM CDT) Aspergillus fumigatus IgE <0.10 0.00 - 0.34 kUnits/L Blood 05/06/2025 1:30 PM CDT 05/06/2025 4:51 PM CDT Ann Marie Huber MD LAB BLOOD ORDERABLES Fin al Result Performing Organization Address [facility] de Phone Number [facility] Department [place] [address] * Allergen Dermatophagoides pteronyssinus (insect) IgE (05/06/2025 1:30 PM CDT) Dermatophyton pteronyssinus IgE <0.10 0.00 - 0.34 kUnits/L Blood 05/06/2025 1:30 PM CDT 05/06/2025 4:51 PM CDT Ann Marie Huber MD LAB BLOOD ORDERABLES Fin al Result Performing Organization Address [facility] de Phone Number [facility] [place] [address] * Allergen Dermatophagoides farniae (insect) IgE (05/06/2025 1:30 PM CDT) Dermatophyton farinae IgE <0.10 0.00 - 0.34 kUnits/L Blood 05/06/2025 1:30 PM CDT 05/06/2025 4:51 PM CDT Ann Marie Huber MD LAB BLOOD ORDERABLES Fin al Result Performing Organization Address [facility] de Phone Number [facility] [place] [address] * Allergen Epithelia/dander dog (animal) IgE (05/06/2025 1:30 PM CDT) Dog dander IgE <0.10 0.00 - 0.34 kUnits/L Blood 05/06/2025 1:30 PM CDT 05/06/2025 4:51 PM CDT Ann Marie Huber MD LAB BLOOD ORDERABLES Fin al Result Performing Organization Address [facility] de Phone Number [facility] Department [place] [address] * Allergen Cockroach spanish (insect) IgE (05/06/2025 1:30 PM CDT) Cockroach IgE <0.10 0.00 - 0.34 kUnits/L Blood 05/06/2025 1:30 PM CDT 05/06/2025 4:51 PM CDT Ann Marie Huber MD LAB BLOOD ORDERABLES Fin al Result Performing Organization Address [facility] Co de Phone Number [facility] Department [place] [address] * Allergen Epithelia/dander cat (animal) IgE (05/06/2025 1:30 PM CDT) Cat dander IgE <0.10 0.00 - 0.34 kUnits/L Blood 05/06/2025 1:30 PM CDT 05/06/2025 4:51 PM CDT Ann Marie Huber MD LAB BLOOD ORDERABLES Fin al Result Performing Organization Address [facility] Co de Phone Number [facility] [place] [address] * Allergen Ragweed short/common (weed) IgE (05/06/2025 1:30 PM CDT) Ragweed common IgE <0.10 0.00 - 0.34 kUnits/L Blood 05/06/2025 1:30 PM CDT 05/06/2025 4:51 PM CDT Ann Marie Huber MD LAB BLOOD ORDERABLES Fin al Result Performing Organization Address [facility] Co de Phone Number [facility] Department [place] [address] * Allergen Pigweed, rough (weed) IgE (05/06/2025 1:30 PM CDT) Pigweed rough IgE <0.10 0.00 - 0.34 kUnits/L Blood 05/06/2025 1:30 PM CDT 05/06/2025 4:51 PM CDT Ann Marie Huber MD LAB BLOOD ORDERABLES Fin al Result Performing Organization Address [facility] [place] [address] * Allergen Nettle (weed) IgE (05/06/2025 1:30 PM CDT) Nettle IgE <0.10 0.00 - 0.34 kUnits/L Blood 05/06/2025 1:30 PM CDT 05/06/2025 4:51 PM CDT Ann Marie Huber MD LAB BLOOD [place] [address] * Allergen Lincoln's quarter (weed) IgE (05/06/2025 1:30 PM CDT) Lincoln's quarters IgE <0.10 0.00 - 0.34 kUnits/L Blood 05/06/2025 1:30 PM CDT 05/06/2025 4:51 PM CDT Ann Marie Huber MD LAB BLOOD ORDERABLES Fin al Result Performing Organization Address [facility] [place] [address] * Allergen Homero grass (grass) IgE (05/06/2025 1:30 PM CDT) Homero grass IgE <0.10 0.00 - 0.34 kUnits/L Blood 05/06/2025 1:30 PM CDT 05/06/2025 4:51 PM CDT Ann Marie Huber MD LAB BLOOD ORDERABLES Fin al Result [facility] [place] [address] * Allergen Roge grass (grass) IgE (05/06/2025 1:30 PM CDT) Roge grass IgE <0.10 0.00 - 0.34 kUnits/L Blood 05/06/2025 1:30 PM CDT 05/06/2025 4:51 PM CDT Ann Marie Huber MD LAB BLOOD ORDERABLES Fin al Result Performing Organization Address [facility] Co de Phone Number [facility] [place] [address] * Allergen [place] (tree) IgE (05/06/2025 1:30 PM CDT) [place] (tree) IgE <0.10 0.00 - 0.34 kUnits/L Blood 05/06/2025 1:30 PM CDT 05/06/2025 4:51 PM CDT Ann Marie Huber MD LAB BLOOD ORDERABLES Fin al Result Performing Organization Address [facility] Co de Phone Number [facility] Department [place] [address] * Allergen Palmer spanish (tree) IgE (05/06/2025 1:30 PM CDT) Palmer IgE <0.10 0.00 - 0.34 kUnits/L Blood 05/06/2025 1:30 PM CDT 05/06/2025 4:51 PM CDT Ann Marie Huber MD LAB BLOOD ORDERABLES Fin al Result Performing Organization Address [facility] Co de Phone Number [facility] Department [place] [address] * Allergen Maple/Box elder (tree) IgE (05/06/2025 1:30 PM CDT) Maple/box elder IgE <0.10 0.00 - 0.34 kUnits/L Blood 05/06/2025 1:30 PM CDT 05/06/2025 4:51 PM CDT Ann Marie Huber MD LAB BLOOD ORDERABLES Fin al Result Performing Organization Address [facility] Co de Phone Number [facility] [place] [address] * Allergen Sewell red (tree) IgE (05/06/2025 1:30 PM CDT) Pathologist [facility] [place] IgE <0.10 0.00 - 0.34 kUnits/L Blood 05/06/2025 1:30 PM CDT 05/06/2025 4:51 PM CDT Ann Marie Huber MD LAB BLOOD ORDERABLES Fin al Result Performing Organization Address [facility] de Phone Number [facility] [place] [address] * IgE (05/06/2025 1:30 PM CDT) Pathologist [facility] IgE 36 <=100 IUnits/mL Blood 05/06/2025 1:30 PM CDT 05/06/2025 4:51 PM CDT Ann Marie Huber MD LAB BLOOD ORDERABLES Fin al Result Performing Organization Address [facility] Co de Phone Number [facility] [place] [address] * Allergy skin tests allergens, each (04/28/2025 7:48 AM CDT) Ann Marie Huber MD IN CLINIC/BEDSIDE ORDERDaniela ARANGO Edited Result - Final from Last 3 Months Insurance ANTHEM ACCESS CHOICE ANTHEM ACCESS CHOICE Advance Directives For more information, please contact: [phone] * Full Code (Latest Code Status on File) Date Activated Date Inactivated Comments 01/26/2025 11:42 AM 01/26/2025 6:06 PM Care Teams Pattern Fitter Relationship Specialty Start Date End Date Karen Sequeira NP [address] [place] [id number] PCP - General Nurse Practitioner 09/07/24
--- OUTSIDE RECORDS SUMMARY | 2025-06-03 22:13 | XMS_ITS | Encounter Summary ---
Author Organization [facility] Address [address] [place] [address] Phone Care Team Providers Care Clerical Assigner Name Role Phone Karen Sequeira NP Primary Care Provider + [phone] Encounter Details Date Type Department Care Team (Late st Contact Info) Description 05/19/2025 Results Follow-Up [facility] Medicine Allergy and Immunology [address] [facility] [address] [place] [address] Ann Marie Huber MD [address] [place] [address] CBC with auto differential, IgE, Allergen Rat [...] on file 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
[2025-06-03] MEDS: LACTATED RINGERS 2,000 ML 999 ML IV CONT (22:34)
[2025-06-03 22:38] LABS: Hematocrit 39.6 % (42.0-52.0); Hemoglobin 13.7 g/dL (14.0-18.0); Immature Granulocyte Percent A 0.2 % (0-0.5); Lymphocytes Absolute Auto 1.36 K/mm3 (0.9-3.2); Mean Corpuscular HGB Conc 34.6 g/dl (32-36); Mean Corpuscular Hemoglobin 28.5 pg (26-34); Mean Corpuscular Volume 82.3 fl (80-100); Nucleated Red Blood Cells Absolute Auto 0.000 K/mm3 (0.0-0.012); Nucleated Red Blood Cells Perc 0.0 % (0.0-0.2); Platelet Count Result 255 k/mm3 (150-375); Red Blood Count 4.81 M/mm3 (4.6-6.20); White Blood Count 4.6 K/mm3 (4.5-10.0)
[2025-06-03 22:51] LABS: Alanine Aminotransferase 11 U/L (6-50); Albumin Level 4.5 g/dL (3.5-5.1); Alkaline Phosphatase 54 U/L (38-126); Anion Gap 9 mmol/L (4-12); Aspartate Amino Transferase 18 U/L (17-59); Bilirubin,Total 0.7 mg/dL (0.2-1.3); Blood Urea Nitrogen 4 mg/dL (9-20); Calcium 9.0 mg/dL (8.4-10.2); Carbon Dioxide 25 mmol/L (22-30); Chloride 100 mmol/L (98-107); Estimated CRCL calculation 127 ml/min; Estimated Glomerular Filt Rate > 60; Glucose 89 mg/dL (65-110); Potassium 3.7 mmol/L (3.4-5.0); Sodium 134 mmol/L (137-145); Total Protein 7.7 g/dL (6.3-8.2)
[2025-06-03 23:14] LABS: Influenza A QL RT-PCR Negative (Negative); Influenza B QL RT-PCR Negative (Negative); RSV RNA, RT-PCR Negative (Negative); SARS-CoV-2 RNA PCR Negative (Negative)
[2025-06-03 23:19] LABS: Add Urine Microscopic? NO; Appearance Urine Clear (Clear); Glucose Urine UA Negative (Negative); Leukocyte Esterase Ur Negative LEU/UL (Negative); Nitrate Urine Negative (Negative); Specific Grav Ur 1.004 (1.001-1.035)
[2025-06-04 00:40] VITALS: BP 133/86; PULSE 86; RESP 16; O2SAT 99
== END 2025-06-04 00:40 | disposition home or self-care (01) ==
PROVIDERS: Emergency Provider Emergency Medicine; PCP Nurse Practitioner Family
DX: E86.0 Dehydration (principal); F41.9 Anxiety disorder, unspecified; K20.0 Eosinophilic esophagitis; J45.909 Unspecified asthma, uncomplicated
CPT/HCPCS: 36415; 71045; 80053; 81003; 85025; 87637; 93005; 96360; 96361; 99283; J7120

== ENCOUNTER 2025-06-19 21:21 | Emergency (ER) | payer BC, SELFPAY ==
--- OUTSIDE RECORDS SUMMARY | 2025-06-19 21:23 | XMS_ITS | Clinical Summary ---
Author Organization [facility] Address [address] [place] [address] Care Team Providers Care Manuscript Editor Name Role Phone Karen Sequeira NP Primary Care Provider + [phone] Allergies Active Allergy Reactions Criticality Noted Date [...] Active Problems Problem Noted Date Diagnosed Date Anxiety 06/09/2025 Assessment & Plan (06/09/2025 6:44 PM CDT): Patient reports that he is in the process of scheduling appointment with a psychiatrist to treat anxiety which affected his daily life and causes weight loss. Encouraged patient to have a complete evaluation and treatment Adverse drug reaction 03/09/2025 Assessment & Plan (05/26/2025 2:17 [...] the symptoms. Dupixent will be avoided until green feed attendant evaluation, as it is highly effective for eosinophilic esophagitis, making it important to determine true allergy status for long-term management. The possibility of using a vial and needle injection was discussed, but it contains similar preservatives. Refer to an green feed attendant at [facility] for evaluation of the suspected allergic reaction to Dupixent. Avoid Dupixent until green feed attendant evaluation is complete. Assessment & Plan (03/09/2025 [...] the symptoms. Dupixent will be avoided until green feed attendant evaluation, as it is highly effective for eosinophilic esophagitis, making it important to determine true allergy status for long-term management. The possibility of using a vial and needle injection was discussed, but it contains similar preservatives. Refer to an green feed attendant at [facility] for evaluation of the suspected allergic reaction to Dupixent. Avoid Dupixent until green feed attendant evaluation is complete. Gastroesophageal reflux disease 10/28/2024 [...] 09/07/2024 Eosinophilic esophagitis 09/07/2024 Assessment & Plan (06/10/2025 10:42 AM CDT): Currently patient reportedly has been adherent to food elimination diet recommendations (wheat and dairy) for approximately 6 weeks. He feels his dysphagia has significantly improved but experiences symptoms of fear of eating/taking medications resulting in weight loss. We discussed options of a trial of Dupixent in the office of allergy/immunology under supervision; starting eohilia for symptom relief and to reduce active inflammation ( alternatively a trial of swallow Flovent if he has fear/anxiety taken oral medications); vs continue PPI therapy and food elimination diet (FED). Patient clearly declines a trial of Dupixent. He also declines starting topical steroids at this time. He feels his EoE symptoms have mostly resolved after approximately 6 weeks of food elimination diet. He feels he would like to undergo EGD to determine if EoE has been in remission based on endoscopic appearance and pathology. He agrees to start eohilia only if EoE is still active. Will communicate with patient's electrical controls technician Dr Huber as regards to if current food elimination has been optimized to allow maximal benefits of repeat EGD with biopsies given that generally a repeat EGD 8-10 weeks after adherence to FED may allow a more informative assessment. A total of 35 minutes was spent discussing various options. All the questions were answered. Patient has appointment to follow up with GI clinic. Assessment & Plan (05/26/2025 2:17 AM CDT): Eosinophilic esophagitis is causing esophageal swelling, dysphagia, and discomfort. He is experiencing insurance issues for Budesonide (Eohilia) due to work-related complications, with no evidence of spontaneous resolution. Assist with insurance issues for Budesonide (Eohilia). Continue no wheat, no dairy diet. Complete and submit necessary paperwork for work accommodations. Refer to a balloon tester for dietary management. Assessment & Plan (03/09/2025 [...] for dietary consultation. Will refer to an green feed attendant. If possible, I would like to know [...] eosinophilia. 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): The endoscopic and biopsy findings are highly [...] Encounters Date Type Department Care Team Description 06/12/2025 Telephone [facility] Allergy [facility] Immunology [address] [facility] Building [address] [place] [address] Mell Herman, MILLA 06/09/2025 2:30 PM CDT Office Visit [facility] Gastroenterology at [address] [phone] Avril Griffin MD Eosinophilic esophagitis (Primary Dx); Adverse effect of drug, subsequent encounter; Anxiety 06/02/2025 Telephone [facility] Allergy and Immunology [address] [place] [address] [address] [place] [address] Mell Herman, MILLA 05/19/2025 Results Follow-Up [facility] Allergy and Immunology [address] [place] [address] [address] [place] [address] Ann Marie Huber MD CBC with auto differential, IgE, Allergen Rat mix (animal) IgE, Additional followed-up results: 27 05/08/2025 8:00 AM CDT Office Visit [facility] Gastroenterology at [address] [phone] Petar Monteiro NP Eosinophilic esophagitis (Primary Dx); Adverse effect of drug, subsequent encounter; Gastroesophageal reflux disease with esophagitis without hemorrhage 05/06/2025 2:00 PM CDT Lab [facility] at the [address] [phone] Eosinophilic esophagitis; Seasonal allergic rhinitis, unspecified trigger 05/06/2025 1:00 PM CDT Office Visit [facility] Allergy and Immunology [address] [place] [address] [address] [place] [address] Ann Marie Huber MD Eosinophilic esophagitis (Primary Dx); Adverse effect of drug, subsequent encounter 04/28/2025 8:00 AM CDT Office Visit [facility] Medicine Allergy and Immunology [address] [facility] [address] [place] [address] Ann Marie Huber MD Seasonal allergic rhinitis, unspecified trigger (Primary Dx); Eosinophilic esophagitis; Adverse effect of drug, initial encounter from Last 3 Months Surgical History Surgery Date Site/Laterality Comments ESOPHAGOGASTRODUODENOSCOPY Medical History Medical History Date Comments GERD (gastroesophageal reflux disease) Anxiety Social History Tobacco Use Types Packs/Day Years Used Date Smoking Tobacco: Never Passive Smoke Exposure: Past Smokeless Tobacco: Never Tobacco Cessation:Counseling Given: Not [...] on file Legal Sex Male 1:28 AM CREATIVE 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 Gender Identity Not on file Sexual Orientation Not on file Obstetrics History Last Filed Vital Signs Vital Sign Reading Time Taken Comments Blood Pressure 118/76 06/09/2025 2:23 PM CDT Pulse 96 05/08/2025 8:07 AM CDT Temperature 37 C (98.6 F) 04/28/2025 7:51 AM CDT Respiratory Rate 15 01/26/2025 1:20 PM CDT Oxygen Saturation 98% 05/08/2025 8:07 AM CDT Inhaled Oxygen Concentration - - Weight 64.3 kg (141 lb 11.2 oz) 06/09/2025 2:23 PM CDT Height 182.9 cm (6') 06/09/2025 2:23 PM CDT Body Mass Index 19.22 06/09/2025 2:23 PM CDT Plan of Treatment Health Maintenance [...] Seasonal allergic rhinitis, unspecified trigger ALLERGEN SYCAMORE HAITIAN (TREE) IGE Routine 05/06/2025 1:30 PM CDT Seasonal allergic rhinitis, unspecified trigger ALLERGEN WALNUT (TREE) IGE Routine 05/06/2025 1:30 PM CDT Seasonal allergic rhinitis, unspecified trigger ALLERGEN BERMUDA GRASS (GRASS) IGE Routine 05/06/2025 1:30 PM CDT Seasonal allergic rhinitis, unspecified trigger ALLERGEN OMER GRASS (GRASS) IGE Routine 05/06/2025 1:30 PM CDT Seasonal allergic rhinitis, unspecified trigger ALLERGEN HOMERO GRASS (GRASS) IGE Routine 05/06/2025 1:30 PM CDT Seasonal allergic rhinitis, unspecified trigger ALLERGEN PLANTAIN UKRAINIAN (WEED) IGE Routine 05/06/2025 1:30 PM CDT [...] Seasonal allergic rhinitis, unspecified trigger ALLERGEN COCKROACH HAITIAN (INSECT) IGE Routine 05/06/2025 1:30 PM CDT [...] ORDERABLES Fin al Result Performing Organization Address [facility] Co de Phone Number [facility] [place] [address] * Allergen Mouse mix (animal) IgE (05/06/2025 1:30 PM CDT) Pathologist [facility] Mouse mix IgE <0.10 0.00 - 0.34 kUnits/L Blood 05/06/2025 1:30 PM CDT 05/06/2025 4:51 PM CDT Ann Marie Huber MD LAB BLOOD ORDERABLES Fin al Result Performing Organization Address [facility] de Phone Number [facility] [place] [address] * Differential, auto (05/06/2025 1:30 PM CDT) [facility] Neutrophil abs 4.46 1.50 - 6.50 K/cumm Imm gran abs 0.01 0.00 - 0.10 K/cumm [facility] Lymphocyte abs 1.71 0.80 - 3.30 K/cumm [facility] Monocyte abs 0.44 0.20 - 0.80 K/cumm [facility] Eosinophil abs 0.18 0.00 - 0.50 K/cumm [facility] Basophil abs 0.06 0.00 - 0.10 K/cumm [facility] Neutrophil pct 65.1 % [facility] Comment: Interpretive Data Percent cell count reference ranges are not reported, since discordance with absolute values may lead to misinterpretation of CBC data. Current Interpretive Data was last revised on 2018. Imm gran pct 0.1 % [facility] Comment: Interpretive Data Percent cell count reference ranges are not reported, since discordance with absolute values may lead to misinterpretation of CBC data. Current Interpretive Data was last revised on 2018. Lymphocyte pct 24.9 % [facility] Comment: Interpretive Data Percent cell count reference ranges are not reported, since discordance with absolute values may lead to misinterpretation of CBC data. Current Interpretive Data was last revised on 2018. Monocyte pct 6.4 % [facility] Comment: Interpretive Data Percent cell count reference ranges are not reported, since discordance with absolute values may lead to misinterpretation of CBC data. Current Interpretive Data was last revised on 2018. Eosinophil pct 2.6 % [facility] Comment: Interpretive Data Percent cell count reference ranges are not reported, since discordance with absolute values may lead to misinterpretation of CBC data. Current Interpretive Data was last revised on 2018. Basophil pct 0.9 % [facility] Comment: Interpretive Data Percent cell count reference ranges are not reported, since discordance with absolute values may lead to misinterpretation of CBC data. Current Interpretive Data was last revised on 2018. Blood 05/06/2025 1:30 PM CDT 05/06/2025 4:51 PM CDT Ann Marie Huber MD LAB BLOOD ORDERABLES Fin al Result Performing Organization Address [facility] Co de Phone Number [facility] [place] [address] * Allergen Penicillium chrysogenum (mold) IgE (05/06/2025 1:30 PM CDT) Penicillium chrysogenum IgE <0.10 0.00 - 0.34 kUnits/L Blood 05/06/2025 1:30 PM CDT 05/06/2025 4:51 PM CDT Ann Marie Huber MD LAB BLOOD ORDERABLES Fin al Result Performing Organization Address [facility]/ZIP Co de Phone Number [facility] [place] [address] * Allergen [place] (tree) IgE (05/06/2025 1:30 PM CDT) Pathologist [facility] [place] IgE <0.10 0.00 - 0.34 kUnits/L Blood 05/06/2025 1:30 PM CDT 05/06/2025 4:51 PM CDT Ann Marie Huber MD LAB BLOOD ORDERABLES Fin al Result Performing Organization Address [facility] Co de Phone Number [facility] [place] [address] * Allergen Mountain juniper (tree) IgE (05/06/2025 1:30 PM CDT) [facility] Zonia junricky IgE <0.10 0.00 - 0.34 kUnits/L Blood 05/06/2025 1:30 PM CDT 05/06/2025 4:51 PM CDT Ann Marie Huber MD LAB BLOOD ORDERABLES Fin al Result Performing Organization Address [facility] de Phone Number [facility] [place] [address] * CBC with auto differential (05/06/2025 1:30 PM CDT) [facility] WBC 6.86 3.80 - 9.90 K/cumm Hgb 14.0 13.0 - 17.5 g/dL [facility] Hct 42.3 38.9 - 50.3 % [facility] Plt 246 150 - 400 K/cumm [facility] MPV 10.8 9.1 - 12.3 fL [facility] RBC 4.95 4.30 - 5.80 M/cumm [facility] MCV 85.5 81.3 - 96.4 fL [facility] MCH 28.3 27.1 - 33.3 pg [facility] MCHC 33.1 32.3 - 35.7 g/dL [facility] RDW CV 12.0 11.1 - 14.9 % [facility] RDW SD 37.2 35.7 - 48.1 fL [facility] NRBC abs 0.00 0.00 - 0.01 K/cumm [facility] Blood 05/06/2025 1:30 PM CDT 05/06/2025 4:51 PM CDT Ann Marie Huber MD LAB BLOOD ORDERABLES Fin al Result Performing Organization Address [facility] Co de Phone Number [facility] [place] [address] * Allergen Bermuda grass (grass) IgE (05/06/2025 1:30 PM CDT) Bermuda grass IgE <0.10 0.00 - 0.34 kUnits/L Blood 05/06/2025 1:30 PM CDT 05/06/2025 4:51 PM CDT Ann Marie Huber MD LAB BLOOD ORDERABLES Fin al Result Performing Organization Address [facility] [place] [address] * Allergen Plantain colombian (weed) IgE (05/06/2025 1:30 PM CDT) Plantain colombian IgE <0.10 0.00 - 0.34 kUnits/L Blood 05/06/2025 1:30 PM CDT 05/06/2025 4:51 PM CDT Ann Marie Huber MD LAB BLOOD ORDERABLES Fin al Result Performing Organization Address [facility] Co de Phone Number [facility] [place], [place] [id number] * Allergen Elm (tree) IgE (05/06/2025 1:30 PM CDT) Elm IgE <0.10 0.00 - 0.34 kUnits/L Blood 05/06/2025 1:30 PM CDT 05/06/2025 4:51 PM CDT Ann Marie Huber MD LAB BLOOD ORDERABLES Fin al Result Performing Organization Address [facility] Co de Phone Number [facility] [place] [address] * Allergen Cladosporium herbarum (mold) IgE (05/06/2025 1:30 PM CDT) Cladosporium herbarum IgE <0.10 0.00 - 0.34 kUnits/L Blood 05/06/2025 1:30 PM CDT 05/06/2025 4:51 PM CDT Ann Marie Huber MD LAB BLOOD ORDERABLES Fin al Result Performing Organization Address [facility] de Phone Number [facility] [place] [address] * Allergen Birch common silver (tree) IgE (05/06/2025 1:30 PM CDT) Birch common silver IgE <0.10 0.00 - 0.34 kUnits/L Blood 05/06/2025 1:30 PM CDT 05/06/2025 4:51 PM CDT Ann Marie Huber MD LAB BLOOD ORDERABLES Fin al Result Performing Organization Address [facility] Co de Phone Number [facility] [place] [address] * Allergen Alternaria tenuis (mold) IgE (05/06/2025 1:30 PM CDT) Alternaria tenius IgE <0.10 0.00 - 0.34 kUnits/L Blood 05/06/2025 1:30 PM CDT 05/06/2025 4:51 PM CDT Ann Marie Huber MD LAB BLOOD ORDERABLES Fin al Result Performing Organization Address [facility] Co de Phone Number [facility] [place] [address] * Allergen Aspergillus fumigatus (mold) IgE (05/06/2025 1:30 PM CDT) Aspergillus fumigatus IgE <0.10 0.00 - 0.34 kUnits/L Blood 05/06/2025 1:30 PM CDT 05/06/2025 4:51 PM CDT Ann Marie Huber MD LAB BLOOD ORDERABLES Fin al Result Performing Organization Address [facility] de Phone Number [facility] [place] [address] * Allergen Dermatophagoides pteronyssinus (insect) IgE (05/06/2025 1:30 PM CDT) Dermatophyton pteronyssinus IgE <0.10 0.00 - 0.34 kUnits/L Blood 05/06/2025 1:30 PM CDT 05/06/2025 4:51 PM CDT Ann Marie Huber MD LAB BLOOD ORDERABLES Fin al Result Performing Organization Address [facility] Co de Phone Number [facility] [place] [address] * Allergen Dermatophagoides farniae (insect) IgE (05/06/2025 1:30 PM CDT) Dermatophyton farinae IgE <0.10 0.00 - 0.34 kUnits/L Blood 05/06/2025 1:30 PM CDT 05/06/2025 4:51 PM CDT Ann Marie Huber MD LAB BLOOD ORDERABLES Fin al Result Performing Organization Address [facility] Co de Phone Number [facility] [place] [address] * Allergen Epithelia/dander dog (animal) IgE (05/06/2025 1:30 PM CDT) Dog dander IgE <0.10 0.00 - 0.34 kUnits/L Blood 05/06/2025 1:30 PM CDT 05/06/2025 4:51 PM CDT Ann Marie Huber MD LAB BLOOD ORDERABLES Fin al Result Performing Organization Address [facility] de Phone Number [facility] [place] [address] * Allergen Cockroach ghanaian (insect) IgE (05/06/2025 1:30 PM CDT) Cockroach IgE <0.10 0.00 - 0.34 kUnits/L Blood 05/06/2025 1:30 PM CDT 05/06/2025 4:51 PM CDT Ann Marie Huber MD LAB BLOOD ORDERABLES Fin al Result Performing Organization Address [facility] Co de Phone Number [facility] [place] [address] * Allergen Epithelia/dander cat (animal) IgE (05/06/2025 1:30 PM CDT) Cat dander IgE <0.10 0.00 - 0.34 kUnits/L Blood 05/06/2025 1:30 PM CDT 05/06/2025 4:51 PM CDT Ann Marie Huber MD LAB BLOOD ORDERABLES Fin al Result Performing Organization Address [facility] Co de Phone Number [facility] [place] [address] * Allergen Ragweed short/common (weed) IgE (05/06/2025 1:30 PM CDT) Ragweed common IgE <0.10 0.00 - 0.34 kUnits/L Blood 05/06/2025 1:30 PM CDT 05/06/2025 4:51 PM CDT Result [facility] Ann Marie Huber MD LAB BLOOD ORDERABLES Fin al Result Performing Organization Address [facility] de Phone Number [facility] [place] [address] * Allergen Pigweed, rough (weed) IgE (05/06/2025 1:30 PM CDT) Pigweed rough IgE <0.10 0.00 - 0.34 kUnits/L Blood 05/06/2025 1:30 PM CDT 05/06/2025 4:51 PM CDT Result [facility] Ann Marie Huber MD LAB BLOOD ORDERABLES Fin al Result Performing Organization Address [facility] Co de Phone Number [facility] [place] [address] * Allergen Nettle (weed) IgE (05/06/2025 1:30 PM CDT) Nettle IgE <0.10 0.00 - 0.34 kUnits/L Blood 05/06/2025 1:30 PM CDT 05/06/2025 4:51 PM CDT Ann Marie Huber MD LAB BLOOD ORDERABLES Fin al Result Performing Organization Address [facility] Co de Phone Number [facility] [place] [address] * Allergen Lincoln's quarter (weed) IgE (05/06/2025 1:30 PM CDT) Lincoln's quarters IgE <0.10 0.00 - 0.34 kUnits/L Blood 05/06/2025 1:30 PM CDT 05/06/2025 4:51 PM CDT Ann Marie Huber MD LAB BLOOD ORDERABLES Fin al Result Performing Organization Address [facility] Co de Phone Number [facility] [place] [address] * Allergen Homero grass (grass) IgE (05/06/2025 1:30 PM CDT) Homero grass IgE <0.10 0.00 - 0.34 kUnits/L Blood 05/06/2025 1:30 PM CDT 05/06/2025 4:51 PM CDT Ann Marie Huber MD LAB BLOOD ORDERABLES Fin al Result Performing Organization Address [facility] Co de Phone Number [facility] [place], [place] [id number] * Allergen Omer grass (grass) IgE (05/06/2025 1:30 PM CDT) Omer grass IgE <0.10 0.00 - 0.34 kUnits/L Blood 05/06/2025 1:30 PM CDT 05/06/2025 4:51 PM CDT Ann Marie Huber MD LAB BLOOD ORDERABLES Fin al Result Performing Organization Address [facility] Co de Phone Number [facility] [place] [address] * Allergen [place] (tree) IgE (05/06/2025 1:30 PM CDT) [place] (tree) IgE <0.10 0.00 - 0.34 kUnits/L Blood 05/06/2025 1:30 PM CDT 05/06/2025 4:51 PM CDT Ann Marie Huber MD LAB BLOOD ORDERABLES Fin al Result Performing Organization Address [facility] Co de Phone Number [facility] [place] [address] * Allergen [place] ghanaian (tree) IgE (05/06/2025 1:30 PM CDT) [place] IgE <0.10 0.00 - 0.34 kUnits/L Blood 05/06/2025 1:30 PM CDT 05/06/2025 4:51 PM CDT Ann Marie Huber MD LAB BLOOD ORDERABLES Fin al Result Performing Organization Address [facility] Co de Phone Number [facility] [place] [address] * Allergen Maple/Box elder (tree) IgE (05/06/2025 1:30 PM CDT) Maple/box elder IgE <0.10 0.00 - 0.34 kUnits/L Blood 05/06/2025 1:30 PM CDT 05/06/2025 4:51 PM CDT Ann Marie Huber MD LAB BLOOD ORDERABLES Fin al Result Performing Organization Address [facility] [place] [place] [address] * Allergen [place] red (tree) IgE (05/06/2025 1:30 PM CDT) [place] IgE <0.10 0.00 - 0.34 kUnits/L Blood 05/06/2025 1:30 PM CDT 05/06/2025 4:51 PM CDT Ann Marie Huber MD LAB BLOOD ORDERABLES Fin al Result Performing Organization Address [facility] Phone Number [facility] [place] [address] * IgE (05/06/2025 1:30 PM CDT) IgE 36 <=100 IUnits/mL Blood 05/06/2025 1:30 PM CDT 05/06/2025 4:51 PM CDT Result [facility] Ann Marie Huber MD LAB BLOOD ORDERABLES Fin al Result Performing Organization Address [facility] de Phone Number [facility] [place] [address] * Allergy skin tests allergens, each (04/28/2025 7:48 AM CDT) us Ann Marie Huber MD IN CLINIC/BEDSIDE ORDERA BLES Edited Result - Final from Last 3 Months Insurance [employer] ACCESS CHOICE Advance Directives For more information, please contact: [phone] * Full Code (Latest Code Status on File) Date Activated Date Inactivated Comments 01/26/2025 11:42 AM 01/26/2025 6:06 PM Care Teams Manuscript Editor Relationship Specialty Start Date End Date Karen Sequeira NP [address] [place] [id number] PCP - General Nurse Practitioner 09/07/24
--- OUTSIDE RECORDS SUMMARY | 2025-06-19 21:23 | XMS_ITS | Encounter Summary ---
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 Gender Identity Male 05/26/2025 10:31 AM CDT Sexual Orientation Straight 10/08/2018 6: 21 PM TEA PLANTATION WORKER documented as of this encounter Plan of Treatment Not on file documented as of this encounter Visit Diagnoses Not on filedocumented in this encounter Additional Health Concerns Infection Onset Date Last Indicated Resolved Time COVID-19 Rule Out 12/27/2021 12/27/2021 12/28/2021 1:24 PM CDT COVID-19 Rule Out 06/07/2025 06/07/2025 06/07/2025 6:52 PM CDT documented as of this encounter Care Teams Lens Edge Grinder Machine Relationship Specialty Start Date End Date Karen Sequeira FNP [address] [place] [id number] PCP - General Nurse Practitioner Family 10/08/18 documented as of this encounter
--- OUTSIDE RECORDS SUMMARY | 2025-06-19 21:23 | XMS_ITS | Encounter Summary ---
Author Organization [facility] Address [address] [place] [address] Phone Care Team Providers Care Literacy Teacher Name Role Phone Karen Sequeira NP Primary Care Provider + [phone] Encounter Details Date Type Department Care Team (Late st Contact Info) Description 05/19/2025 Results Follow-Up [facility] Medicine Allergy and Immunology [address] [facility] [address] [place] [address] Ann Marie Huber MD [address] [place] [address] CBC with auto differential, IgE, Allergen Rat [...] on file 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
--- OUTSIDE RECORDS SUMMARY | 2025-06-19 21:23 | XMS_ITS | Clinical Summary ---
Author Organization [facility] Address [address] [place] [address] Care Team Providers Care Master Craftsman Name Role Phone Karen Sequeira GLEN Primary Care Provider [phone] Allergies Active Allergy Reactions Criticality Noted Date [...] esophagitis 09/07/2024 Food bolus obstruction of intestine ([facility]) 09/07/2024 Gastroesophageal reflux dise ase, unspecified whether esophagitis present 07/26/2024 Generalized anxiety disorder with panic attacks 07/26/2024 Sensation, choking 07/26/2024 Encounters Date Type Department Care Team Description 06/12/[address] [address] Karen Sequeira FNP Information 06/11/[address] [address] Karen Sequeira FNP Information 06/07/2025 6:02 PM CDT - 06/07/2025 8:01 PM CDT Emergency [facility] [place] [address] Ankur Royal MD Abdominal Pain; Sore Throat Discharge Disposition: Home or Self Care (Routine Discharge) 06/07/2025 Travel 06/03/2025 Scan HEALTH INFO SRVCS Scanned, [facility] Image (SCAN) 05/31/2025 Scan MG HEALTH INFO SRVCS Scanned, [facility] 05/29/2025 Travel 05/27/2025 Results Follow-Up [address] [address] Karen Sequeira FNP MAGNESIUM, VITAMIN B-12, FOLIC ACID SERUM, Additional followed-up results: 5 05/26/2025 11:20 AM CDT Office Visit [facility] Internal [address] [place] [address] Karen Sequeira, GLEN ER F/U (Navid); Anxiety; Weight Problem 05/26/2025 Scan MG HEALTH INFO SRVCS Scanned, [facility] Image (SCAN); Lab (SCAN) 05/26/2025 - 05/26/2025 11:59 PM CDT Hospital Encounter [facility] [place] [address] Karen Sequeira FNP Discharge Disposition: Home or Self Care (Routine Discharge) 05/26/2025 Travel 05/23/2025 Mis Documentation [facility] Family [facility] Internal [address] [address] Karen Sequeira FNP 05/22/2025 Misc Documentation [facility] [address] [address] Karen Sequeira FNP Medication 05/21/2025 Scan MG HEALTH INFO SRVCS Scanned, [...] AM CDT 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 Gender Identity Male 05/26/2025 10:31 AM CDT Sexual Orientation Straight 10/08/2018 6: 21 PM FIBER TECHNICIAN Last Filed Vital Signs Vital Sign Reading Time Taken Comments Blood Pressure 118/88 06/07/2025 6:41 PM CDT Pulse 109 06/07/2025 6:41 PM CDT Temperature 36.9 C (98.4 F) 06/07/2025 5:19 PM CDT Respiratory Rate 18 06/07/2025 5:19 PM CDT Oxygen Saturation 98% 06/07/2025 5:19 PM CDT Inhaled Oxygen Concentration - - Weight 65.9 kg (145 lb 4.5 oz) 06/07/2025 5:19 P M CDT Height 182.9 cm (6') 06/07/2025 5:19 PM CDT Body Mass Index 19.7 06/07/2025 5:19 PM CDT Plan of Treatment Health Maintenance Due Date Last Done Comments Annual Physical 01/17/2003 HPV Vaccines (1 - Male 3-dos e series) 01/17/2015 Hepatitis C 01/17/2018 Hepatitis B Vaccines (1 of 3 - 19+ 3-dose series) 01/17/2019 PHQ-2 (Physician [place]) 09/24/2024 08/26/2024 COVID-19 Vaccine (4 - 2024-2 [...] Procedure Name Priority Date/Time Associated Diagnosis Comments CORONAVIRUS (COVID 19) STAT 6:27 PM CDT STREP A RAPID STAT 06/07/2025 6:27 PM CDT LIPASE STAT 06/07/2025 6:27 PM CDT COMPREHENSIVE METABOLIC PANEL STAT 06/07/2025 6:27 PM CDT CBC W/DIFF AUTOMATED STAT 06/07/2025 6:27 PM CDT IMAGE GENERIC 06/03/2025 ALLERGENS FOOD Routine 05/26/2025 1:22 PM CDT [...] 03/28/2025 from Last 3 Months Results * CORONAVIRUS (COVID 19) (06/07/2025 6:27 PM CDT) CORONAVIRUS SARS COV 2 RNA NEGATIVE NEGATIVE 06/07/2025 6:[address] [facility] Comment: NEGATIVE RESULTS DO NOT RULE OUT COVID 19 AND SHOULD NOT BE USED THE SOLE BASIS FOR TREATMENT OR PATIENT MANAGEMENT DECISIONS, INCLUDING INFECTION CONTROL DECISIONS. NEGATIVE RESULTS SHOULD BE CONSIDERED IN THE CONTEXT OF A PATIENT'S RECENT EXPOSURES, HISTORY AND THE PRESENCE OF CLINICAL SIGNS AND SYMPTOMS CONSISTENT WITH COVID 19. THE ID NOW COVID-19 2.0 TEST HAS BEEN AUTHORIZED BY THE FDA UNDER EAU FOR USE BY AUTHORIZED LABORATORIES. PERFORMED BY NUCLEIC ACID AMPLIFICATION FOR MOLECULAR QUALITATIVE DETECTION OF SARS-COV-2. SPECIMEN TYPE NASAL 06/07/2025 6:[address] [facility] NASAL STRUCTURE / Unknown 06/07/2025 6:27 PM CDT Evelyn Tariq [facility]CRO[facility] - [facility]AL [facility] Final Result [facility] [address] [place] [address], [place] [phone] * STREP A RAPID (06/07/2025 6:27 PM CDT) SPECIMEN TYPE THROAT 06/07/2025 6:[address] [facility] RAPID STREP TEST NEGATIVE NEGATIVE 06/07/2025 6:[address] [facility] STRUCTURE OF ANTERIOR REGION OF NECK / Unknown 06/07/2025 6:27 PM CDT Evelyn Tariq [facility] MICROBIOLOGY - GENERAL ORDE RABLES Final Result [facility] [address] [place] [address], * (ABNORMAL) COMPREHENSIVE METABOLIC PANEL (06/07/2025 6:27 PM CDT) Only the most recent of2 resultswithin the time period is included. [facility] GLUCOSE 84 70 - 99 MG/DL 06/07/2025 6:[address] [facility] BUN 3(L) 7 - 18 MG/DL 06/07/2025 6:[address] [facility] CREATININE S/P/B 0.71 0.7 - 1.3 MG/DL 06/07/2025 6:[address] [facility] SODIUM S/P/B 138 136 - 145 MMOL/L 06/07/2025 6:[address] [facility] POTASSIUM S/P/B 3.5 3.5 - 5.1 MMOL/L 06/07/2025 6:[address] [facility] CHLORIDE S/P/B 104 97 - 115 MMOL/L 06/07/2025 6:[address] [facility] CO2 25.2 21 - 32 MMOL/L 06/07/2025 6:[address] [facility] CALCIUM S/P/B 9.0 8.5 - 10.1 MG/DL 06/07/2025 6:[address] [facility] BILIRUBIN TOTAL S/P/B 0.7 0.2 - 1.2 MG/DL 06/07/2025 6:[address] [facility] Comment: THIS ASSAY IS NOT RECOMMENDED FOR PATIENTS UNDERGOING TREATMENT WITH ELTROMBOPAG DUE TO THE POTENTIAL FOR FALSELY ELEVATED RESULTS. TOTAL PROTEIN S/P/B 7.8 6.4 - 8.2 G/DL 06/07/2025 6:[address] [facility] ALBUMIN S/P/B 4.2 3.4 - 5.0 G/DL 06/07/2025 6:[address] [facility] AST 7(L) 15 - 37 U/L 06/07/2025 6:[address] [facility] ALT 14(L) 16 - 60 U/L 06/07/2025 6:[address] [facility] ALKALINE PHOSPHATASE S/P/B 44(L) 50 - 136 U/L 06/07/2025 6:[address] [facility] ANION GAP 8.8 2 - 10 MMOL/L 06/07/2025 6:[address] [facility] BUN CREATININE RATIO 4.2(L) 6 - 26 06/07/2025 6:[address] [facility] A/G RATIO 1.2 1.0 - 2.0 RATIO 06/07/2025 6:[address] [facility] GFR ESTIMATE >90 >90 ML/MIN/1.7 3 M2 06/07/2025 6:[address] [facility] Comment: NOTE: eGFR is not calculated for patients <18 years of age or gender unknown. This is an estimated GFR calculation using the new CKD EPI creatinine equation without race and so does not require a correction factor for race. This estimated GFR should not be used for calculating drug doses. 06/07/2025 6:27 PM CDT Evelyn Tariq [facility] Final Resul t [facility] [address] [place] [address], [place] [phone] * (ABNORMAL) CBC W/DIFF AUTOMATED (06/07/2025 6:27 PM CDT) WBC 4.87 4.5 - 11.0 x10'3/uL 06/07/2025 6:[address] [facility] RBC 4.50(L) 4.70 - 6.10 x10'6/uL 06/07/2025 6:[address] [facility] HGB 13.2(L) 14.0 - 18.0 G/DL 06/07/2025 6:[address] [facility] HCT 36.9(L) 43.0 - 54.0 % 06/07/2025 6:[address] [facility] MCV 82.0 80.0 - 94.0 FL 06/07/2025 6:[address] [facility] MCH 29.3 27.0 - 31.0 PG 06/07/2025 6:[address] [facility] MCHC 35.8 32.0 - 36.0 G/DL 06/07/2025 6:[address] [facility] RDW 11.9 11.5 - 14.5 % 06/07/2025 6:[address] [facility] PLT 253 130 - 400 x10'3/uL 06/07/2025 6:[address] [facility] MPV 9.9 9.3 - 12.2 FL 06/07/2025 6:[address] [facility] DIFFERENTIAL TYPE AUTOMATED DIFFERENTIAL 06/07/2025 6:[address] [facility] NEUTROPHILS % 44.2 % 06/07/2025 6:[address] [facility] LYMPHOCYTES % 41.9 % 06/07/2025 6:[address] [facility] MONOCYTES % 9.4 % 06/07/2025 6:[address] [facility] EOSINOPHILS 3.5 % 06/07/2025 6:[address] [facility] BASOPHILS 0.8 % 06/07/2025 6:[address] [facility] IMMATURE GRANS % 0.2 % 06/07/20 6:[address] [facility] ABS. NEUTROPHILS 2.15 1.80 - 7.70 x10'3/uL 06/07/2025 6:[address] [facility] ABS. LYMPHOCYTES 2.04 1.00 - 4.80 x10'3/uL 06/07/2025 6:[address] [facility] ABS. MONOCYTES 0.46 0.30 - 0.82 x10'3/uL 06/07/2025 6:[address] [facility] ABS. EOSINOPHILS 0.17 0.04 - 0.54 x10'3/uL 06/07/2025 6:[address] [facility] ABS. BASOPHILS 0.04 0.01 - 0.08 x10'3/uL 06/07/2025 6:[address] [facility] ABS. IMMATURE GRANULOCYTES 0.01 0.00 - 0.49 x10'3/uL 06/07/2025 6:[address] [facility] 06/07/2025 6:27 PM CDT Evelyn Tariq [facility] Final Resul t [facility] [address] [place] [address], [place] [phone] * LIPASE (06/07/2025 6:27 PM CDT) LIPASE 16 13 - 75 UNITS/L 06/07/2025 6:[address] [facility] 06/07/2025 6:27 PM CDT Evelyn Tariq [facility] Final Resul t [facility] [address] [place] [address], [place] [phone] * IMAGE GENERIC (06/03/2025) Only the most recent of3 resultswithin the time period is included. Anatomical Region Laterality Modality Other 06/03/2025 us [facility] Scanned SCANNING Final Resu lt * (ABNORMAL) ALLERGENS FOOD (05/26/2025 1:22 PM CDT) ALLERGEN EGG WHITE <0.35 <0.35 kU/L 05/28/2025 3:29 PM CDT [facility] Comment:<0.35 IS CLASS 0 (NE GATIVE) ALLERGEN SESAME SEED <0.35 <0.35 kU/L 05/28/2025 3:29 PM CDT [facility] Comment:<0.35 IS CLASS 0 (NE GATIVE) ALLERGEN PEANUT <0.35 <0.35 kU/L 05/28/2025 3:29 PM CDT [facility] Comment:<0.35 IS CLASS 0 (NE GATIVE) ALLERGEN SOYBEAN <0.35 <0.35 kU/L 05/28/2025 3:29 PM CDT [facility] Comment:<0.35 IS CLASS 0 (NE GATIVE) ALLERGEN MILK 2.15(H) <0.35 kU/L 05/28/2025 3:29 PM CDT [facility] Comment:0.71 - 3.50 IS CLASS 2 (POSITIVE) ALLERGEN CLAM <0.35 <0.35 kU/L 05/28/2025 3:29 PM CDT [facility] Comment:<0.35 IS CLASS 0 (NE GATIVE) ALLERGEN SHRIMP <0.35 <0.35 kU/L 05/28/2025 3:29 PM CDT [facility] Comment:<0.35 IS CLASS 0 (NE GATIVE) ALLERGEN WALNUT <0.35 <0.35 kU/L 05/28/2025 3:29 PM CDT [facility] Comment:<0.35 IS CLASS 0 (NE GATIVE) ALLERGEN COD <0.35 <0.35 kU/L 05/28/2025 3:29 PM CDT [facility] Comment:<0.35 IS CLASS 0 (NE GATIVE) ALLERGEN SCALLOP <0.35 <0.35 kU/L 05/28/2025 3:29 PM CDT [facility] Comment:<0.35 IS CLASS 0 (NE GATIVE) ALLERGEN WHEAT <0.35 <0.35 kU/L 05/28/2025 3:29 PM CDT [facility] Comment:<0.35 IS CLASS 0 (NE GATIVE) ALLERGEN MAIZE CORN <0.35 <0.35 kU/L 05/28/2025 3:29 PM CDT [facility] Comment:<0.35 IS CLASS 0 (NE GATIVE) 05/26/2025 1:22 PM CDT us Karen [facility] Final Result [facility] [address] [place] [address], [phone] * VITAMIN B-12 (05/26/2025 1:22 PM CDT) VITAMIN B12 S/P/B 319 193 - 986 PG/ML 05/27/2025 10:46 AM CDT [facility] 05/26/2025 1:22 PM CDT us Karen Sequeira [facility] Final Result Performing Organization Address [facility]/ZIP Co de Phone Number [address] [address], * THYROXINE, FREE (FT4) (05/26/2025 1:22 PM CDT) FREE T4 1.45 0.76 - 1.46 NG/DL 05/27/2025 10:46 AM CDT [facility] 05/26/2025 1:22 PM CDT us Karen Sequeira [facility] Final Result Performing Organization Address [facility] Co de Phone Number [address] [phone], * THYROID STIM HORMONE TSH (05/26/2025 1:22 PM CDT) TSH 2.007 0.358 - 3.740 uIU/ML 05/27/2025 10:46 AM CDT [facility] 05/26/2025 1:22 PM CDT us Karen Sequeira [facility] Final Result Performing Organization Address City/[facility] Co de Phone Number [facility] [address] [place] [address], [place] [phone] * (ABNORMAL) VITAMIN D 25 OH (05/26/2025 1:22 PM CDT) VITAMIN D 25 HYDROXY TOTAL S/P/B 12.2(L) 30 - 100 NG/ML 05/27/2025 10:46 AM CDT [facility] Comment: DEFICIENT <20 INSUFFICIENT 20-30 SUFFICIENT 30-100 05/26/2025 1:22 PM CDT Karen Sequeira [facility] Final Result Performing Organization Address [facility] de Phone Number [address] [phone], * MAGNESIUM (05/26/2025 1:22 PM CDT) MAGNESIUM 1.8 1.8 - 2.4 MG/DL 05/27/2025 10:46 AM CDT [facility] 05/26/2025 1:22 PM CDT Karen Sequeira [facility] Final Result Performing Organization Address [facility] de Phone Number [address] [address], * (ABNORMAL) FOLIC ACID SERUM (05/26/2025 11:50 AM CDT) FOLATE 7.6(L) 8.6 - 58.9 NG/ML 05/26/2025 8:28 PM CDT [facility] 05/26/2025 11:5 0 AM CDT Karen Sequeira [facility] Final Result Performing Organization Address [facility] de Phone Number [address] [phone], * OUTSIDE LAB (SCAN ORDER) (05/26/2025) Only the most recent of3 resultswithin the time period is included. 05/26/2025 [facility] Scanned SCANNING Final Resu lt from Last 3 Months Insurance [facility] Care Teams Master Craftsman Relationship Specialty Start Date End Date Karen Sequeira FNP [address] [place] [phone] PCP - General Nurse Practitioner Family 10/08/18
[2025-06-19 21:29] VITALS: BP 110/73; PULSE 94; RESP 20; TEMP 37.2; O2SAT 98
[2025-06-19 22:47] VITALS: O2SAT 98
[2025-06-19 23:27] LABS: Strep Group A RT-PCR NOT DETECTED (Negative)
[2025-06-19 23:39] LABS: Influenza A QL RT-PCR Negative (Negative); Influenza B QL RT-PCR Negative (Negative); RSV RNA, RT-PCR Negative (Negative); SARS-CoV-2 RNA PCR Negative (Negative)
--- OUTSIDE RECORDS SUMMARY | 2025-06-20 00:55 | XMS_ITS | Clinical Summary ---
Author Organization [facility] Address [address] [place] [address] Care Team Providers Care Bacteriology Research Assistant Name Role Phone Karen Sequeira GLEN Primary Care Provider [phone] Allergies Active Allergy Reactions Criticality Noted Date [...] esophagitis 09/07/2024 Food bolus obstruction of intestine ([facility]) 09/07/2024 Gastroesophageal reflux dise ase, unspecified whether esophagitis present 07/26/2024 Generalized anxiety disorder with panic attacks 07/26/2024 Sensation, choking 07/26/2024 Encounters Date Type Department Care Team Description 06/12/[address] [phone] Karen Sequeira FNP Information 06/11/[address] [phone] Karen Sequeira FNP Information 06/07/2025 6:02 PM CDT - 06/07/2025 8:01 PM CDT Emergency [facility] [place] [address] Ankur Royal MD Abdominal Pain; Sore Throat Discharge Disposition: Home or Self Care (Routine Discharge) 06/07/2025 Travel 06/03/2025 Scan HEALTH INFO SRVCS Scanned, [facility] Image (SCAN) 05/31/2025 Scan MG HEALTH INFO SRVCS Scanned, [facility] 05/29/2025 Travel 05/27/2025 Results Follow-Up [address] [phone] Karen Sequeira FNP MAGNESIUM, VITAMIN B-12, FOLIC ACID SERUM, Additional followed-up results: 5 05/26/2025 11:20 AM CDT Office Visit [facility] [address] [place] [address] Karen Sequeira, GLEN ER F/U ([place]); Anxiety; Weight Problem 05/26/2025 Scan MG HEALTH INFO SRVCS Scanned, [facility] Image (SCAN); Lab (SCAN) 05/26/2025 - 05/26/2025 11:59 PM CDT Hospital Encounter [facility] [place] [address] Karen Sequeira FNP Discharge Disposition: Home or Self Care (Routine Discharge) 05/26/2025 Travel 05/23/2025 Mis Documentation [facility] [address] [phone] Karen Sequeira FNP 05/22/2025 Misc Documentation [facility] [address] [phone] Karen Sequeira FNP Medication 05/21/2025 Scan MG [...] AM CDT 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 Gender Identity Male 05/26/2025 10:31 AM CDT Sexual Orientation Straight 10/08/2018 6: 21 PM TRANSMITTER ENGINEER 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 Last Filed Vital Signs Vital Sign Reading [...] - 19+ 3-dose series) 01/17/2019 PHQ-2 (Physician Laie) 09/24/2024 08/26/2024 COVID-19 Vaccine (4 - 2024-2 [...] RNA NEGATIVE NEGATIVE 06/07/2025 6:52 PM CDT [facility] Comment: NEGATIVE RESULTS DO NOT RULE [...] SPECIMEN TYPE NASAL 06/07/2025 6:26 PM CDT [facility] NASAL STRUCTURE / Unknown 06/07/2025 6:27 PM CDT Evelyn Tariq [facility] MICROBIOLOGY - GENERAL ORDE [facility] Final Result [facility] [address] [place] [address], [place] [phone] * STREP A RAPID (06/07/2025 6:27 PM CDT) SPECIMEN TYPE THROAT 06/07/2025 6:26 PM CDT [facility] RAPID STREP TEST NEGATIVE NEGATIVE 06/07/2025 6:48 PM CDT [facility] STRUCTURE OF ANTERIOR REGION OF NECK / Unknown 06/07/2025 6:27 PM CDT Evelyn Tariq [facility] MICROBIOLOGY - GENERAL ORDE RABLES Final Result [facility] [address] [place] [address], * (ABNORMAL) COMPREHENSIVE METABOLIC PANEL (06/07/2025 6:27 PM CDT) Only the most recent of2 resultswithin the time period is included. [facility] GLUCOSE 84 70 - 99 MG/DL 06/07/2025 6:57 PM CDT [facility] BUN 3(L) 7 - 18 MG/DL 06/07/2025 6:57 PM CDT [facility] CREATININE S/P/B 0.71 0.7 - 1.3 MG/DL 06/07/2025 6:57 PM CDT [facility] SODIUM S/P/B 138 136 - 145 MMOL/L 06/07/2025 6:57 PM CDT [facility] POTASSIUM S/P/B 3.5 3.5 - 5.1 MMOL/L 06/07/2025 6:57 PM CDT [facility] CHLORIDE S/P/B 104 97 - 115 MMOL/L 06/07/2025 6:57 PM CDT [facility] CO2 25.2 21 - 32 MMOL/L 06/07/2025 6:57 PM CDT [facility] CALCIUM S/P/B 9.0 8.5 - 10.1 MG/DL 06/07/2025 6:57 PM CDT [facility] BILIRUBIN TOTAL S/P/B 0.7 0.2 - 1.2 MG/DL 06/07/2025 6:57 PM CDT [facility] Comment: THIS ASSAY IS NOT RECOMMENDED FOR PATIENTS UNDERGOING TREATMENT WITH ELTROMBOPAG DUE TO THE POTENTIAL FOR FALSELY ELEVATED RESULTS. TOTAL PROTEIN S/P/B 7.8 6.4 - 8.2 G/DL 06/07/2025 6:57 PM CDT [facility] ALBUMIN S/P/B 4.2 3.4 - 5.0 G/DL 06/07/2025 6:57 PM CDT [facility] AST 7(L) 15 - 37 U/L 06/07/2025 6:57 PM CDT [facility] ALT 14(L) 16 - 60 U/L 06/07/2025 6:57 PM CDT [facility] ALKALINE PHOSPHATASE S/P/B 44(L) 50 - 136 U/L 06/07/2025 6:57 PM CDT [facility] ANION GAP 8.8 2 - 10 MMOL/L 06/07/2025 6:57 PM CDT [facility] BUN CREATININE RATIO 4.2(L) 6 - 26 06/07/2025 6:57 PM CDT [facility] A/G RATIO 1.2 1.0 - 2.0 RATIO 06/07/2025 6:57 PM CDT [facility] GFR ESTIMATE >90 >90 ML/MIN/1.7 3 M2 06/07/2025 6:57 PM CDT [facility] Comment: NOTE: eGFR is not calculated for patients <18 years of age or gender unknown. This is an estimated GFR calculation using the new CKD EPI creatinine equation without race and so does not require a correction factor for race. This estimated GFR should not be used for calculating drug doses. 06/07/2025 6:27 PM CDT Evelyn Tariq [facility] Final Resul t [facility] [address] [place] [address], [place] [phone] * (ABNORMAL) CBC W/DIFF AUTOMATED (06/07/2025 6:27 PM CDT) WBC 4.87 4.5 - 11.0 x10'3/uL 06/07/2025 6:43 PM CDT [facility] RBC 4.50(L) 4.70 - 6.10 x10'6/uL 06/07/2025 6:43 PM CDT [facility] HGB 13.2(L) 14.0 - 18.0 G/DL 06/07/2025 6:43 PM CDT [facility] HCT 36.9(L) 43.0 - 54.0 % 06/07/2025 6:43 PM CDT [facility] MCV 82.0 80.0 - 94.0 FL 06/07/2025 6:43 PM CDT [facility] MCH 29.3 27.0 - 31.0 PG 06/07/2025 6:43 PM CDT [facility] MCHC 35.8 32.0 - 36.0 G/DL 06/07/2025 6:43 PM CDT [facility] RDW 11.9 11.5 - 14.5 % 06/07/2025 6:43 PM CDT [facility] PLT 253 130 - 400 x10'3/uL 06/07/2025 6:43 PM CDT [facility] MPV 9.9 9.3 - 12.2 FL 06/07/2025 6:43 PM CDT [facility] DIFFERENTIAL TYPE AUTOMATED DIFFERENTIAL 06/07/2025 6:43 PM CDT [facility] NEUTROPHILS % 44.2 % 06/07/2025 6:43 PM CDT [facility] LYMPHOCYTES % 41.9 % 06/07/2025 6:43 PM CDT [facility] MONOCYTES % 9.4 % 06/07/2025 6:43 PM CDT [facility] EOSINOPHILS 3.5 % 06/07/2025 6:43 PM CDT [facility] BASOPHILS 0.8 % 06/07/2025 6:43 PM CDT [facility] IMMATURE GRANS % 0.2 % 06/07/20 6:43 PM CDT [facility] ABS. NEUTROPHILS 2.15 1.80 - 7.70 x10'3/uL 06/07/2025 6:43 PM CDT [facility] ABS. LYMPHOCYTES 2.04 1.00 - 4.80 x10'3/uL 06/07/2025 6:43 PM CDT [facility] ABS. MONOCYTES 0.46 0.30 - 0.82 x10'3/uL 06/07/2025 6:43 PM CDT [facility] ABS. EOSINOPHILS 0.17 0.04 - 0.54 x10'3/uL 06/07/2025 6:43 PM CDT [facility] ABS. BASOPHILS 0.04 0.01 - 0.08 x10'3/uL 06/07/2025 6:43 PM CDT [facility] ABS. IMMATURE GRANULOCYTES 0.01 0.00 - 0.49 x10'3/uL 06/07/2025 6:43 PM CDT [facility] 06/07/2025 6:27 PM CDT Evelyn Tariq [facility] Final Resul t [facility] [address] [place] [address], [place] [phone] * LIPASE (06/07/2025 6:27 PM CDT) LIPASE 16 13 - 75 UNITS/L 06/07/2025 6:57 PM CDT [facility] 06/07/2025 6:27 PM CDT Evelyn Tariq [facility] Final Resul t [facility] [address] [place] [address], [place] [phone] * IMAGE GENERIC (06/03/2025) Only the most recent of3 resultswithin the time period is included. Anatomical Region Laterality Modality Other 06/03/2025 us [facility] Scanned SCANNING Final Resu lt * (ABNORMAL) ALLERGENS FOOD (05/26/2025 1:22 PM CDT) ALLERGEN EGG WHITE <0.35 <0.35 kU/L 05/28/2025 3:29 PM CDT [facility] Comment:<0.35 IS CLASS 0 (NE GATIVE) ALLERGEN SESAME SEED <0.35 <0.35 kU/L 05/28/2025 3:29 PM CDT [facility] Comment:<0.35 IS CLASS 0 (NE GATIVE) ALLERGEN PEANUT <0.35 <0.35 kU/L 05/28/2025 3:29 PM CDT [facility] Comment:<0.35 IS CLASS 0 (NE GATIVE) ALLERGEN SOYBEAN <0.35 <0.35 kU/L 05/28/2025 3:29 PM CDT [facility] Comment:<0.35 IS CLASS 0 (NE GATIVE) ALLERGEN MILK 2.15(H) <0.35 kU/L 05/28/2025 3:29 PM CDT [facility] Comment:0.71 - 3.50 IS CLASS 2 (POSITIVE) ALLERGEN CLAM <0.35 <0.35 kU/L 05/28/2025 3:29 PM CDT [facility] Comment:<0.35 IS CLASS 0 (NE GATIVE) ALLERGEN SHRIMP <0.35 <0.35 kU/L 05/28/2025 3:29 PM CDT [facility] Comment:<0.35 IS CLASS 0 (NE GATIVE) ALLERGEN WALNUT <0.35 <0.35 kU/L 05/28/2025 3:29 PM CDT [facility] Comment:<0.35 IS CLASS 0 (NE GATIVE) ALLERGEN COD <0.35 <0.35 kU/L 05/28/2025 3:29 PM CDT [facility] Comment:<0.35 IS CLASS 0 (NE GATIVE) ALLERGEN SCALLOP <0.35 <0.35 kU/L 05/28/2025 3:29 PM CDT [facility] Comment:<0.35 IS CLASS 0 (NE GATIVE) ALLERGEN WHEAT <0.35 <0.35 kU/L 05/28/2025 3:29 PM CDT [facility] Comment:<0.35 IS CLASS 0 (NE GATIVE) ALLERGEN MAIZE CORN <0.35 <0.35 kU/L 05/28/2025 3:29 PM CDT [facility] Comment:<0.35 IS CLASS 0 (NE GATIVE) 05/26/2025 1:22 PM CDT us Karen [facility] Final Result [facility] [address] [place] [address], [id number] * VITAMIN B-12 (05/26/2025 1:22 PM CDT) VITAMIN B12 S/P/B 319 193 - 986 PG/ML 05/27/2025 10:46 AM CDT [facility] 05/26/2025 1:22 PM CDT us Karen Sequeira [facility] Final Result Performing Organization Address [facility]/ZIP Co de Phone Number [address] [address], * THYROXINE, FREE (FT4) (05/26/2025 1:22 PM CDT) FREE T4 1.45 0.76 - 1.46 NG/DL 05/27/2025 10:46 AM CDT [facility] 05/26/2025 1:22 PM CDT us Karen Sequeira [facility] Final Result Performing Organization Address [facility] Co de Phone Number [address] [phone], * THYROID STIM HORMONE TSH (05/26/2025 1:22 PM CDT) TSH 2.007 0.358 - 3.740 uIU/ML 05/27/2025 10:46 AM CDT [facility] 05/26/2025 1:22 PM CDT us Karen Sequeira [facility] Final Result Performing Organization Address City/[facility] Co de Phone Number [facility] [address] [place] [address], [place] [phone] * (ABNORMAL) VITAMIN D 25 OH (05/26/2025 1:22 PM CDT) VITAMIN D 25 HYDROXY TOTAL S/P/B 12.2(L) 30 - 100 NG/ML 05/27/2025 10:46 AM CDT [facility] Comment: DEFICIENT <20 INSUFFICIENT 20-30 SUFFICIENT 30-100 05/26/2025 1:22 PM CDT Karen Sequeira [facility] Final Result Performing Organization Address [facility] de Phone Number [address] [address], * MAGNESIUM (05/26/2025 1:22 PM CDT) MAGNESIUM 1.8 1.8 - 2.4 MG/DL 05/27/2025 10:46 AM CDT [facility] 05/26/2025 1:22 PM CDT Karen Sequeira [facility] Final Result Performing Organization Address [facility] de Phone Number [address] [phone], * (ABNORMAL) FOLIC ACID SERUM (05/26/2025 11:50 AM CDT) FOLATE 7.6(L) 8.6 - 58.9 NG/ML 05/26/2025 8:28 PM CDT [facility] 05/26/2025 11:5 0 AM CDT Karen Sequeira [facility] Final Result Performing Organization Address [facility] de Phone Number [address] [phone], * OUTSIDE LAB (SCAN ORDER) (05/26/2025) Only the most recent of3 resultswithin the time period is included. 05/26/2025 [facility] Scanned SCANNING Final Resu lt from Last 3 Months Insurance [facility] Care Teams Bacteriology Research Assistant Relationship Specialty Start Date End Date Karen Sequeira FNP [address] [place] [phone] PCP - General Nurse Practitioner Family 10/08/18
--- OUTSIDE RECORDS SUMMARY | 2025-06-20 00:55 | XMS_ITS | Clinical Summary ---
Author Organization [facility] Address [address] [place] [address] Care Team Providers Care Batch Room Technician Name Role Phone Karen Sequeira NP Primary Care Provider [phone] Allergies Active Allergy Reactions Criticality Noted Date [...] the symptoms. Dupixent will be avoided until registered nurse ambulatory evaluation, as it is highly effective for eosinophilic esophagitis, making it important to determine true allergy status for long-term management. The possibility of using a vial and needle injection was discussed, but it contains similar preservatives. Refer to an registered nurse ambulatory at [facility] for evaluation of the suspected allergic reaction to Dupixent. Avoid Dupixent until registered nurse ambulatory evaluation is complete. Assessment & Plan (03/09/2025 [...] the symptoms. Dupixent will be avoided until registered nurse ambulatory evaluation, as it is highly effective for eosinophilic esophagitis, making it important to determine true allergy status for long-term management. The possibility of using a vial and needle injection was discussed, but it contains similar preservatives. Refer to an registered nurse ambulatory at [facility] for evaluation of the suspected allergic reaction to Dupixent. Avoid Dupixent until registered nurse ambulatory evaluation is complete. Gastroesophageal reflux disease 10/28/2024 [...] is still active. Will communicate with patient's pulley worker Dr Huber as regards to if current [...] paperwork for work accommodations. Refer to a technical sales representatives for dietary management. Assessment & Plan (03/09/2025 [...] for dietary consultation. Will refer to an registered nurse ambulatory. If possible, I would like to know [...] eosinophilia. Assessment & Plan (10/28/2024 4:50 PM MCAT TUTOR): The endoscopic and biopsy findings are highly [...] Type Department Care Team Description 06/12/2025 Telephone [facility] Allergy and Immunology [address] [place] [address] Mell Herman, MILLA 06/09/2025 2:30 PM CDT Office Visit [facility] Gastroenterology at [address] [phone] Avril Griffin MD Eosinophilic esophagitis (Primary Dx); Adverse effect of drug, subsequent encounter; Anxiety 06/02/2025 Telephone [facility] Allergy and Immunology [address] [place] [address] [address] [place] [address] Mell Herman, MILLA 05/19/2025 Results Follow-Up [facility] Allergy and Immunology [address] [place] [address] [address] [place] [address] Ann Marie Huber MD CBC with auto differential, IgE, Allergen Rat mix (animal) IgE, Additional followed-up results: 27 05/08/2025 8:00 AM CDT Office Visit [facility] Gastroenterology at [address] [phone] Petar Monteiro NP Eosinophilic esophagitis (Primary Dx); Adverse effect of drug, subsequent encounter; Gastroesophageal reflux disease with esophagitis without hemorrhage 05/06/2025 2:00 PM CDT Lab [facility] at the [address] [phone] Eosinophilic esophagitis; Seasonal allergic rhinitis, unspecified trigger 05/06/2025 1:00 PM CDT Office Visit [facility] Allergy and Immunology [address] [place] [address] [address] [place] [address] Ann Marie Huber MD Eosinophilic esophagitis (Primary Dx); Adverse effect of drug, subsequent encounter 04/28/2025 8:00 AM CDT Office Visit [facility] Allergy and Immunology [address] [facility] [address] [place] [address] Ann Marie Huber MD Seasonal allergic rhinitis, [...] on file Legal Sex Male 1:28 AM MCAT TUTOR Gender Identity Not on file Sexual Orientation [...] Seasonal allergic rhinitis, unspecified trigger ALLERGEN PLANTAIN KYRGYZ (WEED) IGE Routine 05/06/2025 1:30 PM CDT [...] Organization Address City/[facility] Co de Phone Number [facility] [place] [address] * Allergen Mouse mix (animal) IgE (05/06/2025 1:30 PM CDT) Pathologist [facility] Mouse mix IgE <0.10 0.00 - 0.34 kUnits/L Blood 05/06/2025 1:30 PM CDT 05/06/2025 4:51 PM CDT Ann Marie Huber MD LAB BLOOD ORDERABLES Fin al Result Performing Organization Address [facility] de Phone Number [facility] [place] [address] * Differential, auto (05/06/2025 1:30 PM CDT) [facility] Neutrophil abs 4.46 1.50 - 6.50 K/cumm Imm gran abs 0.01 0.00 - 0.10 K/cumm [facility] Lymphocyte abs 1.71 0.80 - 3.30 K/cumm [facility] Monocyte abs 0.44 0.20 - 0.80 K/cumm [facility] Eosinophil abs 0.18 0.00 - 0.50 K/cumm [facility] Basophil abs 0.06 0.00 - 0.10 K/cumm [facility] Neutrophil pct 65.1 % [facility] Comment: Interpretive Data Percent cell count reference ranges are not reported, since discordance with absolute values may lead to misinterpretation of CBC data. Current Interpretive Data was last revised on 2018. Imm gran pct 0.1 % [facility] Comment: Interpretive Data Percent cell count reference ranges are not reported, since discordance with absolute values may lead to misinterpretation of CBC data. Current Interpretive Data was last revised on 2018. Lymphocyte pct 24.9 % [facility] Comment: Interpretive Data Percent cell count reference [...] on 2018. Basophil pct 0.9 % [facility] Comment: Interpretive Data Percent cell count reference ranges are not reported, since discordance with absolute values may lead to misinterpretation of CBC data. Current Interpretive Data was last revised on 2018. Blood 05/06/2025 1:30 PM CDT 05/06/2025 4:51 PM CDT Ann Marie Huber MD LAB BLOOD ORDERABLES Fin al Result Performing Organization Address City/[facility] Co de Phone Number [facility] Department [place] [address] * Allergen Penicillium chrysogenum (mold) IgE (05/06/2025 1:30 PM CDT) Penicillium chrysogenum IgE <0.10 0.00 - 0.34 kUnits/L Blood 05/06/2025 1:30 PM CDT 05/06/2025 4:51 PM CDT Ann Marie Huber MD LAB BLOOD ORDERABLES Fin al Result Performing Organization Address City/[facility]/ZIP Co de Phone Number [facility] Department [place] [address] * Allergen [place] (tree) IgE (05/06/2025 1:30 PM CDT) Pathologist [facility] [place] IgE <0.10 0.00 - 0.34 kUnits/L Blood 05/06/2025 1:30 PM CDT 05/06/2025 4:51 PM CDT Ann Marie Huber MD LAB BLOOD ORDERABLES Fin al Result Performing Organization Address City/[facility] Co de Phone Number [facility] Department [place] [address] * Allergen Mountain juniper (tree) IgE (05/06/2025 1:30 PM CDT) [facility] Zonia junricky IgE <0.10 0.00 - 0.34 kUnits/L Blood 05/06/2025 1:30 PM CDT 05/06/2025 4:51 PM CDT Ann Marie Huber MD LAB BLOOD ORDERABLES Fin al Result Performing Organization Address [facility] de Phone Number [facility] Department [place] [address] * CBC with auto differential (05/06/2025 1:30 PM CDT) [facility] WBC 6.86 3.80 - 9.90 K/cumm Hgb 14.0 13.0 - 17.5 g/dL [facility] Hct 42.3 38.9 - 50.3 % [facility] Plt 246 150 - 400 K/cumm [facility] MPV 10.8 9.1 - 12.3 fL [facility] RBC 4.95 4.30 - 5.80 M/cumm [facility] MCV 85.5 81.3 - 96.4 fL [facility] MCH 28.3 27.1 - 33.3 pg [facility] MCHC 33.1 32.3 - 35.7 g/dL [facility] RDW CV 12.0 11.1 - 14.9 % [facility] RDW SD 37.2 35.7 - 48.1 fL [facility] NRBC abs 0.00 0.00 - 0.01 K/cumm [facility] Blood 05/06/2025 1:30 PM CDT 05/06/2025 4:51 PM CDT Ann Marie Huber MD LAB BLOOD ORDERABLES Fin al Result Performing Organization Address City/[facility] Co de Phone Number [facility] [place] [address] * Allergen Bermuda grass (grass) IgE (05/06/2025 1:30 PM CDT) [place]uda grass IgE <0.10 0.00 - 0.34 kUnits/L Blood 05/06/2025 1:30 PM CDT 05/06/2025 4:51 PM CDT Ann Marie Huber MD LAB BLOOD ORDERABLES Fin al Result Performing Organization Address [facility] [place] [address] * Allergen Plantain hungarian (weed) IgE (05/06/2025 1:30 PM CDT) Plantain hungarian IgE <0.10 0.00 - 0.34 kUnits/L Blood 05/06/2025 1:30 PM CDT 05/06/2025 4:51 PM CDT Ann Marie Huber MD LAB BLOOD ORDERABLES Fin al Result Performing Organization Address City/[facility] Co de Phone Number [facility] [place], [place] [id number] * Allergen Elm (tree) IgE (05/06/2025 1:30 PM CDT) Elm IgE <0.10 0.00 - 0.34 kUnits/L Blood 05/06/2025 1:30 PM CDT 05/06/2025 4:51 PM CDT Ann Marie Huber MD LAB BLOOD ORDERABLES Fin al Result Performing Organization Address [facility] Co de Phone Number [facility] [place] [address] * Allergen Cladosporium herbarum (mold) IgE (05/06/2025 1:30 PM CDT) Cladosporium herbarum IgE <0.10 0.00 - 0.34 kUnits/L Blood 05/06/2025 1:30 PM CDT 05/06/2025 4:51 PM CDT Ann Marie Huber MD LAB BLOOD ORDERABLES Fin al Result Performing Organization Address [facility] de Phone Number [facility] [place] [address] * Allergen Birch common silver (tree) IgE (05/06/2025 1:30 PM CDT) Birch common silver IgE <0.10 0.00 - 0.34 kUnits/L Blood 05/06/2025 1:30 PM CDT 05/06/2025 4:51 PM CDT Ann Marie Huber MD LAB BLOOD ORDERABLES Fin al Result Performing Organization Address [facility] Co de Phone Number [facility] [place] [address] * Allergen Alternaria tenuis (mold) IgE (05/06/2025 1:30 PM CDT) Alternaria tenius IgE <0.10 0.00 - 0.34 kUnits/L Blood 05/06/2025 1:30 PM CDT 05/06/2025 4:51 PM CDT Ann Marie Huber MD LAB BLOOD ORDERABLES Fin al Result Performing Organization Address City/[facility] Co de Phone Number [facility] Department [place] [address] * Allergen Aspergillus fumigatus (mold) IgE (05/06/2025 1:30 PM CDT) Aspergillus fumigatus IgE <0.10 0.00 - 0.34 kUnits/L Blood 05/06/2025 1:30 PM CDT 05/06/2025 4:51 PM CDT Ann Marie Huber MD LAB BLOOD ORDERABLES Fin al Result Performing Organization Address [facility] de Phone Number [facility] Department [place] [address] * Allergen Dermatophagoides pteronyssinus (insect) IgE (05/06/2025 1:30 PM CDT) Dermatophyton pteronyssinus IgE <0.10 0.00 - 0.34 kUnits/L Blood 05/06/2025 1:30 PM CDT 05/06/2025 4:51 PM CDT Ann Marie Huber MD LAB BLOOD ORDERABLES Fin al Result Performing Organization Address City/[facility] Co de Phone Number [facility] Department [place] [address] * Allergen Dermatophagoides farniae (insect) IgE (05/06/2025 1:30 PM CDT) Dermatophyton farinae IgE <0.10 0.00 - 0.34 kUnits/L Blood 05/06/2025 1:30 PM CDT 05/06/2025 4:51 PM CDT Ann Marie Huber MD LAB BLOOD ORDERABLES Fin al Result Performing Organization Address [facility] Co de Phone Number [facility] [place] [address] * Allergen Epithelia/dander dog (animal) IgE (05/06/2025 1:30 PM CDT) Dog dander IgE <0.10 0.00 - 0.34 kUnits/L Blood 05/06/2025 1:30 PM CDT 05/06/2025 4:51 PM CDT Ann Marie Huber MD LAB BLOOD ORDERABLES Fin al Result Performing Organization Address [facility] de Phone Number [facility] [place] [address] * Allergen Cockroach sierra leonean (insect) IgE (05/06/2025 1:30 PM CDT) Cockroach IgE <0.10 0.00 - 0.34 kUnits/L Blood 05/06/2025 1:30 PM CDT 05/06/2025 4:51 PM CDT Ann Marie Huber MD LAB BLOOD ORDERABLES Fin al Result Performing Organization Address [facility] Co de Phone Number [facility] [place] [address] * Allergen Epithelia/dander cat (animal) IgE (05/06/2025 1:30 PM CDT) Cat dander IgE <0.10 0.00 - 0.34 kUnits/L Blood 05/06/2025 1:30 PM CDT 05/06/2025 4:51 PM CDT Ann Marie Huber MD LAB BLOOD ORDERABLES Fin al Result Performing Organization Address [facility] Co de Phone Number [facility] [place] [address] * Allergen Ragweed short/common (weed) IgE (05/06/2025 1:30 PM CDT) Ragweed common IgE <0.10 0.00 - 0.34 kUnits/L Blood 05/06/2025 1:30 PM CDT 05/06/2025 4:51 PM CDT Result [facility] Ann Marie Huber MD LAB BLOOD ORDERABLES Fin al Result Performing Organization Address [facility] de Phone Number [facility] [place] [address] * Allergen Pigweed, rough (weed) IgE (05/06/2025 1:30 PM CDT) Pigweed rough IgE <0.10 0.00 - 0.34 kUnits/L Blood 05/06/2025 1:30 PM CDT 05/06/2025 4:51 PM CDT Result [facility] Ann Marie Huber MD LAB BLOOD ORDERABLES Fin al Result Performing Organization Address [facility] Co de Phone Number [facility] [place] [address] * Allergen Nettle (weed) IgE (05/06/2025 1:30 PM CDT) Nettle IgE <0.10 0.00 - 0.34 kUnits/L Blood 05/06/2025 1:30 PM CDT 05/06/2025 4:51 PM CDT Ann Marie Huber MD LAB BLOOD ORDERABLES Fin al Result Performing Organization Address [facility] Co de Phone Number [facility] [place] [address] * Allergen Lincoln's quarter (weed) IgE (05/06/2025 1:30 PM CDT) Lincoln's quarters IgE <0.10 0.00 - 0.34 kUnits/L Blood 05/06/2025 1:30 PM CDT 05/06/2025 4:51 PM CDT Ann Marie Huber MD LAB BLOOD ORDERABLES Fin al Result Performing Organization Address [facility] Co de Phone Number [facility] Department [place] [address] * Allergen Homero grass (grass) IgE (05/06/2025 1:30 PM CDT) Homero grass IgE <0.10 0.00 - 0.34 kUnits/L Blood 05/06/2025 1:30 PM CDT 05/06/2025 4:51 PM CDT Ann Marie Huber MD LAB BLOOD ORDERABLES Fin al Result Performing Organization Address [facility] Co de Phone Number [facility] [employer] [place], [place] [id number] * Allergen Omer grass (grass) IgE (05/06/2025 1:30 PM CDT) Omer grass IgE <0.10 0.00 - 0.34 kUnits/L Blood 05/06/2025 1:30 PM CDT 05/06/2025 4:51 PM CDT Ann Marie Huber MD LAB BLOOD ORDERABLES Fin al Result Performing Organization Address [facility] Co de Phone Number [facility] Department [place] [address] * Allergen [place] (tree) IgE (05/06/2025 1:30 PM CDT) [place] (tree) IgE <0.10 0.00 - 0.34 kUnits/L Blood 05/06/2025 1:30 PM CDT 05/06/2025 4:51 PM CDT Ann Marie Huber MD LAB BLOOD ORDERABLES Fin al Result Performing Organization Address [facility] Co de Phone Number [facility] Department [place] [address] * Allergen Leonard sierra leonean (tree) IgE (05/06/2025 1:30 PM CDT) Leonard IgE <0.10 0.00 - 0.34 kUnits/L Blood 05/06/2025 1:30 PM CDT 05/06/2025 4:51 PM CDT Ann Marie Huber MD LAB BLOOD ORDERABLES Fin al Result Performing Organization Address [facility] Co de Phone Number [facility] [place] [address] * Allergen Maple/Box elder (tree) IgE (05/06/2025 1:30 PM CDT) Maple/box elder IgE <0.10 0.00 - 0.34 kUnits/L Blood 05/06/2025 1:30 PM CDT 05/06/2025 4:51 PM CDT Ann Marie Huber MD LAB BLOOD ORDERABLES Fin al Result Performing Organization Address [facility] [place] [address] * Allergen [place] red (tree) IgE (05/06/2025 1:30 PM CDT) [place] IgE <0.10 0.00 - 0.34 kUnits/L Blood 05/06/2025 1:30 PM CDT 05/06/2025 4:51 PM CDT Ann Marie Huber MD LAB BLOOD ORDERABLES Fin al Result Performing Organization Address [facility] Phone Number [facility] [place] [address] * IgE (05/06/2025 1:30 PM CDT) IgE 36 <=100 IUnits/mL Blood 05/06/2025 1:30 PM CDT 05/06/2025 4:51 PM CDT Result [facility] Ann Marie Huber MD LAB BLOOD ORDERABLES Fin al Result Performing Organization Address [facility] de Phone Number [facility] [place] [address] * Allergy skin tests allergens, each (04/28/2025 7:48 AM CDT) us Ann Marie Huber MD IN CLINIC/BEDSIDE ORDERA BLES Edited Result - Final from Last 3 Months Insurance [employer] ACCESS CHOICE Advance Directives For more information, please contact: [phone] * Full Code (Latest Code Status on File) Date Activated Date Inactivated Comments 01/26/2025 11:42 AM 01/26/2025 6:06 PM Care Teams Batch Room Technician Relationship Specialty Start Date End Date Karen Sequeira NP [address] [place] [address] PCP - General Nurse Practitioner 09/07/24
--- OUTSIDE RECORDS SUMMARY | 2025-06-20 00:55 | XMS_ITS | Encounter Summary ---
Author Organization [facility] Address [address] [place] [address] Care Team Providers Care Education Program Associate Name Role Phone Karen Sequeira Primary Care Provider [phone] Encounter Details Date Type Department Care Team (Late st Contact Info) Description 10/11/2018 RX Orders Only [facility] Family & Internal Medicine [address] [place] [address] Karen Sequeira FNP [address] [place] [address] Social History Tobacco Use Types [...] AM CDT Legal Sex Male 1:28 PM SPRING SETTER Gender Identity Male 05/26/2025 10:31 AM CDT Sexual Orientation Straight 10/08/2018 6: 21 PM SPRING SETTER documented as of this encounter Plan of Treatment Not on file documented as of this encounter Visit Diagnoses Not on filedocumented in this encounter Additional Health Concerns Infection Onset Date Last Indicated Resolved Time COVID-19 Rule Out 12/27/2021 12/27/2021 12/28/2021 1:24 PM CDT COVID-19 Rule Out 06/07/2025 06/07/2025 06/07/2025 6:52 PM CDT documented as of this encounter Care Teams Education Program Associate Relationship Specialty Start Date End Date Karen Sequeira FNP [address] [place] [address] PCP - General Nurse Practitioner Family 10/08/18 documented as of this encounter
--- NOTE | 2025-06-20 01:10 | ED_ITS ---
HPI - URI/Sore Throat General Chief Complaint: Upper Respiratory Infection Stated Complaint: sore throat Time Seen by Provider: 06/20/25 00:40 Source: patient Mode of arrival: ambulatory Limitations: no limitations History of Present Illness HPI Narrative: Patient is a 25-year-old male who presents the ED with report of throat tightness. Patient has history of eosinophilic esophagitis and anxiety. Has been seen in our ED multiple times over the past few months for similar complaints. Reports having episode of throat tightness today. Was concerned he was having an anaphylactic reaction. States symptoms have improved on their own. He does note that he rescued a cat from outside today and gave it a bath. He denies allergy to cats and states he has a cat of his own. Denies any other new medications/foods/soaps. Denies rash/itching. Related Data Home Medications ?Medication ?Instructions ?Recorded ?Confirmed ?Last Taken ?Type azelastine 137 mcg (0.1 %) nasal intranasal 05/17/25 Unknown History spray Allergies Allergy/AdvReac Type Severity Reaction Status Date / Time dupilumab (From [employer]etics Squared Pen) Allergy Severe Difficulty Verified 06/19/25 21:35 Swallowing Review of Systems Review of Systems: All systems reviewed & are unremarkable except as noted in HPI. All systems reviewed & are unremarkable except as noted in HPI and below PMFSH Past Medical History Medical History Asthma Surgical History Surgical History No pertinent past surgical history Social History Social History Smoking status: Never smoker Substance use type: does not use Exam Narrative: GENERAL: Well appearing, thin, non-toxic, in no acute distress. HEAD: Normocephalic, atraumatic. RESPIRATORY: Airway patent, respirations nonlabored. Clear to auscultation bilaterally, no rales, rhonchi, wheezing. No stridor or distress. Speaking in full sentences. Maintaining secretions. CARDIOVASCULAR: Regular rate and rhythm MUSCULOSKELETAL: Moves all extremities. No gross deformities. SKIN: Warm, dry, normal color. No rash or urticaria. NEURO: A&O X3. Speech clear. Cranial nerves II-XII grossly intact. Steady gait. No ataxic movements. PSYCHIATRIC: Anxious. Normal interaction. Course Vital Signs Vital signs: Vital Signs Temperature 98.9 F 06/19/25 21:29 Pulse Rate 94 06/19/25 21:29 Respiratory Rate 20 06/19/25 21:29 Blood Pressure 110/73 06/19/25 21:29 Pulse Oximetry 98 06/19/25 21:29 Oxygen Delivery Room Air 06/19/25 21:29 Temperature 98.9 F 06/19/25 21:29 Pulse Rate 94 06/19/25 21:29 Respiratory Rate 20 06/19/25 21:29 Blood Pressure 110/73 06/19/25 21:29 Pulse Oximetry 98 06/19/25 22:47 Oxygen Delivery Room Air 06/19/25 22:47 MDM - URI/Sore Throat MDM Narrative Medical decision making narrative: Patient without any evidence of airway compromise, respiratory distress. No evidence of anaphylaxis. Has been in our ED for 3.5 hours without respiratory complaints or concerns. Suspicious for anxiety, EoE causing symptoms. Safe for discharge home. Given return precautions. Discharged in stable condition. Medical Records Attestation: I reviewed the patient's medical records. Lab Data Labs: Lab Results 06/19/25 Range/Units 22:58 Influenza A (RT-PCR) Negative (Negative) Influenza B (RT-PCR) Negative (Negative) RSV (RT-PCR) Negative (Negative) SARS-CoV-2 RNA (RT-PCR) Negative (Negative) Group A Strep (PCR) Not detected (Negative) Discharge Plan Discharge Clinical Impression: Throat fullness, Eosinophilic esophagitis, Anxiety Patient Disposition: Home Condition: Stable Instructions: Antibiotic Form, Esophageal Foreign Body (ED) Additional Instructions: Continue medications as prescribed. Follow-up with your primary care doctor. Return for new or worsening concerns. Patient Language: [place] Prescriptions: No Action epinephrine [EpiPen 2-Eliud] 0.3 mg/0.3 mL auto-injector 0.3 mg IM Q5-15M PRN (Reason: anaphylaxis) Qty: 2 0RF Rx Instructions: do not exceed 3 doses per episode prednisolone 15 mg/5 mL solution 60 mg PO QAM 4 Days Qty: 80 0RF diphenhydramine HCl [Allergy Relief(diphenhydramin)] 12.5 mg/5 mL liquid 25 mg PO Q6H PRN (Reason: allergic reaction) Qty: 473 0RF Pepcid Complete 10-800-165 mg tablet,chewable 1 tablet PO BID PRN (Reason: allergic symptoms) Qty: 20 0RF azelastine 137 mcg (0.1 %) spray,non-aerosol INTRANASAL epinephrine [EpiPen 2-Eliud] 0.3 mg/0.3 mL auto-injector 0.3 ml IM ONCE Qty: 2 0RF Rx Instructions: as a single dose; may repeat once hydroxyzine pamoate 50 mg capsule 50 mg PO TID PRN (Reason: anxiety) Qty: 20 0RF magnesium oxide 500 mg capsule 500 mg PO DAILY 7 Days Qty: 7 0RF potassium chloride 20 mEq/15 mL liquid 20 meq PO BID 7 Days Qty: 210 0RF aluminum-magnesium hydroxide 200-200 mg/5 mL suspension 30 ml PO DAILY 10 Days Qty: 300 0RF potassium chloride 20 mEq/15 mL liquid 20 meq PO BID 7 Days Qty: 210 0RF Follow-up/Referrals: KATE,KEYONNA ROBLEDO [Primary Care Provider] Time of Disposition: 01:14
== END 2025-06-20 01:47 | disposition home or self-care (01) ==
PROVIDERS: Emergency Medicine; Emergency Provider Physician Assistant; PCP Nurse Practitioner Family
DX: R09.89 Other specified symptoms and signs involving the circulatory and respiratory systems (principal); K20.0 Eosinophilic esophagitis; F41.9 Anxiety disorder, unspecified; Z20.822 Contact with and (suspected) exposure to COVID-19
CPT/HCPCS: 87637; 87651; 99283